=== PATIENT | female | born 1955 | race Caucasian/White ===

== ENCOUNTER 2019-05-05 07:22 | Emergency (ER) | payer OTHER ==
[~2019-05-05] VITALS: Ht 170.2 cm; Wt 80.3 kg
--- OUTSIDE RECORDS SUMMARY | ~2019-05-05 | XMS | Encounter Summary ---
Demographics + + + | Address | [address] | | | [place] [address] | + + + | Home Phone | | + + + | Preferred Language | Unknown | + + + | Marital Status | | + + + | Evangelical Affiliation | [id number] | + + + | Race | Unknown | + + + | Ethnic Group | Unknown | + + + Author + + + | Author | [facility] | | | and [place] | + + + | Organization | [facility] | | | and [place] | + + + | Address | Unknown | + + + | Phone | Unavailable | + + + Support + + +---------+ + | Name | Relationship | Address | Phone | + + +---------+ + | Brandon Silva | ECON | Unknown | | + + +---------+ + Care Team Providers + +------+ + | Care Adobe Cq Developer Name | Role | Phone | + +------+ + | Britton Chi MD | PCP | | + +------+ + Reason for Referral Diagnostic/Screening (Routine) +--------+--------+ + + + + | Status | Reason | Specialty | Diagnoses / | Referred By | Referred To | | | | | Procedures | Contact | Contact | +--------+--------+ + + + + | Closed | | Radiology | Diagnoses | [facility] | [address] | | | | | Malignant | Thanh C, DO | [address] | | | | | neoplasm of | [address] | [place], | | | | | upper-outer | [address] | [place] [address] | | | | | quadrant of | [place], | Phone: | | | | | right breast | [place] [address] | [phone] | | | | | in female, | Phone: | Fax: | | | | | estrogen | [phone] | [phone] | | | | | receptor | Fax: | | | | | | positive | [phone] | | | | | | (HCC) | | | | | | | Procedures | | | | | | | CT Treatment | | | | | | | Plan | | | | | | | Complex | | | +--------+--------+ + + + + Reason for Visit Evaluate & Treat (Routine) +--------+--------+ + + + + | Status | Reason | Specialty | Diagnoses / | Referred By | Referred To | | | | | Procedures | Contact | Contact | +--------+--------+ + + + + | Closed | | Radiation | Diagnoses | [facility] | Thanh Espinoza | | | | Oncology | Malignant | Radiation | C, DO [address] | | | | | neoplasm of | Oncology | [address] | | | | | upper-outer | Clinic [address] | [place], | | | | | quadrant of | [address] | [place] [address] | | | | | female | [place], | Phone: | | | | | breast | [place] | [phone] | | | | | Procedures | [address] | Fax: | | | | | [address] | Phone: | [phone] | | | | | | [phone] | | | | | | | Fax: | | | | | | | [phone] | | +--------+--------+ + + + + Encounter Details +--------+ + + + + | Date | Type | Department | Care Team | Description | +--------+ + + + + | 01/29/ | Hospital | [facility] | Thanh Espinoza DO | Malignant neoplasm | | 2018 | Encounter | [facility] | [address] | of upper-outer | | | | ONCOLOGY CLINIC [address] | [place], [place] | quadrant of right | | | | [address] [place] | [address] | breast in female, | | | | [place] [address] | | estrogen receptor | | | | [phone] | | positive (HCC) | | | | | | (Primary Dx) | +--------+ + + + + Social History + +-------+ +--------+------+ | Tobacco Use | Types | Packs/Day | Years | Date | | | | | Used | | + +-------+ +--------+------+ | Never Smoker | | | | | + +-------+ +--------+------+ + +---+---+---+ | Smokeless Tobacco: | | | | | Never Used | | | | + +---+---+---+ + + +---------+ + | Alcohol Use | Drinks/Week | oz/Week | Comments | + + +---------+ + | Yes | | | 2-3 drinks/day | + + +---------+ + + + + | Sex Assigned at | Date Recorded | | | | + + + | Not on file | | + + + + + + + | Job Start Date | Occupation | Industry | + + + + | Not on file | Not on file | Not on file | + + + + + + + + | Travel History | Travel Start | Travel End | + + + + + + | No recent travel history available. | + + documented as of this encounter Last Filed Vital Signs + + + + + | Vital Sign | Reading | Time Taken | Comments | + + + + + | Blood Pressure | 159/90 | 01/29/2018 10:31 AM | | | | | PDT | | + + + + + | Pulse | 77 | 01/29/2018 10:31 AM | | | | | PDT | | + + + + + | Temperature | 36.6 C (97.9 F) | 01/29/2018 10:31 AM | | | | | PDT | | + + + + + | Respiratory Rate | 16 | 01/29/2018 10:31 AM | | | | | PDT | | + + + + + | Oxygen Saturation | 97% | 01/29/2018 10:31 AM | | | | | PDT | | + + + + + | Inhaled Oxygen | - | - | | | Concentration | | | | + + + + + | Weight | 85.1 kg (187 lb 9.8 | 01/29/2018 10:31 AM | | | | oz) | PDT | | + + + + + | Height | - | - | | + + + + + | Body Mass Index | 30.28 | 01/18/2018 3:12 PM | | | | | PDT | | + + + + + documented in this encounter Medications at Time of Discharge + + + +---------+ + + | Medication | Sig | Dispensed | Refills | Start | End Date | | | | | | Date | | + + + +---------+ + + | atorvaSTATin | Take 40 mg by mouth | | 0 | | | | (LIPITOR) 40 mg | nightly. | | | | | | tablet | | | | | | + + + +---------+ + + | cyclobenzaprine | Take 1 tablet by | | 0 | 10/20/19 | | | (FLEXERIL) 5 MG | mouth every 6 hours | | | 18 | | | tablet | as needed. | | | | | + + + +---------+ + + | ibuprofen | every 8 hours as | | 0 | 01/02/20 | | | (ADVIL,MOTRIN) 600 | needed. | | | 18 | | | MG tablet | | | | | | + + + +---------+ + + | insulin aspart | Inject under the | | 0 | | | | (NOVOLOG FLEXPEN) | skin 3 times daily | | | | | | 100 units/mL | (before meals). Per | | | | | | injection pen | sliding scale | | | | | + + + +---------+ + + | insulin glargine | Inject under the | | 0 | | | | (LANTUS SOLOSTAR) | skin 2 times daily. | | | | | | 100 units/mL | 30 units AM, 10 | | | | | | injection (pen) | units PM | | | | | + + + +---------+ + + | LORazepam (ATIVAN) | Take 1 mg by mouth | | 0 | | | | 1 mg tablet | Daily as needed for | | | | | | | Anxiety. | | | | | + + + +---------+ + + | Multiple | Take 1 tablet by | | 0 | | | | Vitamins-Minerals | mouth Daily. | | | | | | (MULTIVITAMIN ADULT) | | | | | | | TABS | | | | | | + + + +---------+ + + | gabapentin | take 1 capsule by | | 0 | 01/19/20 | | | (NEURONTIN) 300 mg | mouth AT NIGHT for 3 | | | 18 | 9 | | capsule | days then take 2 | | | | | | | capsules ... (REFER | | | | | | | TO PRESCRIPTION | | | | | | | NOTES). | | | | | + + + +---------+ + + | gabapentin | 1 cap at night x3 | | 0 | 01/19/20 | | | (NEURONTIN) 300 mg | days, then 2 caps at | | | 18 | 9 | | capsule | night x4 days, then | | | | | | | continue taking 1 | | | | | | | cap every morning | | | | | | | and 2 caps at night. | | | | | + + + +---------+ + + | GABAPENTIN PO | Take 1 capsule by | | 0 | | | | | mouth 2 times daily. | | | | 8 | | | 1 capsule in the AM | | | | | | | and 2 capsules | | | | | | | before bed. | | | | | + + + +---------+ + + | lisinopril | Take 40 mg by mouth | | 0 | 10/08/19 | | | (PRINIVIL, ZESTRIL) | Daily. | | | 18 | 9 | | 20 mg tablet | | | | | | + + + +---------+ + + | lisinopril | | | 0 | 01/21/20 | | | (PRINIVIL,ZESTRIL) | | | | 18 | 8 | | 40 MG tablet | | | | | | + + + +---------+ + + | venlafaxine | Take 1 capsule by | | 0 | 10/12/19 | | | (EFFEXOR XR) 150 mg | mouth Daily. | | | 18 | 9 | | 24 hr capsule | | | | | | + + + +---------+ + + documented as of this encounter Progress Notes Thanh Espinoza DO - 01/29/2018 10:35 AM PDT Follow-up Clinic Note Chief Complaint/ICD10 ICD-10-CM ICD-9-CM 1. Malignant neoplasm of upper-outer quadrant of right breast in female, estrogen receptor positive (HCC) C50.411 174.4 Z17.0 V86.0 Oncology History: Lobular breast cancer, left (HCC) 09/23/2012 Biopsy Core biopsy demonstrating moderately differentiated infiltrating lobular carcinoma; low-g rade, ER/[place] positive, HER-2/zaid negative 09/23/2012 Initial Diagnosis Lobular breast cancer, right (HCC) 10/15/2012 Surgery Surgeon: Felipe Trevino M.D. Surgery indicated: Lumpectomy with sentinel lymph node biopsy Final pathology details: 8 mm invasive lobular carcinoma, grade 1, negative surgical margin s to 1 mm, negative LVSI, LCIS involving 10% of specimen, ER/[place] positive, HER-2/zaid negative by FISH. 11/25/2012 - 01/09/2013 Radiation Therapy Total dose: 6000 cGy Breast irradiation to 5000 cGy delivered in 25 fractions Lumpectomy cavity boost 1000 cGy delivered in 5 fractions 01/09/2013 - 08/14/2014 Hormone Therapy Anastrozole 1 mg Discontinued due to side effects Malignant neoplasm of upper-outer quadrant of right breast in female, estrogen receptor pos itive (HCC) 10/22/2017 Imaging Bilateral screening mammogram with tomosynthesis demonstrating abnormality in the right u pper-outer quadrant 10/30/2017 Imaging Diagnostic right mammogram with tomosynthesis confirms abnormality in the right breast pr ompting stereotactic biopsy 11/21/2017 Biopsy STEREOTACTIC GUIDED VACUUM ASSISTED RIGHT BREAST CORE BIOPSY Right breast stereo calcs: - Infiltrating ductal carcinoma with the following features: - Predicted [place] histologic score: - Tubule formation score: 3/3. - Nuclear grade score: 2/3. - Mitotic score: 1/3. - Tumor grade: II/III (total score 6/9). - Longest confluent tumor focus: 5.5 mm. - Lymph-Vascular invasion: Absent. - Associated in situ component: Present, low grade DCIS, solid type, without cent ral necrosis. - Microcalcifications present in in situ carcinoma. - Estrogen receptor: Positive. - 99% of tumor cells with strong average intensity. - Progesterone receptor: Positive. - 45% of tumor cells with moderate average intensity. - Ki-67 proliferation index: 12%. - HER2 by FISH: 11/21/2017 Initial Diagnosis Malignant neoplasm of upper-outer quadrant of right breast in female, estrogen receptor p ositive (HCC) 01/01/2018 Surgery Surgeon: Uriel Surgery indicated: Lumpectomy with sentinel lymph node biopsy Final pathology details: Invasive ductal adenocarcinoma measuring 0.6 cm intermediate grade with associated low-grade DCIS measuring 1.9 cm. 0/2 lymph nodes positive for aristeo metast atic disease. 1/1 node positive for isolated tumor cells totaling 25 cells less than 0.1 mm in size on immunostaining pT1b.pN0(i+) History of Present Illness: Melodie Silva was seen today in follow-up to discuss the role of radiotherapeutic management in her newly diagnosed right-sided breast cancer. She is a pleasant 62-year-old woman who was previously diagnosed with moderately differentiated infiltrating lobular carci nomainvolving the left breast with overall stage IA (T1b, N0, M0), ER/[place] positive disease that was treated with adjuvant whole breast radiotherapy. She previously discontinued anas trozole in early 2014 due to secondary side effects. At this time, she continues to have good range of motion of her left arm. She maintains an active lifestyle and exercising regu larly. She underwent routine screening bilateral mammogram performed on October 22, 2017 at which time I performed a breast examination during routine follow-up with negative findings and no tk dence of axillary lymphadenopathy. The final report confirms no new findings within the lef t breast; however, a new cluster of microcalcifications was found in the right breast in the lateral aspect at mid depth prompting a diagnostic mammogram performed October 30, 2017. This study confirmed interval development of a small cluster of round and punctate microcalcifica tions in the upper outer quadrant of the right breast at the 9:30 position. On November 21 8 she underwent a stereotactic guided vacuum-assisted right breast core biopsy confirming an intermediate grade ductal carcinoma that was strongly ER positive moderately [place] positive, H ER-2/zaid negative with negative LVSI and associated low-grade DCIS. Ki-67 was 12%. The res ults were discussed with her by Dr. Dye who initiated genetic testing that was found n egative. on January 01, 2018 she underwent lumpectomy with sentinel lymph node biopsy confirm ing a 6 mm intermediate grade invasive ductal carcinoma with associated low-grade DCIS measu ring 1.9 cm. 3 lymph nodes were sampled with one harboring isolated tumor cells totaling 25 with a measurement of 0.1 mm giving her an overall stage of Ia(pT1b,pN0(i+),cM0) breast can cer. Postoperatively, she has done well and presents today to discuss adjuvant radiation tr eatment options. ROS REVIEW OF SYSTEMS Constitutional: Denies fatigue. Denies high fevers, shaking chills, anorexia, nausea, vomit ing, weight loss, or night sweats. Appetite without changes. Ear, Nose, Mouth, Throat: Denies odynophagia, dysphagia, or tinnitus. Cardiovascular: Denies shortness of breath, dyspnea on exertion, chest pain, palpitations o r orthopnea. Respiratory: Reports mild intermittent cough, contributes this to the poor air quality. Den ies hemoptysis or sputum production. Gastrointestinal: Denies abdominal pain, constipation, diarrhea, melena, or bright red bloo d per rectum. Genitourinary: Denies hematuria or dysuria. Musculoskeletal: Reports back pain continues, unchanged. Neurologic: Reports numbness and tingling in bilateral feet, has worsened since last visit. Denies headache or visual changes. Endocrine: Denies peripheral edema or heat/cold intolerance. Hematologic: Denies spontaneous bruising or bleeding. Integumentary: Denies rash, wounds or other skin concerns. Pain: Denies pain. Note: Here for follow up s/p lumpectomy. Here with Ryder today. Reports "have a weird bone bump on left wrist, onset 6 weeks ago, states that it hurts hand with flexion and extension. My chart: Active Current Outpatient Prescriptions Medication Sig Dispense Refill atorvaSTATin (LIPITOR) 40 mg tablet Take 40 mg by mouth nightly. cyclobenzaprine (FLEXERIL) 5 MG tablet Take 1 tablet by mouth every 6 hours as needed. 0 GABAPENTIN PO Take 1 capsule by mouth 2 times daily. 1 capsule in the AM and 2 capsules before bed. insulin aspart (NOVOLOG FLEXPEN) 100 units/mL injection pen Inject under the skin 3 ti mes daily (before meals). Per sliding scale insulin glargine (LANTUS SOLOSTAR) 100 units/mL injection (pen) Inject under the skin 2 times daily. 28 units AM, 8 units PM lisinopril (PRINIVIL, ZESTRIL) 20 mg tablet Take 40 mg by mouth Daily. 0 LORazepam (ATIVAN) 1 mg tablet Take 1 mg by mouth Daily as needed for Anxiety. Multiple Vitamins-Minerals (MULTIVITAMIN ADULT) TABS Take 1 tablet by mouth Daily. venlafaxine (EFFEXOR XR) 150 mg 24 hr capsule Take 1 capsule by mouth Daily. 0 No current facility-administered medications for this encounter. Allergies Allergen Reactions Sulfa Antibiotics Rash Intolerance No active intolerances/contraindications BP 159/90 | Pulse 77 | Temp 36.6 C (97.9 F) (Temporal) | Resp 16 | Wt 85.1 kg (187 lb 9.8 oz) | SpO2 97% | BMI 29.45 kg/m Physical Exam Constitutional: She is oriented to person, place, and time. Vital signs are normal. She jorge l ears well-developed and well-nourished. HENT: Head: Normocephalic and atraumatic. Mouth/Throat: Mucous membranes are normal. Eyes: Conjunctivae and EOM are normal. No scleral icterus. Neck: Trachea normal. Neck supple. Cardiovascular: Normal rate, regular rhythm and intact distal pulses. Pulmonary/Chest: Effort normal and breath sounds normal. Musculoskeletal: Normal range of motion. Lymphadenopathy: She has no cervical adenopathy. Neurological: She is alert and oriented to person, place, and time. She has normal strength . No cranial nerve deficit. Skin: Skin is warm, dry and intact. Psychiatric: She has a normal mood and affect. Her speech is normal and behavior is normal. Judgment and thought content normal. Cognition and memory are normal. Labs: No results found for: WBC, HGB, HCT, MCV, LABPLAT, PLT No results found for: CREA, BUN, NA, K, CL, CO2 No results found for: ALT, AST, GGT, ALKPHOS, BILITOT Staging (if applicable): Cancer Staging Lobular breast cancer, left (HCC) Staging form: Breast, AJCC V7 - Clinical stage from 10/15/2012: Stage IA (T1b, N0, M0) - Signed by Thanh Espinoza DO on 10/23 Staged by: Managing physician Diagnostic confirmation: Positive histology Specimen type: Excision Histopathologic type: Lobular carcinoma, NOS Laterality: Left Tumor size (mm): 8 Method of lymph node assessment: [place] lymph node biopsy Method of detection of distant metastases: Clinical Tumor grade (Jolfjs-Lkyvt-Qfvcazjugx system): G1 Lymph-vascular invasion (LVI): LVI not present (absent)/not identified Residual tumor (R): R0 - None Paget's disease: Not assessed Estrogen receptor status: Positive Estrogen receptor test method: IHC Percentage of positive estrogen receptors (%): 100 Progesterone receptor test method: IHC Percentage of positive progesterone receptors (%): 10 HER2 status: Negative Method of assessment of HER2 status: FISH Stage used in treatment planning: Yes National guidelines used in treatment planning: Yes Type of national guideline used in treatment planning: NCCN Malignant neoplasm of upper-outer quadrant of right breast in female, estrogen receptor pos itive (HCC) Staging form: Breast, AJCC 8th Edition - Pathologic stage from 01/29/2018: Stage IA (pT1b, pN0(i+), cM0, G2, ER: Positive, [place]: Posi tive, HER2: Negative) - Signed by Thanh Espinoza DO on 01/30/2018 Neoadjuvant therapy: No Laterality: Right Tumor size (mm): 6 Nuclear grade: G2 Multigene prognostic tests performed: Other Mitotic count score: Score 1 Percentage of tumor with tubule formation: 0 Tubule formation score: Score 3 G[place]ge[place]-Hibfw-Aqokyoyvhb score: 6 Histologic grading system: 3 grade system Lymph-vascular invasion (LVI): LVI not present (absent)/not identified Histopathologic type: Ductal adenocarcinoma Diagnostic confirmation: Positive histology Specimen type: Excision Staged by: Managing physician Percentage of positive estrogen receptors (%): 95 Percentage of positive progesterone receptors (%): 3.9 Ki-67 (%): 7.2 Stage used in treatment planning: Yes National guidelines used in treatment planning: Yes Type of national guideline used in treatment planning: NCCN Impression with Recommendation/Plan: 1. Malignant neoplasm of upper-outer quadrant of right breast in female, estrogen receptor positive (HCC) - CT Treatment Plan Complex Melodie Silva was seen today to discuss adjuvant radiotherapy after developing a c ontralateral breast cancer approximately 5 years after a left sided invasive lobular that wa s treated by lumpectomy, adjuvant external beam radiotherapy with conventional fractionation and endocrine therapy that was discontinued due to intolerance. Upon diagnosis, genetic te sting was negative for mutation. Final path was reviewed. Today we discussed the role of a djuvant whole breast irradiation using a hypo-fractionated technique with boost followed by endocrine therapy as directed by her medical oncologist Dr. Velez upon completion of r adiotherapy. A hypo-fractionated course of whole breast radiotherapy delivered in 16 fracti ons following the [place] protocol followed by a lumpectomy boost will be used with a field i n field dosimetry technique. A high tangent approach will be used to include additional axi lla given the isolated tumor cells found upon final pathology. Acute and late side effects were discussed and reviewed from her prior consultation and she verbally agrees to proceed t o simulation followed by treatment. She was encouraged call our clinic with any further que stions or concerns moving forward. Thank you for allowing me to participate in the care of Melodie. If you should have any q uestions regarding this evaluation, please do not hesitate to contact me. Thanh Espinoza D.O., JUSTIN Radiation Oncologist Department of Radiation Oncology [facility] This note was transcribed using [employer] speech recognition software. As a result, there may be unintended for medical and/or spelling errors. Every attempt is made to correct dictati on. If there are any questions or errors please contact our office. documented in this enco unter Plan of Treatment +--------+ + + + + | Date | Type | Specialty | Care Team | Description | +--------+ + + + + | 01/11/ | Hospital | Radiology | Claudia Mccracken | | | 2020 | Encounter | | MD [address] | | | | | | [place], [place] | | | | | | [id number] | | | | | | | | +--------+ + + + + | 01/11/ | Appointment | Radiation Oncology | Thanh Espinoza DO | | | 2019 | | | [address] | | | | | | [place] | | | | | | [address] | | | | | | | | +--------+ + + + + documented as of this encounter Procedures + +--------+ + + + | Procedure Name | Priori | Date/Time | Associated Diagnosis | Comments | | | ty | | | | + +--------+ + + + | CT TREATMENT PLAN | Routin | 01/30/2018 | Malignant neoplasm | Results for this | | COMPLEX | e | 1:57 PM | of upper-outer | procedure are in the | | | | PDT | quadrant of right | results section. | | | | | breast in female, | | | | | | estrogen receptor | | | | | | positive (HCC) | | + +--------+ + + + documented in this encounter Results CT Treatment Plan Complex (01/30/2018 1:57 PM PDT) + + | Specimen | + + | | + + + + + | Narrative | Performed At | + + + | This exam has been auto-finalized and the interpretation may exist | [facility] | | elsewhere in the chart. | | + + + + +---------+ + + | Performing | Address | City/State/Zipcode | Phone Number | | Organization | | | | + +---------+ + + | [facility] | | | | + +---------+ + + documented in this encounter Visit Diagnoses + + | Diagnosis | + + | Malignant neoplasm of upper-outer quadrant of right breast in female, estrogen | | receptor positive (HCC) - Primary | + + documented in this encounter
--- OUTSIDE RECORDS SUMMARY | ~2019-05-05 | XMS | Encounter Summary ---
Demographics + + + | Address | [address] | | | [place] [address] | + + + | Home Phone | | + + + | Preferred Language | Unknown | + + + | Marital Status | | + + + | Yazidism Affiliation | 1076 | + + + | Race | Unknown | + + + | Ethnic Group | Unknown | + + + Author + + + | Author | [facility] | | | and [place] | + + + | Organization | [facility] | | | and [...] Team Providers + +------+ + | Care Sugar Cane Grower Name | Role | Phone | + +------+ + | Britton Chi MD | PCP | | + +------+ + Reason for Visit + + + | Reason | Comments | + + + | Under Treatment | | + + + Encounter Details +--------+ + + + + | Date | Type | Department | Care Team | Description | +--------+ + + + + | 02/07/ | Hospital | [facility] | Thanh Espinoza DO | Malignant neoplasm | | 2018 | Encounter | MED CTR RADIATION | [address] | of upper-outer | | | | ONCOLOGY CLINIC [address] | [place], [place] | quadrant of right | | | | [address] [place] | [address] | breast in female, | | | | [place] [address] | | estrogen receptor | | | | [phone] | | positive (HCC) | | | [...] + + + | Blood Pressure | 184/93 | 02/07/2018 10:50 AM | | | | | PDT | | + + + + + | Pulse | 80 | 02/07/2018 10:50 AM | | | | | PDT | | + + + + + | Temperature | 36.3 C (97.4 F) | 02/07/2018 10:50 AM | | | | | PDT | | + + + + + | Respiratory Rate | 16 | 02/07/2018 10:50 AM | | | | | PDT | | + + + + + | Oxygen Saturation | 99% | 02/07/2018 10:50 AM | | | | | PDT | | + + + + + | Inhaled Oxygen | - | - | | | Concentration | | | | + + + + + | Weight | 85 kg (187 lb 6.3 | 02/07/2018 10:50 AM | | | | oz) | PDT | | + + + + + | Height | - | - | | + + + + + | Body Mass Index | 30.25 | 01/18/2018 3:12 PM | | | [...] encounter Progress Notes Thanh Espinoza DO - 02/07/2018 10:54 AM PDT 02/07/18 1054 General Disorders and Administration Site Conditions Fatigue 0 - Grade 0 Performance Status Karnofsky Performance Score 80% Radiation Oncology Weekly On Treatment Note Diagnosis: ICD-10-CM ICD-9-CM 1. Malignant neoplasm of upper-outer quadrant of right breast in female, estrogen receptor positive (HCC) C50.411 174.4 Z17.0 V86.0 Reason for visit: On treatment evaluation Radiation technical factors: Dose Delivered Dose Planned Fractions Delivered 532 cGy 4256 cGy 07/27 Images were reviewed this week and results of the review have been recorded in ARIA. Corre ctions were applied as necessary. Allergies Allergen Reactions Sulfa Antibiotics Rash Current Outpatient Prescriptions on File Prior to Encounter Medication Sig Dispense Refill atorvaSTATin (LIPITOR) 40 [...] mouth Daily. 0 No current facility-administered medications on file prior to encounter. 02/07/18 1054 General Disorders and Administration Site Conditions Fatigue 0 - Grade 0 Performance Status Karnofsky Performance Score 80% Pain assessment: Location: NA Pain Level: PAIN PROG PAIN LEVEL: 0 Wt Readings from Last 3 Encounters: 02/07/18 85 kg (187 lb 6.3 oz) 01/29/18 85.1 kg (187 lb 9.8 oz) 12/06/17 81.6 kg (179 lb 14.3 oz) Vitals: 02/07/18 1050 BP: (!) 184/93 Pulse: 80 Resp: 16 Temp: 36.3 C (97.4 F) SpO2: 99% Weight: 85 kg (187 lb 6.3 oz) Physical Exam Constitutional: She is oriented to person, place, and time. Vital signs are normal. She jorge l ears well-developed and well-nourished. HENT: Head: Normocephalic and atraumatic. Eyes: Conjunctivae and EOM are normal. No scleral icterus. Neck: Trachea normal. Neck supple. Cardiovascular: Normal rate, regular rhythm and intact distal pulses. Pulmonary/Chest: Effort normal and breath sounds normal. Musculoskeletal: Normal range of motion. Neurological: She is alert and oriented to person, place, and time. She has normal strength . No cranial nerve deficit. Skin: Skin is warm, dry and intact. Psychiatric: She has a normal mood and affect. Her speech is normal and behavior is normal. Physician Assessment: New start this week. Tolerating treatment well. Toxicities reviewed. Pathology reviewed with patient. She will continue treatment as planned. Toxicities reviewed in nursing note. Disposition: Continue radiation treatment as planned. Thanh Espinoza DO Radiation Oncologist documented in this enco unter Plan of Treatment +--------+ + + + + | Date | Type | Specialty | Care Team | Description | +--------+ + + + + | 01/11/ | Hospital | Radiology | Claudia Mccracken | | | 2019 | Encounter | | MD Jaky [address] | | | | | | [address] [place] | | | | | | [address] | | | | | | | | +--------+ + + + + | 01/11/ | Appointment | Radiation Oncology | Thanh Espinoza DO | | | 2019 | | | [address] | | | | | | [place] | | | | | | [address] | | | | | | | | +--------+ + + + + documented as of this encounter Visit Diagnoses + + | Diagnosis | + + | Malignant neoplasm of upper-outer quadrant of right breast in female, estrogen | | receptor positive (HCC) - Primary | + + documented in this encounter"
--- OUTSIDE RECORDS SUMMARY | ~2019-05-05 | XMS | Encounter Summary ---
Demographics + + + | Address | [address] | | | [place] [address] | + + + | Home Phone | | + + + | Preferred Language | Unknown | + + + | Marital Status | | + + + | Evangelical Affiliation | 1076 | + + + | Race | Unknown | + + + | Ethnic Group | Unknown | + + + Author + + + | Author | [facility] | | | and [place] | + + + | Organization | [facility] | | | and [...] Team Providers + +------+ + | Care Motor Equipment Commanding Officer Name | Role | Phone | + +------+ + | Britton Chi MD | PCP | | + +------+ + Encounter Details +--------+ + + + + | Date | Type | Department | Care Team | Description | +--------+ + + + + | 12/20/ | Hospital | C GENERIC IP | Conversion | Pain | | 2018 | Encounter | CONVERSION DEP [address] | Transaction, | | | | | [address] | Provider Unknown | | | | | [place] | [phone] | | | | | [address] | | | | | | [phone] | | | +--------+ + + + + Social [...] + + documented as of this encounter Medications at Time of Discharge [...] + + + +---------+ + + | aspirin 325 mg EC | Take 325 mg by mouth | | 0 | | | | tablet | Daily. | | | | 8 | + + + +---------+ + + [...] + + documented as of this encounter Plan of Treatment +--------+ + + + + | Date | Type | Specialty | Care Team | Description | +--------+ + + + + | 01/11/ | Hospital | Radiology | Claudia Mccracken | | | 2019 | Encounter | | MD [address] | | | | | | [place] | | | | | | [address] | | | | | | | | +--------+ + + + + | 01/11/ | Appointment | Radiation Oncology | Thanh Espionza DO | | | 2019 | | | [address] | | | | | | [place] | | | | | | [address] | | | | | | | | +--------+ + + + + documented as of this encounter Procedures + +--------+ + + + | Procedure Name | Priori | Date/Time | Associated Diagnosis | Comments | | | ty | | | | + +--------+ + + + | XR LUMBAR SPINE 4 + | Routin | 09/07/2017 | | Results for this | | VW | e | 1:35 AM | | procedure are in the | | | | PDT | | results section. | + +--------+ + + + documented in this encounter Results XR Lumbar Spine 4 + Vw (09/07/2017 1:35 AM PDT) + + | Specimen | + + | | + + + + + | Narrative | Performed At | + + + | This is a non-reportable procedure without a radiologist report and | | | is used for image storage only | | + + + + + | Procedure Note | + + | Tom Walker - 01/22/2019 8:23 AM PDT This is a non-reportable procedure | | without a radiologist report and isused for image storage only | + + documented in this encounter Visit Diagnoses + + | Diagnosis | + + | Pain Generalized pain | + + documented in this encounter"
--- OUTSIDE RECORDS SUMMARY | ~2019-05-05 | XMS | Encounter Summary ---
Demographics + + + | Address | [address] | | | [place] [address] | + + + | Home Phone | | + + + | Preferred Language | Unknown | + + + | Marital Status | | + + + | Mormonism Affiliation | 1076 | + + + | Race | Unknown | + + + | Ethnic Group | Unknown | + + + Author + + + | Author | [facility] | | | and [place] | + + + | Organization | [facility] | | | and [...] Team Providers + +------+ + | Care Investor Relations Specialist Name | Role | Phone | + +------+ + | Kiet Dunlap MD | PCP | | + +------+ + Encounter Details +--------+ + + + + | Date | Type | Department | Care Team | Description | +--------+ + + + + | 06/22/ | Nurse Only | [facility] | Thanh Espinoza DO | | | 2014 | | MED CTR RADIATION | [address] | | | | | ONCOLOGY [address] | [place], [place] | | | | | [place], | [address] | | | | | [place] [address] | | | | | | [phone] | | | +--------+ + + + + Social History + +-------+ +--------+------+ | Tobacco Use | Types | Packs/Day | Years | Date | | | | | Used | | + +-------+ +--------+------+ | Never Assessed | | | | | + +-------+ +--------+------+ + + + | Sex Assigned at [...] [place] | | | | | | [address] | | | | | | | | +--------+ + + + + | 01/11/ | Appointment | Radiation Oncology | Thanh Espinoza DO | | 2019 | | | [address] | | | | | | [place] | | | | | | [address] | | | | | | | | +--------+ + + + + documented as of this encounter Visit Diagnoses Not on filedocumented in this encounter"
--- OUTSIDE RECORDS SUMMARY | ~2019-05-05 | XMS | Encounter Summary ---
Demographics + + + | Address | [address] | | | [place] [address] | + + + | Home Phone | | + + + | Preferred Language | Unknown | + + + | Marital Status | | + + + | Latter-Day Affiliation | 1076 | + + + | Race | Unknown | + + + | Ethnic Group | Unknown | + + + Author + + + | Author | [facility] | | | and [place] | + + + | Organization | [facility] | | | [...] Team Providers + +------+ + | Care Magazine Filler Name | Role | Phone | + [...] + + | 02/07/ | Hospital | [facility] | Thanh Espinoza DO | Malignant neoplasm | | 2018 | Encounter | MED CTR RADIATION | [address] | of upper-outer | | | | ONCOLOGY CLINIC [address] | [place], [place] | quadrant of right | | | | [address] [place] | [address] | breast in female, | | | | [place] [address] | | estrogen receptor | | | | [phone] | | positive (HCC) | | | [...] [place] | | | | | | [address] | | | | | | | | +--------+ + + + + | 01/11/ | Appointment | Radiation Oncology | Thanh Espinoza DO | | | 2019 | | | [address] | | | | | | [place] | | | | | | [address] | | | | | | | | +--------+ + + + + documented as of this encounter Visit Diagnoses + + | Diagnosis | + + | Malignant neoplasm of upper-outer quadrant of right breast in female, estrogen | | receptor positive (HCC) - Primary | + + documented in this encounter"
--- OUTSIDE RECORDS SUMMARY | ~2019-05-05 | XMS | Encounter Summary ---
Demographics + + + | Address | [address] | | | [place] [address] | + + + | Home Phone | | + + + | Preferred Language | Unknown | + + + | Marital Status | | + + + | Oriental Orthodox Affiliation | 1076 | + + + [...] Team Providers + +------+ + | Care Die Holder Name | Role | Phone | + +------+ + | Britton Chi MD | PCP | | + +------+ + Reason for Visit Evaluate & Treat (Routine) +--------+ + + + + + | Status | Reason | Specialty | Diagnoses / | Referred By | Referred To | | | | | Procedures | Contact | Contact | +--------+ + + + + + | Closed | Specialty | Oncology | Diagnoses | [facility] | | | | Services | | Malignant | Claudia M, | Agustin, | | | Required | | neoplasm of | [address] | Dimas Mckay MD | | | | | right breast | [address] | [address] | | | | | in female, | [place], | [place] | | | | | estrogen | [place] [address] | [place], [place] | | | | | receptor | Phone: | [phone] Phone: | | | | | negative, | [phone] | [phone] | | | | | unspecified | Fax: | Fax: | | | | | site of | [phone] | [phone] | | | | | breast (HCC) | | | +--------+ + + + + + Encounter Details +--------+ + + + + | Date | Type | Department | Care Team | Description | +--------+ + + + + | 12/06/ | Hospital | [facility] | Agustin, | Lobular breast | | 2018 | Encounter | MED CTR MEDICAL | Dimas Mckay MD [address] | cancer, left (HCC); | | | | ONCOLOGY CLINIC [address] | [address] [place] | Malignant neoplasm | | | | [address] [place] | [place] [address] | of upper-outer | | | | [place] [address] | [phone] | quadrant of right | | | | [phone] | | breast in female, | | | | | | estrogen receptor | | | | | | positive (HCC) | +--------+ + + + + Social [...] + + + | Blood Pressure | 162/87 | 12/06/2017 3:54 PM | | | | | PDT | | + + + + + | Pulse | 89 | 12/06/2017 3:54 PM | | | | | PDT | | + + + + + | Temperature | 35.7 C (96.3 F) | 12/06/2017 3:54 PM | | | | | PDT | | + + + + + | Respiratory Rate | 16 | 12/06/2017 3:54 PM | | | | | PDT | | + + + + + | Oxygen Saturation | 99% | 12/06/2017 3:54 PM | | | | | PDT | | + + + + + | Inhaled Oxygen | - | - | | | Concentration | | | | + + + + + | Weight | 81.6 kg (179 lb 14.3 | 12/06/2017 3:54 PM | | | | oz) | PDT | | + + + + + | Height | 170 cm (5' 6.93") | 12/06/2017 3:54 PM | | | | | PDT | | + + + + + | Body Mass Index | 28.24 | 12/06/2017 3:54 PM | | | | | PDT [...] [address] | | | | | | [facility] | | | | | | [id number] | | | | | | | | +--------+ + + + + | 01/11/ | Appointment | Radiation Oncology | Thanh Espinoza DO | | | 2019 | | | [address] | | | | | | [place] | | | | | | [address] | | | | | | | | +--------+ + + + + documented as of this encounter Procedures + +--------+ + + + | Procedure Name | Priori | Date/Time | Associated Diagnosis | Comments | | | ty | | | | + +--------+ + + + | PATHOLOGY - EXTERNAL | | 01/01/2018 | | Results for this | | SCAN | | 12:00 AM | | procedure are in the | | | | PDT | | results section. | + +--------+ + + + documented in this encounter Results PATHOLOGY - EXTERNAL SCAN (01/01/2018 12:00 AM PDT) + + + | Narrative | Performed At | + + + | Ordered by an | | | unspecified provider. | | + + + documented in this encounter Visit Diagnoses + + | Diagnosis | + + | Lobular breast cancer, left (HCC) | + + | Malignant neoplasm of upper-outer quadrant of right breast in female, estrogen | | receptor positive (HCC) | + + documented in this encounter
--- OUTSIDE RECORDS SUMMARY | ~2019-05-05 | XMS | Encounter Summary ---
Demographics + + + | Address | [address] | | | [place] [address] | + + + | Home Phone | | + + + | Preferred Language | Unknown | + + + | Marital Status | | + + + | Taoism Affiliation | 1076 | + + + | Race | Unknown | + + + | Ethnic Group | Unknown | + + + Author + + + | Author | [facility] | | | and [place] | + + + | Organization | [facility] | | [...] Team Providers + +------+ + | Care Clerical Support Name | Role | Phone | + +------+ + | Kiet Dunlap MD | PCP | | + +------+ + Encounter Details +--------+ + + + + | Date | Type | Department | Care Team | Description | +--------+ + + + + | 12/10/ | Hospital | [facility] | Thanh Espinoza DO | | | 2012 - | Encounter | MED CTR CANCER | [address] | | | | | CENTER [address] | [place], [place] | | | 01/08/ | | [place] | [address] | | | 2012 | | [address] | | | | | | [phone] | | | +--------+ + + + [...] | Radiology | Claudia Mccracken | | 2019 | Encounter | | MD [address] Starkey | | | | | | [place] | | | | | | [address] | | | | | | | [...]
--- OUTSIDE RECORDS SUMMARY | ~2019-05-05 | XMS | Encounter Summary ---
Demographics + + + | Address | [address] | | | [place] [address] | + + + | Home Phone | | + + + | Preferred Language | Unknown | + + + | Marital Status | | + + + | Quaker Affiliation | 1076 | + + + | Race | Unknown | + + + | Ethnic Group | Unknown | + + + Author + + + | Author | [facility] | | | and [place] | + + + | Organization | [facility] | | | [...] Team Providers + +------+ + | Care Index Editor Name | Role | Phone | + +------+ + | Britton Chi MD | PCP | | + +------+ + Encounter Details +--------+ + + + + | Date | Type | Department | Care Team | Description | +--------+ + + + + | 12/04/ | Imaging | [facility] | Provider, | | | 2018 | Exam | MED CTR EXTERNAL | [address] | | | | | IMAGING | [place] | | | | | [phone] | [place] [address] | | +--------+ + + + + [...] | 2020 | Encounter | | MD Jaky [address] | | | | | | [address] [place] | | | | | | [address] | | | | | | | | +--------+ + + + + | 01/11/ | Appointment | Radiation Oncology | Thanh Espinoza DO | | | 2019 | | | [address] | | | | | | [place] | | | | | | [address] | | | | | | | | +--------+ + + + + documented as of this encounter Procedures + +--------+ + + + | Procedure Name | Priori | Date/Time | Associated Diagnosis | Comments | | | ty | | | | + +--------+ + + + | XR LUMBAR SPINE | Routin | 09/13/2017 | | Results for this | | COMPLETE INCLUDING | e | 12:10 PM | | procedure are in the | | BENDING 6 + VW | | PDT | | results section. | + +--------+ + + + documented in this encounter Results XR Lumbar Spine Complete With Bending 6+ (09/13/2017 12:10 PM PDT) + + | Specimen | + + | | + + + + + | Narrative | Performed At | + + + | External films for comparison only | [facility] | | | | | No results will be in the chart. | | + + + + +---------+ + + | Performing | Address | City/State/Zipcode | Phone Number | | Organization | | | | + +---------+ + + | [facility] | | | | + +---------+ + + documented in this encounter Visit Diagnoses Not on filedocumented in this encounter"
--- OUTSIDE RECORDS SUMMARY | ~2019-05-05 | XMS | Encounter Summary ---
Demographics + + + | Address | [address] | | | [place] [address] | + + + | Home Phone | | + + + | Preferred Language | Unknown | + + + | Marital Status | | + + + | Worship Affiliation | 1076 | + + + | Race | Unknown | + + + | Ethnic Group | Unknown | + + + Author + + + | Author | [facility] | | | and [place] | + + + | Organization | [facility] | | [...] Team Providers + +------+ + | Care Neurology Manager Name | Role | Phone | + +------+ + | Kiet Dunlap MD | PCP | | + +------+ + Encounter Details +--------+ + + + + | Date | Type | Department | Care Team | Description | +--------+ + + + + | 10/20/ | Orders Only | [facility] | Thanh Espinoza DO | Breast cancer | | 2016 | | MED CTR RADIATION | [address] | screening, high risk | | | | ONCOLOGY [address] | [place], [place] | patient (Primary | | | | [place], | [address] | Dx) | | | | [place] [address] | | | | | | [phone] | | | +--------+ + + + [...] Encounter | | MD Jaky [address] | | | | | | [address] [place] | | | | | | [address] | | | | | | | | +--------+ + + + + | 01/11/ | Appointment | Radiation Oncology | Thanh Espinoza DO | | | 2019 | | | [address] | | | | | | [place] | | | | | | [address] | | | | | | | | +--------+ + + + + + +---------+--------+ + + | Name | Type | Priori | Associated Diagnoses | Order Schedule | | | | ty | | | + +---------+--------+ + + | [facility] | Imaging | Routin | Breast cancer | Expected: | | Screening Bilateral | | e | screening, high risk | 10/09/2016, Expires: | | | | | patient | 12/20/2016 | + +---------+--------+ + + documented as of this encounter Visit Diagnoses + + | Diagnosis | + + | Breast cancer screening, high risk patient - Primary Screening mammogram for | | high-risk patient | + + documented in this encounter"
--- OUTSIDE RECORDS SUMMARY | ~2019-05-05 | XMS | Encounter Summary ---
Demographics + + + | Address | [address] | | | [place] [address] | + + + | Home Phone | | + + + | Preferred Language | Unknown | + + + | Marital Status | | + + + | Mormon Affiliation | 1076 | + + + [...] Team Providers + +------+ + | Care Paring Machine Operator Name | Role | Phone | + [...] | +--------+ + + + + | 02/14/ | Hospital | [facility] | Thanh Espinoza DO | Malignant neoplasm | | 2018 | Encounter | MED CTR RADIATION | [address] | of upper-outer | | | | ONCOLOGY CLINIC [address] | [place], [place] | quadrant of right | | | | [address] [place] | [id number] | breast in female, | | | | [place] [address] | | estrogen receptor | | | | [phone] | | positive (HCC) | | | [...] + + + | Blood Pressure | 156/93 | 02/14/2018 10:57 AM | | | | | PDT | | + + + + + | Pulse | 84 | 02/14/2018 10:57 AM | | | | | PDT | | + + + + + | Temperature | 36.7 C (98.1 F) | 02/14/2018 10:57 AM | | | | | PDT | | + + + + + | Respiratory Rate | 18 | 02/14/2018 10:57 AM | | | | | PDT | | + + + + + | Oxygen Saturation | 99% | 02/14/2018 10:57 AM | | | | | PDT | | + + + + + | Inhaled Oxygen | - | - | | | Concentration | | | | + + + + + | Weight | 85.3 kg (188 lb 0.8 | 02/14/2018 10:57 AM | | | | oz) | PDT | | + + + + + | Height | - | - | | + + + + + | Body Mass Index | 29.9 | 02/12/2018 9:09 AM | | | | | PDT [...] 8 hours as | | 0 | / | | | (ADVIL,MOTRIN) 600 | needed. [...] documented as of this encounter Progress Notes Lord Thanh Nely, DO - 02/14/2018 11:01 AM PDT Radiation Oncology Weekly On Treatment Note Diagnosis: ICD-10-CM ICD-9-CM 1. Malignant neoplasm of upper-outer quadrant of right breast in female, estrogen receptor positive (HCC) C50.411 174.4 Z17.0 V86.0 Reason for visit: On treatment evaluation Radiation technical factors: Dose Delivered Dose Planned Fractions Delivered 1596 cGy 4256 cGy 11/24 Images were reviewed this week and results [...] facility-administered medications on file prior to encounter. 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 Cognition and memory are normal. Physician Assessment: Overall, she is tolerating treatment well. We discussed rationale for boost treatment to t he lumpectomy cavity and time course therein. Skin care reviewed. Toxicities reviewed. Sh carmen will undergo spinal fusion by Dr. Bonilla 2 weeks after completing her radiotherapeutic cou rse. Toxicities reviewed in nursing note. Disposition: Continue [...] [place] | | | | | | [address] | | | | | | | | +--------+ + + + + | 01/11/ | Appointment | Radiation Oncology | Thanh Espinoza DO | | | 2019 | | | [address] | | | | | | [place] | | | | | | [address] | | | | | | | | +--------+ + + + + documented as of this encounter Visit Diagnoses + + | Diagnosis | + + | Malignant neoplasm of upper-outer quadrant of right breast in female, estrogen | | receptor positive (HCC) - Primary | + + documented in this encounter"
--- OUTSIDE RECORDS SUMMARY | ~2019-05-05 | XMS | Encounter Summary ---
Demographics + + + | Address | [address] | | | [place] [address] | + + + | Home Phone | | + + + | Preferred Language | Unknown | + + + | Marital Status | | + + + | Sikh Affiliation | 1076 | + + + | Race | Unknown | + + + | Ethnic Group | Unknown | + + + Author + + + | Author | [facility] | | | and [place] | + + + | Organization | [facility] | | | [...] Team Providers + +------+ + | Care Endodontics Dentist Name | Role | Phone | + +------+ + | Kiet Dunlap MD | PCP | | + +------+ + Encounter Details +--------+ + + + + | Date | Type | Department | Care Team | Description | +--------+ + + + + | 08/25/ | Hospital | [facility] | Thanh Espinoza DO | | | 2014 | Encounter | MED [facility] CAN[facility] | [address] | | | | | CENTER [address] | [place], [place] | | | | | [place], [place] | [address] | | | | | [address] | | | | | | [phone] | | | +--------+ + + + [...] | +--------+ + + + + | 08/03/ | Hospital | Radiology | Claudia Mccracken | | | 2019 | Encounter | | MD [address] | | | | | | [place] | | | | | | [address] | | | | | | | | +--------+ + + + + | 01/11/ | Appointment | Radiation Oncology | Thanh Espinoza DO | | | 2019 | | | [address] | | | | | | [place] | | | | | | [address] | | | | | | | | +--------+ + + + + documented as of this encounter Visit Diagnoses Not on filedocumented in this encounter"
--- OUTSIDE RECORDS SUMMARY | ~2019-05-05 | XMS | Encounter Summary ---
Demographics + + + | Address | [address] | | | [place] [address] | + + + | Home Phone | | + + + | Preferred Language | Unknown | + + + | Marital Status | | + + + | Gnosticist Affiliation | 1076 | + + + | Race | Unknown | + + + | Ethnic Group | Unknown | + + + Author + + + | Author | [facility] | | | and [place] | + + + | Organization | [facility] | | | and [...] Team Providers + +------+ + | Care Cultural Historian Name | Role | Phone | + +------+ + | Kiet Dunlap MD | PCP | | + +------+ + Encounter Details +--------+ + + + + | Date | Type | Department | Care Team | Description | +--------+ + + + + | 09/10/ | Orders Only | [facility] | Lord, Thanh C, DO | Malignant neoplasm | | 2014 | | MED CTR RADIATION | [address] | of upper-outer | | | | ONCOLOGY [address] | [place], [place] | quadrant of female | | | | [place], | [address] | breast, left (HCC) | | | | [place] [address] | | (Primary Dx) | | | | [phone] | | | +--------+ + + + [...] [place] | | | | | | [address] | | | | | | | | +--------+ + + + + | 01/11/ | Appointment | Radiation Oncology | Thanh Espinoza DO | | | 2019 | | | [address] | | | | | | [place] | | | | | | [address] | | | | | | | | +--------+ + + + + + +---------+--------+ + + | Name | Type | Priori | Associated Diagnoses | Order Schedule | | | | ty | | | + +---------+--------+ + + | LEILA Tomosynthesis | Imaging | Routin | Malignant neoplasm | Expected: | | Screening Bilateral | | e | of upper-outer | 09/10/2013, Expires: | | | | | quadrant of female | 11/10/2014 | | | | | breast, left (HCC) | | + +---------+--------+ + + documented as of this encounter Visit Diagnoses + + | Diagnosis | + + | Malignant neoplasm of upper-outer quadrant of female breast, left - Primary | + + documented in this encounter"
--- OUTSIDE RECORDS SUMMARY | ~2019-05-05 | XMS | Encounter Summary ---
Demographics + + + | Address | [address] | | | [place] [address] | + + + | Home Phone [...] + + | Author | [facility] | | | and [place] | + + + | Organization | [facility] | | [...] Team Providers + +------+ + | Care Technology Assistant Name | Role | Phone | + +------+ + | Britton Chi MD | PCP | | + +------+ + Reason for Visit + + + | Reason | Comments | + + + | Scheduling Issues | | + + + Encounter Details +--------+ + + + + | Date | Type | Department | Care Team | Description | +--------+ + + + + | 01/01/ | Telephone | [facility] | [facility] | Scheduling Issues | | 2018 | | MED CTR MEDICAL | J, RN | | | | | ONCOLOGY CLINIC [address] | | | | | | [address] | | | | | | [place] [address] | | | | | | [phone] | | | +--------+ + + + [...] [place] | | | | | | [address] | | | | | | | | +--------+ + + + + | 01/11/ | Appointment | Radiation Oncology | Thanh Espinoza DO | | | 2019 | | | [address] | | | | | | [place] | | | | | | [address] | | | | | | | | +--------+ + + + + documented as of this encounter Visit Diagnoses Not on filedocumented in this encounter"
--- OUTSIDE RECORDS SUMMARY | ~2019-05-05 | XMS | Encounter Summary ---
Demographics + + + | Address | [address] | | | [place] [address] | + + + | Home Phone | | + + + | Preferred Language | Unknown | + + + | Marital Status | | + + + | Yazidism Affiliation | 1076 | + + + | Race | Unknown | + + + | Ethnic Group | Unknown | + + + Author + + + | Author | [facility] | | | and [place] | + + + | Organization | [facility] | | | and [...] Team Providers + +------+ + | Care Respiratory Therapy Director Name | Role | Phone | + +------+ + | Kiet Dunlap MD | PCP | | + +------+ + Reason for Visit +--------+ + | Reason | Comments | +--------+ + | Other | | +--------+ + Encounter Details +--------+ + + + + | Date | Type | Department | Care Team | Description | +--------+ + + + + | 10/05/ | Telephone | [facility] | Thanh Espinoza DO | Other | | 2014 | | MED CTR RAD[facility]ATION | [address] | | | | | ONCOLOGY [address] | [place], [place] | | | | | [place], | [address] | | | | | [place] [address] | | | | | | [phone] | | | +--------+ + + + [...] [place] | | | | | | [id number] | | | | | | | [...]
--- OUTSIDE RECORDS SUMMARY | ~2019-05-05 | XMS | Encounter Summary ---
Demographics + + + | Address | [address] | | | [place] [address] | + + + | Home Phone | | + + + | Preferred Language | Unknown | + + + | Marital Status | | + + + | Muslim Affiliation | 1076 | + + + | Race | Unknown | + + + | Ethnic Group | Unknown | + + + Author + + + | Author | [facility] | | | and [place] | + + + | Organization | [facility] | | | and [...] Team Providers + +------+ + | Care Chief Administrative Officer Name | Role | Phone | + +------+ + | Britton Chi MD | PCP | | + +------+ + Encounter Details +--------+ + + + + | Date | Type | Department | Care Team | Description | +--------+ + + + + | 03/06/ | Documentati | [facility] | Thanh Espinoza DO | | | 2018 | on | MED CTR RADIATION | [address] | | | | | ONCOLOGY CLINIC [address] | [place] | | | | | [place] | [address] | | | | | [place] [address] | | | | | | [phone] | | | +--------+ + + + [...] encounter Progress Notes Thanh Espinoza DO - 03/06/2018 2:34 PM PDT Radiation Treatment Summary Diagnosis: C50.411 - Malignant neoplasm of upper-outer quadrant of right female breast, Treatment Summary: Melodie Silva recently completed a definitive course of radiation treatment with e xternal beam radiation therapy. Melodie was treated in our clinic between the dates of - 03/06/2018. Course: R_BREAST Plan ID Fractions First Treatment Last Treatment R_BRST 10x 02/06/2018 02/28/2018 R_BRSTBST 10x 03/01/2018 03/06/2018 Intent: Curative Prescription: R_BREAST (Plan ID - R_BRSTBST 10x) - Rx Dose 1,000cGy (Status - Treatment Approved) - R_BREAST (Plan ID - R_BRST 10x) - Rx Dose 4,256cGy (Status - Treatment Approved) - Treatment Technique: 3-D Wnmbj-Bm-Reuwr Treatment Summary: Course: R_BREAST Treatment Site Energy Dose/Fx (cGy) #Fx Total Dose (cGy) Start Date End Date Elapsed Days R_BRSTBST 10x 10X 250 1,000 03/01/2018 03/06/2018 5 merged flds 10X 266 4,256 02/06/2018 02/28/2018 22 Total: 5,256 02/06/2018 03/06/2018 28 Assessment: Melodie Silva completed the planned course of course of external beam radiation th erapy uneventfully and without any unexpected complications. On the last day of treatment, s he was evaluated and discharged in stable condition with skin care instructions. She will follow-up with medical oncology as previously scheduled for initiation of endocrine therapy in the adjuvant setting. Disposition: 1. Follow-up in our clinic: October 2018 after screening bilateral mammogram. 2. Coordination of care will be arranged between providers for future visits. Additional follow-up care will be planned according to applicable NCCN guidelines and [facility] protocol with appropriate labs and imaging as indicated by diagnosis and stage. Melodie Silva was encouraged to call our clinic with any further questions or concerns. Thank you for allowing me to participate in her care. If you should have any questions rega rding this treatment summary, please do not hesitate to contact me. Thanh Espinoza DO Radiation Oncologist Department of Radiation Oncology [facility] This note was transcribed using Qapa speech recognition software. As a result, there may be unintended for medical and/or spelling errors. Every attempt is made to correct dictati on. If there are any questions or errors please contact our office. CC: Patient Care Team: Britton Chi MD as PCP - General (Family Medicine) Thanh Espinoza DO as Physician (Radiation Oncology) Claudia Mccracken MD as Physician (Radiation Oncology) Dimas Velez MD as Consulting Physician (Medical Oncology) documented in this enco unter Plan of Treatment +--------+ + + + + | Date | Type | Specialty | Care Team | Description | +--------+ + + + + | 01/11/ | Hospital | Radiology | Claudia Mccracken | | | 2020 | Encounter | | MD [address] | | | | | | [place] | | | | | | [address] | | | | | | | | +--------+ + + + + | 01/11/ | Appointment | Radiation Oncology | Thanh Espinoza DO | | | 2020 | | | [address] | | | | | | [place] | | | | | | [address] | | | | | | | | +--------+ + + + + documented as of this encounter Visit Diagnoses Not on filedocumented in this encounter"
--- OUTSIDE RECORDS SUMMARY | ~2019-05-05 | XMS | Encounter Summary ---
Demographics + + + | Address | [address] | | | [place] [address] | + + + | Home Phone | | + + + | Preferred Language | Unknown | + + + | Marital Status | | + + + | Scientologist Affiliation | 1076 | + + + | Race | Unknown | + + + | Ethnic Group | Unknown | + + + Author + + + | Author | [facility] | | | and [place] | + + + | Organization | [facility] | | | [...] Team Providers + +------+ + | Care Strategic Planning Analyst Name | Role | Phone | + +------+ + | Britton Chi MD | PCP | | + +------+ + Encounter Details +--------+ + + + + | Date | Type | Department | Care Team | Description | +--------+ + + + + | 01/14/ | Hospital | [facility] | Thanh Espinoza DO | | | 2018 | Encounter | MED CTR RADIATION | [address] | | | | | ONCOLOGY [address] | [place], [place] | | | | | [place], | [address] | | | | | [place] [address] | | | | | | [phone] | | | +--------+ + + + [...] 1 tablet by | | 0 | 05/11/20 | | | (FLEXERIL) 5 MG | mouth every 6 hours | | | 18 | | | tablet | as needed. | | | | | + + + +---------+ + + | ibuprofen | every 8 hours as | | 0 | 07/24/20 | | | (ADVIL,MOTRIN) 600 | needed. [...] | | | | | | [place] | | | | | | [address] | | | | | | | | +--------+ + + + + | 01/11/ | Appointment | Radiation Oncology | Thanh Espinoza DO | | | 2019 | | | [address] | | | | | | [place] | | | | | | [address] | | | | | | | | +--------+ + + + + documented as of this encounter Visit Diagnoses Not on filedocumented in this encounter"
--- OUTSIDE RECORDS SUMMARY | ~2019-05-05 | XMS | Encounter Summary ---
Demographics + + + | Address | [address] | | | [place] [address] | + + + | Home Phone | | + + + | Preferred Language | Unknown | + + + | Marital Status | | + + + | Jew Affiliation | 1076 | + + + | Race | Unknown | + + + | Ethnic Group | Unknown | + + + Author + + + | Author | [facility] | | | and [place] | + + + | Organization | [facility] | | [...] Team Providers + +------+ + | Care Rn Telemetry Name | Role | Phone | + +------+ + | Kiet Dunlap MD | PCP | | + +------+ + Encounter Details +--------+ + + + + | Date | Type | Department | Care Team | Description | +--------+ + + + + | 09/10/ | Orders Only | [facility] | Lord, Thanh C, DO | Malignant neoplasm | | 2014 | | MED CTR RADIATION | [address] | of upper-outer | | | | ONCOLOGY [address] | [place], [place] | quadrant of female | | | | [place], | [address] | breast, left (HCC) | | | | [place] [address] | | (Primary Dx) | | | | [phone] | | | +--------+ + + + [...] [place] | | | | | | [address] | | | | | | | | +--------+ + + + + | 01/11/ | Appointment | Radiation Oncology | Thanh Espinoza DO | | | 2019 | | | [address] | | | | | | [place] | | | | | | [address] | | | | | | | [...]
--- OUTSIDE RECORDS SUMMARY | ~2019-05-05 | XMS | Encounter Summary ---
Demographics + + + | Address | [address] | | | [place] [address] | + + + | Home Phone | | + + + | Preferred Language | Unknown | + + + | Marital Status | | + + + | Jainism Affiliation | 1076 | + + + | Race | Unknown | + + + | Ethnic Group | Unknown | + + + Author + + + | Author | [facility] | | | and [place] | + + + | Organization | [facility] | | | and [place] | + + + | Address | Unknown | + + + | Phone | Unavailable | + + + Support + + +---------+ + | Name | Relationship | Address | Phone | + + +---------+ + | Brandon Cortez | ECON | Unknown | | + + +---------+ + Care Team Providers + +------+ + | Care Lace Sewer Name | Role | Phone | + +------+ + | Radha Carias PA-C | PCP | | + +------+ + Encounter Details +--------+ + + + + | Date | Type | Department | Care Team | Description | +--------+ + + + + | 05/13/ | Hospital | [facility] | Conversion | S/P lumbar fusion | | 2017 | Encounter | [facility] | Transaction, | | | | | [address] | Provider Unknown | | | | | [address] [place], [place] | [phone] | | | | | [address] | | | | | | [phone] | Lokesh Bonilla DO | | | | | | [address] | | | | | | [address] [place], | | | | | | [place] [address] | | | | | | [phone] | | | | | | | [...] + + + +---------+ + + | glucagon 1 MG | Glucagon Emergency | | 0 | | | | injection | Kit (human-recomb) 1 | | | | | | | mg injection | | | | | + + [...] 0 | | | | tablet | as needed. | | | | 9 | + + + +---------+ + + | FLUCELVAX | inject 0.5 | | 0 | 04/26/20 | | | QUADRIVALENT 0.5 ML | milliliter | | | 18 | 9 | | vaccine injection | intramuscularly | | | | | + + [...] + + + +---------+ + + | methocarbamol | TAKE ONE TABLET BY | | 2 | 03/30/20 | | | (ROBAXIN) 750 mg | MOUTH EVERY 8 HOURS | | | 18 | 9 | | tablet | | | | | | + + + +---------+ + + | mupirocin | apply TO BOTH NARES | | 0 | 03/21/20 | | | (BACTROBAN) 2% | every 12 hours for 5 | | | 18 | 9 | | ointment | days PRIOR TO | | | | | | | SURGERY | | | | | + + + +---------+ + + | | TAKE ONE TABLET BY | | 0 | 03/30/20 | | | oxyCODONE-acetaminop | MOUTH EVERY 6 HOURS | | | 18 | 9 | | hen (PERCOCET) | NEEDED FOR PAIN. | | | | | | 10-325 mg per tablet | | | | | | + + + +---------+ + + | | Take 1 tablet by | | 0 | 04/12/20 | | | oxyCODONE-acetaminop | mouth every 8 | | | 18 | 9 | | hen (PERCOCET) 5-325 | (eight) hours as | | | | | | mg per tablet | needed for Pain. | | | | | + + + +---------+ + + | | take 1 tablet by | | 0 | 04/12/20 | | | oxyCODONE-acetaminop | mouth every 8 hours | | | 18 | 9 | | hen (PERCOCET) 5-325 | if needed for pain | | | | | | mg per tablet | | | | | | [...] | | | | | | [place] | | | | | | [id number] | | | | | | | | +--------+ + + + + | 01/11/ | Appointment | Radiation Oncology | Thanh Espinoza DO | | | 2019 | | | [address] | | | | | | [place] | | | | | | [address] | | | | | | | | +--------+ + + + + documented as of this encounter Procedures + +--------+ + + + | Procedure Name | Priori | Date/Time | Associated Diagnosis | Comments | | | ty | | | | + +--------+ + + + | XR LUMBAR SPINE 2 OR | Routin | 05/13/2018 | | Results for this | | 3 VW | e | 10:23 AM | | procedure are in the | | | | PST | | results section. | + +--------+ + + + documented in this encounter Results XR Lumbar Spine 2 or 3 Vw (05/13/2018 10:23 AM PST) + + | Specimen | + + | | + + + + + | Impressions | Performed At | + + + | 1. L4-5 fusion. 2. Multilevel degenerative facet disease with | | | mild anterior spondylolisthesis of L5 on S1 and L4 on L5. 3. Severe | | | degenerative disc and endplate changes at L2-3. Electronically | | | signed by Jamel Nix DO on 05/13/2018 10:30 AM | | + + + + + + | Narrative | Performed At | + + + | [facility] 1955 63 years Female XR LUMBAR SPINE | | | LIMITED 2-3 VIEW 05/13/2018 10:23 AM INDICATION: Spinal fusion. | | | COMPARISON: 03/29/2018 TECHNIQUE: Lumbar spine series, 2 views | | | FINDINGS: Severe disc space narrowing with degenerative endplate | | | change and endplate spurring at L2-3. Bilateral pedicle screws and | | | stabilization rods fixating L4-5. Mild anterior spinal listhesis of | | | L4 on L5 measuring 7.5 mm. Mild anterior spinal listhesis of L5 on S1 | | | measuring 6 mm. Bilateral degenerative facet disease at L5-S1, L2-3, | | | L3-4. | | + + + + + | Procedure Note | + + | Tom Walker - 01/22/2019 8:23 AM [id number] [facility] | | FemaleXR LUMBAR SPINE LIMITED 2-3 VIEW05/13/2018 10:23 AM INDICATION: Spinal fusion. | | COMPARISON: 03/29/2018 TECHNIQUE: Lumbar spine series, 2 views FINDINGS: Severe disc | | space narrowing with degenerative endplate change and endplate spurring at L2-3. | | Bilateral pedicle screws and stabilization rods fixating L4-5. Mild anterior spinal | | listhesis of L4 on L5 measuring 7.5 mm. Mild anterior spinal listhesis of L5 on S1 | | measuring 6 mm. Bilateral degenerative facet disease at L5-S1, L2-3, L3-4. IMPRESSION: | | 1. L4-5 fusion.2. Multilevel degenerative facet disease with mild anterior | | spondylolisthesis of L5 on S1 and L4 on L5.3. Severe degenerative disc and endplate | | changes at L2-3. | |TECHNIQUE: Lumbar spine series, 2 views | | | |FINDINGS: Severe disc space narrowing with degenerative endplate change and endplate spurri ng at L2-3. | | | |Bilateral pedicle screws and stabilization rods fixating L4-5. Mild anterior spinal listhes is of L4 on L5 measuring 7.5 mm. Mild anterior spinal listhesis of L5 on S1 measuring 6 mm. Bilateral degenerative facet disease at L5-S1, L2-3, L3-4. | | | |IMPRESSION: | |1. L4-5 fusion. | |2. Multilevel degenerative facet disease with mild anterior spondylolisthesis of L5 on S1 and L4 on L5. | |3. Severe degenerative disc and endplate changes at L2-3. | | | | | + + documented in this encounter Visit Diagnoses + + | Diagnosis | + + | S/P lumbar fusion Arthrodesis status | + + documented in this encounter Additional Health Concerns + + + + | Infection | Noted Time | Resolved Time | + + + + | Methicillin-resistant Staphylococcus aureus | 03/21/2018 12:00 AM | | | | PDT | | + + + + documented as of this encounter"
--- OUTSIDE RECORDS SUMMARY | ~2019-05-05 | XMS | Encounter Summary ---
Demographics + + + | Address | [address] | | | [place] [address] | + + + | Home Phone | | + + + | Preferred Language | Unknown | + + + | Marital Status | | + + + | Worship Affiliation | 1076 | + + + | Race | Unknown | + + + | Ethnic Group | Unknown | + + + Author + + + | Author | [facility] | | | and [place] | + + + | Organization | [facility] | | | and [...] Team Providers + +------+ + | Care Chro Name | Role | Phone | + [...] [place], [place] | | | | | [place], | [address] | | | | | [place] [address] | | | | | | [phone] | | | +--------+ + + + [...] [place] | | | | | | [address] | | | | | | | [...]
--- OUTSIDE RECORDS SUMMARY | ~2019-05-05 | XMS | Clinical Summary ---
Demographics + + + | Address | [address] | | | [place] [address] | + + + | Home Phone | | + + + | Preferred Language | Unknown | + + + | Marital Status | | + + + | Orthodoxy Affiliation | 1076 | + + + | Race | Unknown | + + + | Ethnic Group | Unknown | + + + Author + + + | Author | [facility] | | | and [place] | + + + | Organization | [facility] | | | and [...] Team Providers + +------+ + | Care Technical System Analyst Name | Role | Phone | + +------+ + | Radha Carias PA-C | PCP | | + +------+ + Allergies + + + + + + | Active Allergy | Reactions | Severity | Noted | Comments | | | | | Date | | + + + + + + | Sulfa Antibiotics | Rash | Medium | 10/15/19 | | | | | | 15 | | + + + + + + Medications + + + +---------+------+------+-------+ | Medication | Sig | Dispensed | Refills | Star | End | Statu | | | | | | t | Date | s | | | | | | Date | | | + + + +---------+------+------+-------+ | LORazepam (ATIVAN) | Take 1 mg by mouth | | 0 | | | Activ | | 1 mg tablet | Daily as needed for | | | | | e | | | Anxiety. | | | | | | + + + +---------+------+------+-------+ | atorvaSTATin | Take 40 mg by mouth | | 0 | | | Activ | | (LIPITOR) 40 mg | nightly. | | | | | e | | tablet | | | | | | | + + + +---------+------+------+-------+ | insulin glargine | Inject under the | | 0 | | | Activ | | (LANTUS SOLOSTAR) | skin 2 times daily. | | | | | e | | 100 units/mL | 30 units AM, 10 | | | | | | | injection (pen) | units PM | | | | | | + + + +---------+------+------+-------+ | Multiple | Take 1 tablet by | | 0 | | | Activ | | Vitamins-Minerals | mouth Daily. | | | | | e | | (MULTIVITAMIN ADULT) | | | | | | | | TABS | | | | | | | + + + +---------+------+------+-------+ | insulin aspart | Inject under the | | 0 | | | Activ | | (NOVOLOG FLEXPEN) | skin 3 times daily | | | | | e | | 100 units/mL | (before meals). Per | | | | | | | injection pen | sliding scale | | | | | | + + + +---------+------+------+-------+ | cyclobenzaprine | Take 1 tablet by | | 0 | 05/1 | | Activ | | (FLEXERIL) 5 MG | mouth every 6 hours | | | 1/20 | | e | | tablet | as needed. | | | 18 | | | + + + +---------+------+------+-------+ | glucagon 1 MG | Glucagon Emergency | | 0 | | | Activ | | injection | Kit (human-recomb) 1 | | | | | e | | | mg injection | | | | | | + + + +---------+------+------+-------+ | ibuprofen | every 8 hours as | | 0 | 07/2 | | Activ | | (ADVIL,MOTRIN) 600 | needed. | | | 4/20 | | e | | MG tablet | | | | 18 | | | + + + +---------+------+------+-------+ | Continuous Blood | use TO TEST BLOOD | | 0 | 01/2 | | Activ | | Gluc Battalion Chief | SUGAR before meals | | | 1/20 | | e | | (FREESTYLE BRAD 14 | and at bedtime or as | | | 19 | | | | DAY READER) JANIA | directed | | | | | | + + + +---------+------+------+-------+ | CONTOUR NEXT TEST | | | 1 | 01/0 | | Activ | | strip | | | | 1/20 | | e | | | | | | 19 | | | + + + +---------+------+------+-------+ | lisinopril | | | 1 | 03/0 | | Activ | | (PRINIVIL,ZESTRIL) | | | | 3/20 | | e | | 40 MG tablet | | | | 19 | | | + + + +---------+------+------+-------+ | metoprolol | Take 1 tablet by | | 0 | 07/2 | | Activ | | succinate | mouth Daily. | | | 3/20 | | e | | (TOPROL-XL) 25 mg 24 | | | | 19 | | | | hr tablet | | | | | | | + + + +---------+------+------+-------+ | buPROPion | Take 1 tablet by | | 0 | 07/2 | | Activ | | (WELLBUTRIN XL) 150 | mouth Daily. | | | 520 | | e | | mg 24 hr tablet | | | | 19 | | | + + + +---------+------+------+-------+ | aspirin 325 mg | Take 1 tablet by | | 0 | | | Activ | | tablet | mouth Daily. | | | | | e | + + + +---------+------+------+-------+ | exemestane | TAKE ONE TABLET BY | 30 | 5 | 04/11 | | Activ | | (AROMASIN) 25 MG | MOUTH EVERY DAY | tablet | | 06/30 | | e | | tabletIndications: | | | | 19 | | | | Primary malignant | | | | | | | | neoplasm of upper | | | | | | | | outer quadrant of | | | | | | | | female breast (HCC) | | | | | | | + + + +---------+------+------+-------+ | exemestane | Take 1 tablet by | | 0 | 07/2 | 04/11 | Disco | | (AROMASIN) 25 MG | mouth Daily. 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 | 03/22/2018 | + + + | DDD (degenerative disc disease), lumbar | 02/12/2018 | + + + | Degenerative spondylolisthesis | 02/12/2018 | + + + | Lumbar radiculopathy | 02/12/2018 | + + + | Lumbar stenosis with neurogenic claudication | 02/12/2018 | + + + | Weakness of foot, left | 02/12/2018 | + + + | Chronic low back pain | 12/13/2017 | + + + | Essential hypertension | 12/13/2017 | + + + | Diabetes mellitus | 12/13/2017 | + + + | Primary malignant neoplasm of upper outer quadrant of female | 12/06/2017 | | breast | | + + + + + | Cancer Staging: Pathologic stage from 01/29/2018: Stage IA | | (pT1b, pN0(i+), cM0, G2, ER: Positive, MS: Positive, HER2: | | Negative) - Signed by Thanh Espinoza DO on 01/30/2018 | + + | Overview: ACTIVE DIAGNOSIS: Stage in process, ER/MS positive, | | Her-2/zaid negative, Ki-67 negative (12%) RIGHT breast cancer.1. | | Screening mammography in the asymptomatic state demonstrated a | | cluster of calcifications in the RIGHT breast.2. Imaged guided | | RIGHT breast biopsy November 21, 2017, Pathological specimen # ; | | Infiltrating ductal carcinoma, grade II, without lymphovascular | | invasion, ER positive 99%, progesterone positive 45%, Ki-67 | | negative (12%), Her-2/zaid negative by FISH.3. BRCA 1/2 negative | | revealed on January 08, 2018. Last Assessment & Plan: I met with | | Melodie Silva and her , Brandon on 12/06/2017 as | | part of a multidisciplinary breast clinic with Dr. Thanh Espinoza. In | | addition, Melodie's case was discussed with the Combined | | Breast Cancer Multidisciplinary Tumor Board with input from | | surgery, medical oncology, imaging, clinical trials, physical | | therapy, clinical pharmacy, and breast cancer survivorship.One | | week ago, Melodie submitted a sample for [employer] [facility] Genetic | | Testing which will have important implications upon her surgical | | options.We reviewed her prior experience with aromatase inhibitor | | therapy for her left breast cancer in 2012, and Melodie is | | willing to attempt another therapeutic trial of endocrine | | therapy, if appropriate, after her definitive surgical | | management.I will meet with Melodie Silva after her | | local therapy for right breast cancer is completed. | + + + + + | History of malignant neoplasm of breast | 11/21/2017 | + + + | Encounter for screening mammogram for high-risk patient | 10/23/2017 | + + + | Lobular breast cancer, left | 10/23/2017 | + + + + + | Cancer Staging: Clinical stage from 10/15/2012: Stage IA (T1b, | | N0, M0) - Signed by Thanh Espinoza DO on 10/23/2017 | + + | Overview: ACTIVE DIAGNOSIS: Stage Ia, ER-Positive LEFT | | BREAST ER/MS positive, Her-2/zaid negative Lobular Carcinoma, | | status post LEFT breast conservation.1. Asymptomatic maria elena-density | | was discovered in the left breast on routine imaging in 2012. | | LEFT breast biopsy on September 22, 2012 was positive for lobular | | carcinoma, positive for estrogen receptor at 100%, negative for | | HER-2/zaid amplification by FISH.2. LEFT breast excisional | | lumpectomy and sentinel lymph node biopsy by Dr. Felipe Trevino, October | | 2012. Pathological specimen #[id number] analyzed by [facility] | | [facility] demonstrated an 8 mm | | invasive lobular carcinoma with two left axillary sentinel lymph | | nodes negative for regionally metastatic disease.3. Status post | | left breast adjuvant radiation therapy by Dr. Thanh Espinoza DO of | | the [facility] in [place], [place] | | completed on January 10, 2013.4. Adjuvant endocrine therapy with | | anastrozole 1 mg orally daily April, through September 2014, | | discontinued prematurely due to increase in body fat, hot flash, | | and thinning hair. | + + Encounters +--------+--------+ + + + | Date | Type | Specialty | Care Team | Description | +--------+--------+ + + + | 04/21/ | Refill | Oncology | Agustin, | Medication Refill | | 2019 | | | Dimas Mckay MD | | +--------+--------+ + + + from Last 3 Months Immunizations + + + + | Name | Administration Dates | Next Due | + + + + | TD PF (5 LF TETANUS) | 01/02/2009 | | | (ADOL/ADULT) | | | + + + + Family History + + +------+ + | Medical History | Relation | Name | Comments | + + +------+ + | Parkinsonism | Father | | | + + +------+ + | Breast cancer | Paternal | | | | | Aunt | | | + + +------+ + | Breast cancer | Paternal | | | | | Grandmoth | | | | | er | | | + + +------+ + + +------+ + + | Relation | Name | Status | Comments | + +------+ + + | Father | | | | + +------+ + + | Mother | | | | + +------+ + + | Paternal Aunt | | | | + +------+ + + | Paternal Grandmother | | | | + +------+ + + Social History + +-------+ +--------+------+ [...] recent travel history available. | + + Last Filed Vital Signs + + + + + | Vital Sign | Reading | Time Taken | Comments | + + + + + | Blood Pressure | 138/75 | 04/12/2018 1:02 PM | | | | | PDT | | + + + + + | Pulse | 80 | 04/12/2018 1:02 PM | | | | | PDT | | + + + + + | Temperature | 37.3 C (99.1 F) | 03/30/2018 11:23 AM | | | | | PDT | | + + + + + | Respiratory Rate | 18 | 03/30/2018 11:23 AM | | | | | PDT | | + + + + + | Oxygen Saturation | 98% | 03/06/2018 10:50 AM | | | | | PDT | | + + + + + | Inhaled Oxygen | - | - | | | Concentration | | | | + + + + + | Weight | 86.2 kg (190 lb) | 06/24/2018 10:47 AM | | | | | PST | | + + + + + | Height | 168.9 cm (5' 6.5") | 06/24/2018 10:47 AM | | | | | PST | | + + + + + | Body Mass Index | 30.21 | 06/24/2018 10:47 AM | | | | | PST | | + + + + + Plan of Treatment +--------+ + + + + | Date | Type | Specialty | Care Team | Description | +--------+ + + + + | 01/11/ | Hospital | Radiology | Claudia Mccracken | | | 2019 | Encounter | | MD Jaky [address] | | | | | | [address] [place] | | | | | | [address] | | | | | | | | +--------+ + + + + | 01/11/ | Appointment | Radiation Oncology | Thanh Espinoza DO | | | 2019 | | | [address] | | | | | | [place] | | | | | | [address] | | | | | | | | +--------+ + + + + + + + + + | Health Maintenance | Due Date | Last Done | Comments | + + + + + | Hepatitis C | | | | | Screening | 7 | | | + + + + + | Vaccine: | | | | | Pneumococcal 19-64 | 3 | | | | (1 of 3 - PCV13) | | | | + + + + + | Diabetic Eye Exam | | | | | | 5 | | | + + + + + | Diabetic Foot Exam | | | | | | 5 | | | + + + + + | Hemoglobin A1c | | | | | Screening | 5 | | | + + + + + | Cervical Cancer | | | | | Screening (Pap) | 7 | | | + + + + + | Colorectal Cancer | | | | | Screening | 7 | | | | (Colonoscopy) | | | | + + + + + | Vaccine: Zoster (1 | | | | | of 2) | 7 | | | + + + + + | Vaccine: | | 01/02/2009 | | | Dtap/Tdap/Td (1 - | 9 | | | | Tdap) | | | | + + + + + | Vaccine: Influenza | | 04/26/2018, 05/15/2017, | | | (#1) | 9 | 06/16/2016, Additional history | | | | | exists | | + + + + + | Breast Cancer | | 01/07/2019, 10/22/2017, | | | Screening | 1 | 10/18/2016, Additional history | | | | | exists | | + + + + + Implants + +------+------+ +--------+--------+--------+ | Implanted | Type | Area | Manufacture | Device | Shelf | Model | | | | | r | | Expira | / | | | | | | Identi | tion | Serial | | | | | | fier | Date | / Lot | + +------+------+ +--------+--------+--------+ | Screw Mod Creo Amp 7.5x40 - | | | GLOBUS | | | 1067.1 | | [id number]: Qty: 2 on | | | MEDICAL - | | | 740 / | | 03/28/2018 by Chad, | | | GLBU | | | / | | DO Lokesh | | | | | | | + +------+------+ +--------+--------+--------+ | Screw Douglas Mod Creo 7.5x45mm | | | GLOBUS | | | 1067.4 | | - [id number]: Qty: 2 | | | MEDICAL - | | | 745 / | | on 03/28/2018 by Chad, | | | GLBU | | | / | | DO Lokesh | | | | | | | + +------+------+ +--------+--------+--------+ | Creo Mis Modular Polyaxial | | | GLOBUS | | | 1134.0 | | [id number]: Qty: 4 on | | | MEDICAL - | | | 100 / | | 03/28/2018 by Lokesh Bnoilla, | | | GLBU | | | / | | DO | | | | | | | + +------+------+ +--------+--------+--------+ | Shaquille Oden Mis Creo - | | | GLOBUS | | | 1134.0 | | [id number]: Qty: 4 on | | | MEDICAL - | | | 010 / | | 03/28/2018 by Chad, | | | GLBU | | | / | | DO Lokesh | | | | | | | + +------+------+ +--------+--------+--------+ | Chips Can 30cc 1.7-10mm | | | MUSCULOSKEL | | 01/26/ | [id number] | | Frzdr - | | | ETAL | | 1 | | | [id number]: | | | TRANSPLA - | | | [id number] | | Qty: 1 on 03/28/2018 by | | | MUSC | | | [id number] | | Lokesh Bonilla DO | | | | | | 044 / | + +------+------+ +--------+--------+--------+ | Graft Infuse Bone Kit Xs - | | | MEDTRONIC - | | 02/08/ | [id number] | | [id number]: Qty: 1 on | | | MEDT | | 2019 | 0 / | | 03/28/2018 by Chad, | | | | | | /[id number] | | DO Lokesh | | | | | | 106AAC | + +------+------+ +--------+--------+--------+ | Spcr Rise [id number] 8-15mm 10d | | | GLOBUS | | | 193.12 | | - [id number]: Qty: 1 | | | MEDICAL - | | | 2 / / | | on 03/28/2018 by Chad, | | | GLBU | | | | | DO Lokesh | | | | | | | + +------+------+ +--------+--------+--------+ | Chuy Cone Tip Crv [place] | | | GLOBUS | | | 132.16 | | 5.5x60mm - | | | MEDICAL - | | | 0 / / | | [id number]: Qty: 2 on | | | GLBU | | | | | 03/28/2018 by Chad, | | | | | | | | DO Lokesh | | | | | | | + +------+------+ +--------+--------+--------+ Results Not on filefrom Last 3 Months Additional Health Concerns + + + + | Infection | Noted Time | Resolved Time | + + + + | Methicillin-resistant Staphylococcus aureus | 03/21/2018 12:00 AM | | | | PDT | | + + + + Insurance +-------+--------+ +--------+ + +------+ | Payer | Benefi | Subscriber | Effect | Phone | Address | Type | | | t Plan | ID | chelsea | | | | | | / | | Dates | | | | | | Group | | | | | | +-------+--------+ +--------+ + +------+ | MODA | MODA | [id number] | | [phone] | [address] | PPO | | | [place] | | [phone] [id number] | | | | [place] | | esent | | [place], | | | | [place] | | | | [place] [address] | | +-------+--------+ +--------+ + +------+ + +--------+ +--------+ + + | Guarantor Name | Accoun | Relation to | Date | Phone | Billing Address | | | t Type | Patient | of | | | | | | | | | | + +--------+ +--------+ + + | Melodie Silva | Person | Self [birth year] | [address] | | [place] | al/Fam | | 7 | [phone] | [place] | | | [place] | | | 1 (Home) | [address] | + +--------+ +--------+ + + Advance Directives + + + + + | Type | Date Recorded | Patient | Explanation | | | | Surgical Product Sales Consultant | | + + + + + | Power of | | | | | Project Management Advisor | | | | + + + + + | Advance | 01/07/2019 12:35 | | | | Directive | PM | | | + + + + +
--- OUTSIDE RECORDS SUMMARY | ~2019-05-05 | XMS | Encounter Summary ---
Demographics + + + | Address | [address] | | | [place] [address] | + + + | Home Phone | | + + + | Preferred Language | Unknown | + + + | Marital Status | | + + + | Jew Affiliation | 1076 | + + + | Race | Unknown | + + + | Ethnic Group | Unknown | + + + Author + + + | Author | [facility] | | | and [place] | + + + | Organization | [facility] | | [...] Team Providers + +------+ + | Care Improvement Nurse Name | Role | Phone | + +------+ + | Britton Chi MD | PCP | | + +------+ + Reason for Visit + + + | Reason | Comments | + + + | Oncology Appointment | | + + + Encounter Details +--------+ + + + + | Date | Type | Department | Care Team | Description | +--------+ + + + + | 11/29/ | Telephone | [facility] | Kalee Chadwick RN | Oncology Appointment | | 2018 | | [facility] | [facility] [address] | | | | | | [address] | | | | | | [place] [address] | | | | | | [phone] | | | +--------+ + + + [...]
--- OUTSIDE RECORDS SUMMARY | ~2019-05-05 | XMS | Encounter Summary ---
Demographics + + + | Address | [address] | | | [place] [address] | + + + | Home Phone | | + + + | Preferred Language | Unknown | + + + | Marital Status | | + + + | Gnosticism Affiliation | 1076 | + + + | Race | Unknown | + + + | Ethnic Group | Unknown | + + + Author + + + | Author | [facility] | | | and [place] | + + + | Organization | [facility] | | | [...] Team Providers + +------+ + | Care Air Compressor Mechanic Name | Role | Phone | + +------+ + | Kiet Dunlap MD | PCP | | + +------+ + Encounter Details +--------+ + + + + | Date | Type | Department | Care Team | Description | +--------+ + + + + | 10/18/ | Hospital | [facility] | Thanh Espinoza DO | | | 2016 | Encounter | MED CTR RADIATION | [address] | | | | | ONCOLOGY [address] | [place], [place] | | | | | [place], | [address] | | | | | [place] [address] | | | | | | [phone] | | | +--------+ + + + [...] as of this encounter Progress Notes Thanh Espinoza, DO - 10/19/2015 5:51 PM PDTPATIENT: Melodie Aguilera RicardoDOS:10/19/2015#: [id number] :1955 Radiation Oncology Follow-up Clinic Note ICD/Diagnosis: C50.412 - Malignant neoplasm of upper-outer quadrant of left female breast, Diagnosed 10/04 (Active) CC: Felipe Trevino M.D. Kiet Dunlap M.D. Dimas Velez M.D. Chief Complaint/History of Present Illness: Left-sided breast cancer I had the pleasure of seeing Melodie Silva today in clinic. 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 She has been seen by Dr. Hugo fregoso regarding endocrine therapy and continues on anastrozole 1 mg daily. At this kim e, she continues to have good range of motion of her left arm but has noticed stable swelli ng in her left breast and no swelling in the left upper extremity. She maintains an active lifestyle and exercising regularly. She recently underwent a bilateral screening mammogr am performed October 11, 2015 that that was negative for new abnormality or recurrent disease-BI -RADS 2 findings. I have personally reviewed her imaging and agree with the stated findings . I reviewed these results with Mrs. Silva today. Review of Systems: ROS ConstitutionalNormal - Denies lack of appetite, fatigue, fever, night sweats, rigors / chills and change in weight.ROS EyesNormal - Denies blurred vision, double vision and visu al difficulties.ROS ENMTNormal - Denies dysphagia, ear pain, esophagitis, sinusitis, sputum production and altered taste.ROS NeckNormal - Denies neck masses, muscle weakness, neck pa in, decreased range of motion and swelling of the neck.ROS IntegumentaryNormal - Denies bl istering, bruising, dry skin, pruritus and rash.ROS BreastsNormal - Denies breast masses an d pain.ROS CardiovascularNormal - Denies arrhythmias, chest pain, dyspnea, edema and palpit ations.ROS RespiratoryNormal - Denies cough, hemoptysis and wheezing.ROS GastrointestinalNo rmal - Denies abdominal pain, constipation, diarrhea, heartburn / dyspepsia, nausea and vom iting.ROS Genitourinary (F)Normal - Denies dysuria, frequency, nocturia, problems with sex ual function, urgency and urine color change.ROS MusculoskeletalAbnormal - Complains of art hritis and joint pain. Denies bone pain, muscle weakness and decreased range of motion.ROS NeurologicNormal - Denies dizziness, headaches, insomnia, motor weakness and seizure.ROS Ps ychiatricNormal - Denies mood swings, depression and euphoria.ROS EndocrineAbnormal - Compl ains of diabetes. Denies hot flashes and thyroid disease.ROS Hematologic/Lymphatic Abnorma l - Complains of easy bruising. Denies tender or enlarged lymph nodes. Medications: Anastrozole 1 mg TABLET Take as Directed aspirin TABLET Take as Directed ativan TABLET ORAL Take as Directed atorvastatin 40 mg calcium -vitamin D TABLET Take as Directed flucanazole TABLET Take as Directed insulin INJECTION SUBCUTANEOUS Take as Directed moexipril TABLET ORAL Take as Directed multivitamin TABLET Take as Directed novolog flexpen INJECTION Take as Directed venaflaxin 10 mg Allergies: Sulfa Physical Exam: Performed on 10/19/2015, 13:36Weight 80.5 kg Temperature 36.5 C (LOW) Pulse 79 / min Respiration 1 6 / min BP162/94 mm(hg) (HIGH) O2 Sat 99 % Pain 2 PE ConstitutionalNormal - No evidence of impaired alertness, inadequate appearance, premat ure or advanced chronologic age, uncooperativeness, altered mood and affect and disorientat ion.PE HeadNormal - No evidence of alopecia, abnormal cephalic and scars.PE EyesNormal - No evidence of conjunctivitis and scleral abnormalities.PE ENMTNormal - No evidence of ear ab normalities, oral abnormalities, oropharynx obstruction, throat abnormalities and tongue a bnormalities.PE NeckNormal - No evidence of tender or enlarged lymph nodes, neck abnormalit ies and restricted range of motion.PE IntegumentaryAbnormal - Presents with dry skin. No ev idence of bruising, erythema, nails changes, altered pigmentation, rash and urticaria.PE Br eastsAbnormal - Presents with asymmetry with the left breast larger than the right. No evid ence of a breast mass(es), nipple discharge, nipple inversion and breast skin changes. Ther e is continued hyperpigmentation in the inframammary region and lateral aspect of the gabbi st consistent with tangent line of the irradiated field. The breast is somewhat edematous w ith a smooth texture and no dominant mass or lesion present. There is a surgical scar prese nt that is appropriate for the previously mentioned surgery.PE ChestNormal - No evidence of chest abnormalities and tender or enlarged lymph nodes.PE CardiovascularNormal - No evide nce of arterial pulse(s) abnormalities, abnormal heart rate, heart arrhythmia and abnormal heart sounds.PE RespiratoryNormal - No evidence of abnormal breath sounds, chest abnormalit ies on palpation and chest abnormalities on percussion.PE ExtremitiesNormal - No evidence o f tender or enlarged lymph nodes and upper extremities abnormalities.PE Musculoskeletal No rmal - No evidence of bone abnormalities, joint abnormalities, compromised muscle tone and restricted range of motion.PE NeurologicNormal - No evidence of impaired cranial nerve(s), uncoordinated gait and motor impairment.PE PsychiatricNormal - No evidence of altered affec t, lack of comprehension and disorientation.PE Hematologic/LymphaticNormal - No evidence of tender or enlarged axillae lymph nodes, tender or enlarged lymph nodes, tender or enlarge d neck lymph nodes and petechiae / purpura / ecchymosis. Questionnaires: Are you having pain?YesWhere does it hurt most?hammer toeRate your pain from 0-10: 0-10 scale with 0 = no pain and 10= worst pain2 Labs: See EMR for complete list Impression/Plan: C50.412 - Malignant neoplasm of upper-outer quadrant of left female breast, Diagnosed 10/04 (Active) Stage IA, T1b, pN0(i-), M0. No clinical or mammographic evidence of new or recurrent disease. Melodie Silva is a 60-year-old woman who completed postlumpectomy radiation therapy [facility] 3 years ago and now continues on adjuvant endocrine therapy for her left-sided, stage 0, low-grade LCIS that is ER/UT positive. We discussed long-term toxicities from radi ation therapy. She did not undergo physical therapy or lymphedema management previously and has been taking care of this through regular physical activity. Following the NCCN guidel yoel annual mammograms are recommended with physician exams every 6 months. She will retur n to clinic in one year with repeat mammogram and continue to follow up with Dr. Sundeep velasquez every 6 months. She was encouraged to call our clinic with any further questions or judy rns. Thank you for allowing me to participate in the care of Melodie Silva. If you ashli uld have any questions regarding this evaluation, please do not hesitate to contact me. Thanh Espinoza D.O., DABR Radiation Oncologist Department of Radiation Oncology [facility] Electronically signed by Thanh Espinoza D.O. This note was transcribed using [employer] speech recognition software. As a result, there ma y be unintended for medical and/or spelling errors. Every attempt is made to correct dicta tion. If there are any questions or errors please contact our office. CSN: [id number] signed by Thanh Espinoza DO at 10/19/2015 5:52 PM Jocelin vale in this encounter Plan of Treatment +--------+ + [...] 01/11/ | Appointment | Radiation Oncology | Thahn Espinoza DO | | | 2019 | | | [address] | | | | | | [place] | | | | | | [phone] | | | | | | | | +--------+ + + + + documented as of this encounter Visit Diagnoses Not on filedocumented in this encounter"
--- OUTSIDE RECORDS SUMMARY | ~2019-05-05 | XMS | Encounter Summary ---
Demographics + + + | Address | [address] | | | [place] [address] | + + + | Home Phone | | + + + | Preferred Language | Unknown | + + + | Marital Status | | + + + | Moravian Affiliation | 1076 | + + + | Race | Unknown | + + + | Ethnic Group | Unknown | + + + Author + + + | Author | [facility] | | | and [place] | + + + | Organization | [facility] | | | [...] Team Providers + +------+ + | Care Target Developer Name | Role | Phone | + +------+ + | Kiet Dunlap MD | PCP | | + +------+ + Encounter Details +--------+ + + + + | Date | Type | Department | Care Team | Description | +--------+ + + + + | 10/18/ | Hospital | [facility] | Thanh Espinoza DO | | | 2016 | Encounter | MED CTR RADIATION | [address] | | | | | ONCOLOGY [address] | [place], [place] | | | | | [place], | [address] | | | | | [place] [address] | | | | | | [phone] | | | +--------+ + + + [...] 10/19/2015 5:51 PM PDTPATIENT: Melodie Aguilera RicardoDOS:10/19/2015#: [id number] :1955 Radiation Oncology Follow-up Clinic Note ICD/Diagnosis: [...] that overall stage IA (T1b, N0, M0), ER/ND positive disease. She has been seen by [...] who completed postlumpectomy radiation therapy [facility] 3 years ago and now continues on adjuvant endocrine therapy for her left-sided, stage 0, low-grade LCIS that is ER/ND positive. We discussed long-term toxicities from radi [...] DABR Radiation Oncologist Department of Radiation Oncology Located [facility] Electronically signed by Thanh Espinoza D.O. This note was transcribed using [employer] speech recognition software. As a result, there ma y be unintended for medical and/or spelling errors. Every attempt is made to correct dicta tion. If there are any questions or errors please contact our office. CSN: [id number] signed by Thanh Espinoza DO at 10/19/2015 [...] CLEANING | | | | | | [phone] | | | | | | | | +--------+ + + + + documented as of this encounter Visit Diagnoses Not on filedocumented in this encounter"
--- OUTSIDE RECORDS SUMMARY | ~2019-05-05 | XMS | Encounter Summary ---
Demographics + + + | Address | [address] | | | [place] [address] | + + + | Home Phone [...] Team Providers + +------+ + | Care Cable Placer Name | Role | Phone | + +------+ + | Kiet Dunlap MD | PCP | | + +------+ + Encounter Details +--------+ + + + + | Date | Type | Department | Care Team | Description | +--------+ + + + + | 01/09/ | Hospital | [facility] | Thanh Espinoza DO | | | 2012 - | Encounter | MED CTR CANCER | [address] | | | | | CENTER [address] | [place], [place] | | | 02/08/ | | [place] | [address] | | | 2012 | | [address] | | | | | | [phone] | | | +--------+ + + + [...] [place] | | | | | | [address] | | | | | | | [...]
--- OUTSIDE RECORDS SUMMARY | ~2019-05-05 | XMS | Encounter Summary ---
Demographics + + + | Address | [address] | | | [place] [address] | + + + | Home Phone | | + + + | Preferred Language | Unknown | + + + | Marital Status | | + + + | Denominational Affiliation | 1076 | + + + | Race | Unknown | + + + | Ethnic Group | Unknown | + + + Author + + + | Author | [facility] | | | and [place] | + + + | Organization | [facility] | | | [...] Providers + +------+ + | Care Strategic Account Executive Name | Role | Phone | + +------+ + | Britton Chi MD | PCP | | + +------+ + Reason for Visit +--------+ + | Reason | Comments | +--------+ + | Other | | +--------+ + Encounter Details +--------+ + + + + | Date | Type | Department | Care Team | Description | +--------+ + + + + | 11/23/ | Telephone | [facility] | Thanh Espinoza DO | Other | | 2018 | | MED CTR MEDICAL | [address] | | | | | ONCOLOGY CLINIC [address] | [place] | | | | | [address] [place] | [address] | | | | | [place] [address] | | | | | | [phone] | | | +--------+ + + + [...] [place] | | | | | | [phone] | | | | | | | [...]
--- OUTSIDE RECORDS SUMMARY | ~2019-05-05 | XMS | Encounter Summary ---
Demographics + + + | Address | [address] | | | [place] [address] | + + + | Home Phone | | + + + | Preferred Language | Unknown | + + + | Marital Status | | + + + | Anabaptism Affiliation | 1076 | + + + | Race | Unknown | + + + | Ethnic Group | Unknown | + + + Author + + + | Author | [facility] | | | and [place] | + + + | Organization | [facility] | | | [...] Team Providers + +------+ + | Care Approver Name | Role | Phone | + +------+ + | Britton Chi MD | PCP | | + +------+ + Reason for Visit +--------+ + | Reason | Comments | +--------+ + | Other | | +--------+ + Encounter Details +--------+ + + + + | Date | Type | Department | Care Team | Description | +--------+ + + + + | 11/26/ | Telephone | [facility] | FouziadarlingClaudia guerrero | Other | | 2018 | | MED CTR RADIATION | MD Jaky [address] | | | | | ONCOLOGY CLINIC [address] | [place], [place] | | | | | [place] | [address] | | | | | [place] [address] | | | | | | [phone] | | | +--------+ + + + [...] DO | | 2019 | | | [address] | | | | | | [place] [facility] | | | | | | [phone] | | | | | | | | +--------+ + + + + documented as of this encounter Visit Diagnoses Not on filedocumented in this encounter"
--- OUTSIDE RECORDS SUMMARY | ~2019-05-05 | XMS | Encounter Summary ---
Demographics + + + | Address | [address] | | | [place] [address] | + + + | Home Phone | | + + + | Preferred Language | Unknown | + + + | Marital Status | | + + + | Mosque Affiliation | 1076 | + + + | Race | Unknown | + + + | Ethnic Group | Unknown | + + + Author + + + | Author | [facility] | | | and [place] | + + + | Organization | [facility] | | | [...] Team Providers + +------+ + | Care Metal Room Dental Technician Name | Role | Phone | + +------+ + | Radha Carias PA-C | PCP | | + +------+ + Encounter Details +--------+ + + + + | Date | Type | Department | Care Team | Description | +--------+ + + + + | 01/02/ | Orders Only | [facility] | Provider, | | | 2019 | | SYSTEM GENERIC OP | [address] | | | | | [address] | [place] | | | | | [address] [place], [place] | [place] [address] | | | | | [address] | | | | | | [phone] | | | +--------+ + + + [...] [place] | | | | | | [phone] | | | | | | | | +--------+ + + + + | 01/11/ | Appointment | Radiation Oncology | Thanh Espinoza DO | | | 2019 | | | [address] | | | | | | [place] | | | | | | [address] | | | | | | | | +--------+ + + + + documented as of this encounter Visit Diagnoses Not on filedocumented in this encounter Additional Health Concerns + + + + | Infection | Noted Time | Resolved Time | + + + + | Methicillin-resistant Staphylococcus aureus | 03/21/2018 12:00 AM | | | | PDT | | + + + + documented as of this encounter"
--- OUTSIDE RECORDS SUMMARY | ~2019-05-05 | XMS | Encounter Summary ---
Demographics + + + | Address | [address] | | | [place] [address] | + + + | Home Phone | | + + + | Preferred Language | Unknown | + + + | Marital Status | | + + + | Rastafari Affiliation | 1076 | + + + | Race | Unknown | + + + | Ethnic Group | Unknown | + + + Author + + + | Author | [facility] | | | and [place] | + + + | Organization | [facility] | | | [...] Team Providers + +------+ + | Care Manager Behavior Name | Role | Phone | + +------+ + | Radha Carias PA-C | PCP | | + +------+ + Reason for Visit + + + | Reason | Comments | + + + | Medication Refill | | + + + Encounter Details +--------+--------+ + + + | Date | Type | Department | Care Team | Description | +--------+--------+ + + + | 04/21/ | Refill | [facility] | Agustin, | Medication Refill | | 2019 | | MED CTR MEDICAL | Dimas Mckay MD [address] | | | | | ONCOLOGY CLINIC [address] | [address] [place] | | | | | [place] | [place] [address] | | | | | [place] [address] | [phone] | | | | | [phone] | | | +--------+--------+ + + + Social History + +-------+ [...] | | | | | | [facility] | | | | | | [address] | | | | | | | | +--------+ + + + + | 01/11/ | Appointment | Radiation Oncology | Thanh Espinoza DO Nely | | | 2019 | | | [address] | | | | | | [place] | | | | | | [address] | | | | | | | | +--------+ + + + + documented as of this encounter Visit Diagnoses + + | Diagnosis | + + | Primary malignant neoplasm of upper outer quadrant of female breast (HCC) - Primary | + + documented in this encounter Additional Health Concerns + + + + | Infection | Noted Time | Resolved Time | + + + + | Methicillin-resistant Staphylococcus aureus | 03/21/2018 12:00 AM | | | | PDT | | + + + + documented as of this encounter"
--- OUTSIDE RECORDS SUMMARY | ~2019-05-05 | XMS | Encounter Summary ---
Demographics + + + | Address | [address] | | | [place] [address] | + + + | Home Phone | | + + + | Preferred Language | Unknown | + + + | Marital Status | | + + + | Spiritism Affiliation | 1076 | + + + | Race | Unknown | + + + | Ethnic Group | Unknown | + + + Author + + + | Author | [facility] | | | and [place] | + + + | Organization | [facility] | | | [...] Team Providers + +------+ + | Care Ecological Technical Officer Name | Role | Phone | + +------+ + | Kiet Dunlap MD | PCP | | + +------+ + Encounter Details +--------+ + + + + | Date | Type | Department | Care Team | Description | +--------+ + + + + | 09/10/ | Hospital | [facility] | Thanh Espinoza DO | | | 2014 | Encounter | [facility] | [address] [email or web address] | | | | | ONCOLOGY [address] | [place], [place] | | | | | [place], | [address] | | | | | [place] [address] | | | | | | [phone] | | | +--------+ + + + [...] encounter Progress Notes Thanh Espinoza, DO - 09/10/2013 12:00 AM PDTPATIENT: Melodie Aguilera RicardoDOS:09/10/2013MR#: [id number] :1955 Follow-up Clinic Note ICD/Diagnosis: 174.4 - Malignant neoplasm of upper-outer quadrant of female breast, Diagnosed 10/04/2012 ( Active) CC: Kiet Dunlap M.D. Felipe Trevino M.D. Dimas Velez M.D. Chief Complaint/History of Present Illness: Left-sided breast cancer I had the pleasure of seeing Melodie Silva today in clinic. 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 She has been seen by Dr. Hugo fregoso regarding endocrine therapy and continues on anastrozole 1 mg daily. At this time , she has good range of motion of her left arm but has noticed mild swelling in her left b reast. She maintains an active lifestyle and does state that she has gained weight while on anastrozole and has been less active physically compared to last summer. She has noticed a different texture of the left breast when compared to the right faisal self breast examinati ons. She currently follows up with Dr. Velez on a six-month basis and recently underw ent a bilateral screening mammogram performed July 14, 2013 that was negative for new or recurrent disease. I have personally reviewed her imaging and agree with the stated findi ngs. Review of Systems: ROS ConstitutionalNormal - Denies lack of appetite, fatigue, fever and rigors / chills.ROS NeckNormal - Denies neck masses, muscle weakness, neck pain, decreased range of motion and swelling of the neck.ROS IntegumentaryAbnormal - Complains of dry skin. Denies alopecia, b listering, bruising, nail changes, photosensitivity, pruritus, rash and urticaria.ROS Breas tsNormal - Denies breast masses, nipple discharge, nipple inversion and pain. left breast i s still "lumpy" Skin feels like "leather"ROS RespiratoryNormal - Denies cough and pleuriti c chest pain.ROS GastrointestinalNormal - Denies change in bowel habits, nausea and vomitin g.ROS MusculoskeletalNormal - Complains of decreased range of motion. Denies arthritis, bon e pain, joint pain and muscle weakness.ROS NeurologicNormal - Denies disorientation, dizzin ess, abnormal gait, headaches, insomnia, memory loss, motor weakness, sensory problems, pa ralysis, seizure and stroke.ROS PsychiatricNormal - Denies delusions, hallucinations, mood swings, depression and euphoria.ROS Hematologic/Lymphatic Normal - Denies easy bruising and tender or enlarged lymph nodes. Medications: Anastrozole 1 mg TABLET Take as Directed aspirin TABLET Take as Directed ativan TABLET ORAL Take as Directed calcium -vitamin D TABLET Take as Directed celebrex flucanazole TABLET Take as Directed insulin INJECTION SUBCUTANEOUS Take as Directed moexipril TABLET ORAL Take as Directed multivitamin TABLET Take as Directed novolog flexpen INJECTION Take as Directed wellbutrin TABLET ORAL Take as Directed Allergies: Sulfa Physical Exam: Performed on 09/10/2013, 09:45Weight 80.0 kg Temperature 36.7 C Pulse 70 / min Respiration 14 / min BP138/92 mm(hg) O2 Sat 99 % Pain 0 PE ConstitutionalNormal - No evidence of impaired alertness, inadequate appearance, premat ure or advanced chronologic age, uncooperativeness, altered mood and affect and disorientat ion.PE HeadNormal - No evidence of alopecia, abnormal cephalic and scars.PE EyesNormal - No evidence of conjunctivitis, nonreactive pupil(s) and scleral abnormalities.PE ENMTNormal - No evidence of ear abnormalities, oral abnormalities, nasal obstruction, oropharynx obstr uction, throat abnormalities and tongue abnormalities.PE NeckNormal - No evidence of tender or enlarged lymph nodes, neck abnormalities and restricted range of motion.PE Integumentar yAbnormal - Presents with dry skin. No evidence of bruising, erythema, nails changes, alter ed pigmentation, rash and urticaria.PE BreastsAbnormal - Presents with asymmetry with the l eft breast larger than the right. No evidence of a breast mass(es), nipple discharge, nipp le inversion and breast skin changes. There is continued hyperpigmentation in the inframamm frederick region and lateral aspect of the breast. The breast is mildly edematous with a granular texture and no dominant mass or lesion present. There is a surgical scar present that is a ppropriate for the previously mentioned surgery.PE ChestNormal - No evidence of chest abno rmalities and tender or enlarged lymph nodes.PE CardiovascularNormal - No evidence of arter ial pulse(s) abnormalities, abnormal heart rate, heart arrhythmia and abnormal heart sounds .PE RespiratoryNormal - No evidence of abnormal breath sounds, chest abnormalities on palpa tion and chest abnormalities on percussion.PE ExtremitiesNormal - No evidence of tender or enlarged lymph nodes and upper extremities abnormalities.PE Musculoskeletal Normal - No ev idence of bone abnormalities, joint abnormalities, compromised muscle tone and restricted r chichi of motion.PE NeurologicNormal - No evidence of impaired cranial nerve(s), uncoordinate d gait and motor impairment.PE PsychiatricNormal - No evidence of altered affect, lack of c omprehension and disorientation.PE Hematologic/LymphaticNormal - No evidence of tender or enlarged axillae lymph nodes, tender or enlarged lymph nodes, tender or enlarged neck lymph nodes and petechiae / purpura / ecchymosis. Questionnaires: Are you having pain?No Labs: See EMR for complete list Impression/Plan: 174.4 - Malignant neoplasm of upper-outer quadrant of female breast, Diagnosed 10/04/2012 ( Active) Stage IA, T1b, pN0(i-), M0. No clinical or mammographic evidence of new or recurrent disease. Melodie Silva is a 58-year-old woman who recently completed postlumpectomy radiation th erapy and now continues on adjuvant endocrine therapy for her left-sided, stage 0, low-grad e LCIS that is ER/VT positive. We discussed long-term toxicities from radiation therapy inc luding fibrosis of the chest wall limiting range of motion and potential lymphedema of the breast. She did not undergo physical therapy or lymphedema management previously and would like to pursue that at this time. She requests referral to [facility] [employer] [facility] in [facility] for physical therapy. I will order this today and make appropriate referral s. Following the NCCN guidelines annual mammograms are recommended with physician exams mayte ry 6 months. She will return to clinic in one year with repeat mammogram and continue to fo llow up with Dr. Velez every 6 months. She was encouraged to call our clinic with any further questions or concerns. Thank you for allowing me to participate in the care of Melodie Silva. If you ashli uld have any questions regarding this evaluation, please do not hesitate to contact me. Thanh Espinoza D.O. Radiation Oncologist Department of Radiation Oncology [facility] This note was transcribed using [employer] speech recognition software. As a result, there ma y be unintended for medical and/or spelling errors. Every attempt is made to correct dicta tion. If there are any questions or errors please contact our office. CSN: [id number] signed by Thanh Espinoza DO at 09/13/2013 12:30 PM PDTdocumen akanksha in this encounter Plan of Treatment +--------+ [...]
--- OUTSIDE RECORDS SUMMARY | ~2019-05-05 | XMS | Clinical Summary ---
Demographics + + + | Address | [address] | | | [place] [address] | + + + | Home Phone | | + + + | Preferred Language | Unknown | + + + | Marital Status | | + + + | Protestant Affiliation | 1076 | + + + | Race | Unknown | + + + | Ethnic Group | Unknown | + + + Author + + + | Author | [facility] (Historical as of | | | 01-25-19) | + + + | Organization | [facility] (Historical as of | | | 01-25-19) | + + + | Address | Unknown | + + + | Phone | Unavailable | + + + Support + + +---------+ + | Name | Relationship | Address | Phone | + + +---------+ + | Brandon Cortez | ECON | Unknown | | + + +---------+ + Care Team Providers + +------+ + | Care Rod Finisher Name | Role | Phone | + +------+ + | Radha Carias PA-C | PP | Unavailable | + +------+ + Allergies + + + + + + | Active Allergy | Reactions | Severity | Noted | Comments | | | | | Date | | + + + + + + | Sulfa Antibiotics | Rash | Medium | 10/15/19 | | | | | | 15 | | + + + + + + Current Medications + + +--------+---------+------+------+-------+ | Prescription | Sig. | Disp. | Refills | Star | End | Statu | | | | | | t | Date | s | | | | | | Date | | | + + +--------+---------+------+------+-------+ | atorvastatin | Take 40 mg by mouth. | | | | | Activ | | (LIPITOR) 40 MG | | | | | | e | | tablet | | | | | | | + + +--------+---------+------+------+-------+ | cyclobenzaprine | Take 1 tablet by | | | 05/1 | | Activ | | (FLEXERIL) 5 MG | mouth. | | | 1/20 | | e | | tablet | | | | 18 | | | + + +--------+---------+------+------+-------+ | insulin aspart | Inject into the | | | | | Activ | | (NOVOLOG) 100 | skin. Sliding scale | | | | | e | | UNIT/ML injection | | | | | | | + + +--------+---------+------+------+-------+ | insulin glargine | Inject 28 Units into | | | | | Activ | | (LANTUS) 100 UNIT/ML | the skin every | | | | | e | | injection | morning. | | | | | | + + +--------+---------+------+------+-------+ | LORazepam (ATIVAN) | Take 1 mg by mouth. | | | | | Activ | | 1 MG tablet | | | | | | e | + + +--------+---------+------+------+-------+ | Multiple | Take 1 tablet by | | | | | Activ | | Vitamins-Minerals | mouth. | | | | | e | | (MULTIVITAMIN ADULT) | | | | | | | | TABS | | | | | | | + + +--------+---------+------+------+-------+ | glucagon (GLUCAGON | Glucagon Emergency | | | | | Activ | | EMERGENCY) 1 MG | Kit (human-recomb) 1 | | | | | e | | injection | mg injection | | | | | | + + +--------+---------+------+------+-------+ | venlafaxine | venlafaxine ER 150 | | | | | Activ | | (EFFEXOR-XR) 150 MG | mg capsule,extended | | | | | e | | 24 hr capsule | release 24 hr | | | | | | + + +--------+---------+------+------+-------+ | gabapentin | Patient reports | | | 08/1 | | Activ | | (NEURONTIN) 300 MG | taking 1 tab in the | | | 0/20 | | e | | capsule | am and 2 tabs at | | | 18 | | | | | bedtime | | | | | | + + +--------+---------+------+------+-------+ | CONTOUR NEXT TEST | | | | 08/1 | | Activ | | test strip | | | | 9/20 | | e | | | | | | 18 | | | + + +--------+---------+------+------+-------+ | lisinopril | | | | 08/1 | | Activ | | (ZESTRIL) 40 MG | | | | 2/20 | | e | | tablet | | | | 18 | | | + + +--------+---------+------+------+-------+ | tamoxifen | Take 10 mg by mouth | | | | | Activ | | (NOLVADEX) 10 MG | daily. | | | | | e | | tablet | | | | | | | + + +--------+---------+------+------+-------+ | | Take 1 tablet by | 60 | 0 | 11/0 | | Activ | | oxyCODONE-acetaminop | mouth every 8 | tablet | | 2/20 | | e | | hen (PERCOCET) 5-325 | (eight) hours as | | | 18 | | | | MG per tablet | needed for Pain. 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 | 03/22/2018 | + + + | Degenerative spondylolisthesis - unstable | 02/12/2018 | + + + | Lumbar stenosis with neurogenic claudication | 02/12/2018 | + + + | Lumbar radiculopathy | 02/12/2018 | + + + | DDD (degenerative disc disease), lumbar | 02/12/2018 | + + + | Weakness of foot, left | 02/12/2018 | + + + Immunizations + + + + | Name | Dates Previously Given | Next Due | + + + + | INFLUENZA PF, | 03/30/2018 (Deferred: - Pt states she will | | | QUADRIVALENT | get it through PCP when she is out of the | | | (PED/ADOL/ADULT) | hospital, doesnt want sore arm with a sore | | | | back) | | + + + + | Td | 01/02/2009 | | + + + + Family History + + +------+ + | Medical History | Relation | Name | Comments | + + +------+ + | Diabetes type II | Mother | | | + + +------+ + + +------+ + + | Relation | Name | Status | Comments | + +------+ + + | Father | | | Parkisons/joint pain | + +------+ + + | Mother [...] + +---------+ + | Alcohol Use | Drinks/We | oz/Week | Comments | | | ek | | | + + +---------+ + | Yes | 2 | 1.2 | 2 per day | | | Glasses | | | | | of wine | | | + + +---------+ + + + + | Sex Assigned at | Date Recorded | | | | + + + | Not on file | | + + + Last Filed Vital Signs + + + + | Vital Sign | Reading | Time Taken | + + + + | Blood Pressure | 138/75 | 04/12/2018 12:58 PM PDT | + + + + | Pulse | 80 | 04/12/2018 12:58 PM PDT | + + + + | Temperature | 37.3 C (99.1 F) | 03/30/2018 11:21 AM PDT | + + + + | Respiratory Rate | 18 | 03/30/2018 11:21 AM PDT | + + + + | Oxygen Saturation | 97% | 03/30/2018 11:21 AM PDT | + + + + | Inhaled Oxygen | - | - | | Concentration | | | + + + + | Weight | 86.2 kg (190 lb) | 06/24/2018 10:44 AM PST | + + + + | Height | 168.9 cm (5' 6.5") | 06/24/2018 10:44 AM PST | + + + + | Body Mass Index | 30.21 | 06/24/2018 10:44 AM PST | + + + + Plan of Treatment + + + + + | Health Maintenance | Due Date | Last Done | Comments | + + + + + | Cervical Cancer | | | | | Screening (Pap) | 7 | | | + + + + + | Breast Cancer | | | | | Screening | 7 | | | | (Mammogram) | | | | + + + + + | Colon Cancer | | | | | Screening [...] + + | Vaccine: Influenza | | | | | (#1) | 9 | | | + + + + + Implants + +------+------+ +--------+--------+--------+ | Implanted | Type | Area | Manufacture | Device | Expira | Model | | | | | r | | tion | / | | | | | | Identi | Date | Serial | | | | | | fier | | / Lot | + +------+------+ +--------+--------+--------+ | Screw Mod Creo Amp 7.5x40 - | | | GLOBUS | | | 1067.1 | | [id number]: Qty: 2 on | | | MEDICAL - | | | 740 / | | 03/28/2018 by Chad, | | | GLBU | | | / | | DO Lokesh | | | | | | | + +------+------+ +--------+--------+--------+ | Screw Douglas Mod Creo 7.5x45mm | | | GLOBUS | | | 1067.4 | | - [id number]: Qty: 2 | | | MEDICAL - | | | 745 / | | on 03/28/2018 by Chad, | | | GLBU | | | / | | DO Lokesh | | | | | | | + +------+------+ +--------+--------+--------+ | Creo Mis Modular Polyaxial | | | GLOBUS | | | 1134.0 | | [id number]: Qty: 4 on | | | MEDICAL | | | 100 / | | 03/28/2018 by Lokesh Bonilla, | | | | | | / | | DO | | | | | | | + +------+------+ +--------+--------+--------+ | Cap Cecille Mis Creo - | | | GLOBUS | | | 1134.0 | | [id number]: Qty: 4 on | | | MEDICAL - | | | 010 / | | 03/28/2018 by Chad, | | | GLBU | | | / | | DO Lokesh | | | | | | | + +------+------+ +--------+--------+--------+ | Chips Can 30cc 1.7-10mm | | | MUSCULOSKEL | | 08/18/ | [id number] | | Frzdr - | | | ETAL | | 2021 | | | [id number]: | | | TRANSPLA - | | | [id number] | | Qty: 1 on 03/28/2018 by | | | MUSC | | | [id number] | | Lokesh Bonilla DO | | | | | | 044 / | + +------+------+ +--------+--------+--------+ | Graft Infuse Bone Kit Xs - | | | MEDTRONIC - | | 02/08/ | [id number] | | [id number]: Qty: 1 on | | | MEDT | | 2018 | 0 / | | 03/28/2018 by Chad, | | | | | | /[id number] | | DO Lokesh | | | | | | 106AAC | + +------+------+ +--------+--------+--------+ | Spcr Rise [id number] 8-15mm 10d | | | GLOBUS | | | 193.12 | | - [id number]: Qty: 1 | | | MEDICAL - | | | 2 / / | | on 03/28/2018 by Chad, | | | GLBU | | | | | DO Lokesh | | | | | | | + +------+------+ +--------+--------+--------+ | Chuy Cone Tip Crv [place] | | | GLOBUS | | | 132.16 | | 5.5x60mm - | | | MEDICAL - | | | 0 / / | | [id number]: Qty: 2 on | | | GLBU | | | | | 03/28/2018 by Chad, | | | | | | | | DO Lokesh | | | | | | | + +------+------+ +--------+--------+--------+ Results Not on filefrom Last 3 Months Insurance + +--------+ +------+-------+---------+ | Payer | Benefi | Subscriber | Type | Phone | Address | | | t Plan | ID | | | | | | / | | | | | | | Group | | | | | + +--------+ +------+-------+---------+ | [employer] | ODS | [id number] | | | | | | HEALTH | | | | | | | PLAN | | | | | + +--------+ +------+-------+---------+ + +--------+ +--------+ + + | Guarantor Name | Accoun | Relation to | Date | Phone | Billing Address | | | t Type | Patient | of | | | | | | | | | | + +--------+ +--------+ + + | HANS CORTEZ | Person | Self [birth year] Home: | [address] | | | al/Fam | | 1955 | [phone] [place] | | | [place] | | [phone] | [address] | + +--------+ +--------+ + +
--- OUTSIDE RECORDS SUMMARY | ~2019-05-05 | XMS | Encounter Summary ---
Demographics + + + | Address | [address] | | | [place] [address] | + + + | Home Phone | | + + + | Preferred Language | Unknown | + + + | Marital Status | | + + + | Restorationist Affiliation | 1076 | + + + | Race | Unknown | + + + | Ethnic Group | Unknown | + + + Author + + + | Author | [facility] | | | and [place] | + + + | Organization | [facility] | | | and [...] Team Providers + +------+ + | Care Data Review Specialist Name | Role | Phone | [...] | +--------+ + + + + | 12/18/ | Telephone | [facility] | Agustin, | Other | | 2018 | | [facility] | Dimas Mckay MD [address] | | | | | [facility] CLIN[facility] [address] [place] | | | | | [address] [place] | [place] [address] | | | | | [place] [address] | [phone] | | | | | [phone] | | | +--------+ + + + [...] | | | | | | [facility] | | | | | | [address] | | | | | | | | +--------+ + + + + | 01/11/ | Appointment | Radiation Oncology | Thanh Espinoza DO | | | 2019 | | | [address] | | | | | | [place] | | | | | | [address] | | | | | | | | +--------+ + + + + documented as of this encounter Visit Diagnoses Not on filedocumented in this encounter"
--- OUTSIDE RECORDS SUMMARY | ~2019-05-05 | XMS | Encounter Summary ---
Demographics + + + | Address | [address] | | | [place] [address] | + + + | Home Phone | | + + + | Preferred Language | Unknown | + + + | Marital Status | | + + + | Buddhism Affiliation | 1076 | + + + | Race | Unknown | + + + | Ethnic Group | Unknown | + + + Author + + + | Author | [facility] | | | and [place] | + + + | Organization | [facility] | | | [...] Team Providers + +------+ + | Care Lead Pressman Roto [employer]ure Printing Name | Role | Phone | + +------+ + | Britton Chi MD | PCP | | + +------+ + Reason for Referral Evaluate & Treat (Routine) +--------+ + + + + + | Status | Reason | Specialty | Diagnoses / | Referred By | Referred To | | | | | Procedures | Contact | Contact | +--------+ + + + + + | Closed | Specialty | Surgery | Diagnoses | Kaykay, | Felipe Trevino | | | Services | | Malignant | Claudia M, | Wagner | | | Required | | neoplasm of | MD [address] | | | | | right breast | [address] | [address] | | | | | in female, | [place], | [place], [place] | | | | | estrogen | [place] [address] | [address] | | | | | receptor | Phone: | Phone: | | | | | positive, | [phone] | [phone] | | | | | unspecified | Fax: | Fax: | | | | | site of | [phone] | [phone] | | | | | breast (HCC) | | | +--------+ + + + + + Reason for Visit + + + | Reason | Comments | + + + | Results, Pathology | | + + + Encounter Details +--------+ + + + + | Date | Type | Department | Care Team | Description | +--------+ + + + + | 11/26/ | Telephone | [facility] | Kaykay Claudia | Results, Pathology | | 2018 | | [facility] RAD[facility] | MD Jaky [address] | | | | [facility] [address] | [place], [place] | | | | | [address] [place] [address] [place] | [address] | | | | | [place] [address] | | | | | | [phone] | | | +--------+ + + + [...] [address] | | | | | | [place] | | | | | | [address] | | | | | | | | +--------+ + + + + | 01/11/ | Appointment | Radiation Oncology | Thanh Espinoza DO | | | 2019 | | | [address] | | | | | | [place] | | | | | | [address] | | | | | | | | +--------+ + + + + + + +--------+ + + | Name | Type | Priori | Associated Diagnoses | Order Schedule | | | | ty | | | + + +--------+ + + | General Surgery, | Outpatient | Routin | Malignant Neoplasm | Ordered: 11/26/2017 | | External - AMB | Referral | e | Of Right Breast In | | | Referral | | | Female, Estrogen | | | | | | Receptor Positive, | | | | | | Unspecified Site Of | | | | | | Breast (Hcc) | | + + +--------+ + + documented as of this encounter Visit Diagnoses + + | Diagnosis | + + | Malignant neoplasm of right breast in female, estrogen receptor positive, unspecified | | site of breast (HCC) - Primary | + + documented in this encounter"
--- OUTSIDE RECORDS SUMMARY | ~2019-05-05 | XMS | Encounter Summary ---
Demographics + + + | Address | [address] | | | [place] [address] | + + + | Home Phone | | + + + | Preferred Language | Unknown | + + + | Marital Status | | + + + | Church Affiliation | 1076 | + + + [...] Team Providers + +------+ + | Care Pinsetter Mechanic Helper Name | Role | Phone | + [...] | 02/14/ | Hospital | [facility] | Thanh Espinoza DO | Malignant neoplasm | | 2018 | Encounter | [facility] | [address] | of upper-outer | | | | ONCOLOGY CLINIC [address] | [place], [place] | quadrant of right | | | | [address] [place] | [phone] | breast in female, | | | | [place] [address] | | estrogen receptor | | | | [phone] | | positive (HCC) | | | [...] [place] | | | | | | [address] | | | | | | | | +--------+ + + + + | 01/11/ | Appointment | Radiation Oncology | Thanh Espinoza DO | | | 2019 | | | [address] | | | | | | [place] | | | | | | [address] | | | | | | | | +--------+ + + + + documented as of this encounter Visit Diagnoses + + | Diagnosis | + + | Malignant neoplasm of upper-outer quadrant of right breast in female, estrogen | | receptor positive (HCC) - Primary | + + documented in this encounter"
--- OUTSIDE RECORDS SUMMARY | ~2019-05-05 | XMS | Encounter Summary ---
Demographics + + + | Address | [address] | | | [place] [address] | + + + | Home Phone | | + + + | Preferred Language | Unknown | + + + | Marital Status | | + + + | Confucianism Affiliation | 1076 | + + + | Race | Unknown | + + + | Ethnic Group | Unknown | + + + Author + + + | Author | [facility] | | | and [place] | + + + | Organization | [facility] | | | [...] Team Providers + +------+ + | Care Cloth Calender Name | Role | Phone | + +------+ + | Britton Chi MD | PCP | | + +------+ + Reason for Visit +--------+ + | Reason | Comments | +--------+ + | Other | | +--------+ + Encounter Details +--------+ + + + + | Date | Type | Department | Care Team | Description | +--------+ + + + + | 12/17/ | Telephone | [facility] | Thanh Espinoza DO | Other | | 2018 | | [facility] | [address] | | | | | ONCOLOGY CLINIC [address] | [place] | | | | | [place] | [address] | | | | | [place] [address] | | | | | | [phone] | | | +--------+ + + + [...] | | | | | | [address] [place] | | | | | | [id number] | | | | | | | | +--------+ + + + + | 01/11/ | Appointment | Radiation Oncology | Thanh Espinoza DO | | | 2019 | | | [address] | | | | | | [place] | | | | | | [address] | | | | | | | | +--------+ + + + + documented as of this encounter Visit Diagnoses Not on filedocumented in this encounter"
--- OUTSIDE RECORDS SUMMARY | ~2019-05-05 | XMS | Encounter Summary ---
Demographics + + + | Address | [address] | | | [place] [address] | + + + | Home Phone [...] Team Providers + +------+ + | Care Development Intern Name | Role | Phone | + +------+ + | Britton Chi MD | PCP | | + +------+ + Encounter Details +--------+ + + + + | Date | Type | Department | Care Team | Description | +--------+ + + + + | 01/30/ | Hospital | C GENERIC IP | Conversion | Pain | | 2018 | Encounter | CONVERSION DEP [address] | Transaction, | | | | | [address] [place] | Provider Unknown | | | | | [place] | [phone] | | | | | [address] | | | | | | [phone] | | | +--------+ + + + [...] | | | | | | [place] | | | | | | [id number] | | | | | | | | +--------+ + + + + | 01/11/ | Appointment | Radiation Oncology | Thanh Espinoza DO | | | 2019 | | | [address] | | | | | | [place] | | | | | | [address] | | | | | | | | +--------+ + + + + documented as of this encounter Procedures + +--------+ + + + | Procedure Name | Priori | Date/Time | Associated Diagnosis | Comments | | | ty | | | | + +--------+ + + + | CT LUMBAR SPINE WO | Routin | 01/28/2018 | | Results for this | | CONTRAST | e | 11:07 PM | | procedure are in the | | | | PDT | | results section. | + +--------+ + + + documented in this encounter Results CT Lumbar Spine wo Contrast (01/28/2018 11:07 PM PDT) + + | Specimen | + + | | + + + + + | Narrative | Performed At | + + + | This is a non-reportable procedure without a radiologist report and | | | is used for image storage only | | + + + + + | Procedure Note | + + | Tom Walker Vickie - 01/22/2019 8:23 AM PDT This is a non-reportable procedure | | without a radiologist report and isused for image storage only | + + documented in this encounter Visit Diagnoses + + | Diagnosis | + + | Pain Generalized pain | + + documented in this encounter"
--- OUTSIDE RECORDS SUMMARY | ~2019-05-05 | XMS | Encounter Summary ---
Demographics + + + | Address | [address] | | | [place] [address] | + + + | Home Phone | | + + + | Preferred Language | Unknown | + + + | Marital Status | | + + + | Adventist Affiliation | 1076 | + + + | Race | Unknown | + + + | Ethnic Group | Unknown | + + + Author + + + | Author | [facility] | | | and [place] | + + + | Organization | [facility] | | [...] Team Providers + +------+ + | Care Egg Smeller Name | Role | Phone | + +------+ + | Radha Carias PA-C | PCP | | + +------+ + Encounter Details +--------+ + + + + | Date | Type | Department | Care Team | Description | +--------+ + + + + | 06/24/ | Hospital | [facility] | Conversion | S/P lumbar fusion; | | 2018 | Encounter | CENTER OP[facility] XRAY | Transaction, | Lumbar | | | | [address] [place] | Provider Unknown | radiculopathy; | | | | [address] [place], [place] | [phone] | Degenerative | | | | [address] | | spondylolisthesis; | | | | [phone] | Jese Iqbal, | Lumbar stenosis with | | | | | EDI PROGRAMMER ANALYST [address] | neurogenic | | | | | [address] | claudication | | | | | [place] [address] | | | | | | [phone] | | | | | | | [...] + + + +---------+ + + | CONTOUR NEXT TEST | | | 1 | 06/11/19 | | | strip | | | | 19 | | + + + +---------+ + [...] + +---------+ + + | atorvaSTATin | | | 0 | 05/27/20 | | | (LIPITOR) 10 mg | | | | 18 | 9 | [...] [place] | | | | | | [address] | | | | | | | | +--------+ + + + + | 01/11/ | Appointment | Radiation Oncology | Thanh Espinoza DO | | | 2019 | | | [address] | | | | | | [place] | | | | | | [address] | | | | | | | | +--------+ + + + + documented as of this encounter Procedures + +--------+ + + + | Procedure Name | Priori | Date/Time | Associated Diagnosis | Comments | | | ty | | | | + +--------+ + + + | XR LUMBAR SPINE 2 OR | Routin | 06/24/2018 | | Results for this | | 3 VW | e | 10:44 AM | | procedure are in the | | | | PST | | results section. | + +--------+ + + + documented in this encounter Results XR Lumbar Spine 2 or 3 Vw (06/24/2018 10:44 AM PST) + + | Specimen | + + | | + + + + + | Impressions | Performed At | + + + | 1. There is grade 1 anterolisthesis of L4 on L5 and L5 on S1. 2. | | | There is a questionable subtle lucency along the right L4 | | | transpedicular fixation screw. Signed by: Ritchie Oh Sign | | | Date/Time: 06/24/2018 5:22 PM | | + + + + + + | Narrative | Performed At | + + + | LUMBAR SPINE X-RAY; TWO OR THREE VIEWS CLINICAL INFORMATION: | | | Status post lumbar fusion, lumbar radiculopathy, degenerative | | | spondylolisthesis. Lumbar stenosis with neurogenic claudication. | | | COMPARISON: XR LUMBAR SPINE LIMITED 2-3 VIEW (05/13/2018); CT LUMBAR | | | SPINE WO CONTRAST (03/29/2018); CT LUMBAR SPINE WO CONTRAST | | | (01/28/2018); FINDINGS: There are 5 kft-fjq-temeurm lumbar vertebral | | | type bodies. Transpedicular fixation hardware is again noted at L4 | | | and L5. There appears to be a subtle lucency around the right L4 | | | transpedicular fixation screw. Moderate osteopenia is present. | | | The sacral arcuate neural foramen are maintained. There is severe | | | disc space narrowing and sclerosis at L2-3 which is unchanged. | | | Vertebral body heights are maintained. There are no aggressive | | | lytic or blastic lesions. There is grade 1 anterolisthesis of L4 on | | | L5 measuring 6 mm. There is 3 mm anterolisthesis of L5 on S1. | | + + + + + | Procedure Note | + + | Tom Walker Conversion - 01/21/2019 7:51 PM PDT LUMBAR SPINE X-RAY; TWO OR THREE VIEWS | | CLINICAL INFORMATION: | | Status post lumbar fusion, lumbar radiculopathy, degenerative | | spondylolisthesis. Lumbar stenosis with neurogenic claudication. | | COMPARISON: | | XR LUMBAR SPINE LIMITED 2-3 VIEW (05/13/2018); CT LUMBAR SPINE WO | | CONTRAST (03/29/2018); CT LUMBAR SPINE WO CONTRAST (01/28/2018); | | FINDINGS: | | There are 5 ewo-ahm-agilizz lumbar vertebral type bodies. | | Transpedicular fixation hardware is again noted at L4 and L5. There | | appears to be a subtle lucency around the right L4 transpedicular | | fixation screw. Moderate osteopenia is present. The sacral arcuate | | neural foramen are maintained. There is severe disc space narrowing | | and sclerosis at L2-3 which is unchanged. Vertebral body heights are | | maintained. There are no aggressive lytic or blastic lesions. There | | is grade 1 anterolisthesis of L4 on L5 measuring 6 mm. There is 3 mm | | anterolisthesis of L5 on S1. | | IMPRESSION: | | 1. There is grade 1 anterolisthesis of L4 on L5 and L5 on S1. | | 2. There is a questionable subtle lucency along the right L4 | | transpedicular fixation screw. | | Signed by: Ritchie Oh | | Sign Date/Time: 06/24/2018 5:22 PM | + + documented in this encounter Visit Diagnoses + + | Diagnosis | + + | S/P lumbar fusion Arthrodesis status | + + | Lumbar radiculopathy Thoracic or lumbosacral neuritis or radiculitis, unspecified | + + | Degenerative spondylolisthesis Acquired spondylolisthesis | + + | Lumbar stenosis with neurogenic claudication Spinal stenosis, lumbar region, with | | neurogenic claudication | + + documented in this encounter Additional Health Concerns + + + + | Infection | Noted Time | Resolved Time | + + + + | Methicillin-resistant Staphylococcus aureus | 03/21/2018 12:00 AM | | | | PDT | | + + + + documented as of this encounter"
--- OUTSIDE RECORDS SUMMARY | ~2019-05-05 | XMS | Encounter Summary ---
Demographics + + + | Address | [address] | | | [place] [address] | + + + | Home Phone | | + + + | Preferred Language | Unknown | + + + | Marital Status | | + + + | Scientology Affiliation | 1076 | + + + | Race | Unknown | + + + | Ethnic Group | Unknown | + + + Author + + + | Author | [facility] | | | and [place] | + + + | Organization | [facility] | | [...] Team Providers + +------+ + | Care Buttonholer Name | Role | Phone | + [...] | MED CTR EXTERNAL | MD [address] | | | | | IMAGING | [place] | | | | | [phone] | [place] [address] | | +--------+ + + + + [...] [place] | | | | | | [address] | | | | | | | | +--------+ + + + + | 01/11/ | Appointment | Radiation Oncology | Thanh Espinoza DO | | | 2019 | | | [address] | | | | | | [place] | | | | | | [address] | | | | | | | [...]
--- OUTSIDE RECORDS SUMMARY | ~2019-05-05 | XMS | Encounter Summary ---
Demographics + + + | Address | [address] | | | [place] [address] | + + + | Home Phone | | + + + | Preferred Language | Unknown | + + + | Marital Status | | + + + | Sabianist Affiliation | 1076 | + + + [...] Team Providers + +------+ + | Care Upholstery Estimator Name | Role | Phone | + [...] | | | | [place] | [phone] | | | | | [address] | | | | | | [phone] | | | +--------+ + + + [...] [place] | | | | | | [address] | | | | | | | | +--------+ + + + + documented as of this encounter Procedures + +--------+ + + + | Procedure Name | Priori | Date/Time | Associated Diagnosis | Comments | | | ty | | | | + +--------+ + + + | XR LUMBAR SPINE 2 OR | Routin | 09/13/2017 | | Results for this | | 3 VW | e | 1:34 AM | | procedure are in the | | | | PDT | | results section. | + +--------+ + + + documented in this encounter Results XR Lumbar Spine 2 or 3 Vw (09/13/2017 1:34 AM PDT) + + | Specimen | [...]
--- OUTSIDE RECORDS SUMMARY | ~2019-05-05 | XMS | Encounter Summary ---
Demographics + + + | Address | [address] | | | [place] [address] | + + + | Home Phone | | + + + | Preferred Language | Unknown | + + + | Marital Status | | + + + | Latter Day Affiliation | 1076 | + + + | Race | Unknown | + + + | Ethnic Group | Unknown | + + + Author + + + | Author | [facility] | | | and [place] | + + + | Organization | [facility] | | | [...] Team Providers + +------+ + | Care Surgical Services Tech Name | Role | Phone | + [...] | Services | | Malignant | Claudia Starkey, | Agustin, | | | Required | | neoplasm of | [address] | Dimas Mckay MD | | | | | right breast | [address] | [address] | | | | | in female, | [place], | [place] | | | | | estrogen | [place] [address] | [facility], [place] | | | | | receptor | Phone: | [address] Phone: | | | | | negative, | [phone] | [phone] | | | | | unspecified | Fax: | Fax: | | | | | site of | [phone] | [phone] | | | | | breast (HCC) | | | +--------+ + + + + + Encounter Details +--------+ + + + + | Date | Type | Department | Care Team | Description | +--------+ + + + + | 11/29/ | Orders Only | [facility] | Claudia Mccracken | Malignant neoplasm | | 2018 | | [facility] | MD Jaky [address] | of right breast in | | | | ONCOLOGY [address] | [place], [place] | female, estrogen | | | | [place], | [address] | receptor negative, | | | | [place] [address] | | unspecified site of | | | | [phone] | | breast (HCC) | | | | | [...] [place] | | | | | | [address] | | | | | | | | +--------+ + + + + | 01/11/ | Appointment | Radiation Oncology | Thanh Espinoza DO | | | 2019 | | | [address] | | | | | | [place] | | | | | | [address] | | | | | | | | +--------+ + + + + + + +--------+ + + | Name | Type | Priori | Associated Diagnoses | Order Schedule | | | | ty | | | + + +--------+ + + | * [facility] | Outpatient | Routin | Malignant Neoplasm | Ordered: 11/29/2017 | | Oncology Clinic - | Referral | e | Of Right Breast In | | | AMB Referral | | | Female, Estrogen | | | | | | Receptor Negative, | | | | | | Unspecified Site Of | | | | | | Breast (Hcc) | | + + +--------+ + + documented as of this encounter Visit Diagnoses + + | Diagnosis | + + | Malignant neoplasm of right breast in female, estrogen receptor negative, unspecified | | site of breast (HCC) [...]
--- OUTSIDE RECORDS SUMMARY | ~2019-05-05 | XMS | Encounter Summary ---
Demographics + + + | Address | [address] | | | [place] [address] | + + + | Home Phone | | + + + | Preferred Language | Unknown | + + + | Marital Status | | + + + | Amish Affiliation | 1076 | + + + [...] Team Providers + +------+ + | Care Prior Authorization Technician Name | Role | Phone | [...] Malignant | Thanh C, DO | [address] | | | | | neoplasm of | [address] | [place], | | | | | upper-outer | [address] | [place] [address] | | | | | quadrant of | [place], | Phone: | | | | | right breast | [place] [address] | [phone] | | | | | in female, | Phone: | Fax: | | | | | estrogen | [phone] | [phone] | | | | | receptor | Fax: | | | | | | positive | [phone] | | | | | | (HCC) [...] | | | quadrant of | [address] | [place] [address] | | | | | female | [place], | Phone: | | | | | breast | [place] | [phone] | | | | | Procedures | [address] | Fax: | | | | | [address] | Phone: | [phone] | | | | | | [phone] | | | | | | | Fax: | | | | | | | [phone] | | +--------+--------+ + + + + Encounter Details +--------+ + + + + | Date | Type | Department | Care Team | Description | +--------+ + + + + | 01/29/ | Hospital | [facility] | Thanh Espinoza DO | Malignant neoplasm | | 2018 | Encounter | MED CTR RADIATION | [address] | of upper-outer | | | | ONCOLOGY CLINIC [address] | [place], [place] | quadrant of right | | | | [place] | [address] | breast in female, | | | | [place] [address] | | estrogen receptor | | | | [phone] | | positive (HCC) | | | [...] moderately differentiated infiltrating lobular carcinoma; low-g rade, ER/CA positive, HER-2/zaid negative 09/23/2012 Initial Diagnosis Lobular breast cancer, right (HCC) 10/15/2012 Surgery Surgeon: Felipe Trevino M.D. Surgery indicated: Lumpectomy with sentinel lymph node biopsy Final pathology details: 8 mm invasive lobular carcinoma, grade 1, negative surgical margin s to 1 mm, negative LVSI, LCIS involving 10% of specimen, ER/CA positive, HER-2/zaid negative by FISH. 11/25/2012 - [...] carcinoma with the following features: - Predicted Beaumont histologic score: - Tubule formation score: 3/3. [...] with overall stage IA (T1b, N0, M0), ER/CA positive disease that was treated with adjuvant [...] carcinoma that was strongly ER positive moderately CA positive, H ER-2/zaid negative with negative LVSI [...] (mm): 8 Method of lymph node assessment: Steens lymph node biopsy Method of detection of distant metastases: Clinical Tumor grade (Snutoe-Gqhlo-Nekxauxtds system): G1 Lymph-vascular invasion (LVI): LVI not [...] IA (pT1b, pN0(i+), cM0, G2, ER: Positive, CA: Posi tive, HER2: Negative) - Signed by Thanh Espinoza DO on 01/30/2018 Neoadjuvant therapy: No Laterality: Right Tumor size (mm): 6 Nuclear grade: G2 Multigene prognostic tests performed: Other Mitotic count score: Score 1 Percentage of tumor with tubule formation: 0 Tubule formation score: Score 3 Lgusdl-Blmov-Hsznwpdycx score: 6 Histologic grading system: 3 grade [...] JUSTIN Radiation Oncologist Department of Radiation Oncology [facility] This note was transcribed using [employer] speech recognition software. As a result, there [...] [address] | | | | | | [place], [place] | | | | | | [id number] | | | | | | | | +--------+ + + + + | 01/11/ | Appointment | Radiation Oncology | Thanh Espinoza DO | | | 2019 | | | [address] | | | | | | [place] | | | | | | [address] | | | | | | | [...]
--- OUTSIDE RECORDS SUMMARY | ~2019-05-05 | XMS | Encounter Summary ---
Demographics + + + | Address | [address] | | | [place] [address] | + + + | Home Phone | | + + + | Preferred Language | Unknown | + + + | Marital Status | | + + + | Adventist Affiliation | 1076 | + + + | Race | Unknown | + + + | Ethnic Group | Unknown | + + + Author + + + | Author | [facility] | | | and [place] | + + + | Organization | [facility] | | | [...] Team Providers + +------+ + | Care Garnett Room Worker Name | Role | Phone | + +------+ + | Britton Chi MD | PCP | | + +------+ + Encounter Details +--------+ + + + + | Date | Type | Department | Care Team | Description | +--------+ + + + + | /15/ | Orders Only | [facility] | Thanh Espinoza DO | Abnormality of right | | 2018 | | MED CTR RAD[facility]ATION | [address] | breast on screening | | | | ONCOLOGY CLINIC [address] | [place] | mammogram (Primary | | | | [address] | [address] | Dx) | | | | [place] [address] | | | | | | [phone] | | | +--------+ + + + [...] | 01/11/ | Hospital | Radiology | Puma Mccrackenen | | | 2019 | Encounter | | MD Jaky [address] | | | | | | [place] | | | | | | [address] | | | | | | | | +--------+ + + + + | 01/11/ | Appointment | Radiation Oncology | Thanh Espinoza DO | | | 2019 | | | [address] | | | | | | [place] | | | | | | [address] | | | | | | | | +--------+ + + + + documented as of this encounter Results [facility] Tomosynthesis Diagnostic Right (10/30/2017 10:40 AM PDT) + + | Specimen | + + | | + + + + + | Narrative | Performed At | + + + | EXAM: [facility] TOMOSYN DIAGNOSTIC RIGHT dated 10/30/2017 10:19 AM | [facility] | | HISTORY: Abnormal finding of right mammogram on screening. H/o lobular | | | CA treated 2013 in the left breast. TECHNIQUE: Unilateral | | | digital magnification CC and MLO views as well as ML view was | | | obtained. Jass synthesis is performed. CAD utilized. | | | COMPARISON: Mammograms dating back to 2015 and 2014. FINDINGS: | | | Scattered areas of fibroglandular density are present. The pattern | | | is stable. There are no areas of developing architectural | | | distortion. There are no distinct masses. Finding 1: Interval | | | development of a small cluster of round and punctate | | | microcalcifications in the upper outer right breast, 7.8 cm and the | | | nipple at approximately 9:30 o'clock. Jass images demonstrate no | | | suspicious mass or architectural distortion. Images were reviewed | | | with CAD. IMPRESSION - BI-RADS CATEGORY 4: SUSPICIOUS | | | ABNORMALITY. BIOPSY SHOULD BE CONSIDERED. RECOMMENDATION: Right | | | breast stereotactic needle core biopsy. Dictated and Signed by: | | | Tay Rose MD Electronically signed: 10/30/2017 3:06 PM | | + + + + + | Procedure Note | + + | Aaron, Rad Results In - 10/30/2017 3:09 PM PDT EXAM: [facility] TOMOSYN DIAGNOSTIC RIGHT | | dated 10/30/2017 10:19 AMHISTORY: Abnormal finding of right mammogram on screening. H/o | | lobular CAtreated 2013 in the left breast. TECHNIQUE: Unilateral digital | | magnification CC and MLO views as well as ML viewwas obtained. Jass synthesis is | | performed. CAD utilized.COMPARISON: Mammograms dating back to 2016 and 2015.FINDINGS: | | Scattered areas of fibroglandular density are present. The patternis stable. There are | | no areas of developing architectural distortion. Thereare no distinct masses.Finding | | 1: Interval development of a small cluster of round and punctatemicrocalcifications in | | the upper outer right breast, 7.8 cm and the nipple atapproximately 9:30 o'clock.Jass | | images demonstrate no suspicious mass or architectural distortion. Imageswere reviewed | | with CAD.IMPRESSION -BI-RADS CATEGORY 4: SUSPICIOUS ABNORMALITY. BIOPSY SHOULD BE | | CONSIDERED.RECOMMENDATION: Right breast stereotactic needle core biopsy.Dictated and | | Signed by: Tay Rose MD Electronically signed: 10/30/2017 3:06 PM | | | |Finding 1: Interval development of a small cluster of round and punctate | |microcalcifications in the upper outer right breast, 7.8 cm and the nipple at | |approximately 9:30 o'clock. | | | |Jass images demonstrate no suspicious mass or architectural distortion. Images | |were reviewed with CAD. | | | |IMPRESSION - | | | |BI-RADS CATEGORY 4: SUSPICIOUS ABNORMALITY. BIOPSY SHOULD BE CONSIDERED. | | | |RECOMMENDATION: Right breast stereotactic needle core biopsy. | | | |Dictated and Signed by: Tay Rose MD | | Electronically signed: 10/30/2017 3:06 PM | + + + +---------+ + + | Performing | Address | City/State/Zipcode | Phone Number | | Organization | | | | + +---------+ + + | [facility] | | | | + +---------+ + + documented in this encounter Visit Diagnoses + + | Diagnosis | + + | Abnormality of right breast on screening mammogram - Primary | + + documented in this encounter"
--- OUTSIDE RECORDS SUMMARY | ~2019-05-05 | XMS | Encounter Summary ---
Demographics + + + | Address | [address] | | | [place] [address] | + + + | Home Phone [...] Team Providers + +------+ + | Care Transverse Abdominal Muscle Surgeon Name | Role | Phone | + +------+ + PCP | Unavailable | + +------+ + Encounter Details +--------+ + + + + | Date | Type | Department | Care Team | Description | +--------+ + + + + | 02/22/ | Hospital | [facility] | | | | 2008 | Encounter | MED CTR GENERIC OP | | | | | | CONV DEPT [address] | | | | | | [place], | | | | | | [place] [address] | | | | | | [phone] | | | +--------+ + + + [...] | | | | | | [facility] | | | | | | [address] | | | | | | | | +--------+ + + + + | 01/11/ | Appointment | Radiation Oncology | Thanh Espinoza DO | | | 2019 | | | [address] | | | | | | [place] | | | | | | [id number] | | | | | | | | +--------+ + + + + documented as of this encounter Visit Diagnoses Not on filedocumented in this encounter"
--- OUTSIDE RECORDS SUMMARY | ~2019-05-05 | XMS | Encounter Summary ---
Demographics + + + | Address | [address] | | | [place] [address] | + + + | Home Phone | | + + + | Preferred Language | Unknown | + + + | Marital Status | | + + + | Voodoo Affiliation | 1076 | + + + | Race | Unknown | + + + | Ethnic Group | Unknown | + + + Author + + + | Author | [facility] | | | and [place] | + + + | Organization | [facility] | | | [...] Team Providers + +------+ + | Care Face Burler Name | Role | Phone | + [...] | +--------+ + + + + | 12/14/ | Telephone | [facility] | [facility] | Scheduling Issues | | 2018 | | MED CTR MEDICAL | J, RN | | | | | ONCOLOGY CLINIC [address] | | | | | | [address] | | | | | | [place] [address] | | | | | | [phone] | | | +--------+ + + + [...] [place] | | | | | | [address] | | | | | | | [...]
--- OUTSIDE RECORDS SUMMARY | ~2019-05-05 | XMS | Encounter Summary ---
Demographics + + + | Address | [address] | | | [place] [address] | + + + | Home Phone | | + + + | Preferred Language | Unknown | + + + | Marital Status | | + + + | Presybeterian Affiliation | 1076 | + + + | Race | Unknown | + + + | Ethnic Group | Unknown | + + + Author + + + | Author | [facility] | | | and [place] | + + + | Organization | [facility] | | | [...] Team Providers + +------+ + | Care E D Tech Name | Role | Phone | [...] | | | | | | [place] [address] | | | | | | [phone] | | | +--------+ + + + [...] [place] | | | | | | [address] | | | | | | | [...]
--- OUTSIDE RECORDS SUMMARY | ~2019-05-05 | XMS | Encounter Summary ---
Demographics + + + | Address | [address] | | | [place] [address] | + + + | Home Phone | | + + + | Preferred Language | Unknown | + + + | Marital Status | | + + + | Mosque Affiliation | 1076 | + + + | Race | Unknown | + + + | Ethnic Group | Unknown | + + + Author + + + | Author | [facility] | | | and [place] | + + + | Organization | [facility] | | [...] Team Providers + +------+ + | Care General Milling Superintendent Name | Role | Phone | + [...] | | ONCOLOGY CLINIC [address] | [place], [place] | | | | | [address] | [address] | | | | | [place] [address] | | | | | | [phone] | | | +--------+ + + + [...] CLEANING | | | | | | [id number] | | | | | | | | +--------+ + + + + documented as of this encounter Visit Diagnoses Not on filedocumented in this encounter"
--- OUTSIDE RECORDS SUMMARY | ~2019-05-05 | XMS | Encounter Summary ---
Demographics + + + | Address | [address] | | | [place] [address] | + + + | Home Phone | | + + + | Preferred Language | Unknown | + + + | Marital Status | | + + + | Holiness Affiliation | 1076 | + + + [...] Team Providers + +------+ + | Care Rural Mail Contractor Name | Role | Phone | + +------+ + | Britton Chi MD | PCP | | + +------+ + Reason for Visit +--------+ + | Reason | Comments | +--------+ + | Other | | +--------+ + Encounter Details +--------+ + + + + | Date | Type | Department | Care Team | Description | +--------+ + + + + | 11/28/ | Telephone | [facility] | Kalee Chadwick RN | Other | | 2017 | | [facility] | | | | | | ONCOLOGY CLINIC [address] | | | | | | [address] | | | | | | [place] [address] | | | | | | [phone] | | | +--------+ + + + [...] CLEANING | | | | | | [address] | | | | | | | | +--------+ + + + + | 01/11/ | Appointment | Radiation Oncology | Thanh Espinoza DO | | | 2019 | | | [address] | | | | | | [place] | | | | | | [address] | | | | | | | | +--------+ + + + + documented as of this encounter Visit Diagnoses Not on filedocumented in this encounter"
--- OUTSIDE RECORDS SUMMARY | ~2019-05-05 | XMS | Encounter Summary ---
Demographics + + + | Address | [address] | | | [place] [address] | + + + | Home Phone [...] Team Providers + +------+ + | Care Utility Sales And Service Manager Name | Role | Phone | [...] | +--------+ + + + + | 12/11/ | Telephone | [facility] | Thanh Espinoza DO | Other | | 2018 | | [facility] | [address] | | | | | ONCOLOGY CLINIC [address] | [place] | | | | | [address] | [address] | | | | | [place] [address] | | | | | | [phone] | | | +--------+ + + + [...] | | | | | | [place] | | | | | | [id number] | | | | | | | | +--------+ + + + + | 01/11/ | Appointment | Radiation Oncology | Thanh Espinoza DO | | | 2019 | | | [address] | | | | | | [place] | | | | | | [address] | | | | | | | | +--------+ + + + + documented as of this encounter Visit Diagnoses Not on filedocumented in this encounter"
--- OUTSIDE RECORDS SUMMARY | ~2019-05-05 | XMS | Encounter Summary ---
Demographics + + + | Address | [address] | | | [place] [address] | + + + | Home Phone | | + + + | Preferred Language | Unknown | + + + | Marital Status | | + + + | Baptist Affiliation | 1076 | + + + | Race | Unknown | + + + | Ethnic Group | Unknown | + + + Author + + + | Author | [facility] | | | and [place] | + + + | Organization | [facility] | | | [...] Team Providers + +------+ + | Care Regulatory Analyst Name | Role | Phone | + +------+ + | Radha Carias PA-C | PCP | | + +------+ + Encounter Details +--------+ + + + + | Date | Type | Department | Care Team | Description | +--------+ + + + + | 06/24/ | Hospital | [facility] | Conversion | S/P lumbar fusion; | | 2018 | Encounter | CENTER OP[facility] XRAY | Transaction, | Lumbar | | | | [address] [place] | Provider Unknown | radiculopathy; | | | | [address] [place], [place] | [phone] | Degenerative | | | | [address] | | spondylolisthesis; | | | | [phone] | Jese Iqbal, | Lumbar stenosis with | | | | | [address] | neurogenic | | | | | [address] | claudication | | | | | [place] [address] | | | | | | [phone] | | | | | | | [...] [place] | | | | | | [address] | | | | | | | | +--------+ + + + + | 01/11/ | Appointment | Radiation Oncology | Thanh Espinoza DO | | | 2019 | | | [address] | | | | | | [place] | | | | | | [address] | | | | | | | [...] | | (01/28/2018); FINDINGS: There are 5 xgi-onc-nebbufb lumbar vertebral | | | type bodies. [...] | FINDINGS: | | There are 5 ffd-gfm-gyzpedd lumbar vertebral type bodies. | | Transpedicular [...]
--- OUTSIDE RECORDS SUMMARY | ~2019-05-05 | XMS | Encounter Summary ---
Demographics + + + | Address | [address] | | | [place] [address] | + + + | Home Phone | | + + + | Preferred Language | Unknown | + + + | Marital Status | | + + + | Religion Affiliation | 1076 | + + + [...] Team Providers + +------+ + | Care Medicine Technologist Name | Role | Phone | + +------+ + | Britton Chi MD | PCP | | + +------+ + Reason for Visit +--------+ + | Reason | Comments | +--------+ + | Other | | +--------+ + Encounter Details +--------+ + + + + | Date | Type | Department | Care Team | Description | +--------+ + + + + | 12/03/ | Telephone | [facility] | [facility] | Other | | 2017 | | [facility] | JADA Acuña | | | | | ONCOLOGY CLINIC [address] | | | | | | [address] | | | | | | [place] [address] | | | | | | [phone] | | | +--------+ + + + [...] [place]AN[place] | | | | | | [address] | | | | | | | | +--------+ + + + + | 01/11/ | Appointment | Radiation Oncology | Thanh Espinoza DO | | | 2019 | | | [address] | | | | | | [place] | | | | | | [address] | | | | | | | | +--------+ + + + + documented as of this encounter Visit Diagnoses Not on filedocumented in this encounter"
--- OUTSIDE RECORDS SUMMARY | ~2019-05-05 | XMS | Encounter Summary ---
Demographics + + + | Address | [address] | | | [place] [address] | + + + | Home Phone [...] Team Providers + +------+ + | Care Splitter Tender Name | Role | Phone | + +------+ + PCP | Unavailable | + +------+ + Encounter Details +--------+ + + + + | Date | Type | Department | Care Team | Description | +--------+ + + + + | 04/19/ | Hospital | [facility] | | | | 2005 | Encounter | MED CTR XRAY [address] | | | | | | [address] | | | | | | [place] [address] | | | | | | [phone] | | | +--------+ + + + [...] [place] | | | | | | [address] | | | | | | | | +--------+ + + + + | 01/11/ | Appointment | Radiation Oncology | Thanh Espinoza DO | | | 2019 | | | [address] | | | | | | [place] | | | | | | [phone] | | | | | | | | +--------+ + + + + documented as of this encounter Visit Diagnoses Not on filedocumented in this encounter"
--- OUTSIDE RECORDS SUMMARY | ~2019-05-05 | XMS | Encounter Summary ---
Demographics + + + | Address | [address] | | | [place] [address] | + + + | Home Phone | | + + + | Preferred Language | Unknown | + + + | Marital Status | | + + + | Evangelical Affiliation | 1076 | + + + | Race | Unknown | + + + | Ethnic Group | Unknown | + + + Author + + + | Author | [facility] | | | and [place] | + + + | Organization | [facility] | | | [...] Team Providers + +------+ + | Care Curriculum And Instruction Director Name | Role | Phone | [...] | | | | | | [place] [address] | | | | | | [phone] | | | +--------+ + + + [...] [place] | | | | | | [address] | | | | | | | [...]
--- OUTSIDE RECORDS SUMMARY | ~2019-05-05 | XMS | Encounter Summary ---
Demographics + + + | Address | [address] | | | [place] [address] | + + + | Home Phone | | + + + | Preferred Language | Unknown | + + + | Marital Status | | + + + | Judaism Affiliation | 1076 | + + + [...] Team Providers + +------+ + | Care Retail Sales Advisor Name | Role | Phone | + +------+ + | Britton Chi MD | PCP | | + +------+ + Encounter Details +--------+ + + + + | Date | Type | Department | Care Team | Description | +--------+ + + + + | 10/18/ | Hospital | [facility] | Lord, Thanh C, DO | Encounter for | | 2017 | Encounter | MED CTR RADIATION | [address] | screening mammogram | | | | ONCOLOGY [address] | [place], [place] | for high-risk | | | | [place], | [address] | patient (Primary Dx) | | | | [place] [address] | | | | | | [phone] | | | +--------+ + + + [...] at Time of Discharge + + + +---------+--------+ + | Medication | Sig | Dispensed | Refills | Start | End Date | | | | | | Date | | + + + +---------+--------+ + | atorvaSTATin | Take 40 mg by mouth | | 0 | | | | (LIPITOR) 40 mg | nightly. | | | | | | tablet | | | | | | + + + +---------+--------+ + | insulin aspart | Inject under the | | 0 | | | | (NOVOLOG FLEXPEN) | skin 3 times daily | | | | | | 100 units/mL | (before meals). Per | | | | | | injection pen | sliding scale | | | | | + + + +---------+--------+ + | insulin glargine | Inject under the | | 0 | | | | (LANTUS SOLOSTAR) | skin 2 times daily. | | | | | | 100 units/mL | 30 units AM, 10 | | | | | | injection (pen) | units PM | | | | | + + + +---------+--------+ + | LORazepam (ATIVAN) | Take 1 mg by mouth | | 0 | | | | 1 mg tablet | Daily as needed for | | | | | | | Anxiety. | | | | | + + + +---------+--------+ + | Multiple | Take 1 tablet by | | 0 | | | | Vitamins-Minerals | mouth Daily. | | | | | | (MULTIVITAMIN ADULT) | | | | | | | TABS | | | | | | + + + +---------+--------+ + | aspirin 325 mg EC | Take 325 mg by mouth | | 0 | | | | tablet | Daily. | | | | 8 | + + + +---------+--------+ + | calcium-vitamin D | Take 1 tablet by | | 0 | | | | (OSCAL) 500 mg-200 | mouth Daily. | | | | 8 | | units per tablet | | | | | | + + + +---------+--------+ + | fluconazole | Take 150 mg by mouth | | 0 | | | | (DIFLUCAN) 150 mg | Daily as needed. | | | | 8 | | tablet | | | | | | + + + +---------+--------+ + | moexipril | Take 15 mg by mouth | | 0 | | | | (UNIVASC) 15 MG | nightly. | | | | 8 | | tablet | | | | | | + + + +---------+--------+ + | venlafaxine | Take 100 mg by mouth | | 0 | | | | (EFFEXOR) 100 MG | Daily. | | | | 8 | | tablet | | | | | | + + + +---------+--------+ + documented as of this encounter Progress Notes Thanh Espinoza DO - 10/18/2016 10:24 AM PDTPATIENT: Melodie Silva : 1955 DOS: 10/18/2016 Radiation Oncology Follow-up Clinic Note ICD-10/Diagnosis: C50.412 - Malignant neoplasm of upper-outer quadrant of left female breast, Diagnosed 10/04 (Active) CC: Felipe Trevino M.D. Kiet Dunlap M.D. Dimas Velez M.D. Chief Complaint/History of Present Illness: Left-sided breast cancer I had the pleasure of seeing Melodie Silva today in clinic. 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 She has been seen by Dr. Hugo fregoso regarding endocrine therapy and plans to continue on anastrozole 1 mg daily. She previously discontinued this medication is due to secondary side effects and wishes to sheron nitiate this therapy planning to see Dr. Velez in the very near future. At this kim e, she continues to have good range of motion of her left arm. She maintains an active life style and exercising regularly through running. She recently underwent a bilateral screen ing mammogram performed earlier this morning with no final report being available. I have p ersonally reviewed her imaging and do not appreciate any architectural distortions, new ar eas of calcifications or other abnormal findings. I reviewed these results with Mrs. Henry stack today. We will await the final report for any variation in follow-up recommendations. S he has no specific concerns or complaints otherwise today. Review of Systems: ROS ConstitutionalNormal - Denies lack of appetite, fever, night sweats, rigors / chills a nd change in weight.ROS EyesNormal - Denies blurred vision, double vision and visual diffic ulties.ROS ENMTNormal - Denies dysphagia, esophagitis and sinusitis.ROS NeckNormal - Denies neck masses, muscle weakness, neck pain, decreased range of motion and swelling of the nec k.ROS Integumentary Normal - Denies blistering, bruising, dry skin, pruritus and rash.ROS B reasts Abnormal - Complains of pain. Denies breast masses.ROS CardiovascularNormal - Denie s arrhythmias, chest pain, dyspnea, edema and palpitations.ROS RespiratoryNormal - Denies c ough, dyspnea, hemoptysis and wheezing.ROS GastrointestinalNormal - Denies abdominal pain, constipation, diarrhea, heartburn / dyspepsia, nausea and vomiting.ROS Genitourinary (F)Nor mal - Denies dysuria, frequency, hematuria, urgency and urine color change.ROS Musculoskel etalAbnormal - Complains of arthritis and joint pain. Denies muscle weakness and decreased range of motion.ROS NeurologicNormal - Denies dizziness, headaches, motor weakness and sens ory problems.ROS Psychiatric Normal - Denies mood swings, depression and euphoria.ROS Endoc rineAbnormal - Complains of diabetes. Denies hot flashes and thyroid disease.ROS Hematolog ic/LymphaticNormal - Denies easy bruising and tender or enlarged lymph nodes. Medications: aspirin TABLET Take as Directed ativan TABLET ORAL Take as Directed atorvastatin 40 mg calcium -vitamin D TABLET Take as Directed flucanazole TABLET Take as Directed insulin INJECTION SUBCUTANEOUS Take as Directed moexipril TABLET ORAL Take as Directed multivitamin TABLET Take as Directed novolog flexpen INJECTION Take as Directed venaflaxin 10 mg Allergies: Sulfa Physical Exam: Performed on 10/18/2016, 09:28Weight 80.5 kg Temperature 36.4 C (LOW) Pulse 75 / min Respiration 1 6 / min BP151/87 mm(hg) (HIGH) O2 Sat 97 % Pain 0 PE ConstitutionalNormal - No [...] pigmentation, rash and urticaria.PE Br eastsAbnormal - No evidence of a breast mass(es), nipple discharge, nipple inversion and br east skin changes. There is continued hyperpigmentation in the inframammary region and late ral aspect of the breast consistent with tangent line of the irradiated field. The breast is mildly edematous with a smooth texture and no dominant mass or lesion present. There is a surgical scar present that is appropriate for the previously mentioned surgery.PE ChestNo rmal - No evidence of chest abnormalities and tender or enlarged lymph nodes.PE Cardiovascu larNormal - No evidence of arterial pulse(s) abnormalities, abnormal heart rate, heart arr hythmia and abnormal heart sounds.PE RespiratoryNormal - No evidence of abnormal breath jacob nds, chest abnormalities on palpation and chest abnormalities on percussion.PE ExtremitiesN ormal - No evidence of tender or enlarged lymph nodes and upper extremities abnormalities.P E Musculoskeletal Normal - No evidence of bone abnormalities, joint abnormalities, compromi sed muscle tone and restricted range of motion.PE NeurologicNormal - No evidence of impair ed cranial nerve(s), uncoordinated gait and motor impairment.PE PsychiatricNormal - No evid ence of altered affect, lack of comprehension and disorientation.PE Hematologic/LymphaticNo rmal - No evidence of tender or enlarged axillae lymph nodes, tender or enlarged lymph node s, tender or enlarged neck lymph nodes and petechiae / purpura / ecchymosis. Questionnaires: Are you having pain?No Labs: See EMR for complete list Impression/Plan: C50.412 - Malignant neoplasm of upper-outer quadrant of left female breast, Diagnosed 10/04 (Active) Stage IA, T1b, pN0(i-), M0. No clinical or mammographic evidence of new or recurrent disease. Melodie Silva has previously completed postlumpectomy radiation therapy approximately 4 years ago and would like to continue adjuvant endocrine therapy for her left-sided, stage 0, low-grade LCIS that is ER/TN positive. We discussed long-term toxicities from radiation therapy. She plans to set up an appointment with Dr. Velez to discuss restarting her anastrozole in [place]. Following the NCCN guidelines annual mammograms are recommended with physician exams every 6 months. She will return to clinic in one year with repeat ma mmogram and continue to follow up with Dr. Velez every 6 months. She was encouraged t o call our clinic with any further questions or concerns. Thank you for allowing me to participate in the care of Melodie Silva. If you ashli huong have any questions regarding this evaluation, please do not hesitate to contact me. Thanh Espinoza D.O., ANTONIOR Radiation Oncologist Department of Radiation Oncology [facility] Electronically signed by Thanh Espinoza D.O. This note was transcribed using [employer] speech recognition software. As a result, there ma y be unintended for medical and/or spelling errors. Every attempt is made to correct dicta tion. If there are any questions or errors please contact our office. CSN: [id number] signed by Thanh Espinoza DO at 10/18/2016 10:24 AM LINDAdoyared vale in this encounter Plan of Treatment +--------+ + + + + | Date | Type | Specialty | Care Team | Description | +--------+ + + + + | 01/11/ | Hospital | Radiology | Claudia Mccracken | | | 2020 | Encounter | | MD [address] | | | | | | [place], [place] | | | | | | [id number] | | | | | | | | +--------+ + + + + | 01/11/ | Appointment | Radiation Oncology | Thanh Espinoza DO | | | 2019 | | | [address] | | | | | | [place], [place] | | | | | | [address] | | | | | | | | +--------+ + + + + documented as of this encounter Results LEILA Tomosynthesis Screening Bilateral (10/22/2017 12:52 PM PDT) + + | Specimen | + + | | + + + + + | Narrative | Performed At | + + + | EXAM: LEILA TOMOSYN SCREENING BILATERAL dated 10/22/2017 12:33 PM | [facility] | | HISTORY: Routine Screening. The patient's paternal grandmother was | | | diagnosed with breast cancer at the age of 78. The patient's | | | paternal aunt was diagnosed with breast cancer at the age of 78. | | | Personal history of left breast cancer diagnosed 2012. | | | TECHNIQUE: Bilateral digital CC and MLO. Jass synthesis is | | | performed. CAD utilized. COMPARISON: Mammograms dating back to | | | 2002 FINDINGS: Scattered breast parenchyma is present bilaterally. | | | The pattern is stable. Postsurgical changes and distortion in | | | the left breast. There are no areas of developing architectural | | | distortion. There are no suspicious masses. There is a new cluster | | | of microcalcifications in the right breast. These are lateral at a | | | mid depth. IMPRESSION - BI-RADS CATEGORY 0: ASSESSMENT | | | IS INCOMPLETE AND ADDITIONAL IMAGING IS REQUIRED. RECOMMENDATION: | | | The patient should return for spot magnified views over the | | | calcifications in the right breast. The patient will be made aware | | | the findings and recommendations. Dictated and Signed by: Floyd Roberts | | | MD Becky Electronically signed: 10/23/2017 11:56 AM | | + + + + + | Procedure Note | + + | Aaron, Rad Results In - 10/23/2017 11:59 AM PDT EXAM: LEILA TOMOSYN SCREENING BILATERAL | | dated 10/22/2017 12:33 PMHISTORY: Routine Screening. The patient's paternal grandmother | | was diagnosedwith breast cancer at the age of 78. The patient's paternal aunt was | | diagnosedwith breast cancer at the age of 78. Personal history of left breast | | cancerdiagnosed 2012.TECHNIQUE: Bilateral digital CC and MLO. Jass synthesis is | | performed. CADutilized.COMPARISON: Mammograms dating back to 2002FINDINGS: Scattered | | breast parenchyma is present bilaterally. The pattern isstable. Postsurgical changes | | and distortion in the left breast. There are noareas of developing architectural | | distortion. There are no suspicious masses. There is a new cluster of | | microcalcifications in the right breast. These arelateral at a mid depth. | | IMPRESSION -BI-RADS CATEGORY 0: ASSESSMENT IS INCOMPLETE AND ADDITIONAL IMAGING IS | | REQUIRED.RECOMMENDATION: The patient should return for spot magnified views over | | thecalcifications in the right breast. The patient will be made aware the findingsand | | recommendations.Dictated and Signed by: Floyd Pena MD Electronically signed: | | 10/23/2017 11:56 AM | |There is a new cluster of microcalcifications in the right breast. These are | |lateral at a mid depth. | | | |IMPRESSION - | | | |BI-RADS CATEGORY 0: ASSESSMENT IS INCOMPLETE AND ADDITIONAL IMAGING IS REQUIRED. | | | |RECOMMENDATION: The patient should return for spot magnified views over the | |calcifications in the right breast. The patient will be made aware the findings | |and recommendations. | | | |Dictated and Signed by: Floyd Pena MD | | Electronically signed: 10/23/2017 11:56 AM | + + + +---------+ + + | Performing | Address | City/State/Zipcode | Phone Number | | Organization | | | | + +---------+ + + | [facility] | | | | + +---------+ + + documented in this encounter Visit Diagnoses + + | Diagnosis | + + | Encounter for screening mammogram for high-risk patient - Primary | + + documented in this encounter"
--- OUTSIDE RECORDS SUMMARY | ~2019-05-05 | XMS | Encounter Summary ---
Demographics + + + | Address | [address] | | | [place] [address] | + + + | Home Phone | | + + + | Preferred Language | Unknown | + + + | Marital Status | | + + + | Cheondoism Affiliation | 1076 | + + + | Race | Unknown | + + + | Ethnic Group | Unknown | + + + Author + + + | Author | [facility] | | | and [place] | + + + | Organization | [facility] | | | [...] Team Providers + +------+ + | Care Automobile Mechanic Name | Role | Phone | + +------+ + PCP | Unavailable | + +------+ + Encounter Details +--------+ + + + + | Date | Type | Department | Care Team | Description | +--------+ + + + + | 02/22/ | Hospital | [facility] | | | | 2008 | Encounter | MED CTR GENERIC OP | | | | | | CONV DEPT [address] | | | | | | [place], | | | | | | [place] [address] | | | | | | [phone] | | | +--------+ + + + [...] | | | | | [facility] [facility] | | | | | | [address] | | | | | | | | +--------+ + + + + | 01/11/ | Appointment | Radiation Oncology | Thanh Espinoza DO | | | 2019 | | | [address] | | | | | | [place] | | | | | | [phone] | | | | | | | | +--------+ + + + + documented as of this encounter Visit Diagnoses Not on filedocumented in this encounter"
--- OUTSIDE RECORDS SUMMARY | ~2019-05-05 | XMS | Encounter Summary ---
Demographics + + + | Address | [address] | | | [place] [address] | + + + | Home Phone [...] Team Providers + +------+ + | Care Athletic Events Scorer Name | Role | Phone | + +------+ + | Kiet Dunlap MD | PCP | | + +------+ + Encounter Details +--------+ + + + + | Date | Type | Department | Care Team | Description | +--------+ + + + + | 10/14/ | [facility] | [facility] | Thanh Espinoza DO | Malignant neoplasm | | 2015 | Encounter | MED CTR RADIATION | [address] | of upper-outer | | | | ONCOLOGY [address] | [place], [place] | quadrant of female | | | | [place], | [address] | breast, left (HCC) | | | | [place] [address] | | (Primary Dx) | | | | [phone] | | | +--------+ + + + [...] encounter Progress Notes Thanh Espinoza DO - 10/14/2014 12:52 PM PDTPATIENT: Melodie Aguilera RicardoDOS:10/14/2014MR#: [id number] :1955 Radiation Oncology Follow-up Clinic Note ICD/Diagnosis: 174.4 - Malignant neoplasm of upper-outer quadrant of female breast, Diagnosed 10/04/2012 ( Active) CC: Yara Wren M.D. Robert C Quackenbush, M.D. Chief Complaint/History of Present Illness: Left-sided breast cancer I had the pleasure of seeing Melodie Silva today in clinic. 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 She has been seen by Dr. Hugo fregoso regarding endocrine therapy and continues on anastrozole 1 mg daily. She recently discontinued it for 2 months until another family member was diagnosed with breast cancer and was recommended anastrozole at which time she restarted her endocrine therapy. At this time, she continues to have good range of motion of her left arm but has noticed continued swelling in her left breast. She maintains an active lifestyle and does state that she has gained weight while on anastrozole and has been somewhat active physically compared to summer. She recently underwent a bilateral screening mammogram performed September 21, 2014 that reported a small cluster of microcalcifications in the upper inner quadrant of the l eft breast that led to a diagnostic unilateral left mammogram performed October 07, 2014 demo nstrating only vascular calcifications. I have personally reviewed her imaging and agree wi th the stated findings. Review of Systems: ROS ConstitutionalNormal - Denies lack of appetite, fatigue, fever, lethargy, malaise, nig ht sweats, rigors / chills and change in weight.ROS Allergic/ImmunologicNormal - Denies all ergies and adverse reactions.ROS Head Abnormal - Complains of slight alopecia.ROS EyesNorma l - Denies blurred vision, double vision, lacrimation, night blindness, visual difficulties and photophobia.ROS ENMTNormal - Denies dysphagia, ear pain, epistaxis, esophagitis, prob lems with hearing, mouth dryness, oral bleeding, otitis, sinusitis, sputum production, alte red taste and tinnitus.ROS NeckNormal - Denies neck masses, muscle weakness, neck pain, dec reased range of motion and swelling of the neck.ROS IntegumentaryAbnormal - Complains of dr lena tamayo. Denies alopecia, blistering, bruising, nail changes, photosensitivity, pruritus, r kathy and urticaria.ROS BreastsAbnormal - Complains of a right breast mass(es). Denies nipple discharge, nipple inversion and pain.ROS CardiovascularNormal - Denies arrhythmias, chest pain, dyspnea, edema, orthopnea and palpitations.ROS RespiratoryNormal - Denies cough, dysp abbey, hemoptysis, hiccoughs, pleuritic chest pain and wheezing.ROS Gastrointestinal Normal - Denies abdominal pain, change in bowel habits, constipation, diarrhea, heartburn / dyspep deysi, hematemesis, hematochezia, hemorrhoids, melena / GI bleeding, nausea, pain / cramping, satiety and vomiting.ROS Genitourinary (F) Normal - Denies dysuria, frequency, genital mas ses, hematuria, incontinence, nocturia, renal stone disease, problems with sexual function, urgency, urine color change, vaginal discharge / bleeding and vaginal spotting.ROS Muscul oskeletalAbnormal - Complains of arthritis and joint pain. Denies bone pain, muscle weaknes s and decreased range of motion.ROS NeurologicAbnormal - Complains of insomnia characterize d by waking frequently during the night. Denies disorientation, dizziness, abnormal gait, h eadaches, memory loss, motor weakness, sensory problems, paralysis, seizure and stroke.ROS Psychiatric Normal - Denies delusions, hallucinations, mood swings, depression and euphori a.ROS EndocrineAbnormal - Complains of diabetes. Complains of occasional hot flashes. Denie s menstrual irregularities and thyroid disease. ROS Hematologic/LymphaticNormal - Denies ea sy bruising and tender or enlarged lymph nodes. [...] Directed Allergies: Sulfa Physical Exam: Performed on 10/14/2014, 09:24Weight 82.4 kg Temperature 37.1 C Pulse 89 / min Respiration 16 / min BP140/80 mm(hg) O2 Sat 98 % Pain 0 PE ConstitutionalNormal - No [...] aspect of the breast. The breast is edematous with a smooth texture and no dominant mass or lesion present. There is a surgical scar present that is appropriat e for the previously mentioned surgery.PE ChestNormal - No evidence of chest abnormalities and tender or enlarged lymph nodes.PE CardiovascularNormal - No evidence of arterial pulse (s) abnormalities, abnormal heart rate, heart arrhythmia and abnormal heart sounds.PE Respi ratoryNormal - No evidence of abnormal breath sounds, chest abnormalities on palpation and chest abnormalities on percussion.PE ExtremitiesNormal - No evidence of tender or enlarged lymph nodes and upper extremities abnormalities.PE MusculoskeletalNormal - No evidence of b one abnormalities, joint abnormalities, compromised muscle tone and restricted range of mo tion.PE NeurologicNormal - No evidence of impaired cranial nerve(s), uncoordinated gait and motor impairment.PE PsychiatricNormal - No evidence of altered affect, lack of comprehensi on and disorientation.PE Hematologic/LymphaticNormal - No evidence of tender or enlarged ax illae lymph nodes, tender or enlarged lymph nodes, [...] or recurrent disease. Melodie Silva is a 59-year-old woman who recently completed postlumpectomy radiation [facility] and now continues on adjuvant endocrine therapy for her left-sided, stage 0, low-grad e LCIS that is ER/CO positive. We discussed long-term toxicities from radiation therapy inc luding fibrosis of the chest wall limiting range of motion and potential lymphedema of the breast. She did not undergo physical therapy or lymphedema management previously and would like to pursue that at this time. I had previously referred her to physical therapy which she did not do. I will again refer her to physical therapy in [place], [place] regarding breast lymphedema in the absence of arm lymphedema. Following the NCCN guidelines annual mammograms are recommended with physician exams every 6 months. She will return to clinic i n one year with repeat mammogram and continue to follow up with Dr. Velez every 6 mon ths. She was encouraged to call our clinic with any further questions or concerns. Thank you for allowing me to participate in the care of Melodie Silva. If you ashli uld have any questions regarding this evaluation, please do not hesitate to contact me. Thanh Espinoza D.O., [facility] Radiation Oncologist Department of Radiation Oncology [facility] This note was transcribed using [employer] speech recognition software. As a result, there ma y be unintended for medical and/or spelling errors. Every attempt is made to correct dicta tion. If there are any questions or errors please contact our office. Page 1 of 3 CSN: [id number] signed by Thanh Espinoza DO at 10/14/2014 12:53 PM Jocelin vale in this encounter Plan [...] [place]AN[place] | | | | | | [address] | | | | | | | | +--------+ + + + + | 01/11/ | Appointment | Radiation Oncology | Thanh Espinoza DO | | | 2019 | | | [address] | | | | | | [place] | | | | | | [address] | | | | | | | | +--------+ + + + + documented as of this encounter Visit Diagnoses + + | Diagnosis | + + | Malignant neoplasm of upper-outer quadrant of female breast, left - Primary | + + documented in this encounter"
--- OUTSIDE RECORDS SUMMARY | ~2019-05-05 | XMS | Encounter Summary ---
Demographics + + + | Address | [address] | | | [place] [address] | + + + | Home Phone | | + + + | Preferred Language | Unknown | + + + | Marital Status | | + + + | Congregation Affiliation | 1076 | + + + | Race | Unknown | + + + | Ethnic Group | Unknown | + + + Author + + + | Author | [facility] | | | and [place] | + + + | Organization | [facility] | | | and [...] Team Providers + +------+ + | Care Home Energy Consultant Supervisor Name | Role | Phone | + +------+ + | iKet Dunlap MD | PCP | | + +------+ + Encounter Details +--------+ + + + + | Date | Type | Department | Care Team | Description | +--------+ + + + + | 12/10/ | Hospital | [facility] | Thanh Espinoza DO | | | 2012 - | Encounter | MED CTR CANCER | [address] | | | | | CENTER [address] | [place], [place] | | | 01/08/ | | [place] | [address] | | | 2012 | | [address] | | | | | | [phone] | | | +--------+ + + + [...] [place] | | | | | | [address] | | | | | | | [...]
--- OUTSIDE RECORDS SUMMARY | ~2019-05-05 | XMS | Encounter Summary ---
Demographics + + + | Address | [address] | | | [place] [address] | + + + | Home Phone | | + + + | Preferred Language | Unknown | + + + | Marital Status | | + + + | Confucianist Affiliation | 1076 | + + + | Race | Unknown | + + + | Ethnic Group | Unknown | + + + Author + + + | Author | [facility] | | | and [place] | + + + | Organization | [facility] | | [...] Team Providers + +------+ + | Care Deli/Bakery Associate Name | Role | Phone | + +------+ + | Britton Chi MD | PCP | | + +------+ + Encounter Details +--------+ + + + + | Date | Type | Department | Care Team | Description | +--------+ + + + + | 10/30/ | Hospital | [facility] | Lord, Thanh C, DO | Abnormality of right | | 2018 | Encounter | MED CTR MAMMOGRAPHY | [address] | breast on screening | | | | [address] | [place] | mammogram | | | | [place], [place] | [address] | | | | | [address] | | | | | | [phone] | Rad, [facility] | | +--------+ + + + + [...] + + + +---------+ + + | fluconazole | Take 150 mg [...] [place] | | | | | | [id number] | | | | | | | | +--------+ + + + + | 01/11/ | Appointment | Radiation Oncology | Thanh Espinoza DO | | | 2019 | | | [address] | | | | | | [place] | | | | | | [address] | | | | | | | | +--------+ + + + + documented as of this encounter Procedures + +--------+ + + + | Procedure Name | Priori | Date/Time | Associated Diagnosis | Comments | | | ty | | | | + +--------+ + + + | LEILA TOMOSYN | Routin | 10/30/2017 | Abnormality of | Results for this | | DIAGNOSTIC RIGHT | e | 10:40 AM | right breast on | procedure are in the | | | | PDT | screening mammogram | results section. | + +--------+ + + + documented in this encounter Results LEILA Tomosynthesis Diagnostic Right (10/30/2017 10:40 AM PDT) + + | Specimen | + + | | + + + + + | Narrative | Performed At | + + + | EXAM: LEILA TOMOSYN DIAGNOSTIC RIGHT dated 10/30/2017 10:19 AM [...] Abnormality of right breast on screening mammogram | + + documented in this encounter"
--- OUTSIDE RECORDS SUMMARY | ~2019-05-05 | XMS | Encounter Summary ---
Demographics + + + | Address | [address] | | | [place] [address] | + + + | Home Phone | | + + + | Preferred Language | Unknown | + + + | Marital Status | | + + + | Jehovah'S Witness Affiliation | 1076 | + + + | Race | Unknown | + + + | Ethnic Group | Unknown | + + + Author + + + | Author | [facility] | | | and [place] | + + + | Organization | [facility] | | | [...] Team Providers + +------+ + | Care Residential Door Installer Name | Role | Phone | + +------+ + | Britton Chi MD | PCP | | + +------+ + Reason for Visit +---------+ + | Reason | Comments | +---------+ + | Consult | | +---------+ + Evaluate & Treat (Routine) +--------+ + + + + + | Status | Reason | Specialty | Diagnoses / | Referred By | Referred To | | | | | Procedures | Contact | Contact | +--------+ + + + + + | Closed | Specialty | Oncology | Diagnoses | [facility], | | | | Services | | Malignant | Claudia M, | Agustin, | | | Required | | neoplasm of | [address] | Dimas Mckay MD | | | | | right breast | [address] | [address] | | | | | in female, | [place], | [place] | | | | | estrogen | [place] [address] | [place] | | | | | receptor | Phone: | [phone] Phone: | | | | | negative, | [phone] | [phone] | | | | | unspecified | Fax: | Fax: | | | | | site of | [phone] | [phone] | | | | | breast (HCC) | | | +--------+ + + + + + Encounter Details +--------+ + + + + | Date | Type | Department | Care Team | Description | +--------+ + + + + | 12/06/ | Hospital | [facility] | Thanh Espinoza DO | Malignant neoplasm | | 2018 | Encounter | MED CTR RADIATION | [address] | of upper-outer | | | | ONCOLOGY CLINIC [address] | [place], [place] | quadrant of right | | | | [address] [place] | [address] | breast in female, | | | | [place] [address] | | estrogen receptor | | | | [phone] | | positive (HCC) | | | [...] | Blood Pressure | 162/87 | 12/06/2017 2:46 PM | | | | | PDT | | + + + + + | Pulse | 89 | 12/06/2017 2:46 PM | | | | | PDT | | + + + + + | Temperature | 35.7 C (96.3 F) | 12/06/2017 2:46 PM | | | | | PDT | | + + + + + | Respiratory Rate | - | - | | + + + + + | Oxygen Saturation | 99% | 12/06/2017 2:46 PM | | | | | PDT | | + + + + + | Inhaled Oxygen | - | - | | | Concentration | | | | + + + + + | Weight | 81.6 kg (179 lb 14.3 | 12/06/2017 2:46 PM | | | | oz) | PDT | | + + + + + | Height | - | - | | + + + + + | Body Mass Index | - | - | | + + + + + documented in this encounter Discharge Instructions Patient Instructions Thanh Espinoza, - 12/06/2017 4:51 PM PDTFormatting of this note fuentes ht be different from the original. Radiation Therapy Team Radiation therapy uses high-energy X-rays or particles to kill cancer cells. This therapy c an help you in your fight against cancer. Your radiation therapy team will work with you dur ing your treatment. The team will help you set goals and make a treatment plan. Then they wi ll carry out the treatment. Ask questions when you don t understand what is happening. And let your team know how you re doing. Treatment goals These can include: Curing cancer Killing cancer cells that remain after surgery, chemotherapy, or both Controlling cancer for a period of time Reducing symptoms of cancer, such as pain Treatment plan Your healthcare provider will evaluate you to make a treatment plan. You will be asked abou t your health history. You will be examined. Tests may be performed. Then your healthcare pr ovider and the radiation therapy team can pick the exact treatment site. The team decides th e amount of radiation to be given and the best way to give it. The team also decides the num daryl of treatments you ll need. Team members Members of your radiation team include the following: Radiation oncologist. This is a healthcare provider who specializes in using radiation t o treat cancer. He or she leads your radiation treatment and follow-up, working closely with your other healthcare providers. Radiation physicist and retail loan officer. These people assist with the technical aspects of y our care. They calculate the exact dose of radiation you ll receive. They also help decide the best shape and angles for the treatment beams. Radiation therapist. This person works closely with the radiation oncologist. He or she puts you into position and aligns the machine to make sure the radiation is aimed correctly. Then he or she operates the machine that sends the radiation to the cancer site. Radiation oncology nurse. This nurse answers your questions and gives you information ab out your treatment. He or she also helps you manage side effects. Other healthcare professionals might be part of your team during your treatment as well, mathews ch as social workers, patient navigators, dietitians/hazardous material specialist, dentists, and physical t herapists. Date Last Reviewed: 10/10/201519999164-1715 [employer]. [address] [place] [address]. All righ ts reserved. This information is not intended as a substitute for professional medical care. Always follow your healthcare professional's instructions. Radiation Therapy Treatment Radiation therapy can help you in your fight against cancer. It begins with a session to di scusstreatmentwith your doctor. If you and your doctor decide on radiation, you willre turn for a simulation. The simulation is a planning session that helps the doctor target you r cancer. He or she willdesign a radiation plan to protect normal tissues. When the simula tion and plan are completed, you willbegin your daily treatments. Treatment is usually onc e daily Sunday to Sunday. It takes less than a half an hour. Sometimes you may need radiatio ntwice a day, withusually6 hours between treatments. After the course of radiation is complete, you will be scheduledfor follow-up appointments. This isto make sure the cance r is under control. The follow-ups will also make sure thatany side effectsfrom thetre atment are taken care of. Radiation therapy uses high-energy X-rays to kill cancer cells. Your treatment planning visit: The simulation Your radiation therapy team uses a special machine called a simulator to map out your treat ment. The simulator isusually an X-ray machine (fluoroscopy), CT scanner, MRI scanner, or PET-CT scannermachine. Laser lights act as guides to help position your body accurately. Alistair martinez this visit: The team figures out the best position for your body. They make notesin your chart so you ll be placed the same way each time. You may use special devicesto keep your body correctly positioned and still during sean atment. These may include molds, masks, rests, and blocks. The team makes ink markson your skin.These will help you get in the same position fo r each treatment. Tiny permanent tattoos may also be used. Markers such as metal balls or wires may be put on or in your body. Sometime these are t aped to the skin to help with the imaging process. These work with the X-rays to position yo ur body. The markers are removed when the visit is over. After the team has the imaging and data, the information is sent into the computer planning system. Your doctor and the team of physicists and dosimetrists design a treatment field. T he field will best target your cancer and how it mightspread.It will alsohelp limit ra diation to nearby normal tissues. Your treatments Each treatment usually takes 10 to 30 minutes. You may need to change into a hospital gown. The radiation therapist puts you in the correct position on the treatment table, then leave s the room. Sometimes you may need more imaging before each treatment. The machine may take digital X-rays or a CT scan to help make sure you are lined up correctly. During treatment, lie as still as you can and breathe normally. You will hear noises coming from the machine. You can talk to the radiation therapist, who watches you from the control room on a TV monit or. After treatment, the therapist will help you off the table. You can then get dressed and go back to your normal activities. Date Last Reviewed: 06/24/201519997737-7972 [employer]. [address] [place] [address], [place] [address]. All righ ts reserved. This information is not intended as a substitute for professional medical care. Always follow your healthcare professional's instructions. Understanding Radiation Therapy Radiation therapy can help you in your fight against cancer. Radiation therapy uses high-en ergy X-rays or particlesto kill cancer cells. What is cancer? Normally, cells in the body grow and divide the way they should. In some cases, cells sharif e in abnormal ways. They then begin to grow and divide out of control. These are cancer cell s. These cells multiply to form a lump called a tumor. Cancer cells can sometimes spread to other parts of the body, a process called metastasis. How radiation therapy works Radiation destroys cancer cells gradually, over time. The goal of therapy is to focus on an d kill as many cancer cells as possible. Radiation can also damage or kill some of the angelique l cells that are closest to the tumor. But damaged normal cells are more likely to be able t o repair themselves than cancer cells. Types of radiation therapy Different types of radiation therapy can be used to treat cancer. External radiation With external radiation, a machine directs beams of high-energy X-rays or radioactive parti cles at the tumor. The goal of treatment is to kill all of the cancer cells, while affecting few normal cells. The machine can change position so the X-ray beams can enter your body fr om any angle. Newer types of external radiation therapy, such as 3-D conformal radiation the rapy (3D-SENIOR AGRICULTURAL ASSISTANT), intensity modulated radiation therapy (IMRT). Stereotactic radiation therapy allows the radiation to be focused more precisely at the tumor. This can help spare nearby n ormal cells. Internal radiation (brachytherapy) With internal radiation, one or more implants are placed in or around the cancer tumor. The implants put the radiation as close to the cancer as possible. This type of radiation trave ls only a short distance. This helps spare nearby normal cells. Implants can be temporary or permanent. Systemic radiation therapy Some types of radiation therapy are given as an injection of tiny particles into a vein (IV ). The particles travel through the blood to reach tumors anywhere in the body. Once they ge t to where they are needed, they give off small amounts of radiation to kill the cancer cell s. Date Last Reviewed: 10/10/201519999333-5225 [employer]. [address] [place] [address], [place] [address]. All righ ts reserved. This information is not intended as a substitute for professional medical care. Always follow your healthcare professional's instructions. documented in this encounter Medications at Time [...] [place] | | | | | | [address] | | | | | | | | +--------+ + + + + | 01/11/ | Appointment | Radiation Oncology | Thanh Espinoza DO | | | 2019 | | | [address] | | | | | | [place] | | | | | | [address] | | | | | | | | +--------+ + + + + documented as of this encounter Visit Diagnoses + + | Diagnosis | + + | Malignant neoplasm of upper-outer quadrant of right breast in female, estrogen | | receptor positive (HCC) - Primary | + + documented in this encounter"
--- OUTSIDE RECORDS SUMMARY | ~2019-05-05 | XMS | Clinical Summary ---
Demographics + + + | Address | [address] | | | [place] [address] | + + + | Home Phone | | + + + | Preferred Language | Unknown | + + + | Marital Status | | + + + | Yarsani Affiliation | 1076 | + + + | Race | Unknown | + + + | Ethnic Group | Unknown | + + + Author + + + | Author | [employer] (Historical as of | | | 01-25-19) | + + + | Organization | [facility] [employer] (Historical as of | | | 01-25-19) [...] Team Providers + +------+ + | Care Fast Food Team Member Name | Role | Phone | + [...] GLOBUS | | | 1067.1 | | [id number]: Qty: 2 on | | | MEDICAL - | | | 740 / | | 03/28/2018 by Chad, | | | GLBU | | | / | | DO Lokesh | | | | | | | + +------+------+ +--------+--------+--------+ | Screw Douglas Mod Creo 7.5x45mm | | | GLOBUS | | | 1067.4 | | - [id number]: Qty: 2 | | | MEDICAL - [...] GLOBUS | | | 1134.0 | | [id number]: Qty: 4 on | | | MEDICAL - | | | 010 / | | 03/28/2018 by Chad, | | | GLBU | | | / | | DO Lokesh | | | | | | | + +------+------+ +--------+--------+--------+ | Chips Can 30cc 1.7-10mm | | | MUSCULOSKEL | | 08/18/ | [id number] | | Frzdr - | | | ETAL | | 2021 | | | [id number]: | | | TRANSPLA - | | | /[id number] | | Qty: 1 on 03/28/2018 by | | | MUSC | | | [id number] | | Lokesh Bonilla DO | | | | | | 044 / | + +------+------+ +--------+--------+--------+ | Graft Infuse Bone Kit Xs - | | | [employer] - | | 02/08/ | [id number] | | [id number]: Qty: 1 on | | | MEDT | | 2018 | 0 / | | 03/28/2018 by Chad, | | | | | | /[id number] | | DO Lokesh | | | | | | 106AAC | + +------+------+ +--------+--------+--------+ | Spcr Rise [id number] 8-15mm 10d | | | GLOBUS | | | 193.12 | | - [id number]: Qty: 1 | | | MEDICAL - | | | 2 / / | | on 03/28/2018 by Chad, | | | GLBU | | | | | DO Lokesh | | | | | | | + +------+------+ +--------+--------+--------+ | Chuy Cone Tip Crv [place] | | | GLOBUS | | | 132.16 | | 5.5x60mm - | | | MEDICAL - | | | 0 / / | | [id number]: Qty: 2 on | | | GLBU [...] | [employer] | ODS | [id number] | | | | | | HEALTH [...] Self | [birth year] | Home: | [address] | | | al/Fam | | 1955 | [phone] [place] | | | [place] | | | [phone] | [address] | + +--------+ +--------+ + +
--- OUTSIDE RECORDS SUMMARY | ~2019-05-05 | XMS | Encounter Summary ---
Demographics + + + | Address | [address] | | | [place] [address] | + + + | Home Phone | | + + + | Preferred Language | Unknown | + + + | Marital Status | | + + + | Baptist Affiliation | 1076 | + + + | Race | Unknown | + + + | Ethnic Group | Unknown | + + + Author + + + | Author | [facility] | | | and [place] | + + + | Organization | [facility] | | [...] Team Providers + +------+ + | Care Community Planner Name | Role | Phone | + +------+ + | Britton Chi MD | PCP | | + +------+ + Encounter Details +--------+ + + + + | Date | Type | Department | Care Team | Description | +--------+ + + + + | 10/18/ | Hospital | [facility] | Lord, Thanh C, DO | Encounter for | | 2017 | Encounter | MED CTR MAMMOGRAPHY | [address] | screening mammogram | | | | [address] | [place] | for high-risk | | | | [place] | [address] | patient | | | | [address] | | | | | | [phone] | | | +--------+ + + + [...] [place]AN[place] | | | | | | [address] | | | | | | | | +--------+ + + + + | 01/11/ | Appointment | Radiation Oncology | Thanh Espinoza DO | | | 2019 | | | [address] | | | | | | [place] | | | | | | [address] | | | | | | | | +--------+ + + + + documented as of this encounter Procedures + +--------+ + + + | Procedure Name | Priori | Date/Time | Associated Diagnosis | Comments | | | ty | | | | + +--------+ + + + | LEILA TOMOSYN | Routin | 10/18/2016 | Encounter for | Results for this | | SCREENING BILATERAL | e | 8:06 AM | screening mammogram | procedure are in the | | | | PDT | for high-risk | results section. | | | | | patient | | + +--------+ + + + documented in this encounter Results LEILA Tomosynthesis Screening Bilateral (10/18/2016 8:06 AM PDT) + + | Specimen | + + | | + + + + + | Narrative | Performed At | + + + | BILATERAL DIGITAL SCREENING MAMMOGRAM WITH COMPUTER-AIDED DETECTION | [facility] | | AND TOMOSYNTHESIS 10/18/2016 8:06 AM CLINICAL HISTORY: Bilateral | | | screening exam. Conservatively treated left breast invasive lobular | | | carcinoma in 2013. Asymptomatic, postmenopausal. COMPARISON: | | | 2016 and more remote exams dating back to 2002 FINDINGS: Breast | | | composition is comprised of scattered fibroglandular densities. | | | Asymmetric smaller size of the left breast, left breast skin | | | thickening and stable central architectural distortion persist and are | | | consistent with post therapeutic changes. A scar marker projects | | | over the upper outer breast and surgical clips are again visible | | | within the axillary tail. No mass, distortion or suspicious | | | calcification is visible elsewhere in either breast on the 2-D or | | | pepe images. Few round and punctate calcifications persist | | | unchanged in the left breast, and early vascular calcification is | | | visible bilaterally. Images were reviewed with CAD. IMPRESSION | | | - 1. BIRADS 2, BENIGN. RECOMMENDATION: ANNUAL SCREENING | | | MAMMOGRAPHY. Dictated and Signed by: Teofilo Bacon MD | | | Electronically signed: 10/19/2016 7:28 AM | | + + + + + | Procedure Note | + + | Aaron, Rad Results In - 10/19/2016 7:31 AM PDT BILATERAL DIGITAL SCREENING MAMMOGRAM | | WITH COMPUTER-AIDED DETECTION ANDTOMOSYNTHESIS 10/18/2016 8:06 AMCLINICAL HISTORY: | | Bilateral screening exam. Conservatively treated left breastinvasive lobular carcinoma | | in 2013. Asymptomatic, postmenopausal.COMPARISON: 2016 and more remote exams dating | | back to 2002FINDINGS: Breast composition is comprised of scattered | | fibroglandulardensities. Asymmetric smaller size of the left breast, left breast | | skinthickening and stable central architectural distortion persist and areconsistent | | with post therapeutic changes. A scar marker projects over the upperouter breast and | | surgical clips are again visible within the axillary tail. Nomass, distortion or | | suspicious calcification is visible elsewhere in eitherbreast on the 2-D or pepe images. | | Few round and punctate calcifications persistunchanged in the left breast, and early | | vascular calcification is visiblebilaterally. Images were reviewed with CAD.IMPRESSION | | -1. BIRADS 2, BENIGN.RECOMMENDATION: ANNUAL SCREENING MAMMOGRAPHY.Dictated and Signed | | by: Teofilo Bacon MD Electronically signed: 10/19/2016 7:28 AM | |breast on the 2-D or pepe images. Few round and punctate calcifications persist | |unchanged in the left breast, and early vascular calcification is visible | |bilaterally. Images were reviewed with CAD. | | | |IMPRESSION - | |1. BIRADS 2, BENIGN. | | | |RECOMMENDATION: ANNUAL SCREENING MAMMOGRAPHY. | | | |Dictated and Signed by: Teofilo Bacon MD | | Electronically signed: 10/19/2016 7:28 AM | + + + +---------+ + + | Performing | Address | City/State/Zipcode | Phone Number | | Organization | | | | + +---------+ + + | [facility] | | | | + +---------+ + + documented in this encounter Visit Diagnoses + + | Diagnosis | + + | Encounter for screening mammogram for high-risk patient | + + documented in this encounter"
--- OUTSIDE RECORDS SUMMARY | ~2019-05-05 | XMS | Encounter Summary ---
Demographics + + + | Address | [address] | | | [place] [address] | + + + | Home Phone | | + + + | Preferred Language | Unknown | + + + | Marital Status | | + + + | Mu-Ism Affiliation | 1076 | + + + | Race | Unknown | + + + | Ethnic Group | Unknown | + + + Author + + + | Author | [facility] | | | and [place] | + + + | Organization | [facility] | | [...] Team Providers + +------+ + | Care Test Worker Name | Role | Phone | + +------+ + | Britton Chi MD | PCP | | + +------+ + Reason for Visit + + + | Reason | Comments | + + + | IDT Note | | + + + Encounter Details +--------+ + + + + | Date | Type | Department | Care Team | Description | +--------+ + + + + | 01/31/ | Telephone | [facility] | Beka, | IDT Note | | 2018 | | MED CTR RADIATION | Alicia RN | | | | | ONCOLOGY CLINIC [address] | | | | | | [address] | | | | | | [place] [address] | | | | | | [phone] | | | +--------+ + + + [...] Encounter | | MD Tava[address] | | | | | | [place] | | | | | | [id number] | | | | | | | | +--------+ + + + + | 01/11/ | Appointment | Radiation Oncology | Thanh Espinoza DO | | | 2020 | | | [address] | | | | | | [place] | | | | | | [address] | | | | | | | | +--------+ + + + + documented as of this encounter Visit Diagnoses Not on filedocumented in this encounter"
--- OUTSIDE RECORDS SUMMARY | ~2019-05-05 | XMS | Encounter Summary ---
Demographics + + + | Address | [address] | | | [place] [address] | + + + | Home Phone | | + + + | Preferred Language | Unknown | + + + | Marital Status | | + + + | Christianity Affiliation | 1076 | + + + | Race | Unknown | + + + | Ethnic Group | Unknown | + + + Author + + + | Author | [facility] | | | and [place] | + + + | Organization | [facility] | | | [...] Team Providers + +------+ + | Care Brokerage Office Manager Name | Role | Phone | + +------+ + | Britton Chi MD | PCP | | + +------+ + Encounter Details +--------+ + + + + | Date | Type | Department | Care Team | Description | +--------+ + + + + | 10/30/ | Hospital | [facility] | Lord, Thanh C, DO | Abnormality of right | | 2018 | Encounter | MED CTR MAMMOGRAPHY | [address] | breast on screening | | | | [address] | [place] | mammogram | | | | [place], [place] | [address] | | | | | [address] | | | | | | [phone] | Rad, [facility] | | +--------+ [...] [place] | | | | | | [id number] | | | | | | | | +--------+ + + + + | 01/11/ | Appointment | Radiation Oncology | Thanh Espinoza DO | | | 2019 | | | [address] | | | | | | [place] | | | | | | [address] | | | | | | | [...]
--- OUTSIDE RECORDS SUMMARY | ~2019-05-05 | XMS | Encounter Summary ---
Demographics + + + | Address | [address] | | | [place] [address] | + + + | Home Phone [...] Team Providers + +------+ + | Care It Analyst Name | Role | Phone | [...] [place] | | | | | [address] [place] | [place] [address] | | | | | [place] [address] | [phone] | | | | | [phone] | | | +--------+--------+ + + + [...] | | | | | | [facility] [place] | | | | | | [address] | | | | | | | | +--------+ + + + + | 01/11/ | Appointment | Radiation Oncology | Thanh Espinoza DO Nely | | | 2019 | | | [address] | | | | | | [place] | | | | | | [address] | | | | | | | [...]
--- OUTSIDE RECORDS SUMMARY | ~2019-05-05 | XMS | Encounter Summary ---
Demographics + + + | Address | [address] | | | [place] [address] | + + + | Home Phone | | + + + | Preferred Language | Unknown | + + + | Marital Status | | + + + | Buddhism Affiliation | 1076 | + + + | Race | Unknown | + + + | Ethnic Group | Unknown | + + + Author + + + | Author | [facility] | | | and [place] | + + + | Organization | [facility] [...] Providers + +------+ + | Care Residential Carpenter Name | Role | Phone | + [...] | | | | estrogen | [place] [address] | [place] | | | | | receptor | Phone: | [address] Phone: | | | | | negative, | [phone] | [phone] | | | | | unspecified | Fax: | Fax: | | | | | site of | [phone] | [phone] | | | | | breast (HCC) | | | +--------+ + + + + + Encounter Details +--------+ + + + + | Date | Type | Department | Care Team | Description | +--------+ + + + + | 12/06/ | Hospital | [facility] | Thanh Espinoza DO | Malignant neoplasm | | 2018 | Encounter | MED CTR RADIATION | [address] | of upper-outer | | | | ONCOLOGY CLINIC [address] | [place], [place] | quadrant of right | | | | [address] [place] | [address] | breast in female, | | | | [place] [address] | | estrogen receptor | | | | [phone] | | positive (HCC) | | | [...] 12/06/2017 4:51 PM PDTFormatting of this note funetes ht be different from the original. Radiation [...] your other healthcare providers. Radiation physicist and associate faculty. These people assist with the technical aspects [...] mathews ch as social workers, patient navigators, dietitians/certified maintenance welder, dentists, and physical t herapists. Date Last Reviewed: 10/10/201519991699-8328 [employer]. [address] [place] [address]. All righ ts reserved. This information is [...] to your normal activities. Date Last Reviewed: 06/24/201519991588-5105 [employer]. [address] [place] [address], [place] [address]. All righ ts reserved. This information is [...] such as 3-D conformal radiation the rapy (3D-HIGH SCHOOL BAND DIRECTOR), intensity modulated radiation therapy (IMRT). Stereotactic radiation [...] the cancer cell s. Date Last Reviewed: 10/10/201519995871-4551 [employer]. [address] [place] [address], [place] [address]. All righ ts reserved. 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
--- OUTSIDE RECORDS SUMMARY | ~2019-05-05 | XMS | Encounter Summary ---
Demographics + + + | Address | [address] | | | [place] [address] | + + + | Home Phone [...] Team Providers + +------+ + | Care Senior Bi Architect Name | Role | Phone | + [...] | | | | [place] | [phone] | | | | | [address] | | | | | | [phone] | | | +--------+ + + + [...] [place] | | | | | | [address] | | | | | | | | +--------+ + + + + documented as of this encounter Procedures + +--------+ + + + | Procedure Name | Priori | Date/Time | Associated Diagnosis | Comments | | | ty | | | | + +--------+ + + + | MRI LUMBAR SPINE WO | Routin | 11/29/2017 | | Results for this | | CONTRAST | e | 1:34 AM | | procedure are in the | | | | PDT | | results section. | + +--------+ + + + documented in this encounter Results MRI Lumbar Spine wo Contrast (11/29/2017 1:34 AM PDT) + + | Specimen [...]
--- OUTSIDE RECORDS SUMMARY | ~2019-05-05 | XMS | Encounter Summary ---
Demographics + + + | Address | [address] | | | [place] [address] | + + + | Home Phone | | + + + | Preferred Language | Unknown | + + + | Marital Status | | + + + | Restorationism Affiliation | 1076 | + + + | Race | Unknown | + + + | Ethnic Group | Unknown | + + + Author + + + | Author | [facility] | | | and [place] | + + + | Organization | [facility] | | [...] Team Providers + +------+ + | Care Mortising Machine Operator Name | Role | Phone | + +------+ + | Britton Chi MD | PCP | | + +------+ + Encounter Details +--------+ + + + + | Date | Type | Department | Care Team | Description | +--------+ + + + + | 11/29/ | Hospital | [facility] | Lord, Thanh C, DO | Malignant neoplasm | | 2018 | Encounter | MED CTR MEDICAL | [address] | of left female | | | | ONCOLOGY CLINIC [address] | [place] | breast, unspecified | | | | [address] [place] | [address] | estrogen receptor | | | | [place] [address] | | status, unspecified | | | | [phone] | | site of breast (HCC) | | | | | [...] [place] | | | | | | [id number] | | | | | | | | +--------+ + + + + | 01/11/ | Appointment | Radiation Oncology | Thanh Espinoza DO | | | 2019 | | | [address] | | | | | | [place] | | | | | | [address] | | | | | | | | +--------+ + + + + documented as of this encounter Visit Diagnoses + + | Diagnosis | + + | Malignant neoplasm of left female breast, unspecified estrogen receptor status, | | unspecified site of breast (HCC) - Primary | + + documented in this encounter"
--- OUTSIDE RECORDS SUMMARY | ~2019-05-05 | XMS | Encounter Summary ---
Demographics + + + | Address | [address] | | | [place] [address] | + + + | Home Phone | | + + + | Preferred Language | Unknown | + + + | Marital Status | | + + + | Episcopalian Affiliation | 1076 | + + + [...] Team Providers + +------+ + | Care Ornamental Bronze Worker Name | Role | Phone | [...] | | | | | | [place] [address] | | | | | | [phone] | | | +--------+ + + + [...] [place] | | | | | | [address] | | | | | | | | +--------+ + + + + | 01/11/ | Appointment | Radiation Oncology | Thanh Espinoza DO | | | 2019 | | | [address] | | | | | | [place] | | | | | | [address] | | | | | | | | +--------+ + + + + documented as of this encounter Visit Diagnoses Not on filedocumented in this encounter"
--- OUTSIDE RECORDS SUMMARY | ~2019-05-05 | XMS | Encounter Summary ---
Demographics + + + | Address | [address] | | | [place] [address] | + + + | Home Phone [...] Providers + +------+ + | Care Manager Of Engineering Name | Role | Phone | + +------+ + | Britton Chi MD | PCP | | + +------+ + Encounter Details +--------+ + + + + | Date | Type | Department | Care Team | Description | +--------+ + + + + | 10/24/ | Orders Only | [facility] | Thanh Espinoza DO | Abnormal mammogram | | 2018 | | MED CTR RADIATION | [address] | (Primary Dx) | | | | ONCOLOGY CLINIC [address] | [place] | | | | | [address] | [address] | | | | | [place] [address] | | | | | | [phone] | | | +--------+ + + + [...] [place] | | | | | | [address] | | | | | | | | +--------+ + + + + | 01/11/ | Appointment | Radiation Oncology | Thanh Espinoza DO | | | 2019 | | | [address] | | | | | | [place] | | | | | | [address] | | | | | | | | +--------+ + + + + documented as of this encounter Visit Diagnoses + + | Diagnosis | + + | Abnormal mammogram - Primary Abnormal mammogram, unspecified | + + documented in this encounter"
--- OUTSIDE RECORDS SUMMARY | ~2019-05-05 | XMS | Encounter Summary ---
Demographics + + + | Address | [address] | | | [place] [address] | + + + | Home Phone | | + + + | Preferred Language | Unknown | + + + | Marital Status | | + + + | Jain Affiliation | 1076 | + + + | Race | Unknown | + + + | Ethnic Group | Unknown | + + + Author + + + | Author | [facility] | | | and [place] | + + + | Organization | [facility] | | | [...] Team Providers + +------+ + | Care Ship Erector Name | Role | Phone | + [...] | | | [address] | [address] | | | | | [place] [address] | | | | | | [phone] | | | +--------+ + + + [...] [place] | | | | | | [id number] | | | | | | | [...]
--- OUTSIDE RECORDS SUMMARY | ~2019-05-05 | XMS | Encounter Summary ---
Demographics + + + | Address | [address] | | | [place] [address] | + + + | Home Phone | | + + + | Preferred Language | Unknown | + + + | Marital Status | | + + + | Orthodox Affiliation | 1076 | + + [...] Team Providers + +------+ + | Care Washing Machine Operator Name | Role | Phone | + +------+ + | Britton Chi MD | PCP | | + +------+ + Encounter Details +--------+ + + + + | Date | Type | Department | Care Team | Description | +--------+ + + + + | 10/30/ | [facility] | [facility] | Thanh Espinoza DO | Abnormal mammogram | | 2018 | Encounter | MED CTR ULTRASOUND | [address] | | | | | [address] [place] | [place] | | | | | [place] | [address] | | | | | [address] | | | | | | [phone] | Erika Roa, | | | | | | Technologist | | +--------+ + + + + [...] | 2019 | | | [address] | | | | | | [place] | | | | | | [address] | | | | | | | | +--------+ + + + + documented as of this encounter Visit Diagnoses + + | Diagnosis | + + | Abnormal mammogram Abnormal mammogram, unspecified | + + documented in this encounter"
--- OUTSIDE RECORDS SUMMARY | ~2019-05-05 | XMS | Encounter Summary ---
Demographics + + + | Address | [address] | | | [place] [address] | + + + | Home Phone | | + + + | Preferred Language | Unknown | + + + | Marital Status | | + + + | Anabaptist Affiliation | 1076 | + + + [...] Team Providers + +------+ + | Care Geography Department Chair Name | Role | Phone | + [...] | ONCOLOGY CLINIC [address] | [place] | | | | | [address] | [address] | | | | | [place] [address] | | | | | | [phone] | | | +--------+ + + + [...] [place] | | | | | | [address] | | | | | | | | +--------+ + + + + | 01/11/ | Appointment | Radiation Oncology | Thanh Espinoza DO | | | 2019 | | | [address] | | | | | | [place] | | | | | | [address] | | | | | | | | +--------+ + + + + documented as of this encounter Visit Diagnoses + + | Diagnosis | + + | Abnormal mammogram - Primary Abnormal mammogram, unspecified | + + documented in this encounter"
--- OUTSIDE RECORDS SUMMARY | ~2019-05-05 | XMS | Encounter Summary ---
Demographics + + + | Address | [address] | | | [place] [address] | + + + | Home Phone [...] Team Providers + +------+ + | Care Contracting Manager Name | Role | Phone | [...] | MED CTR EXTERNAL | [address] | | | | | IMAGING | [place] | | | | | [phone] | [place] [address] | | +--------+ + + + + [...] [place] | | | | | | [address] | | | | | | | | +--------+ + + + + | 01/11/ | Appointment | Radiation Oncology | Thanh Espinoza DO | | | 2019 | | | [address] | | | | | | [place] | | | | | | [address] | | | | | | | [...] this | | CONTRAST | e | 10:15 AM | | procedure are in the | | | | PDT | | results section. | + +--------+ + + + documented in this encounter Results MRI Lumbar Spine wo Contrast (11/29/2017 10:15 AM PDT) + + | Specimen | [...]
--- OUTSIDE RECORDS SUMMARY | ~2019-05-05 | XMS | Encounter Summary ---
Demographics + + + | Address | [address] | | | [place] [address] | + + + | Home Phone | | + + + | Preferred Language | Unknown | + + + | Marital Status | | + + + | Hinduism Affiliation | 1076 | + + + | Race | Unknown | + + + | Ethnic Group | Unknown | + + + Author + + + | Author | [facility] | | | and [place] | + + + | Organization | [facility] | | | [...] Team Providers + +------+ + | Care Production Line Manager Name | Role | Phone | [...] | +--------+ + + + + | 02/27/ | Hospital | [facility] | Thanh Espinoza DO | Malignant neoplasm | | 2018 | Encounter | MED CTR RADIATION | [address] | of upper-outer | | | | ONCOLOGY CLINIC [address] | [place], [place] | quadrant of right | | | | [address] [place] | [phone] | breast in female, | | | | [place] [address] | | estrogen receptor | | | | [phone] | | positive (HCC) | | | [...] + + + | Blood Pressure | 180/88 | 02/27/2018 11:45 AM | | | | | PDT | | + + + + + | Pulse | 71 | 02/27/2018 11:45 AM | | | | | PDT | | + + + + + | Temperature | 36.4 C (97.5 F) | 02/27/2018 11:45 AM | | | | | PDT | | + + + + + | Respiratory Rate | 16 | 02/27/2018 11:45 AM | | | | | PDT | | + + + + + | Oxygen Saturation | 99% | 02/27/2018 11:45 AM | | | | | PDT | | + + + + + | Inhaled Oxygen | - | - | | | Concentration | | | | + + + + + | Weight | 86.8 kg (191 lb 5.8 | 02/27/2018 11:45 AM | | | | oz) | PDT | | + + + + + | Height | - | - | | + + + + + | Body Mass Index | 30.42 | 02/12/2018 9:09 AM | | | [...] encounter Progress Notes Thanh Espinoza DO - 02/27/2018 11:43 AM PDT Radiation Oncology Weekly On Treatment Note Diagnosis: ICD-10-CM ICD-9-CM 1. Malignant neoplasm of upper-outer quadrant of right breast in female, estrogen receptor positive (HCC) C50.411 174.4 Z17.0 V86.0 Reason for visit: On treatment evaluation Radiation technical factors: Dose Delivered Dose Planned Fractions Delivered 3990 cGy 4256 cGy Images were reviewed this week and results of the review have been recorded in [facility]. Corre ctions were applied as necessary. Allergies Allergen Reactions Sulfa Antibiotics Rash Current Outpatient Prescriptions on File Prior to Encounter Medication Sig Dispense Refill aspirin 325 mg EC tablet Take 325 mg by mouth as needed. atorvaSTATin (LIPITOR) 40 mg tablet Take 40 mg by mouth nightly. cyclobenzaprine (FLEXERIL) 5 MG tablet Take 1 tablet by mouth every 6 hours as needed. 0 gabapentin (NEURONTIN) 300 mg capsule 1 cap at night x3 days, then 2 caps at night x4 d ays, then continue taking 1 cap every morning and 2 caps at night. glucagon 1 MG injection Glucagon Emergency Kit (human-recomb) 1 mg injection ibuprofen (ADVIL,MOTRIN) 600 MG tablet insulin aspart (NOVOLOG FLEXPEN) 100 units/mL injection [...] facility-administered medications on file prior to encounter. 02/27/18 1142 General Disorders and Administration Site Conditions Fatigue 1 - Grade 1 Performance Status Karnofsky Performance Score 80% Pain assessment: Location:Right breast Pain Level: PAIN PROG PAIN LEVEL: 2 Pain Quality: Intermittent Current pain regimen: ibuprofen Wt Readings from Last 3 Encounters: 02/27/18 86.8 kg (191 lb 5.8 oz) 02/21/18 86.8 kg (191 lb 5.8 oz) 02/14/18 85.3 kg (188 lb 0.8 oz) Vitals: 02/27/18 1145 BP: 180/88 Pulse: 71 Resp: 16 Temp: 36.4 C (97.5 F) TempSrc: Temporal SpO2: 99% Weight: 86.8 kg (191 lb 5.8 oz) Physical Exam Constitutional: She is oriented [...] normal and behavior is normal. Physician Assessment: Overall, she is tolerating treatment well. She will be entering her boost phase later this week. She has mild skin sensitivity with no evidence of breakdown. Most sensitive region is upper axilla. EMLA cream recommended versus OTC aloe vera/lidocaine mix. She'll continu e treatment as planned. Toxicities reviewed in nursing [...] CLEANING | | | | | | [address] | | | | | | | | +--------+ + + + + | 01/11/ | Appointment | Radiation Oncology | Thanh Espinoza DO | | | 2019 | | | [address] | | | | | | [place] | | | | | | [address] | | | | | | | | +--------+ + + + + documented as of this encounter Visit Diagnoses + + | Diagnosis | + + | Malignant neoplasm of upper-outer quadrant of right breast in female, estrogen | | receptor positive (HCC) - Primary | + + documented in this encounter"
--- OUTSIDE RECORDS SUMMARY | ~2019-05-05 | XMS | Encounter Summary ---
Demographics + + + | Address | [address] | | | [place] [address] | + + + | Home Phone | | + + + | Preferred Language | Unknown | + + + | Marital Status | | + + + | Pentecostal Affiliation | 1076 | + + + [...] Team Providers + +------+ + | Care Starch And Prosize Mixer Name | Role | Phone | + [...] | | | | [place] | [phone] | | | | | [address] | | | | | | [phone] | | | +--------+ + + + [...] CLEANING | | | | | | [address] | | | | | | | [...] | Procedure Note | + + | oTm Walker - 01/22/2019 8:23 AM PDT This is a non-reportable procedure | | without a radiologist report and isused for image storage only | + + documented in this encounter Visit Diagnoses + + | Diagnosis | + + | Pain Generalized pain | + + documented in this encounter"
--- OUTSIDE RECORDS SUMMARY | ~2019-05-05 | XMS | Encounter Summary ---
Demographics + + + | Address | [address] | | | [place] [address] | + + + | Home Phone [...] Team Providers + +------+ + | Care Bore Mill Operator Name | Role | Phone | + +------+ + | Britton Chi MD | PCP | | + +------+ + Encounter Details +--------+ + + + + | Date | Type | Department | Care Team | Description | +--------+ + + + + | 10/30/ | Orders Only | [facility] | Thanh Espinoza DO | Abnormality of right | | 2018 | | [facility] RAD[facility] | [address] | breast on screening | | | | ONCOLOGY CLINIC [address] | [place] | mammogram (Primary | | | | [address] [place] | [address] | Dx) | | | | [place] [address] | | | | | | [phone] | | | +--------+ + + + [...] CLEANING | | | | | | [address] | | | | | | | | +--------+ + + + + | 01/11/ | Appointment | Radiation Oncology | Thanh Espinoza DO | | | 2019 | | | [address] | | | | | | [place] | | | | | | [address] | | | | | | | | +--------+ + + + + documented as of this encounter Results [facility] Breast Biopsy Right (11/21/2017 9:45 AM PDT) + + | Specimen | + + | | + + + + | Addenda | + + | Addendum by Teofilo Bacon MD on 11/26/2017 7:28 AM Addendum: 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 This is felt to be | | concordant with the appearance on imaging. Recommend surgical consultation for | | coordination of definitive therapy. Dictated and Signed by: Teofilo Bacon MD | | Electronically signed: 11/26/2017 7:25 AM | + + + + + | Narrative | Performed At | + + + | STEREOTACTIC GUIDED VACUUM ASSISTED RIGHT BREAST CORE BIOPSY | [facility] | | 11/21/2017 8:20 AM CLINICAL HISTORY: Suspicious right breast | | | microcalcifications seen on right screening and subsequent diagnostic | | | mammogram COMPARISON: Diagnostic mammogram October 30 and more | | | remote imaging PROCEDURE: Verbal and written consent were | | | obtained from the patient following discussion of the risks and | | | benefits of the procedure. The patient was placed prone on the | | | stereotactic biopsy table, and the right breast compressed. Cinder Crusher Operator | | | digital mammographic images were obtained to localize the previously | | | described grouped calcifications in the lateral mid to posterior | | | breast, and digital stereo images obtained to calculate biopsy | | | coordinates. The overlying skin was prepped in sterile fashion, and | | | 5 mL buffered 1% Lidocaine utilized for local anesthesia. A | | | 9-gauge vacuum assisted core biopsy needle was subsequently advanced | | | to the targeted lesion utilizing stereotactic imaging guidance via a | | | lateral to medial approach, and multiple core biopsies of the region | | | performed. An additional 10 mL 1% Lidocaine with epinephrine were | | | utilized for local anesthesia during tissue sampling. A specimen | | | radiograph was obtained, and demonstrated calcifications within the | | | specimen. A titanium biopsy marker clip was deployed at the biopsy | | | site, and this was confirmed with follow-up imaging. The needle and | | | guide were withdrawn, and hemostasis achieved with manual | | | compression. The patient tolerated the procedure well and there were | | | no immediate complications aside from a vasovagal episode | | | characterized by lightheadedness and diaphoresis. Post-procedure | | | digital mammographic images of the biopsied breast were obtained and | | | demonstrate successful sampling of calcifications in the lateral | | | middle third of the breast and appropriate positioning of the marker | | | clip. Few residual punctate calcifications persist along the | | | posterior, inferior, medial margin of the clip. IMPRESSION - 1. | | | SUCCESSFUL STEREOTACTIC BIOPSY OF CALCIFICATIONS IN THE LATERAL RIGHT | | | BREAST. 2. TISSUE SAMPLE WAS SENT TO PATHOLOGY; PATHOLOGY | | | RESULTS PENDING. NO IMMEDIATE POST PROCEDURAL COMPLICATIONS. | | | RECOMMENDATIONS: Will be dictated as an addendum when pathology | | | results are available. Dictated and Signed by: Teofilo Bacon MD | | | Electronically signed: 11/21/2017 9:56 AM | | + + + + + | Procedure Note | + + | Aaron, Rad Results In - 11/21/2017 10:00 AM PDT STEREOTACTIC GUIDED VACUUM ASSISTED | | RIGHT BREAST CORE BIOPSY 11/21/2017 8:20 AMCLINICAL HISTORY: Suspicious right breast | | microcalcifications seen on rightscreening and subsequent diagnostic mammogram | | COMPARISON: Diagnostic mammogram October 30 and more remote imagingPROCEDURE: Verbal and | | written consent were obtained from the patient followingdiscussion of the risks and | | benefits of the procedure. The patient was placedprone on the stereotactic biopsy | | table, and the right breast compressed. Scoutdigital mammographic images were obtained | | to localize the previously describedgrouped calcifications in the lateral mid to | | posterior breast, and digitalstereo images obtained to calculate biopsy coordinates. | | The overlying skin wasprepped in sterile fashion, and 5 mL buffered 1% Lidocaine | | utilized for localanesthesia. A 9-gauge vacuum assisted core biopsy needle was | | subsequentlyadvanced to the targeted lesion utilizing stereotactic imaging guidance via | | alateral to medial approach, and multiple core biopsies of the region performed. An | | additional 10 mL 1% Lidocaine with epinephrine were utilized for localanesthesia during | | tissue sampling. A specimen radiograph was obtained, anddemonstrated calcifications | | within the specimen. A titanium biopsy marker clipwas deployed at the biopsy site, and | | this was confirmed with follow-up imaging. The needle and guide were withdrawn, and | | hemostasis achieved with manualcompression. The patient tolerated the procedure well | | and there were noimmediate complications aside from a vasovagal episode characterized | | bylightheadedness and diaphoresis.Post-procedure digital mammographic images of the | | biopsied breast were obtainedand demonstrate successful sampling of calcifications in | | the lateral middlethird of the breast and appropriate positioning of the marker clip. | | Fewresidual punctate calcifications persist along the posterior, inferior, medialmargin | | of the clip.IMPRESSION - 1. SUCCESSFUL STEREOTACTIC BIOPSY OF CALCIFICATIONS IN THE | | LATERAL RIGHT BREAST.2. TISSUE SAMPLE WAS SENT TO PATHOLOGY; PATHOLOGY RESULTS PENDING. | | NO IMMEDIATEPOST PROCEDURAL COMPLICATIONS. RECOMMENDATIONS: Will be dictated as an | | addendum when pathology results areavailable. Dictated and Signed by: Teofilo Bacon MD | | Electronically signed: 11/21/2017 9:56 AM | |third of the breast and appropriate positioning of the marker clip. Few | |residual punctate calcifications persist along the posterior, inferior, medial | |margin of the clip. | | | |IMPRESSION - | |1. SUCCESSFUL STEREOTACTIC BIOPSY OF CALCIFICATIONS IN THE LATERAL RIGHT BREAST. | | | | | |2. TISSUE SAMPLE WAS SENT TO PATHOLOGY; PATHOLOGY RESULTS PENDING. NO IMMEDIATE | |POST PROCEDURAL COMPLICATIONS. | | | |RECOMMENDATIONS: Will be dictated as an addendum when pathology results are | |available. | | | |Dictated and Signed by: Teofilo Bacon MD | | Electronically signed: 11/21/2017 9:56 AM | + + + +---------+ + [...]
--- OUTSIDE RECORDS SUMMARY | ~2019-05-05 | XMS | Encounter Summary ---
Demographics + + + | Address | [address] | | | [place] [address] | + + + | Home Phone | | + + + | Preferred Language | Unknown | + + + | Marital Status | | + + + | Shinto Affiliation | 1076 | + + + | Race | Unknown | + + + | Ethnic Group | Unknown | + + + Author + + + | Author | [facility] | | | and [place] | + + + | Organization | [facility] | | | and [...] Team Providers + +------+ + | Care Core Paster Name | Role | Phone | + +------+ + | Britton Chi MD | PCP | | + +------+ + Encounter Details +--------+ + + + + | Date | Type | Department | Care Team | Description | +--------+ + + + + | 10/30/ | [facility] | [facility] | Thanh Espinoza DO | Abnormal mammogram | | 2018 | Encounter | MED CTR ULTRASOUND | [address] | | | | | [address] [place] | [place] | | | | | [place] | [address] | | | | | [address] | | | | | | [phone] | Erika Roa, | | | | [...]
--- OUTSIDE RECORDS SUMMARY | ~2019-05-05 | XMS | Encounter Summary ---
Demographics + + + | Address | [address] | | | [place] [address] | + + + | Home Phone | | + + + | Preferred Language | Unknown | + + + | Marital Status | | + + + | Adventism Affiliation | 1076 | + + + | Race | Unknown | + + + | Ethnic Group | Unknown | + + + Author + + + | Author | [facility] | | | and [place] | + + + | Organization | [facility] | | | and [...] Team Providers + +------+ + | Care Career Specialist Name | Role | Phone | [...] | +--------+ + + + + | 11/30/ | Telephone | [facility] | Agustin, | Other | | 2018 | | MED CTR MEDICAL | Dimas Mckay MD [address] | | | | | [facility]OGY CLIN[facility] [address] | [address] | | | | | [address] [place] | [place] [address] | | | | | [place] [address] | [phone] | | | | | [phone] | | | +--------+ + + + [...] 2019 | Encounter | | MD [address] | | | | | | [place] | | | | | | [address] | | | | | | | | +--------+ + + + + | 01/11/ | Appointment | Radiation Oncology | Thanh Espinoza DO | | | 2019 | | | [address] | | | | | | [place] | | | | | | [address] | | | | | | | [...]
--- OUTSIDE RECORDS SUMMARY | ~2019-05-05 | XMS | Encounter Summary ---
Demographics + + + | Address | [address] | | | [place] [address] | + + + | Home Phone | | + + + | Preferred Language | Unknown | + + + | Marital Status | | + + + | Christian Affiliation | 1076 | + + + | Race | Unknown | + + + | Ethnic Group | Unknown | + + + Author + + + | Author | [facility] | | | and [place] | + + + | Organization | [facility] | | [...] Providers + +------+ + | Care Community Organization Director Name | Role | Phone | + +------+ + | Britton Chi MD | PCP | | + +------+ + Reason for Visit Diagnostic/Screening (Routine) +--------+--------+ + + + + | Status | Reason | Specialty | Diagnoses / | Referred By | Referred To | | | | | Procedures | Contact | Contact | +--------+--------+ + + + + | Closed | | Radiology | Diagnoses | Lord | [address] | | | | | Malignant | Thanh C, DO | [address] [place] | | | | | neoplasm of | [address] | [place], | | | | | upper-outer | [address] | [place] [address] | | | | | quadrant of | [place], | Phone: | | | | | right breast | [place] [address] | [phone] | | | | | in female, | Phone: | Fax: | | | | | estrogen | [phone] | [phone] | | | | | receptor | Fax: | | | | | | positive | [phone] | | | | | | (HCC) [...] + + | 01/30/ | Hospital | [facility] | Thanh Espinoza DO | | | 2018 | Encounter | MED CTR [address] | [address] | | | | | [place], | [place], [place] | | | | | [place] [address] | [address] | | | | | [phone] | | | +--------+ + + + [...] | | | | | | [place] | | | | | | [address] | | | | | | | | +--------+ + + + + | 01/11/ | Appointment | Radiation Oncology | Thanh Espinoza DO | | | 2019 | | | [address] | | | | | | [place] | | | | | | [address] | | | | | | | [...]
--- OUTSIDE RECORDS SUMMARY | ~2019-05-05 | XMS | Encounter Summary ---
Demographics + + + | Address | [address] | | | [place] [address] | + + + | Home Phone | | + + + | Preferred Language | Unknown | + + + | Marital Status | | + + + | Mandaen Affiliation | 1076 | + + + | Race | Unknown | + + + | Ethnic Group | Unknown | + + + Author + + + | Author | [facility] | | | and [place] | + + + | Organization | [facility] | | | and [...] Team Providers + +------+ + | Care Naturopathic Physician Name | Role | Phone | + [...] | | | | | | [address] | | | | | | [place] [address] | | | | | | [phone] | | | +--------+ + + + [...]
--- OUTSIDE RECORDS SUMMARY | ~2019-05-05 | XMS | Encounter Summary ---
Demographics + + + | Address | [address] | | | [place] [address] | + + + | Home Phone [...] Team Providers + +------+ + | Care Shrink Pit Operator Name | Role | Phone | + +------+ + PCP | Unavailable | + +------+ + Encounter Details +--------+ + + + + | Date | Type | Department | Care Team | Description | +--------+ + + + + | 01/22/ | Hospital | [facility] | | | | 2005 | Encounter | MED CTR GENERIC IP | | | | | | CONV DEPT [address] | | | | | | [place], | | | | | | [place] [address] | | | | | | [phone] | | | +--------+ + + + [...] | | | | | [facility] [place] [facility] | | | | | | [address] | | | | | | | | +--------+ + + + + | 01/11/ | Appointment | Radiation Oncology | Thanh Espinoza DO | | | 2019 | | | [address] | | | | | | [place] | | | | | | [phone] | | | | | | | | +--------+ + + + + documented as of this encounter Visit Diagnoses Not on filedocumented in this encounter"
--- OUTSIDE RECORDS SUMMARY | ~2019-05-05 | XMS | Encounter Summary ---
Demographics + + + | Address | [address] | | | [place] [address] | + + + | Home Phone | | + + + | Preferred Language | Unknown | + + + | Marital Status | | + + + | Scientologist Affiliation | 1076 | + + + | Race | Unknown | + + + | Ethnic Group | Unknown | + + + Author + + + | Author | [facility] | | | and [place] | + + + | Organization | [facility] | | | and [...] Team Providers + +------+ + | Care Airborne Operations Superintendent Name | Role | Phone | + +------+ + | Britton Chi MD | PCP | | + +------+ + Encounter Details +--------+ + + + + | Date | Type | Department | Care Team | Description | +--------+ + + + + | 03/21/ | Hospital | [facility] | Conversion | | | 2018 | Encounter | [facility] | Transaction, | | | | | [facility] [address] | Provider Unknown | | | | | [place], [place] | [phone] | | | | | [address] | (Fax) | | | | | [phone] | | | +--------+ + + + [...] + + + | Blood Pressure | 169/84 | 03/21/2018 11:18 AM | | | | | PDT | | + + + + + | Pulse | 82 | 03/21/2018 11:18 AM | | | | | PDT | | + + + + + | Temperature | - | - | | + + + + + | Respiratory Rate | - | - | | + + + + + | Oxygen Saturation | - | - | | + + + + + | Inhaled Oxygen | - | - | | | Concentration | | | | + + + + + | Weight | 85.6 kg (188 lb 11.4 | 03/21/2018 11:18 AM | | | | oz) | PDT | | + + + + + | Height | 168.9 cm (5' 6.5") | 03/21/2018 11:18 AM | | | | | PDT | | + + + + + | Body Mass Index | 30 | 03/21/2018 11:18 AM | | | | | PDT [...] 8 hours as | | 0 | // | | | (ADVIL,MOTRIN) 600 | needed. [...] [place] | | | | | | [address] | | | | | | | | +--------+ + + + + | 01/11/ | Appointment | Radiation Oncology | Thanh Espinoza DO | | | 2019 | | | [address] | | | | | | [place] | | | | | | [address] | | | | | | | | +--------+ + + + + documented as of this encounter Procedures + +--------+ + + + | Procedure Name | Priori | Date/Time | Associated Diagnosis | Comments | | | ty | | | | + +--------+ + + + | EXTERNAL LAB: CBC | Routin | 03/21/2018 | | Results for this | | | e | 11:28 AM | | procedure are in the | | | | PDT | | results section. | + +--------+ + + + | PTT | Routin | 03/21/2018 | | Results for this | | | e | 11:28 AM | | procedure are in the | | | | PDT | | results section. | + +--------+ + + + | PROTIME INR | Routin | 03/21/2018 | | Results for this | | | e | 11:28 AM | | procedure are in the | | | | PDT | | results section. | + +--------+ + + + | BASIC METABOLIC | Routin | 03/21/2018 | | Results for this | | PANEL | e | 11:28 AM | | procedure are in the | | | | PDT | | results section. | + +--------+ + + + | MRSA NAAT | Timed | 03/21/2018 | | Results for this | | | | 11:15 AM | | procedure are in the | | | | PDT | | results section. | + +--------+ + + + documented in this encounter Results PTT (03/21/2018 11:28 AM PDT) + + + + + + | Component | Value | Ref Range | Performed | Pathologist | | | | | At | Signature | + + + + + + | aPTT, | 25Comment: Testing | 23 - 32 seconds | EXTERNAL | | | Patient | performed at [facility];[address] | | LAB | | | | [address];[place], [place] | | | | | | [address] | | | | + + + + + + + + | Specimen | + + | Blood specimen | | (specimen) | + + + +---------+ + + | Performing | Address | City/State/Zipcode | Phone Number | | Organization | | | | + +---------+ + + | EXTERNAL LAB | | | | + +---------+ + + Protime INR (03/21/2018 11:28 AM PDT) + + + + + + | Component | Value | Ref Range | Performed | Pathologist | | | | | At | Signature | + + + + + + | INR | 0.9Comment: REFERENCE | | EXTERNAL | | | | RANGE:0.9 - 1.2 | | LAB | | | | NON-ANTICOAGULATED2.0 | | | | | | - 3.0 ALL OTHER | | | | | | THERAPEUTIC | | | | | | INDICATIONS2.5 - 3.5 | | | | | | MECHANICAL HEART VALVES, | | | | | | RECURRENT OR SYSTEMIC | | | | | | EMBOLISMTesting | | | | | | performed at [facility] | | | | | | [address];[place], [place] | | | | | | [address] | | | | + + + + + + + + | Specimen | + + | Blood specimen | | (specimen) | + + + +---------+ + + | Performing | Address | City/State/Zipcode | Phone Number | | Organization | | | | + +---------+ + + | EXTERNAL LAB | | | | + +---------+ + + External Lab: CBC (03/21/2018 11:28 AM PDT) + + + + + + | Component | Value | Ref Range | Performed | Pathologist | | | | | At | Signature | + + + + + + | WBC | 3.12 (L) | 3.80 - 11.00 | EXTERNAL | | | | | K/uL | LAB | | + + + + + + | RED CELL | 4.36 | 3.70 - 5.10 | EXTERNAL | | | COUNT | | M/uL | LAB | | + + + + + + | Hgb | 14.1 | 11.3 - 15.5 | EXTERNAL | | | | | g/dL | LAB | | + + + + + + | Hematocrit, | 41.7 | 34.0 - 46.0 % | EXTERNAL | | | POC | | | LAB | | + + + + + + | MCV | 95.6 | 80.0 - 100.0 fl | EXTERNAL | | | | | | LAB | | + + + + + + | MCH | 32.3 | 27.0 - 34.0 pg | EXTERNAL | | | | | | LAB | | + + + + + + | MCHC | 33.8 | 32.0 - 35.5 | EXTERNAL | | | | | g/dL | LAB | | + + + + + + | RDW-CV | 43.3 | 37 - 53 fl | EXTERNAL | | | | | | LAB | | + + + + + + | Platelet | 203 | 150 - 400 K/uL | EXTERNAL | | | Count | | | LAB | | | Plasma | | | | | + + + + + + | MPV | 9.3 | fl | EXTERNAL | | | | | | LAB | | + + + + + + | Differentia | AUTOMATED | | EXTERNAL | | | l Type | | | LAB | | + + + + + + | % Segmented | 55.71 | % | EXTERNAL | | | | | | LAB | | | Neutrophils | | | | | + + + + + + | % | 29.67 | % | EXTERNAL | | | Lymphocytes | | | LAB | | + + + + + + | % Monocytes | 11.73 | % | EXTERNAL | | | | | | LAB | | + + + + + + | % | 1.45 | % | EXTERNAL | | | Eosinophils | | | LAB | | + + + + + + | % Basophils | 1.44 | % | EXTERNAL | | | | | | LAB | | + + + + + + | Absolute | 1.74 (L) | 1.90 - 7.40 | EXTERNAL | | | Segmented | | K/uL | LAB | | | Neutrophils | | | | | + + + + + + | Absolute | 0.93 (L) | 1.00 - 3.90 | EXTERNAL | | | Lymphocytes | | K/uL | LAB | | + + + + + + | Absolute | 0.37 | 0.00 - 0.80 | EXTERNAL | | | Monocytes | | K/uL | LAB | | + + + + + + | Absolute | 0.05 | 0.00 - 0.50 | EXTERNAL | | | Eosinophils | | K/uL | LAB | | + + + + + + | Absolute | 0.05Comment: Testing | 0.00 - 0.10 | EXTERNAL | | | Basophils | performed at [facility], [address] | K/uL | LAB | | | | [address], | | | | | | [place] [address] | | | | + + + + + + + + | Specimen | + + | Blood specimen | | (specimen) | + + + +---------+ + + | Performing | Address | City/State/Zipcode | Phone Number | | Organization | | | | + +---------+ + + | EXTERNAL LAB | | | | + +---------+ + + Basic Metabolic Panel (03/21/2018 11:28 AM PDT) + + + + + + | Component | Value | Ref Range | Performed | Pathologist | | | | | At | Signature | + + + + + + | Na | 137 | 135 - 145 | EXTERNAL | | | | | mmol/L | LAB | | + + + + + + | K | 4.4 | 3.5 - 4.9 | EXTERNAL | | | | | mmol/L | LAB | | + + + + + + | Cl | 101 | 99 - 109 mmol/L | EXTERNAL | | | | | | LAB | | + + + + + + | CO2 | 29 | 23 - 32 mmol/L | EXTERNAL | | | | | | LAB | | + + + + + + | Anion Gap | 11 | 5 - 20 mmol/L | EXTERNAL | | | | | | LAB | | + + + + + + | Glucose, | 86 | 65 - 99 mg/dL | EXTERNAL | | | Fasting | | | LAB | | + + + + + + | BUN | 10 | 8 - 25 mg/dL | EXTERNAL | | | | | | LAB | | + + + + + + | Creatinine | 0.7 | 0.50 - 1.00 | EXTERNAL | | | | | mg/dL | LAB | | + + + + + + | BUN/Creatin | 14 | | EXTERNAL | | | ine Ratio | | | LAB | | + + + + + + | Calcium | 9.6 | 8.5 - 10.5 | EXTERNAL | | | | | mg/dL | LAB | | + + + + + + | Estimated | >60Comment: GFR <60: | mL/min/1.73m2 | EXTERNAL | | | GFR | CHRONIC KIDNEY DISEASE, | | LAB | | | | IF FOUND OVER A 3 MONTH | | | | | | PERIOD.GFR <15: KIDNEY | | | | | | FAILURE.FOR | | | | | | AMERICANS, MULTIPLY THE | | | | | | CALCULATED GFR BY | | | | | | 1.210.This eGFR is | | | | | | calculated using the | | | | | | MDRD IDMS traceable | | | | | | equation.Testing | | | | | | performed at [facility], [address] | | | | | | [facility], | | | | | | [place] [address] | | | | + + + + + + + + | Specimen | + + | Blood specimen | | (specimen) | + + + +---------+ + + | Performing | Address | City/State/Zipcode | Phone Number | | Organization | | | | + +---------+ + + | EXTERNAL LAB | | | | + +---------+ + + MRSA NAAT (03/21/2018 11:15 AM PDT) + + | Specimen | + + | | + + + + + | Narrative | Performed At | + + + | SOURCE NARES(NOSE) MRSA | EXTERNAL LAB | | PCR POSITIVE for MRSA by | | | PCRAbnormal Testing performed at [facility];[address] [place] [address];[place] [address] | | + + + + +---------+ + + | Performing | Address | City/State/Zipcode | Phone Number | | Organization | | | | + +---------+ + + | EXTERNAL LAB | | | | + +---------+ + [...]
--- OUTSIDE RECORDS SUMMARY | ~2019-05-05 | XMS | Encounter Summary ---
Demographics + + + | Address | [address] | | | [place] [address] | + + + | Home Phone | | + + + | Preferred Language | Unknown | + + + | Marital Status | | + + + | Caodaism Affiliation | 1076 | + + + [...] Team Providers + +------+ + | Care Ophthalmic Medical Assistant Name | Role | Phone | + +------+ + | Kiet Dunlap MD | PCP | | + +------+ + Encounter Details +--------+ + + + + | Date | Type | Department | Care Team | Description | +--------+ + + + + | 11/19/ | Hospital | [facility] | Thanh Espinoza DO | | | 2012 - | Encounter | MED CTR CANCER | [address] | | | | | CENTER [address] | [place], [place] | | | 12/08/ | | [place] | [address] | | | 2012 | | [address] | | | | | | [phone] | | | +--------+ + + + [...] [place] | | | | | | [address] | | | | | | | [...]
--- OUTSIDE RECORDS SUMMARY | ~2019-05-05 | XMS | Encounter Summary ---
Demographics + + + | Address | [address] | | | [place] [address] | + + + | Home Phone | | + + + | Preferred Language | Unknown | + + + | Marital Status | | + + + | Evangelical Affiliation | 1076 | + + + | Race | Unknown | + + + | Ethnic Group | Unknown | + + + Author + + + | Author | [facility] | | | and [place] | + + + | Organization | [facility] | | [...] Team Providers + +------+ + | Care Coin Wrapping Machine Operator Name | Role | Phone | + +------+ + | Radha Carias PA-C | PCP | | + +------+ + Encounter Details +--------+ + + + + | Date | Type | Department | Care Team | Description | +--------+ + + + + | 01/07/ | Hospital | [facility] | Radha Carias, | Encounter for | | 2019 | Encounter | MED CTR MAMMOGRAPHY | [address] | screening mammogram | | | | [address] | [address], | for breast cancer | | | | [place] | [place] [address] | | | | | [address] | [phone] | | | | | [phone] | | | +--------+ + + + [...] +---------+ + + | aspirin 325 mg | Take 1 tablet by | | 0 | | | | tablet | mouth Daily. | | | | | + + + +---------+ + + | atorvaSTATin | Take 40 mg by mouth | | 0 | | | | (LIPITOR) 40 mg | nightly. | | | | | | tablet | | | | | | + + + +---------+ + + | buPROPion | Take 1 tablet by | | 0 | 01/03/20 | | | (WELLBUTRIN XL) 150 | mouth Daily. | | | 19 | | | mg 24 hr tablet | | | | | | + + + +---------+ + + | Continuous Blood | use TO TEST BLOOD | | 0 | 07/01/19 | | | Gluc Anchor Operator | SUGAR before meals | | | 19 | | | (FREESTYLE BRAD 14 | and at bedtime or as | | | | | | DAY READER) JANIA | directed | | | | | + + [...] + + | lisinopril | | | 1 | 08/12/19 | | | (PRINIVIL,ZESTRIL) | | | | 19 | | | 40 MG tablet | | | | | | + + + +---------+ + + | LORazepam (ATIVAN) | Take 1 mg by mouth | | 0 | | | | 1 mg tablet | Daily as needed for | | | | | | | Anxiety. | | | | | + + + +---------+ + + | metoprolol | Take 1 tablet by | | 0 | 01/01/20 | | | succinate | mouth Daily. | | | 19 | | | (TOPROL-XL) 25 mg 24 | | | | | | | hr tablet | [...] + + + +---------+ + + | exemestane | Take 1 tablet by | | 0 | 01/03/20 | | | (AROMASIN) 25 MG | mouth Daily. | | | 19 | 9 | | tablet | | [...] [place] | | | | | | [id number] | | | | | | | | +--------+ + + + + | 01/11/ | Appointment | Radiation Oncology | Thanh Espinoza DO | | | 2019 | | | [address] | | | | | | [place] | | | | | | [address] | | | | | | | | +--------+ + + + + documented as of this encounter Procedures + +--------+ + + + | Procedure Name | Priori | Date/Time | Associated Diagnosis | Comments | | | ty | | | | + +--------+ + + + | LEILA TOMOSYN | Routin | 01/07/2019 | Encounter for | Results for this | | SCREENING BILATERAL | e | 12:53 PM | screening mammogram | procedure are in the | | | | PDT | for breast cancer | results section. | + +--------+ + + + documented in this encounter Results LEILA Tomosynthesis Screening Bilateral (01/07/2019 12:53 PM PDT) + + | Specimen | + + | | + + + + + | Narrative | Performed At | + + + | EXAM: LEILA TOMOSYN SCREENING BILATERAL dated 01/07/2019 12:35 PM | [facility] | | HISTORY: Routine Screening. History of bilateral breast cancer, left | | | in 2013 and right in 2018. Status post bilateral lumpectomy and | | | radiation therapy. TECHNIQUE: Bilateral digital CC and MLO. Jass | | | synthesis was performed. CAD utilized. COMPARISON: Back to | | | 09/06/2012. FINDINGS: Heterogeneously dense breast parenchyma is | | | present bilaterally, which may obscure masses. Jass synthesis | | | and standard mammographic images demonstrate bilateral upper outer | | | breast posterior depth lumpectomy changes with architectural | | | distortion. No suspicious mass or group of microcalcifications. | | | Benign bilateral breast calcifications. Bilateral breast skin | | | thickening, right greater than left. Images were reviewed with | | | CAD. IMPRESSION - No mammographic evidence of malignancy. | | | BI-RADS CATEGORY 2: BENIGN FINDINGS RECOMMENDATION: Annual | | | screening. Dictated and Signed by: Antolin Bills MD | | | Electronically signed: 01/08/2019 2:20 PM | | + + + + + | Procedure Note | + + | Aaron, Rad Results In - 01/08/2019 2:23 PM PDT EXAM: LEILA TOMOSYN SCREENING BILATERAL | | dated 01/07/2019 12:35 PMHISTORY: Routine Screening. History of bilateral breast cancer, | | left in 2013and right in 2018. Status post bilateral lumpectomy and radiation | | therapy.TECHNIQUE: Bilateral digital CC and MLO. Jass synthesis was performed. | | CADutilized.COMPARISON: Back to 09/06/2012.FINDINGS: Heterogeneously dense breast | | parenchyma is present bilaterally, which mayobscure masses. Jass synthesis and standard | | mammographic images demonstrate bilateral upperouter breast posterior depth lumpectomy | | changes with architectural distortion. No suspicious mass or group of | | microcalcifications. Benign bilateral breastcalcifications. Bilateral breast skin | | thickening, right greater than left.Images were reviewed with CAD.IMPRESSION - No | | mammographic evidence of malignancy.BI-RADS CATEGORY 2: BENIGN FINDINGSRECOMMENDATION: | | Annual screening.Dictated and Signed by: Antolin Bills MD Electronically signed: | | 01/08/2019 2:20 PM | | | |Jass synthesis and standard mammographic images demonstrate bilateral upper | |outer breast posterior depth lumpectomy changes with architectural distortion. | |No suspicious mass or group of microcalcifications. Benign bilateral breast | |calcifications. Bilateral breast skin thickening, right greater than left. | | | |Images were reviewed with CAD. | | | |IMPRESSION - No mammographic evidence of malignancy. | | | |BI-RADS CATEGORY 2: BENIGN FINDINGS | | | |RECOMMENDATION: Annual screening. | | | |Dictated and Signed by: Antolin Bills MD | | Electronically signed: 01/08/2019 2:20 PM | + + + +---------+ + + | Performing | Address | City/State/Zipcode | Phone Number | | Organization | | | | + +---------+ + + | [facility] | | | | + +---------+ + + documented in this encounter Visit Diagnoses + + | Diagnosis | + + | Encounter for screening mammogram for breast cancer | + + documented in this encounter Additional Health Concerns + + + + | Infection | Noted Time | Resolved Time | + + + + | Methicillin-resistant Staphylococcus aureus | 03/21/2018 12:00 AM | | | | PDT | | + + + + documented as of this encounter"
--- OUTSIDE RECORDS SUMMARY | ~2019-05-05 | XMS | Encounter Summary ---
Demographics + + + | Address | [address] | | | [place] [address] | + + + | Home Phone [...] Providers + +------+ + | Care Technical Operations Vice President Name | Role | Phone | + +------+ + | Britton Chi MD | PCP | | + +------+ + Reason for Visit +--------+ + | Reason | Comments | +--------+ + | Other | | +--------+ + Encounter Details +--------+ + + + + | Date | Type | Department | Care Team | Description | +--------+ + + + + | 10/31/ | Telephone | [facility] | Thanh Espinoza DO | Other | | 2017 | | MED CTR MEDICAL | [address] | | | | | ONCOLOGY CLINIC [address] | [place] | | | | | [address] | [address] | | | | | [place] [address] | | | | | | [phone] | | | +--------+ + + + [...] [place] | | | | | | [id number] | | | | | | | [...]
--- OUTSIDE RECORDS SUMMARY | ~2019-05-05 | XMS | Encounter Summary ---
Demographics + + + | Address | [address] | | | [place] [address] | + + + | Home Phone | | + + + | Preferred Language | Unknown | + + + | Marital Status | | + + + | Catholic Affiliation | 1076 | + + + [...] Team Providers + +------+ + | Care Wind Energy Systems Installer Name | Role | Phone | [...] GAN | | | | | [address] [place] | [place] [address] | | | | | [place] [address] | [phone] | | | | | [phone] | | | +--------+ + + + [...] [place] | | | | | | [address] | | | | | | | | +--------+ + + + + | 01/11/ | Appointment | Radiation Oncology | Thanh Espinoza DO | | | 2019 | | | [address] | | | | | | [place] | | | | | | [address] | | | | | | | [...]
--- OUTSIDE RECORDS SUMMARY | ~2019-05-05 | XMS | Encounter Summary ---
Demographics + + + | Address | [address] | | | [place] [address] | + + + | Home Phone | | + + + | Preferred Language | Unknown | + + + | Marital Status | | + + + | Hindu Affiliation | 1076 | + + + [...] Team Providers + +------+ + | Care Pilot Name | Role | Phone | + [...] + + + + | 03/06/ | Hospital | [facility] | Thanh Espinoza DO | Malignant neoplasm | | 2018 | Encounter | MED CTR RADIATION | [address] | of upper-outer | | | | ONCOLOGY CLINIC [address] | [place], [place] | quadrant of right | | | | [address] [place] | [phone] | breast in female, | | | | [place] [address] | | estrogen receptor | | | | [phone] | | positive (HCC) | | | [...] + + + | Blood Pressure | 152/92 | 03/06/2018 10:54 AM | | | | | PDT | | + + + + + | Pulse | 89 | 03/06/2018 10:50 AM | | | | | PDT | | + + + + + | Temperature | 36.3 C (97.4 F) | 03/06/2018 10:50 AM | | | | | PDT | | + + + + + | Respiratory Rate | 16 | 03/06/2018 10:50 AM | | | | | PDT | | + + + + + | Oxygen Saturation | 98% | 03/06/2018 10:50 AM | | | | | PDT | | + + + + + | Inhaled Oxygen | - | - | | | Concentration | | | | + + + + + | Weight | 86.1 kg (189 lb 13.1 | 03/06/2018 10:50 AM | | | | oz) | PDT | | + + + + + | Height | - | - | | + + + + + | Body Mass Index | 30.18 | 02/12/2018 9:09 AM | | | [...] Progress Notes Thanh Espinoza DO - 03/06/2018 10:51 AM PDT Radiation Oncology Weekly On Treatment Note Diagnosis: ICD-10-CM ICD-9-CM 1. Malignant neoplasm of upper-outer quadrant of right breast in female, estrogen receptor positive (HCC) C50.411 174.4 Z17.0 V86.0 Reason for visit: On treatment evaluation Radiation technical factors: Dose Delivered Dose Planned Fractions Delivered 4256 cGy Boost 1000 cGy 4256 cGy 1000 cGy 09/12 Images were reviewed this week and results [...] facility-administered medications on file prior to encounter. Pain assessment: Location: breast Pain Level: PAIN PROG PAIN LEVEL: 5 Pain Quality: Constant Current pain regimen: ibuprofen as needed Wt Readings from Last 3 Encounters: 03/06/18 86.1 kg (189 lb 13.1 oz) 02/27/18 86.8 kg (191 lb 5.8 oz) 02/21/18 86.8 kg (191 lb 5.8 oz) Vitals: 03/06/18 1050 03/06/18 1054 BP: (!) 197/95 (!) 152/92 Pulse: 89 Resp: 16 Temp: 36.3 C (97.4 F) TempSrc: Temporal SpO2: 98% Weight: 86.1 kg (189 lb 13.1 oz) Physical Exam Constitutional: She is oriented [...] behavior is normal. Physician Assessment: Overall, she has tolerated her treatment well and completes treatment today. At the conclu valentine of her short course whole breast irradiation and she did develop inframammary desquamat ion secondary to moisture trapping leading to maceration and clinical grade 3 dermatitis gra de she has otherwise grade 2 dermatitis elsewhere on her breast with frictional irritation o f her axilla. Domoboro soaks recommended including 2-3 times per day drying out the inframa mmary fold using a fan or repairer hairspring with a cold air function. Screening mammogram and foll ow-up will be made at their usual times. A separate treatment summary will follow. Toxicities reviewed in nursing note. Disposition: completed treatment as planned. Thahn Espinoza DO Radiation Oncologist documented in this [...] CLEAN[place] | | | | | | [address] | | | | | | | | +--------+ + + + + documented as of this encounter Visit Diagnoses + + | Diagnosis | + + | Malignant neoplasm of upper-outer quadrant of right breast in female, estrogen | | receptor positive (HCC) - Primary | + + documented in this encounter"
--- OUTSIDE RECORDS SUMMARY | ~2019-05-05 | XMS | Encounter Summary ---
Demographics + + + | Address | [address] | | | [place] [address] | + + + | Home Phone [...] Team Providers + +------+ + | Care Gis Engineer Name | Role | Phone | + +------+ + | Britton Chi MD | PCP | | + +------+ + Encounter Details +--------+ + + + + | Date | Type | Department | Care Team | Description | +--------+ + + + + | 02/14/ | Hospital | [facility] | Thanh Espinoza DO | | | 2018 | Encounter | MED CTR RADIATION | [address] | | | | | ONCOLOGY [address] | [place], [place] | | | | | [place], | [address] | | | | | [place] [address] | | | | | | [phone] | | | +--------+ + + + [...] [place]AN[place] | | | | | | [address] | | | | | | | [...]
--- OUTSIDE RECORDS SUMMARY | ~2019-05-05 | XMS | Encounter Summary ---
Demographics + + + | Address | [address] | | | [place] [address] | + + + | Home Phone | | + + + | Preferred Language | Unknown | + + + | Marital Status | | + + + | Pentecostalism Affiliation | 1076 | + + + | Race | Unknown | + + + | Ethnic Group | Unknown | + + + Author + + + | Author | [facility] | | | and [place] | + + + | Organization | [facility] | | | [...] Providers + +------+ + | Care Rod Mill Tender Name | Role | Phone | + +------+ + | Britton Chi MD | PCP | | + +------+ + Encounter Details +--------+ + + + + | Date | Type | Department | Care Team | Description | +--------+ + + + + | 01/14/ | Hospital | [facility] | Thanh Espinoza DO | | | 2018 | Encounter | MED CTR RADIATION | [address] | | | | | ONCOLOGY [address] | [place], [place] | | | | | [place], | [address] | | | | | [place] [address] | | | | | | [phone] | | | +--------+ + + + [...] | | | | | | [address] [place] | | | | | | [address] | | | | | | | | +--------+ + + + + | 01/11/ | Appointment | Radiation Oncology | Thanh Espinoza DO | | | 2019 | | | [address] | | | | | | [place] | | | | | | [address] | | | | | | | | +--------+ + + + + documented as of this encounter Visit Diagnoses Not on filedocumented in this encounter"
--- OUTSIDE RECORDS SUMMARY | ~2019-05-05 | XMS | Encounter Summary ---
Demographics + + + | Address | [address] | | | [place] [address] | + + + | Home Phone | | + + + | Preferred Language | Unknown | + + + | Marital Status | | + + + | Zoroastrian Affiliation | 1076 | + + + [...] Team Providers + +------+ + | Care Typewriter Assembler Name | Role | Phone | + +------+ + | Britton Chi MD | PCP | | + +------+ + Encounter Details +--------+ + + + + | Date | Type | Department | Care Team | Description | +--------+ + + + + | 01/16/ | Imaging | [facility] | Provider, | | | 2018 | Exam | MED CTR EXTERNAL | MD [address] | | | | | IMAGING | [place] | | | | | [phone] | [place] [address] | | +--------+ + + + + [...] [place]AN[place] | | | | | | [address] | | | | | | | | +--------+ + + + + documented as of this encounter Procedures + +--------+ + + + | Procedure Name | Priori | Date/Time | Associated Diagnosis | Comments | | | ty | | | | + +--------+ + + + | LEILA GUIDED NEEDLE | Routin | 01/01/2018 | | Results for this | | LOC RIGHT | e | 11:45 AM | | procedure are in the | | | | PDT | | results section. | + +--------+ + + + documented in this encounter Results LEILA Guided Needle Loc Right (01/01/2018 11:45 AM PDT) + + | Specimen | [...]
--- OUTSIDE RECORDS SUMMARY | ~2019-05-05 | XMS | Encounter Summary ---
Demographics + + + | Address | [address] | | | [place] [address] | + + + | Home Phone | | + + + | Preferred Language | Unknown | + + + | Marital Status | | + + + | Yazidi Affiliation | 1076 | + + + | Race | Unknown | + + + | Ethnic Group | Unknown | + + + Author + + + | Author | [facility] | | | and [place] | + + + | Organization | [facility] | | [...] Team Providers + +------+ + | Care Paper Inspector Name | Role | Phone | + [...] Malignant | Thanh C, DO | [address] [place] | | | | | neoplasm of | [address] | [place], | | | | | upper-outer | [address] | [place] [address] | | | | | quadrant of | [place], | Phone: | | | | | right breast | [place] [address] | [phone] | | | | | in female, | Phone: | Fax: | | | | | estrogen | [phone] | [phone] | | | | | receptor | Fax: | | | | | | positive | [phone] | | | | | | (HCC) [...] + + | 01/30/ | Hospital | [facility] | Thanh Espinoza DO | | | 2018 | Encounter | MED CTR [address] | [address] | | | | | [place], | [place], [place] | | | | | [place] [address] | [address] | | | | | [phone] | | | +--------+ + + + [...] | | | | | | [place] | | | | | | [address] | | | | | | | | +--------+ + + + + | 01/11/ | Appointment | Radiation Oncology | Thanh Espinoza DO | | | 2019 | | | [address] | | | | | | [place] | | | | | | [address] | | | | | | | [...]
--- OUTSIDE RECORDS SUMMARY | ~2019-05-05 | XMS | Encounter Summary ---
Demographics + + + | Address | [address] | | | [place] [address] | + + + | Home Phone | | + + + | Preferred Language | Unknown | + + + | Marital Status | | + + + | Anglican Affiliation | 1076 | + + + | Race | Unknown | + + + | Ethnic Group | Unknown | + + + Author + + + | Author | [facility] | | | and [place] | + + + | Organization | [facility] | | | and [...] Team Providers + +------+ + | Care Fur Coat Sewer Name | Role | Phone | + +------+ + | Britton Chi MD | PCP | | + +------+ + Encounter Details +--------+ + + + + | Date | Type | Department | Care Team | Description | +--------+ + + + + | 12/06/ | Hospital | [facility] | Thanh Espinoza DO | | | 2018 | Encounter | MED CTR RADIATION | [address] | | | | | ONCOLOGY [address] | [place], [place] | | | | | [place], | [address] | | | | | [place] [address] | | | | | | [phone] | | | +--------+ + + + [...] [place] | | | | | | [id number] | | | | | | | | +--------+ + + + + | 01/11/ | Appointment | Radiation Oncology | Thanh Espinoza DO | | | 2019 | | | [address] | | | | | | [place] | | | | | | [address] | | | | | | | | +--------+ + + + + documented as of this encounter Procedures + +--------+ + + + | Procedure Name | Priori | Date/Time | Associated Diagnosis | Comments | | | ty | | | | + +--------+ + + + | LABS - EXTERNAL SCAN | | 11/29/2017 | | Results for this | | | | 12:00 AM | | procedure are in the | | | | PDT | | results section. | + +--------+ + + + documented in this encounter Results LABS - EXTERNAL SCAN (11/29/2017 12:00 AM PDT) + + + | Narrative | Performed At | + + + | Ordered by an | | | unspecified provider. | | + + + documented in this encounter Visit Diagnoses Not on filedocumented in this encounter"
--- OUTSIDE RECORDS SUMMARY | ~2019-05-05 | XMS | Encounter Summary ---
Demographics + + + | Address | [address] | | | [place] [address] | + + + | Home Phone | | + + + | Preferred Language | Unknown | + + + | Marital Status | | + + + | Baptism Affiliation | 1076 | + + + | Race | Unknown | + + + | Ethnic Group | Unknown | + + + Author + + + | Author | [facility] | | | and [place] | + + + | Organization | [facility] | | | and [...] Team Providers + +------+ + | Care Mgmt Analyst Name | Role | Phone | [...] | | | | | [place] [address] | | | | | | [phone] | | | +--------+ + + + [...] | | | | | | [place] | | | | | | [address] | | | | | | | | +--------+ + + + + | 01/11/ | Appointment | Radiation Oncology | Thanh Espinoza DO | | | 2019 | | | [address] | | | | | | [place] | | | | | | [address] | | | | | | | | +--------+ + + + + documented as of this encounter Visit Diagnoses Not on filedocumented in this encounter"
--- OUTSIDE RECORDS SUMMARY | ~2019-05-05 | XMS | Encounter Summary ---
Demographics + + + | Address | [address] | | | [place] [address] | + + + | Home Phone | | + + + | Preferred Language | Unknown | + + + | Marital Status | | + + + | Uatsdin Affiliation | 1076 | + + + | Race | Unknown | + + + | Ethnic Group | Unknown | + + + Author + + + | Author | [facility] | | | and [place] | + + + | Organization | [facility] | [...] Team Providers + +------+ + | Care Temporary Help Agency Referral Clerk Name | Role | Phone | + +------+ + PCP | Unavailable | + +------+ + Encounter Details +--------+ + + + + | Date | Type | Department | Care Team | Description | +--------+ + + + + | 02/20/ | Hospital | [facility] | | | | 2005 | Encounter | MED CTR XRAY [address] | | | | | | [place] | | | | | | [place] [address] | | | | | | [phone] | | | +--------+ + + + [...] [place] | | | | | | [address] | | | | | | | | +--------+ + + + + | 01/11/ | Appointment | Radiation Oncology | Thanh Espinoza DO | | | 2019 | | | [address] | | | | | | [place] | | | | | | [phone] | | | | | | | | +--------+ + + + + documented as of this encounter Visit Diagnoses Not on filedocumented in this encounter"
--- OUTSIDE RECORDS SUMMARY | ~2019-05-05 | XMS | Encounter Summary ---
Demographics + + + | Address | [address] | | | [place] [address] | + + + | Home Phone [...] Team Providers + +------+ + | Care Body Shop Supervisor Name | Role | Phone | [...] + + + + | 12/04/ | Telephone | [facility] | Agustin, | Other | | 2018 | | MED CTR MEDICAL | Dimas Mckay MD [address] | | | | | ONCOLOGY CLINIC [address] | [place] | | | | | [address] [place] | [place] [address] | | | | | [place] [address] | [phone] | | | | | [phone] | | | +--------+ + + + [...] [place] | | | | | | [address] | | | | | | | | +--------+ + + + + | 01/11/ | Appointment | Radiation Oncology | Thanh Espinoza DO | | | 2019 | | | [address] | | | | | | [place] | | | | | | [address] | | | | | | | [...]
--- OUTSIDE RECORDS SUMMARY | ~2019-05-05 | XMS | Encounter Summary ---
Demographics + + + | Address | [address] | | | [place] [address] | + + + | Home Phone [...] Team Providers + +------+ + | Care Tool Design Drafter Name | Role | Phone | + [...] | MED CTR EXTERNAL | MD [address] | | | | | IMAGING | [place] | | | | | [phone] | [place] [address] | | +--------+ + + + + [...] [place]AN[place] | | | | | | [address] | | | | | | | [...]
--- OUTSIDE RECORDS SUMMARY | ~2019-05-05 | XMS | Encounter Summary ---
Demographics + + + | Address | [address] | | | [place] [address] | + + + | Home Phone | | + + + | Preferred Language | Unknown | + + + | Marital Status | | + + + | Jewish Affiliation | 1076 | + + + | Race | Unknown | + + + | Ethnic Group | Unknown | + + + Author + + + | Author | [facility] | | | and [place] | + + + | Organization | [facility] | | | [...] Team Providers + +------+ + | Care Patient Care Manager Name | Role | Phone | + +------+ + | Radha Carias PA-C | PCP | | + +------+ + Encounter Details +--------+ + + + + | Date | Type | Department | Care Team | Description | +--------+ + + + + | 10/06/ | Orders Only | [facility] | Thanh Espinoza DO | Malignant neoplasm | | 2015 | | MED CTR RADIATION | [address] | of upper-outer | | | | ONCOLOGY [address] | [place], [place] | quadrant of female | | | | [place], | [address] | breast, unspecified | | | | [place] [address] | | laterality (HCC) | | | | [phone] | | (Primary Dx) | +--------+ + [...] [place]AN[place] | | | | | | [address] | | | | | | | | +--------+ + + + + | 01/11/ | Appointment | Radiation Oncology | Thanh Espinoza DO | | | 2019 | | | [address] | | | | | | [place] | | | | | | [address] | | | | | | | | +--------+ + + + + + +---------+--------+ + + | Name | Type | Priori | Associated Diagnoses | Order Schedule | | | | ty | | | + +---------+--------+ + + | LEILA Digital | Imaging | Routin | Malignant neoplasm | Expected: 10/06/2014 | | Diagnostic Left | | e | of upper-outer | (Approximate), | | | | | quadrant of female | Expires: 12/07/2015 | | | | | breast, unspecified | | | | | | laterality (HCC) | | + +---------+--------+ + + documented as of this encounter Visit Diagnoses + + | Diagnosis | + + | Malignant neoplasm of upper-outer quadrant of female breast, unspecified laterality - | | Primary | + + documented in this encounter Additional Health Concerns + + + + | Infection | Noted Time | Resolved Time | + + + + | Methicillin-resistant Staphylococcus aureus | 03/21/2018 12:00 AM | | | | PDT | | + + + + documented as of this encounter"
--- OUTSIDE RECORDS SUMMARY | ~2019-05-05 | XMS | Encounter Summary ---
Demographics + + + | Address | [address] | | | [place] [address] | + + + | Home Phone | | + + + | Preferred Language | Unknown | + + + | Marital Status | | + + + | Adventist Affiliation | 1076 | + + + | Race | Unknown | + + + | Ethnic Group | Unknown | + + + Author + + + | Author | [facility] | | | and [place] | + + + | Organization | [facility] | | | [...] Team Providers + +------+ + | Care Funeral Director/Embalmer/Owner Name | Role | Phone | + +------+ + | Britton Chi MD | PCP | | + +------+ + Encounter Details +--------+ + + + + | Date | Type | Department | Care Team | Description | +--------+ + + + + | 11/21/ | Hospital | [facility] | Lord, Thanh C, DO | Abnormality of right | | 2018 | Encounter | MED CTR MAMMOGRAPHY | [address] | breast on screening | | | | [address] | [place] | mammogram | | | | [place], [place] | [address] | | | | | [address] | | | | | | [phone] | Rad, [facility] | | +--------+ [...] [place] | | | | | | [id number] | | | | | | | | +--------+ + + + + | 01/11/ | Appointment | Radiation Oncology | Thanh Espinoza DO | | | 2019 | | | [address] | | | | | | [place] | | | | | | [address] | | | | | | | | +--------+ + + + + documented as of this encounter Procedures + +--------+ + + + | Procedure Name | Priori | Date/Time | Associated Diagnosis | Comments | | | ty | | | | + +--------+ + + + | LEILA BREAST BIOPSY | Routin | 11/21/2017 | Abnormality of | Results for this | | RIGHT | e | 9:45 AM | right breast on | procedure are in the | | | | PDT | screening mammogram | results section. | + +--------+ + + + | SURGICAL PATHOLOGY | Routin | 11/21/2017 | | Results for this | | EXAM | e | 12:00 AM | | procedure are in the | | | | PDT | | results section. | + +--------+ + + + documented in this encounter Results LEILA Breast Biopsy Right [...] biopsy table, and the right breast compressed. Armhole Feller Handstitching Machine | | | digital mammographic images were [...] | | | + +---------+ + + Surgical Pathology Exam (11/21/2017 12:00 AM PDT) + + | Specimen | + + | Tissue | + + + + + | Narrative | Performed At | + + + | THIS IS AN ADDENDUM REPORT SPECIMEN(S): A RIGHT BREAST | [facility] | | STEREO CALCS SPECIMEN SOURCE: A. RIGHT BREAST STEREO CALCS | [facility] | | CLINICAL HISTORY: Abnormality on right screening and subsequent | | | diagnostic mammogram. 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 - Nuclear | | | grade score: 2/3. - Mitotic score: 1/3. | | | - Tumor grade: II/III (total score 6/9). - Longest | | | confluent tumor focus: 5.5 mm. - Lymph-Vascular invasion: | | | Absent. 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 - | | | Microcalcifications present in in situ carcinoma. - | | | Estrogen receptor: Positive. - 99% of tumor | | | cells with strong average intensity. - Progesterone | | | receptor: Positive. - 45% of tumor cells with | | | moderate average intensity. - Ki-67 proliferation index: | | | 12%. - HER2 by FISH: Pending to be reported by addendum. | | | COMMENT: The results are called to Rajan in the office of | | | Thanh Espinoza on 11/23/17 at 15:20. As part of [facility]' | | | Quality Improvement Program, this case was reviewed by another member | | | of our pathology staff. JVR:CLR:[facility]:C1NR GROSS DESCRIPTION: | | | The specimen is labeled "Melodie Silva, right breast stereo calcs". | | | Submitted in formalin is a 3 x 3 x 1.2 cm aggregate of yellow to | | | pink-benitez core needle biopsies of soft tissue. They are wrapped, | | | totally embedded in two cassettes. JVR:[facility] MICROSCOPIC | | | EXAMINATION: Histologic sections of all submitted blocks are examined | | | by light microscopy. These findings, together with the gross | | | examination, support the pathologic diagnosis. Immunostains are | | | performed on block (A2) with appropriate controls and show the | | | following: - P63: Positive around in situ carcinoma and negative | | | in the invasive component. - Smooth Muscle Myosin: Positive around | | | the in situ carcinoma and negative in the invasive component. - E- | | | Cadherin: Positive in the in situ and invasive component. - P120: | | | Cytoplasmic and membrane staining within the tumor cells. JVR:[facility] | | | Block: A2 The cold ischemia time is unknown. The fixative is | | | 10% NBF. The length of fixation is 10 hours, meeting ASCP/CAP | | | guidelines. Estrogen receptor clone SP1 and progesterone receptor | | | clone [id number] by [employer] [place], [place]. Detection: | | | HRP Polymer Detection on the [employer] with appropriate | | | controls. Nuclear immunoreactivity of 1% or greater is | | | considered positive by ASCO/CAP guidelines. Internal | | | control cells for ER are positive. Internal control cells for | | | [place] are positive. A Ki-67 proliferation index is performed, and | | | 500 cells are counted. Technical testing is performed at [facility] | | | [employer], [place], [place]. Professional interpretation was | | | performed at [facility] | | | [place], [place], [place].. ADDITIONAL NOTES: Immunohistochemical | | | and/or in situ hybridization studies were performed on this case with | | | the appropriate positive controls that react as expected. This test | | | was developed and its performance characteristics determined by | | | [facility] ( [facility] It has not been cleared or approved by the U.S. | | | Food and Drug Administration. The FDA has determined that such | | | clearance or approval is not necessary. This test is used for | | | clinical purposes. It should not be regarded as investigational or | | | for research. [facility] is certified under the Clinical | | | Laboratory Improvement Amendments of 1988 (CLIA) as qualified to | | | perform high complexity clinical laboratory testing. This assay has | | | not been validated for specimens that have been decalcified. | | | PERFORMING LABORATORY: Tissue processing and slide preparation were | | | performed by [facility] ( [facility] [address], [facility] | | | [place] [address] (Cuff Slitter: Geronimo Padgett M.D.; CLIA#: | | | [id number]). Professional interpretation was performed by [facility] | | | Diagnostics, [facility], [address] [place] [address] (Cuff Slitter: Geronimo Padgett M.D.; | | | CLIA#: [id number]). REASON FOR ADDENDUM: To add results of | | | additional testing. ADDENDUM PATHOLOGIC DIAGNOSIS: HER-2 gene by | | | FISH: - Negative for amplification. TTP:glc ADDENDUM | | | MICROSCOPIC EXAMINATION: Specimen type: Core biopsy. Block: A2. | | | Cold ischemia time: Unknown. The fixation is 10% buffered | | | formalin. The length of fixation is 10 hours, meeting ASCO/CAP | | | guidelines. Scoring method: Manual. Fluorescence in situ | | | hybridization (FISH) study (multiplex probe) for HER-2 gene | | | amplification using the [employer] kit was performed at [facility] | | | [place]. The assay has not been validated for | | | decalcified specimens. Controls were processed in the same batch as | | | the patient and reacted appropriately. The patient's sample was | | | considered adequate for interpretation. - Number of | | | nuclei counted: 40. - Number of HER-2 signals counted: | | | 73. - Number of CEP 17 signals counted: 58. - | | | Average number of HER-2 signals per cell: 1.83. - | | | Average number of CEP 17 signals per cell: 1.45. - | | | HER-2:CEP 17 ratio: 1.26. Negative for HER-2 amplification | | | (ratio less than 2.0 or average HER-2 signals per cell less than 4.0 | | | regardless of ratio). TTP:glc Professional interpretation was | | | performed by [facility] [address] [facility] | | | [place] [address] (Cuff Slitter: Alverto Muñiz D.O.; CLIA#: | | | [id number]). Diagnostician: Geronimo Padgett MD Pathologist | | | Diagnostician: Mera Azevedo MD Pathologist Electronically Signed | | | 11/27/2017 | | + + + + +---------+ + + | Performing | Address | City/State/Zipcode | Phone Number | | Organization | | | | + +---------+ + + | [facility] | | | | | [employer] | | | | + +---------+ + + documented in this encounter Visit Diagnoses + + | Diagnosis | + + | Abnormality of right breast on screening mammogram | + + documented in this encounter
--- OUTSIDE RECORDS SUMMARY | ~2019-05-05 | XMS | Encounter Summary ---
Demographics + + + | Address | [address] | | | [place] [address] | + + + | Home Phone | | + + + | Preferred Language | Unknown | + + + | Marital Status | | + + + | Cheondoism Affiliation | 1076 | + + + | Race | Unknown | + + + | Ethnic Group | Unknown | + + + Author + + + | Author | [facility] | | | and [place] | + + + | Organization | [facility] | | [...] Providers + +------+ + | Care Manager In Training Name | Role | Phone | + +------+ + | Kiet Dunlap MD | PCP | | + +------+ + Encounter Details +--------+ + + + + | Date | Type | Department | Care Team | Description | +--------+ + + + + | 08/25/ | Hospital | [facility] | Thanh Espinoza DO | | | 2014 | Encounter | MED CTR CANCER | [address] | | | | | CENTER [address] | [place], [place] | | | | | [place], [place] | [address] | | | | | [address] | | | | | | [phone] | | | +--------+ + + + [...] [place] | | | | | | [address] | | | | | | | | +--------+ + + + + | 01/11/ | Appointment | Radiation Oncology | Thanh Espinoza DO | | | 2019 | | | [address] | | | | | | [place] | | | | | | [address] | | | | | | | | +--------+ + + + + documented as of this encounter Visit Diagnoses Not on filedocumented in this encounter"
--- OUTSIDE RECORDS SUMMARY | ~2019-05-05 | XMS | Encounter Summary ---
Demographics + + + | Address | [address] | | | [place] [address] | + + + | Home Phone [...] Team Providers + +------+ + | Care Document Design Specialist Name | Role | Phone | + +------+ + | Britton Chi MD | PCP | | + +------+ + Reason for Visit + + + | Reason | Comments | + + + | Follow-up | | + + + | Breast Cancer | | + + + Evaluate & Treat (Routine) +--------+--------+ + + [...] | | | quadrant of | [address] | [place] [address] | | | | | female | [place], | Phone: | | | | | breast | [place] | [phone] | | | | | Procedures | [address] | Fax: | | | | | [address] | Phone: | [phone] | | | | | | [phone] | | | | | | | Fax: | | | | | | | [phone] | | +--------+--------+ + + + + Encounter Details +--------+ + + + + | Date | Type | Department | Care Team | Description | +--------+ + + + + | 10/22/ | Hospital | [facility] | Thanh Espinoza DO | Lobular breast | | 2018 | Encounter | MED CTR RADIATION | [address] [facility] | cancer, left (HCC) | | | | ONCOLOGY CLINIC [address] | [place], [place] | (Primary Dx); | | | | [address] | [address] | Encounter for | | | | [place] [address] | | screening mammogram | | | | [phone] | | for high-risk | | | | | | patient; Breast | | | | | | cancer screening, | | | | | | high risk patient | +--------+ + + + + Social [...] + + + | Blood Pressure | 160/91 | 10/22/2017 2:03 PM | | | | | PDT | | + + + + + | Pulse | 83 | 10/22/2017 2:03 PM | | | | | PDT | | + + + + + | Temperature | 35.9 C (96.7 F) | 10/22/2017 2:03 PM | | | | | PDT | | + + + + + | Respiratory Rate | 16 | 10/22/2017 2:03 PM | | | | | PDT | | + + + + + | Oxygen Saturation | 99% | 10/22/2017 2:03 PM | | | | | PDT | | + + + + + | Inhaled Oxygen | - | - | | | Concentration | | | | + + + + + | Weight | 79.7 kg (175 lb 11.3 | 10/22/2017 2:03 PM | | | | oz) | [...] encounter Progress Notes Thanh Espinoza DO - 10/22/2017 2:09 PM PDT Follow-up Clinic Note Chief Complaint/ICD10 ICD-10-CM ICD-9-CM 1. Lobular breast cancer, left (HCC) C50.912 174.9 2. Encounter for screening mammogram for high-risk patient Z12.31 V76.11 3. Breast cancer screening, high risk patient Z12.31 V76.11 Oncology History: Lobular breast cancer, left (HCC) 09/23/2012 Biopsy Core biopsy demonstrating moderately differentiated infiltrating lobular carcinoma; low-g rade, ER/SD positive, HER-2/zaid negative 09/23/2012 Initial Diagnosis Lobular breast cancer, right (HCC) 10/15/2012 Surgery Surgeon: Felipe Trevino M.D. Surgery indicated: Lumpectomy with sentinel lymph node biopsy Final pathology details: 8 mm invasive lobular carcinoma, grade 1, negative surgical margin s to 1 mm, negative LVSI, LCIS involving 10% of specimen, ER/SD positive, HER-2/zaid negative by FISH. 11/25/2012 - 01/09/2013 Radiation Therapy Total dose: 6000 cGy Breast irradiation to 5000 cGy delivered in 25 fractions Lumpectomy cavity boost 1000 cGy delivered in 5 fractions 01/09/2013 - 08/14/2014 Hormone Therapy Anastrozole 1 mg Discontinued due to side effects History of Present Illness: I had the pleasure of seeing Melodie Silva today in clinic. She is a 62-year-old woman who was previously diagnosed with moderately differentiated infiltrating lobular carcinoma i nvolving the left breast with overall stage IA (T1b, N0, M0), ER/SD positive disease. She p reviously discontinued anastrozole in early 2014 due to secondary side effects. At this ti me, she continues to have good range of motion of her left arm. She maintains an active life style and exercising regularly through running. She recently underwent a bilateral screeni ng mammogram performed earlier this morning with no final report being available. I have per sonally reviewed her imaging and do not appreciate any architectural distortions, new areas of calcifications or other abnormal findings. I reviewed these results with Mrs. Silva alon vega. We will await the final report for any variation in follow-up recommendations. She adm its to sciatic pain as well as chronic low back pain which she has been evaluated by physica l therapy and plans to be seen 2 to consider surgical options in the future. She has no spe cific concerns or complaints otherwise today. ROS Constitutional: Denies fatigue. Denies high fevers, shaking chills, anorexia, nausea, vomit ing, weight loss, or night sweats. Appetite without changes. Ear, Nose, Mouth, Throat: Denies odynophagia, dysphagia, or tinnitus. Cardiovascular: Denies shortness of breath, dyspnea on exertion, chest pain, palpitations o r orthopnea. Respiratory: Denies cough, hemoptysis, or sputum production. Gastrointestinal: Denies abdominal pain, constipation, diarrhea, melena, or bright red bloo d per rectum. Genitourinary: Denies hematuria or dysuria. Musculoskeletal: Reports chronic low back pain. Neurologic: Reports right big toe tingling. Denies headache, visual changes. Endocrine: Denies peripheral edema or heat/cold intolerance. Hematologic: Denies spontaneous bruising or bleeding. Integumentary: Denies rash, wounds or other skin concerns. Pain: Reports back pain at a level 5. Note: My chart: Current Outpatient Prescriptions Medication Sig Dispense Refill aspirin 81 mg EC tablet Take 81 mg by mouth Daily. atorvaSTATin (LIPITOR) 40 mg tablet Take 40 mg by mouth nightly. cyclobenzaprine (FLEXERIL) 5 MG tablet Take 1 tablet by mouth every 6 hours as needed. 0 fluconazole (DIFLUCAN) 150 mg tablet Take 150 mg by mouth Daily as needed. insulin aspart (NOVOLOG FLEXPEN) 100 units/mL injection pen Inject under the skin 3 ti mes daily (before meals). Per sliding scale insulin glargine (LANTUS SOLOSTAR) 100 units/mL injection (pen) Inject under the skin 2 times daily. 16 units twice daily lisinopril (PRINIVIL, ZESTRIL) 20 mg tablet Take 1 tablet by mouth Daily. 0 LORazepam (ATIVAN) 1 mg tablet Take 1 mg by mouth Daily as needed for Anxiety. Multiple Vitamins-Minerals (MULTIVITAMIN ADULT) TABS Take 1 tablet by mouth Daily. venlafaxine (EFFEXOR XR) 150 mg 24 hr capsule Take 1 capsule by mouth Daily. 0 No current facility-administered medications for this encounter. Allergies Allergen Reactions Sulfa Antibiotics Rash Intolerance No active intolerances/contraindications BP (!) 160/91 | Pulse 83 | Temp 35.9 C (96.7 F) (Temporal) | Resp 16 | Wt 79.7 kg ( 175 lb 11.3 oz) | SpO2 99% Physical Exam Constitutional: She is oriented to person, place, and time. Vital signs are normal. She jorge l ears well-developed and well-nourished. HENT: Head: Normocephalic and atraumatic. Mouth/Throat: Mucous membranes are normal. Eyes: Conjunctivae and EOM are normal. No scleral icterus. Neck: Trachea normal. Neck supple. Cardiovascular: Normal rate, regular rhythm and intact distal pulses. Pulmonary/Chest: Effort normal and breath sounds normal. Right breast exhibits no inverted nipple, no mass, no nipple discharge, no skin change and no tenderness. Left breast exhibits no inverted nipple, no mass, no nipple discharge, no skin change and no tenderness. Musculoskeletal: Normal range of motion. Lymphadenopathy: She [...] (mm): 8 Method of lymph node assessment: Bimble lymph node biopsy Method of detection of distant metastases: Clinical Tumor grade (Animbi-Tagas-Mjvbqscbfm system): G1 Lymph-vascular invasion (LVI): LVI not [...] treatment planning: NCCN Impression with Recommendation/Plan: 1. Encounter for screening mammogram for high-risk patient - LEILA Tomosynthesis Screening Bilateral; Future 2. Breast cancer screening, high risk patient 3. Lobular breast cancer, left (HCC) Melodie Silva is a 62-year-old woman who previously completed postlumpectomy radiation t herapy and previously underwent a shortened course of adjuvant endocrine therapy for her lef t-sided, stage 0, low-grade LCIS that is ER/SD positive. We discussed long-term toxicities f rom radiation therapy including fibrosis of the chest wall limiting range of motion and pote ntial lymphedema of the breast. As she is now approximately 5 years from her initial diagno sis and surgery, she will return to clinic in one year with a repeat bilateral screening leila mogram. If at any time she would like to simplify her care, screening surveillance can be t urned over to her primary care provider. She was encouraged to call our clinic with any fur ther questions or concerns. Thank you for allowing me to participate in the care of Melodie. If you should have any q uestions regarding this evaluation, please do not hesitate to contact me. Thanh Espinoza D.O., ANTONIOR Radiation Oncologist Department of Radiation Oncology [facility] This note was transcribed using [employer] speech recognition software. As a result, there may be unintended for medical and/or spelling errors. Every attempt is made to correct dictati on. If there are any questions or errors please contact our office. documented in this encounter Plan of Treatment +--------+ [...] LEILA Tomosynthesis | Imaging | Routin | Encounter for | Expected: | | Screening Bilateral | | e | screening mammogram | 11/21/2018, Expires: | | | | | for high-risk | 01/09/2019 | | | | | patient | | + +---------+--------+ + + documented as of this encounter Visit Diagnoses + + | Diagnosis | + + | Lobular breast cancer, left (HCC) - Primary | + + | Encounter for screening mammogram for high-risk patient | + + | Breast cancer screening, high risk patient Screening mammogram for high-risk patient | + + documented in this encounter"
--- OUTSIDE RECORDS SUMMARY | ~2019-05-05 | XMS | Encounter Summary ---
Demographics + + + | Address | [address] | | | [place] [address] | + + + | Home Phone | | + + + | Preferred Language | Unknown | + + + | Marital Status | | + + + | Islam Affiliation | 1076 | + + + | Race | Unknown | + + + | Ethnic Group | Unknown | + + + Author + + + | Author | [facility] | | | and [place] | + + + | Organization | [facility] | | | [...] Providers + +------+ + | Care Data Miner Name | Role | Phone | + +------+ + | Britton Chi MD | PCP | | + +------+ + Encounter Details +--------+ + + + + | Date | Type | Department | Care Team | Description | +--------+ + + + + | 10/22/ | Hospital | [facility] | Lord, Thanh C, DO | Encounter for | | 2018 | Encounter | MED CTR MAMMOGRAPHY | [address] | screening mammogram | | | | [address] | [place] | for high-risk | | | | [place] | [address] | patient | | | | [address] | | | | | | [phone] | | | +--------+ + + + [...] + | LEILA TOMOSYN | Routin | 10/22/2017 | Encounter for | Results for this | | SCREENING BILATERAL | e | 12:52 PM | screening mammogram | procedure are [...]
--- OUTSIDE RECORDS SUMMARY | ~2019-05-05 | XMS | Encounter Summary ---
Demographics + + + | Address | [address] | | | [place] [address] | + + + | Home Phone [...] Team Providers + +------+ + | Care Plow Mechanic Name | Role | Phone | + +------+ + | Britton Chi MD | PCP | | + +------+ + Encounter Details +--------+ + + + + | Date | Type | Department | Care Team | Description | +--------+ + + + + | 11/21/ | Hospital | [facility] | Lord, Thanh C, DO | Abnormality of right | | 2018 | Encounter | MED CTR MAMMOGRAPHY | [address] | breast on screening | | | | [address] | [place] | mammogram | | | | [place], [place] | [address] | | | | | [address] | | | | | | [phone] | Rad, [facility] | | +--------+ [...] [place] | | | | | | [id number] | | | | | | | | +--------+ + + + + | 01/11/ | Appointment | Radiation Oncology | Thanh Espinoza DO | | | 2019 | | | [address] | | | | | | [place] | | | | | | [address] | | | | | | | [...] biopsy table, and the right breast compressed. Denture Processor | | | digital mammographic images were [...] ADDENDUM REPORT SPECIMEN(S): A RIGHT BREAST | [facility] | | STEREO CALCS SPECIMEN SOURCE: [...] following | | | features: - Predicted [place] histologic score: | | | - Tubule [...] on 11/23/17 at 15:20. As part of [facility] [employer]' | | | Quality Improvement Program, this case was reviewed by another member | | | of our pathology staff. JVR:CLR:[facility]:C1NR GROSS DESCRIPTION: | | | The specimen is labeled "Melodie Silva, right breast stereo calcs". | | | Submitted in formalin is a 3 x 3 x 1.2 cm aggregate of yellow to | | | pink-benitez core needle biopsies of soft tissue. They are wrapped, | | | totally embedded in two cassettes. JVR:[facility] MICROSCOPIC | | | EXAMINATION: Histologic sections [...] and membrane staining within the tumor cells. JVR:[facility] | | | Block: A2 The cold ischemia time is unknown. The fixative is | | | 10% NBF. The length of fixation is 10 hours, meeting ASCP/CAP | | | guidelines. Estrogen receptor clone SP1 and progesterone receptor | | | clone [id number] by [employer] [place], [place]. Detection: | | | HRP Polymer Detection on the [employer] with appropriate | | | controls. Nuclear immunoreactivity of 1% or greater is | | | considered positive by ASCO/CAP guidelines. Internal | | | control cells for ER are positive. Internal control cells for | | | TX are positive. A Ki-67 proliferation index is performed, and | | | 500 cells are counted. Technical testing is performed at [facility] | | | [employer], [place], [place]. Professional interpretation was | | | performed at [facility], [facility] | | | [place], [place], [place].. ADDITIONAL NOTES: Immunohistochemical | | | and/or in situ hybridization studies were performed on this case with | | | the appropriate positive controls that react as expected. This test | | | was developed and its performance characteristics determined by | | | [facility]. It has not been cleared or approved by the U.S. | | | Food and Drug Administration. The FDA has determined that such | | | clearance or approval is not necessary. This test is used for | | | clinical purposes. It should not be regarded as investigational or | | | for research. [facility] is certified under the Clinical | | | Laboratory Improvement Amendments of 1988 (CLIA) as qualified to | | | perform high complexity clinical laboratory testing. This assay has | | | not been validated for specimens that have been decalcified. | | | PERFORMING LABORATORY: Tissue processing and slide preparation were | | | performed by [facility], [address], [facility] | | | [place] [address] (Diagnostic Technologist: Geronimo Padgett M.D.; CLIA#: | | | [id number]). Professional interpretation was performed by [facility] | | | [facility], [facility], [address] [place] [address] (Diagnostic Technologist: Geronimo Padgett M.D.; | | | CLIA#: [id number]). REASON FOR ADDENDUM: To add results of [...] the [employer] PathVysion kit was performed at [facility] | | | [place], [place]. The assay has not been validated [...] interpretation was | | | performed by [facility], [address] [facility] | | | [place] [address] (Diagnostic Technologist: Alverto Muñiz D.O.; CLIA#: | | | [id number]). Diagnostician: Geronimo Padgett MD Pathologist | | | Diagnostician: Mera Azevedo MD Pathologist Electronically Signed | | | 11/27/2017 | | + + + + +---------+ + + | Performing | Address | City/State/Zipcode | Phone Number | | Organization | | | | + +---------+ + + | [facility] | | | | | [employer] | | | | + +---------+ + + documented in this encounter Visit Diagnoses + + | Diagnosis | + + | Abnormality of right breast on screening mammogram | + + documented in this encounter
--- OUTSIDE RECORDS SUMMARY | ~2019-05-05 | XMS | Encounter Summary ---
Demographics + + + | Address | [address] | | | [place] [address] | + + + | Home Phone | | + + + | Preferred Language | Unknown | + + + | Marital Status | | + + + | Presybeterian Affiliation | 1076 | + + + | Race | Unknown | + + + | Ethnic Group | Unknown | + + + Author + + + | Author | [facility] | | | and [place] | + + + | Organization | [facility] | | [...] Team Providers + +------+ + | Care Finisher Special Stocks Name | Role | Phone | + [...] | | | | | | [place] [address] | | | | | | [phone] | | | +--------+ + + + [...] [place] | | | | | | [address] | | | | | | | | +--------+ + + + + | 01/11/ | Appointment | Radiation Oncology | Thanh Espinoza DO | | | 2019 | | | [address] | | | | | | [place] | | | | | | [address] | | | | | | | | +--------+ + + + + documented as of this encounter Visit Diagnoses Not on filedocumented in this encounter"
--- OUTSIDE RECORDS SUMMARY | ~2019-05-05 | XMS | Encounter Summary ---
Demographics + + + | Address | [address] | | | [place] [address] | + + + | Home Phone [...] Team Providers + +------+ + | Care Carbonizer Tester Name | Role | Phone | + [...] | +--------+ + + + + | 01/23/ | Telephone | [facility] | [facility] | Scheduling Issues | | 2018 | | MED CTR MEDICAL | J, RN | | | | | ONCOLOGY CLINIC [address] | | | | | | [address] | | | | | | [place] [address] | | | | | | [phone] | | | +--------+ + + + [...] [place] | | | | | | [address] | | | | | | | [...]
--- OUTSIDE RECORDS SUMMARY | ~2019-05-05 | XMS | Encounter Summary ---
Demographics + + + | Address | [address] | | | [place] [address] | + + + | Home Phone [...] Team Providers + +------+ + | Care Interior Design Principal Name | Role | Phone | + +------+ + | Radha Carias PA-C | PCP | | + +------+ + Encounter Details +--------+ + + + + | Date | Type | Department | Care Team | Description | +--------+ + + + + | 01/02/ | Orders Only | [facility] | Provider, | | | 2019 | | SYSTEM GENERIC OP | MD [address] | | | | | [address] | [place] | | | | | [address] [place], [place] | [place] [address] | | | | | [address] | | | | | | [phone] | | | +--------+ + + + [...] [place] | | | | | | [id number] | | | | | | | | +--------+ + + + + | 01/11/ | Appointment | Radiation Oncology | Thanh Espinoza DO | | | 2019 | | | [address] | | | | | | [place] | | | | | | [address] | | | | | | | [...]
--- OUTSIDE RECORDS SUMMARY | ~2019-05-05 | XMS | Encounter Summary ---
Demographics + + + | Address | [address] | | | [place] [address] | + + + | Home Phone | | + + + | Preferred Language | Unknown | + + + | Marital Status | | + + + | Nondenominational Affiliation | 1076 | + + + [...] Team Providers + +------+ + | Care Roofer Assistant Name | Role | Phone | + +------+ + | Britton Chi MD | PCP | | + +------+ + Encounter Details +--------+ + + + + | Date | Type | Department | Care Team | Description | +--------+ + + + + | 11/29/ | Hospital | [facility] | Lord, Thanh C, DO | Malignant neoplasm | | 2018 | Encounter | MED CTR MEDICAL | [address] | of left female | | | | ONCOLOGY CLINIC [address] | [place], [place] | breast, unspecified | | | | [address] [place] | [address] | estrogen receptor | | | | [place] [address] | | status, unspecified | | | | [phone] | | site of breast (HCC) | [...] [place] | | | | | | [id number] | | | | | | | | +--------+ + + + + | 01/11/ | Appointment | Radiation Oncology | Thanh Espinoza DO | | | 2019 | | | [address] | | | | | | [place] | | | | | | [address] | | | | | | | | +--------+ + + + + documented as of this encounter Visit Diagnoses + + | Diagnosis | + + | Malignant neoplasm of left female breast, unspecified estrogen receptor status, | | unspecified site of breast (HCC) - Primary | + + documented in this encounter"
--- OUTSIDE RECORDS SUMMARY | ~2019-05-05 | XMS | Encounter Summary ---
Demographics + + + | Address | [address] | | | [place] [address] | + + + | Home Phone | | + + + | Preferred Language | Unknown | + + + | Marital Status | | + + + | Mormon Affiliation | 1076 | + + + | Race | Unknown | + + + | Ethnic Group | Unknown | + + + Author + + + | Author | [facility] | | | and [place] | + + + | Organization | [facility] | | | and [...] Team Providers + +------+ + | Care Grove Worker Name | Role | Phone | + +------+ + PCP | Unavailable | + +------+ + Encounter Details +--------+ + + + + | Date | Type | Department | Care Team | Description | +--------+ + + + + | 01/22/ | Hospital | [facility] | | | | 2005 | Encounter | MED CTR GENERIC IP | | | | | | CONV DEPT [address] | | | | | | [address] [place], | | | | | | [place] [address] | | | | | | [phone] | | | +--------+ + + + [...] | | | | | [facility] | | | | | | [address] | | | | | | | | +--------+ + + + + | 01/11/ | Appointment | Radiation Oncology | Thanh Espinoza DO | | | 2019 | | | [address] | | | | | | [place] | | | | | | [phone] | | | | | | | | +--------+ + + + + documented as of this encounter Visit Diagnoses Not on filedocumented in this encounter"
--- OUTSIDE RECORDS SUMMARY | ~2019-05-05 | XMS | Encounter Summary ---
Demographics + + + | Address | [address] | | | [place] [address] | + + + | Home Phone [...] Team Providers + +------+ + | Care Airfield Engineer Officer Name | Role | Phone | + +------+ + | Britton Chi MD | PCP | | + +------+ + Encounter Details +--------+ + + + + | Date | Type | Department | Care Team | Description | +--------+ + + + + | 01/08/ | Documentati | [facility] | Agustin, | | | 2017 | on | MED CTR MEDICAL | Dimas Mckay MD [address] | | | | | ONCOLOGY CLINIC [address] | [address] | | | | | [address] [place] | [place] [address] | | | | | [place] [address] | [phone] | | | | | [phone] | | | +--------+ + + + [...] [place] | | | | | | [address] | | | | | | | | +--------+ + + + + | 01/11/ | Appointment | Radiation Oncology | Thanh Espinoza DO | | | 2019 | | | [address] | | | | | | [place] | | | | | | [address] | | | | | | | | +--------+ + + + + documented as of this encounter Visit Diagnoses + + | Diagnosis | + + | Malignant neoplasm of upper-outer quadrant of right breast in female, 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
--- OUTSIDE RECORDS SUMMARY | ~2019-05-05 | XMS | Encounter Summary ---
Demographics + + + | Address | [address] | | | [place] [address] | + + + | Home Phone | | + + + | Preferred Language | Unknown | + + + | Marital Status | | + + + | Nondenominational Affiliation | 1076 | + + + | Race | Unknown | + + + | Ethnic Group | Unknown | + + + Author + + + | Author | [facility] | | | and [place] | + + + | Organization | [facility] | | | [...] Team Providers + +------+ + | Care Orthodontist Assistant Name | Role | Phone | [...] [place], [place] | | | | | [place], | [address] | | | | | [place] [address] | | | | | | [phone] | | | +--------+ + + + [...] [place] | | | | | | [phone] | | | | | | | [...]
--- OUTSIDE RECORDS SUMMARY | ~2019-05-05 | XMS | Encounter Summary ---
Demographics + + + | Address | [address] | | | [place] [address] | + + + | Home Phone | | + + + | Preferred Language | Unknown | + + + | Marital Status | | + + + | Mandaeism Affiliation | 1076 | + + + [...] Team Providers + +------+ + | Care Automobiles Salesperson Name | Role | Phone | + +------+ + | Kiet Dunlap MD | PCP | | + +------+ + Encounter Details +--------+ + + + + | Date | Type | Department | Care Team | Description | +--------+ + + + + | 01/09/ | Hospital | [facility] | hTanh Espinoza DO | | | 2012 - | Encounter | MED CTR CANCER | [address] | | | | | CENTER [address] | [place], [place] | | | 02/08/ | | [place] | [address] | | | 2012 | | [address] | | | | | | [phone] | | | +--------+ + + + [...] [place] | | | | | | [address] | | | | | | | [...]
--- OUTSIDE RECORDS SUMMARY | ~2019-05-05 | XMS | Encounter Summary ---
Demographics + + + | Address | [address] | | | [place] [address] | + + + | Home Phone | | + + + | Preferred Language | Unknown | + + + | Marital Status | | + + + | Hoahaoism Affiliation | 1076 | + + + [...] Team Providers + +------+ + | Care Business Intelligence Director Name | Role | Phone | [...] quadrant of female | | | | [place], | [address] | breast, unspecified | | | | [place] [address] | | laterality (HCC) | | | | [phone] | | (Primary Dx) | +--------+ + [...] [place]AN[place] | | | | | | [address] | | | | | | | | +--------+ + + + + | 01/11/ | Appointment | Radiation Oncology | Thanh Espinoza DO | | | 2019 | | | [address] | | | | | | [place] | | | | | | [address] | | | | | | | [...]
--- OUTSIDE RECORDS SUMMARY | ~2019-05-05 | XMS | Encounter Summary ---
Demographics + + + | Address | [address] | | | [place] [address] | + + + | Home Phone [...] Team Providers + +------+ + | Care Photo Tube Assembler Name | Role | Phone | + +------+ + | Britton Chi MD | PCP | | + +------+ + Encounter Details +--------+ + + + + | Date | Type | Department | Care Team | Description | +--------+ + + + + | 10/18/ | Hospital | [facility] | Lord, Thanh C, DO | Encounter for | | 2017 | Encounter | MED CTR RADIATION | [address] | screening mammogram | | | | ONCOLOGY [address] | [place], [place] | for high-risk | | | | [place], | [address] | patient (Primary Dx) | | | | [place] [address] | | | | | | [phone] | | | +--------+ + + + [...] that overall stage IA (T1b, N0, M0), ER/CT positive disease. 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 We discussed long-term toxicities from radiation therapy. She plans to set up an appointment with Dr. Velez to discuss restarting her anastrozole in [place]. Following the NCCN guidelines annual mammograms are [...] ANTONIOR Radiation Oncologist Department of Radiation Oncology [facility] Electronically signed by Thanh Espinoza D.O. This note was transcribed using [employer] speech recognition software. As a result, there ma y be unintended for medical and/or spelling errors. Every attempt is made to correct dicta tion. If there are any questions or errors please contact our office. CSN: [id number] signed by Thanh Espinoza DO at 10/18/2016 [...] TRACY | | | | | | [place], [place] | | | | | | [address] | | | | | | | | +--------+ + + + + | 01/11/ | Appointment | Radiation Oncology | Thanh Espinoza DO | | | 2019 | | | [address] | | | | | | [place], [place] | | | | | | [address] | | | | | | | [...]
--- OUTSIDE RECORDS SUMMARY | ~2019-05-05 | XMS | Encounter Summary ---
Demographics + + + | Address | [address] | | | [place] [address] | + + + | Home Phone | | + + + | Preferred Language | Unknown | + + + | Marital Status | | + + + | Yazdanism Affiliation | 1076 | + + + [...] Team Providers + +------+ + | Care Colleter Name | Role | Phone | + [...] | | | | | | [place] [address] | | | | | | [phone] | | | +--------+ + + + [...] 01/11/ | Hospital | Radiology | Claudia Mccrakcen | | | 2019 | Encounter | | MD [address] | | | | | | [place] | | | | | | [address] | | | | | | | | +--------+ + + + + | 01/11/ | Appointment | Radiation Oncology | Thanh Espinoza DO | | | 2020 | | | [address] | | | | | | [place] | | | | | | [address] | | | | | | | | +--------+ + + + + documented as of this encounter Visit Diagnoses Not on filedocumented in this encounter"
--- OUTSIDE RECORDS SUMMARY | ~2019-05-05 | XMS | Encounter Summary ---
Demographics + + + | Address | [address] | | | [place] [address] | + + + | Home Phone [...] Team Providers + +------+ + | Care Rescue Instructor Name | Role | Phone | + [...] GAN | | | | | [address] [place] | [place] [address] | | | | | [place] [address] | [phone] | | | | | [phone] | | | +--------+ + + + [...] CLEANING | | | | | | [address] | | | | | | | | +--------+ + + + + | 01/11/ | Appointment | Radiation Oncology | Thanh Espinoza DO | | | 2019 | | | [address] | | | | | | [place] | | | | | | [address] | | | | | | | [...]
--- OUTSIDE RECORDS SUMMARY | ~2019-05-05 | XMS | Encounter Summary ---
Demographics + + + | Address | [address] | | | [place] [address] | + + + | Home Phone [...] Team Providers + +------+ + | Care Supervisor Polishing Name | Role | Phone | + +------+ + | Kiet Dunlap MD | PCP | | + +------+ + Encounter Details +--------+ + + + + | Date | Type | Department | Care Team | Description | +--------+ + + + + | 10/14/ | [facility] | [facility] | Thanh Espinoza DO | Malignant neoplasm | | 2015 | Encounter | MED CTR RADIATION | [address] | of upper-outer | | | | ONCOLOGY [address] | [place], [place] | quadrant of female | | | | [place], | [address] | breast, left (HCC) | | | | [place] [address] | | (Primary Dx) | | | | [phone] | | | +--------+ + + + [...] 10/14/2014 12:52 PM PDTPATIENT: Melodie Aguilera RicardoDOS:10/14/2014MR#: [id number] :1955 Radiation Oncology Follow-up Clinic Note ICD/Diagnosis: [...] that overall stage IA (T1b, N0, M0), ER/NV positive disease. She has been seen by [...] There is continued hyperpigmentation in the inframamm fredreick region and lateral aspect of the breast. [...] 59-year-old woman who recently completed postlumpectomy radiation [facility] and now continues on adjuvant endocrine therapy for her left-sided, stage 0, low-grad e LCIS that is ER/NV positive. We discussed long-term toxicities from radiation [...] again refer her to physical therapy in [place], [place] regarding breast lymphedema in the absence [...] hesitate to contact me. Thanh Espinoza D.O., [facility] Radiation Oncologist Department of Radiation Oncology [facility] This note was transcribed using [employer] speech recognition software. As a result, there ma y be unintended for medical and/or spelling errors. Every attempt is made to correct dicta tion. If there are any questions or errors please contact our office. Page 1 of 3 CSN: [id number] signed by Thanh Espinoza DO at 10/14/2014 [...] CLEAN[place] | | | | | | [address] | | | | | | | | +--------+ + + + + | 01/11/ | Appointment | Radiation Oncology | Thanh Espinoza DO | | | 2019 | | | [address] | | | | | | [place] | | | | | | [address] | | | | | | | | +--------+ + + + + documented as of this encounter Visit Diagnoses + + | Diagnosis | + + | Malignant neoplasm of upper-outer quadrant of female breast, left - Primary | + + documented in this encounter"
--- OUTSIDE RECORDS SUMMARY | ~2019-05-05 | XMS | Encounter Summary ---
Demographics + + + | Address | [address] | | | [place] [address] | + + + | Home Phone | | + + + | Preferred Language | Unknown | + + + | Marital Status | | + + + | Rastafari Affiliation | 1076 | + + + | Race | Unknown | + + + | Ethnic Group | Unknown | + + + Author + + + | Author | [facility] | | | and [place] | + + + | Organization | [facility] | | | [...] Team Providers + +------+ + | Care In Store Marketing Representative Name | Role | Phone | + +------+ + | Britton Chi MD | PCP | | + +------+ + Encounter Details +--------+ + + + + | Date | Type | Department | Care Team | Description | +--------+ + + + + | 02/14/ | Hospital | [facility] | Thanh Espinoza DO | | | 2018 | Encounter | MED CTR RADIATION | [address] | | | | | ONCOLOGY [address] | [place], [place] | | | | | [place], | [address] | | | | | [place] [address] | | | | | | [phone] | | | +--------+ + + + [...] [place]AN[place] | | | | | | [address] | | | | | | | [...]
--- OUTSIDE RECORDS SUMMARY | ~2019-05-05 | XMS | Encounter Summary ---
Demographics + + + | Address | [address] | | | [place] [address] | + + + | Home Phone [...] Team Providers + +------+ + | Care Dermatology Sales Representative Name | Role | Phone | [...] | MED CTR EXTERNAL | [address] | | | | | IMAGING | [place] | | | | | [phone] | [place] [address] | | +--------+ + + + + [...] CLEAN[place] | | | | | | [address] | | | | | | | | +--------+ + + + + | 01/11/ | Appointment | Radiation Oncology | Thanh Espinoza DO | | | 2019 | | | [address] | | | | | | [place] | | | | | | [address] | | | | | | | [...]
--- OUTSIDE RECORDS SUMMARY | ~2019-05-05 | XMS | Encounter Summary ---
Demographics + + + | Address | [address] | | | [place] [address] | + + + | Home Phone | | + + + | Preferred Language | Unknown | + + + | Marital Status | | + + + | Pentecostalism Affiliation | 1076 | + + + | Race | Unknown | + + + | Ethnic Group | Unknown | + + + Author + + + | Author | [facility] | | | and [place] | + + + | Organization | [facility] | | | [...] Team Providers + +------+ + | Care Gasoline Engine Assembler Name | Role | Phone | [...] | | | quadrant of | [place] | [place] [address] | | | | | female | [place], | Phone: | | | | | breast | [place] | [phone] | | | | | Procedures | [address] | Fax: | | | | | [address] | Phone: | [phone] | | | | | | [phone] | | | | | | | Fax: | | | | | | | [phone] | | +--------+--------+ + + + + Encounter Details +--------+ + + + + | Date | Type | Department | Care Team | Description | +--------+ + + + + | 10/22/ | Hospital | [facility] | Thahn Espinoza DO | Lobular breast | | 2018 | Encounter | MED CTR RADIATION | [address] [facility] | cancer, left (HCC) | | | | ONCOLOGY CLINIC [address] | [place], [place] | (Primary Dx); | | | | [place] | [address] | Encounter for | | | | [place] [address] | | screening mammogram | | | | [phone] | | for high-risk | | | [...] moderately differentiated infiltrating lobular carcinoma; low-g rade, ER/RI positive, HER-2/zaid negative 09/23/2012 Initial Diagnosis Lobular breast cancer, right (HCC) 10/15/2012 Surgery Surgeon: Felipe Trevino M.D. Surgery indicated: Lumpectomy with sentinel lymph node biopsy Final pathology details: 8 mm invasive lobular carcinoma, grade 1, negative surgical margin s to 1 mm, negative LVSI, LCIS involving 10% of specimen, ER/RI positive, HER-2/zaid negative by FISH. 11/25/2012 - [...] with overall stage IA (T1b, N0, M0), ER/RI positive disease. She p reviously discontinued anastrozole [...] (mm): 8 Method of lymph node assessment: [place] lymph node biopsy Method of detection of distant metastases: Clinical Tumor grade (Rdgurk-Wckgh-Rcmkkacuzj system): G1 Lymph-vascular invasion (LVI): LVI not [...] t-sided, stage 0, low-grade LCIS that is ER/RI positive. We discussed long-term toxicities f rom [...] ANTONIOR Radiation Oncologist Department of Radiation Oncology [facility] This note was transcribed using [employer] speech recognition software. As a result, there [...]
--- OUTSIDE RECORDS SUMMARY | ~2019-05-05 | XMS | Encounter Summary ---
Demographics + + + | Address | [address] | | | [place] [address] | + + + | Home Phone | | + + + | Preferred Language | Unknown | + + + | Marital Status | | + + + | Latter Day Affiliation | 1076 | + + + | Race | Unknown | + + + | Ethnic Group | Unknown | + + + Author + + + | Author | [facility] | | | and [place] | + + + | Organization | [facility] | | [...] Team Providers + +------+ + | Care Thermal Molder Name | Role | Phone | + +------+ + | Britton Chi MD | PCP | | + +------+ + Reason for Visit + + + | Reason | Comments | + + + | Breast Cancer | | + + + | Under Treatment | | + + + Encounter Details +--------+ + + + + | Date | Type | Department | Care Team | Description | +--------+ + + + + | 02/21/ | Hospital | [facility] | Thanh Espinoza DO | Malignant neoplasm | | 2018 | Encounter | MED CTR RADIATION | [address] | of upper-outer | | | | ONCOLOGY CLINIC [address] | [place], [place] | quadrant of right | | | | [place] | [phone] | breast in female, | | | | [place] [address] | | estrogen receptor | | | | [phone] | | positive (HCC) | | | [...] + + + | Blood Pressure | 140/86 | 02/21/2018 10:50 AM | | | | | PDT | | + + + + + | Pulse | 76 | 02/21/2018 10:50 AM | | | | | PDT | | + + + + + | Temperature | 36.8 C (98.3 F) | 02/21/2018 10:50 AM | | | | | PDT | | + + + + + | Respiratory Rate | 16 | 02/21/2018 10:50 AM | | | | | PDT | | + + + + + | Oxygen Saturation | 99% | 02/21/2018 10:50 AM | | | | | PDT | | + + + + + | Inhaled Oxygen | - | - | | | Concentration | | | | + + + + + | Weight | 86.8 kg (191 lb 5.8 | 02/21/2018 10:50 AM | | | | oz) [...] 1 tablet by | | 0 | /04/30 | | | (FLEXERIL) 5 MG | [...] encounter Progress Notes Thanh Espinoza DO - 02/21/2018 11:03 AM PDT Radiation Oncology Weekly On Treatment Note Diagnosis: ICD-10-CM ICD-9-CM 1. Malignant neoplasm of upper-outer quadrant of right breast in female, estrogen receptor positive (HCC) C50.411 174.4 Z17.0 V86.0 Reason for visit: On treatment evaluation Radiation technical factors: Dose Delivered Dose Planned Fractions Delivered 2926 cGy 0 cGy 4256 cGy 1000 cGy 04/26 0 Images were reviewed this week and results [...] mouth every 6 hours as needed. 0 insulin aspart (NOVOLOG FLEXPEN) 100 units/mL injection [...] file prior to encounter. Pain assessment: Location: Right axilla Pain Level: PAIN PROG PAIN LEVEL: 2 Pain Quality: "sting irritation" Current pain regimen: aspirin prn and cream topical Wt Readings from Last 3 Encounters: 02/21/18 86.8 kg (191 lb 5.8 oz) 02/14/18 85.3 kg (188 lb 0.8 oz) 02/07/18 85 kg (187 lb 6.3 oz) Vitals: 02/21/18 1050 BP: 140/86 Pulse: 76 Resp: 16 Temp: 36.8 C (98.3 F) TempSrc: Temporal SpO2: 99% Weight: 86.8 [...] Physician Assessment: Overall, she is tolerating treatment well with no specific concerns or complaints this week . Skin care reviewed. Toxicities reviewed. She'll continue treatment as planned. Toxicities reviewed in [...] [place] | | | | | | [address] | | | | | | | | +--------+ + + + + | 01/11/ | Appointment | Radiation Oncology | Thanh Espinoza DO | | | 2019 | | | [address] | | | | | | [place] | | | | | | [address] | | | | | | | | +--------+ + + + + documented as of this encounter Visit Diagnoses + + | Diagnosis | + + | Malignant neoplasm of upper-outer quadrant of right breast in female, estrogen | | receptor positive (HCC) - Primary | + + documented in this encounter
--- OUTSIDE RECORDS SUMMARY | ~2019-05-05 | XMS | Encounter Summary ---
Demographics + + + | Address | [address] | | | [place] [address] | + + + | Home Phone [...] Providers + +------+ + | Care Geography Faculty Member Name | Role | Phone | + +------+ + | Britton Chi MD | PCP | | + +------+ + Reason for Visit +---------+ + | Reason | Comments | +---------+ + | Testing | | +---------+ + Encounter Details +--------+ + + + + | Date | Type | Department | Care Team | Description | +--------+ + + + + | 11/29/ | Telephone | [facility] | Kalee Chadwick RN | Testing | | 2018 | | MED CTR MEDICAL | | | | | | ONCOLOGY CLINIC [address] | | | | | | [address] | | | | | | [place] [address] | | | | | | [phone] | | | +--------+ + + + [...] [place] | | | | | | [address] | | | | | | | | +--------+ + + + + | 01/11/ | Appointment | Radiation Oncology | Thanh Espinoza DO | | | 2019 | | | [address] | | | | | | [place] | | | | | | [address] | | | | | | | | +--------+ + + + + documented as of this encounter Visit Diagnoses Not on filedocumented in this encounter"
--- OUTSIDE RECORDS SUMMARY | ~2019-05-05 | XMS | Encounter Summary ---
Demographics + + + | Address | [address] | | | [place] [address] | + + + | Home Phone [...] Team Providers + +------+ + | Care Freight Agent Name | Role | Phone | + [...] | | | | estrogen | [place] [address] | [facility], [place] | | | | | receptor | Phone: | [address] Phone: | | | | | negative, | [phone] | [phone] | | | | | unspecified | Fax: | Fax: | | | | | site of | [phone] | [phone] | | | | | breast (HCC) [...] | female, estrogen | | | | [place], | [address] | receptor negative, | | | | [place] [address] | | unspecified site of | | | | [phone] | | breast (HCC) | | | [...] [place] | | | | | | [address] | | | | | | | | +--------+ + + + + | 01/11/ | Appointment | Radiation Oncology | Thanh Espinoza DO | | | 2019 | | | [address] | | | | | | [place] | | | | | | [address] | | | | | | | | +--------+ + + + + + + +--------+ + + | Name | Type | Priori | Associated Diagnoses | Order Schedule | | | | ty | | | + + +--------+ + + | * [facility] Medical | Outpatient | Routin | Malignant [...]
--- OUTSIDE RECORDS SUMMARY | ~2019-05-05 | XMS | Encounter Summary ---
Demographics + + + | Address | [address] | | | [place] [address] | + + + | Home Phone | | + + + | Preferred Language | Unknown | + + + | Marital Status | | + + + | Pentecostal Affiliation | 1076 | + + + | Race | Unknown | + + + | Ethnic Group | Unknown | + + + Author + + + | Author | [facility] | | | and [place] | + + + | Organization | [facility] | | | [...] Team Providers + +------+ + | Care Welcome Hostess Name | Role | Phone | + +------+ + | Britton Chi MD | PCP | | + +------+ + Encounter Details +--------+ + + + + | Date | Type | Department | Care Team | Description | +--------+ + + + + | 03/21/ | Hospital | [facility] MEDICAL | Conversion | | | 2018 | Encounter | [facility] | Transaction, | | | | | CLIN[address] | Provider Unknown | | | | | [place], [place] | [phone] | | | | | [address] | (Fax) | | | | | [phone] | | | +--------+ + + + [...] [place] | | | | | | [address] | | | | | | | | +--------+ + + + + | 01/11/ | Appointment | Radiation Oncology | Thanh Espinoza DO | | | 2019 | | | [address] | | | | | | [place] | | | | | | [address] | | | | | | | [...] | | | Patient | performed at [facility];[address] | | LAB | | | | [address];[place], [place] | | | | | | [address] | | | | + + + [...] | | | | | performed at [facility] | | | | | | [facility];[place], [place] | | | | | | [address] | | | | + + + [...] | | | Basophils | performed at [facility], [address] | K/uL | LAB | | | | [address], | | | | | | [place] [address] | | | | + + + [...] | | | | | performed at [facility], [address] | | | | | | [facility], | | | | | | [place] [address] | | | | + + + [...] | | | PCRAbnormal Testing performed at [facility];[address] [place] [address];[place] [address] | | + + + + +---------+ [...]
--- OUTSIDE RECORDS SUMMARY | ~2019-05-05 | XMS | Encounter Summary ---
Demographics + + + | Address | [address] | | | [place] [address] | + + + | Home Phone [...] Team Providers + +------+ + | Care Nursery Laborer Name | Role | Phone | + [...] | | | | | | [place] [address] | | | | | | [phone] | | | +--------+ + + + [...] [place] | | | | | | [address] | | | | | | | [...]
--- OUTSIDE RECORDS SUMMARY | ~2019-05-05 | XMS | Encounter Summary ---
Demographics + + + | Address | [address] | | | [place] [address] | + + + | Home Phone [...] Team Providers + +------+ + | Care Electroneurodiagnostic Technician Name | Role | Phone | [...] | | | [address] | [address] | | | | | [place] [address] | | | | | | [phone] | | | +--------+ + + + [...] [place] | | | | | | [id number] | | | | | | | [...]
--- OUTSIDE RECORDS SUMMARY | ~2019-05-05 | XMS | Encounter Summary ---
Demographics + + + | Address | [address] | | | [place] [address] | + + + | Home Phone [...] Team Providers + +------+ + | Care Medical Genetics Director Name | Role | Phone | [...] | | | | estrogen | [place] [address] | [place], [place] | | | | | receptor | Phone: | [address] Phone: | | | | | negative, | [phone] | [phone] | | | | | unspecified | Fax: | Fax: | | | | | site of | [phone] | [phone] | | | | | breast (HCC) | | | +--------+ + + + + + Encounter Details +--------+ + + + + | Date | Type | Department | Care Team | Description | +--------+ + + + + | 12/06/ | Hospital | [facility] | Agustin, | Lobular breast | | 2018 | Encounter | MED CTR MEDICAL | Dimas Mckay MD [address] | cancer, left (HCC); | | | | ONCOLOGY CLINIC [address] | [address] [place] | Malignant neoplasm | | | | [address] [place] | [place] [address] | of upper-outer | | | | [place] [address] | [phone] | quadrant of right | | | | [phone] | | breast in female, | | [...] | | | | | [facility] | | | | | | [address] | | | | | | | | +--------+ + + + + | 01/11/ | Appointment | Radiation Oncology | Thanh Espinoza DO | | | 2019 | | | [address] | | | | | | [place] | | | | | | [address] | | | | | | | [...]
--- OUTSIDE RECORDS SUMMARY | ~2019-05-05 | XMS | Encounter Summary ---
Demographics + + + | Address | [address] | | | [place] [address] | + + + | Home Phone [...] Team Providers + +------+ + | Care Pretzel Twister Name | Role | Phone | + +------+ + | Britton Chi MD | PCP | | + +------+ + Encounter Details +--------+ + + + + | Date | Type | Department | Care Team | Description | +--------+ + + + + | 12/07/ | Orders Only | [facility] | Reagan Wiley, | Back pain, | | 2018 | | NEUROSURGERY [address] | DO [address] | unspecified back | | | | [address] | [address] [place], [place] | location, | | | | [place], [place] | [address] | unspecified back | | | | [address] | | pain laterality, | | | | [phone] | | unspecified | | | | | | chronicity (Primary | | | | | | Dx) | +--------+ + + + + [...] | 2020 | Encounter | | MD Jayk [address] | | | | | | [place] | | | | | | [address] | | | | | | | | +--------+ + + + + | 01/11/ | Appointment | Radiation Oncology | Thanh Espinoza DO Nely | | | 2019 | | | [address] | | | | | | [place] | | | | | | [address] | | | | | | | | +--------+ + + + + documented as of this encounter Visit Diagnoses + + | Diagnosis | + + | Back pain, unspecified back location, unspecified back pain laterality, unspecified | | chronicity - Primary | + + documented in this encounter"
--- OUTSIDE RECORDS SUMMARY | ~2019-05-05 | XMS | Encounter Summary ---
Demographics + + + | Address | [address] | | | [place] [address] | + + + | Home Phone | | + + + | Preferred Language | Unknown | + + + | Marital Status | | + + + | Anabaptism Affiliation | 1076 | + + + | Race | Unknown | + + + | Ethnic Group | Unknown | + + + Author + + + | Author | [facility] | | | and [place] | + + + | Organization | [facility] | | [...] Team Providers + +------+ + | Care Legal Office Administrator Name | Role | Phone | + +------+ + PCP | Unavailable | + +------+ + Encounter Details +--------+ + + + + | Date | Type | Department | Care Team | Description | +--------+ + + + + | 02/20/ | Hospital | [facility] | | | | 2005 | Encounter | MED CTR XRAY [address] | | | | | | [address] | | | | | | [place] [address] | | | | | | [phone] | | | +--------+ + + + [...] [place] | | | | | | [address] | | | | | | | | +--------+ + + + + | 01/11/ | Appointment | Radiation Oncology | Thanh Espinoza DO | | | 2019 | | | [address] | | | | | | [place] | | | | | | [id number] | | | | | | | | +--------+ + + + + documented as of this encounter Visit Diagnoses Not on filedocumented in this encounter"
--- OUTSIDE RECORDS SUMMARY | ~2019-05-05 | XMS | Encounter Summary ---
Demographics + + + | Address | [address] | | | [place] [address] | + + + | Home Phone | | + + + | Preferred Language | Unknown | + + + | Marital Status | | + + + | Advent Affiliation | [id number] | + + + | Race | Unknown | + + + | Ethnic Group | Unknown | + + + Author + + + | Author | [facility] | | | and [place] | + + + | Organization | [facility] | | | [...] Team Providers + +------+ + | Care Special Agent Group Insurance Name | Role | Phone | + +------+ + | Kiet Dunlap MD | PCP | | + +------+ + Encounter Details +--------+ + + + + | Date | Type | Department | Care Team | Description | +--------+ + + + + | 11/19/ | Hospital | [facility] | Thanh Espinoza DO | | | 2012 - | Encounter | [facility] | [address] | | | | | CENTER [address] | [place], [place] | | | 12/08/ | | [place] | [id number] | | | 2012 | | [address] | | | | | | [phone] | | | +--------+ + + + [...] [place] | | | | | | [id number] | | | | | | | [...]
--- OUTSIDE RECORDS SUMMARY | ~2019-05-05 | XMS | Encounter Summary ---
Demographics + + + | Address | [address] | | | [place] [address] | + + + | Home Phone [...] Team Providers + +------+ + | Care Real Estate Intern Name | Role | Phone | + +------+ + | Kiet Dunlap MD | PCP | | + +------+ + Encounter Details +--------+ + + + + | Date | Type | Department | Care Team | Description | +--------+ + + + + | 10/20/ | Orders Only | [facility] | Thanh Espinoza DO | Breast cancer | | 2016 | | MED CTR RADIATION | [address] | screening, high risk | | | | ONCOLOGY [address] | [place], [place] | patient (Primary | | | | [place], | [address] | Dx) | | | | [place] [address] | | | | | | [phone] | | | +--------+ + + + [...] [place] | | | | | | [address] | | | | | | | | +--------+ + + + + | 01/11/ | Appointment | Radiation Oncology | Thanh Espinoza DO | | | 2019 | | | [address] | | | | | | [place] | | | | | | [address] | | | | | | | [...]
--- OUTSIDE RECORDS SUMMARY | ~2019-05-05 | XMS | Encounter Summary ---
Demographics + + + | Address | [address] | | | [place] [id number] | + + + | Home Phone [...] Team Providers + +------+ + | [employer] Dem[employer] Name | Role | Phone | + +------+ + | Radha Carias PA-C | PCP | | + +------+ + Encounter Details +--------+ + + + + | Date | Type | Department | Care Team | Description | +--------+ + + + + | 03/28/ | Hospital | [facility] | Lokesh Bonilla DO | Degenerative | | 2018 - | Encounter | [facility] [address] | spondylolisthesis; | | | | [address] | [address] | Lumbar stenosis with | | 03/30/ | | [place], [place] | [place] [address] | neurogenic | | 2018 | | [id number] | [phone] | claudication; Lumbar | | | | [phone] | | radiculopathy; DDD | | | | | | (degenerative disc | | | | | | disease), lumbar; | | | | | | Weakness of foot, | | | | | | left | +--------+ + + + + Social [...] + + + | Blood Pressure | 128/65 | 03/30/2018 11:23 AM | | | | | PDT | | + + + + + | Pulse | 87 | 03/30/2018 11:23 AM | | | [...] + + + + | Weight | 85.8 kg (189 lb 2.4 | 03/30/2018 11:23 AM | | | | oz) | PDT | | + + + + + | Height | 168.9 cm (5' 6.5") | 03/30/2018 11:23 AM | | | | | PDT | | + + + + + | Body Mass Index | 30.07 | 03/30/2018 11:23 AM | | | | | PDT | | + + + + + documented in this encounter Discharge Summaries Lokesh Bonilla DO - 03/30/2018 8:21 AM PDTFormatting of this note might be different fr om the original. Discharge Summaries by Lokesh Bonilla DO at 03/30/18820 Author: Lokesh Bonilla DO Service: Neurosurgery Author Type: Physician Filed: 03/30/18820 Date of Service: 03/30/18820 Status: Signed Steam Box Hand: Lokesh Bonilla DO (Physician) Neurosurgery Discharge Summary [facility] Neurosurgery Provider: Lokesh Bonilla DO Date : 03/30/2018 8:21 AM Referring Provider: Hospital Day: LOS: 2 days Date of Admission: 03/28/2018 Date of Discharge: 03/30/2018 Discharge Physician: Lokesh Bonilla Treatment Team: Treatment Team: Admitting Provider: Lokesh Bonilla DO Final / Discharge Diagnoses: Patient Active Problem List Diagnosis Degenerative spondylolisthesis - unstable Lumbar stenosis with neurogenic claudication Lumbar radiculopathy DDD (degenerative disc disease), lumbar Weakness of foot, left 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 Procedures: Procedure(s): LUMBAR - TLIF FUSION Past Medical History Diagnosis Date Hyperlipidemia Hypertension Malignant neoplasm (HCC) December 2017 R breast Lumpectomy/2012 L breast lumpectomy Type 1 diabetes mellitus (HCC) Past Surgical History Procedure Laterality Date ANTERIOR CRUCIATE LIGAMENT REPAIR 1998 BREAST LUMPECTOMY Bilateral 2013, 2017 BUNIONECTOMY 1998 CERVICAL FUSION 2011 SECTION 1984 CORRECTION HAMMERTOE Left 2015 LUMBAR FUSION N/A 03/28/2018 Procedure: LUMBAR - TLIF FUSION; Surgeon: Lokesh Bonilla DO; Location: [facility] MAIN OR; Se rvice: Neurosurgery; Laterality: N/A; L4-5 MIS TONSILLECTOMY 1960 Prescriptions Prior to Admission Medication Sig Dispense Refill Last Dose atorvastatin (LIPITOR) 40 MG tablet Take 40 mg by mouth. 03/27/2018 at Unknown time gabapentin (NEURONTIN) 300 MG capsule Patient reports taking 1 tab in the am and 2 tabs at bedtime 03/28/2018 at 0700 insulin aspart (NOVOLOG) 100 UNIT/ML injection Inject into the skin. Sliding scale 1 at Unknown time insulin glargine (LANTUS) 100 UNIT/ML injection Inject 28 Units into the skin every mor lgoria. Taking at 0700 lisinopril (ZESTRIL) 40 MG tablet 03/27/2018 at Unknown time LORazepam (ATIVAN) 1 MG tablet Take 1 mg by mouth. 03/27/2018 at Unknown time tamoxifen (NOLVADEX) 10 MG tablet Take 10 mg by mouth daily. Taking at Unknown time venlafaxine (EFFEXOR-XR) 150 MG 24 hr capsule venlafaxine ER 150 mg capsule,extended re lease 24 hr 03/27/2018 at Unknown time CONTOUR NEXT TEST test strip Taking cyclobenzaprine (FLEXERIL) 5 MG tablet Take 1 tablet by mouth. 03/21/2018 glucagon (GLUCAGON EMERGENCY) 1 MG injection Glucagon Emergency Kit (human-recomb) 1 mg injection Taking Multiple Vitamins-Minerals (MULTIVITAMIN ADULT) TABS Take 1 tablet by mouth. 03/21/20 18 Allergies Allergen Reactions Sulfa Antibiotics Rash Brief History of Presentation: Hans Ferrer a 62 y.o.femaleseen in consultation at the request of Ekaterina Carias PA-Cfroscoe complaints of pain that is located in the bilateral lower back pain.The pa conner reports that the pain radiates down left greater than right posterior thighs and calve s. She does report some numbness over the right 1st digit of the right foot. She is havi ng difficulty walking, especially with longer strides. She is experiencing mainly leg pain , denies any weakness of the lower extremities with walking. Onset of pain was fall of 201 7. She was unloading heavy items out of truck when she had increased pain. Pain is const ant. Pain has increased. Sherates herpain at its worst a 6/10, at its least a 3/10, on average a 4/10and is currently a 4/10. Pain feels like aching, shooting, electrical, sharp and pulling. coughing, sneezing, walking, physical activity and standingmakes the pain worse. relaxing, lying down, alcoholic drinks, heat and medicinesmakes the pain bet ter. Associated symptoms are numbness, weakness and muscle spasms, tightness. She does have history of C4-6 ACDF done in 2003? By Dr Henson in [place]. Shecan sit, 31-45 mintues, stand, less than 15 minutes, and walk, less than 15 minutes. Sleep is interrupted by the pain once per night. Leaning forward the pain is worse. Leaning backward the pain is worse. Conservative treatments tried: Conservative measures tried and worked well are T.E.N.S , heat/cold therapy, acupuncture an d NSAIDs. Conservative measures tried and did not work are chiropractic treatment and mass age. She has tried physicla therapy in the past with only temporary symptom relief. Medi cations tried are Asprin, cyclobenzaprine, NSAIDS. She has nothad nerve blocks or inject ions for pain relief. There is yeshistory of cancer, fever, or infection. Breast cancer 2018, will be startin g radiation in January. Bowel and Bladder Changes/Incontinence: no Time lost at work due to pain: no, retired Litigation/Workman's Compensation: no Current smoker? No Patient ID: Hans payton 63 y.o.femalepresents to neurosurgery clinic with Reported continued severe low back pain radiating down to the buttocks region in the L5 derm atomal region. The patient has noticed significant severe pain. She used to be very acti ve and even run even at the age of [age] years old for many miles up to 10 miles. She states she stopped running in August after she had done some landscaping and felt a popping in her b ack and severe pain radiating down the legs. The patient has tried physical therapy, pain injections and was evaluated by an outside neurosurgeon, Dr. Wiley regarding possible surgi kayode intervention, but unfortunately that process was canceled with him leaving his practice. The patient describes approximately 10 percent in the central back, approximately 70 perc ent in the paraspinal region into the buttocks area and tracing along the proximal L5 radicu lar region, approximately 15 percent radiating down the legs with 70 percent going down the left leg and 30 percent going down the right leg described at the L5 dermatoma region. Neto n is worse with standing straight up and she had noticed she often forward bent and flexed f orward leaning over a shopping care pushing down on items. The patient has had a decrease in her overall abilities in terms of her routine activities of daily living and has severe a nd marked pain which is unremitting. The patient has tried all conservative measures witho ut improvement and symptoms are interfering with all aspects of daily living. The patient describes worsening pain which is progressive over time and state that she has considered mathews rgical intervention due to this and as stated was apparently evaluated and was pending surge ry. The patient is undergoing therapy. She had a lumpectomy of her breast with negative lymph nodes per the patient. The patient is currently undergoing local radiation with Dr. Espinoza which states that her radiation therapy should be completed on March 08. The pa conner also has had MRI, CT imaging and x-ray imaging which shows mobility at the L4-5 space and degenerative spondylolisthesis. Admission Date - >03/28/2018 < - OR Date - Procedure(s) with comments: LUMBAR - TLIF FUSION (N/A) - L4-5 MIS Hospital Course: 03/29/2018 8:19 AM - doing well with resolution of radiculopathy improving strength and sensation ambulating better 03/30/2018 8:21 AM - Patient agreeable to discharge today. Doing well ambulating with PT pa in controlled DISCHARGE EXAM Vital Signs: Last: Last 24hrs Vitals: 03/30/18 0357 BP: 108/63 Pulse: 91 Resp: 16 Temp: 98.8 F (37.1 C) SpO2: 100% Temp: [98.4 F (36.9 C)-99.2 F (37.3 C)] 98.8 F (37.1 C) Heart Rate: [78-91] 91 Resp: [16-19] 16 BP: (101-118)/(60-63) 108/63 Intake/Output Summary (Last 24 hours) at 03/30/18 0821 Last data filed at 03/30/18 0357 Gross per 24 hour Intake 2650 ml Output 2025 ml Net 625 ml No intake/output data recorded. 03/280 - 03/30 0659 In: 4750 [P.O.:4250; I.V.:500] Out: 2625 [Urine:2625] PHYSICAL EXAM: General: Pleasant, awake, alert, and oriented. In no acute distress, well developed, well n ourished. Speech fluent and approriate Skin:Skin color, texture, turgor normal. No rashes or lesions. HEENT: Normocephalic atraumatic Muscle Strength: Right Left Upper Extremity: 5/5 5/5 Lower Extremity: 5/5 5/5 Wound:Clean, dry, and intact. No evidence of wound breakdown or infection Sensation:Normal reported sensation to light touch Significant Diagnostic Studies: Lumbar Spine X-ray Frontal And Lateral Result Date: 03/29/2018 HANS SILVA 1955 63 years Female XR LUMBAR SPINE LIMITED 2-3 VIEW 03/29/2018 9: 16 AM INDICATION: Back pain COMPARISON: CT, 01/28/2018 TECHNIQUE: Lumbar spine series, 2 view s FINDINGS: There are 5 nonrib-bearing lumbar vertebral type bodies. Post surgical changes a re noted with anterior and posterior fusion hardware at L4-L5. There is 4.6 mm anterior list hesis of L4 on L5. There is severe disc space narrowing at L2-L3, unchanged. The left-sided transpedicular fixation screws questionably may be displaced when compared to the intraopera tive view. This is noted on the frontal projection and could be related to rotation. 1. Questionable displacement of the left-sided transpedicular fixation screws which may be secondary to projection. If indicated, further assessment could be performed with CT. Elect ronically signed by Ritchie Oh MD on 03/29/2018 9:[address] Lumbar Spine Without Contrast Result Date: 03/29/2018 HANS SILVA 1955 63 years Female 03/29/2018 3:[address] LUMBAR SPINE WO CONTRAST INDICATION: Back pain status post fusion COMPARISON: Plain films, 03/29/2018 TECHNIQUE: CT scan of the lumbar spine without contrast.1.5-mm thick helically acquired axial images were performed of the lumbar spine in soft tissue and bone algorithm. Coronal and sagittal recon structions were performed at 2 mm thick slices. Dose reduction techniques were used includi ng automated exposure control, iterative reconstruction technique, and/or automated adjustab le mAs based on patient size. FINDINGS: There are 5 nonrib-bearing lumbar vertebral type bod ies for the purposes of this dictation. A metallic disc spacer is noted at the level of L4-L 5. The vertical struts are intact. The left L4 fixation screw is noted traversing through th e left transverse process and lateral aspect of the pedicle. Centrally within the left pedic le, there appears to be a ill-defined lucency which may be secondary to a intraosseous heman gioma. There is some sclerosis posteriorly along the superior facet. The bilateral fixation screws at L5 are along the most lateral aspect of the pedicle. There is some gas along the e pidural space which is felt to be related to recent surgery. The visualized adrenals are nor mal. There is no hydronephrosis. Mild calcification of the abdominal aorta is noted. Finding s by level: T12-L1: Normal L1-L2: Normal L2-L3: There is a moderate circumferential disc con tributing to mild spinal canal and bilateral subarticular recess stenosis. There is moderate right and mild left facet hypertrophy. There is mild narrowing of the right neural foramen. L3-L4: A mild circumferential disc is present with mild bilateral facet hypertrophy. No zaid ral foraminal stenosis is present. L4-L5: A left hemilaminotomy defect is noted with demonst ration of a inferior facetectomy. There is moderate left and mild right neural foraminal clive nosis. There appears to be mild spinal canal narrowing from a circumferential disc. L5-S1: A small right laminotomy window is noted. There is minimal spinal canal and bilateral subarti cular recess stenosis from a broad-based disc protrusion. There is moderate left and mild ri ght facet hypertrophy. The neural foramen are widely patent. 1. Postsurgical changes are noted with posterior and anterior fusion hardware placement at L4-L5. No loosening of the fixation hardware is present. 2. No high-grade spinal canal or neural foraminal stenosis. X-ray C-arm Fluoro Over 1 Hour Result Date: 03/29/2018 HANS Webster DIEGO XR C-ARM FLUORO OVER 1 HOUR HISTORY: 63 years. Female. Spinal stenosis. TECHNIQUE: 2 spot fluoroscopic images of the lumbar spine. 90.5 seconds of fluoroscopy time was utilized. FINDINGS AND IMPRESSION: Pedicle screws and stabilization rods fixating L4-L5. Intervertebr al spacer devices in appropriate position. Mild anterior spondylolisthesis of L4 on L5. Elec tronically signed by Jamel Nix DO on 03/29/2018 7:35 AM Recent Labs Lab 03/29/18 06 WBC 3.97 RBC 3.34* HGB 11.0* HCT 32.1* PLT 161 No results for input(s): APTT, PROTIME, INR in the last 168 hours. Invalid input(s): FIBRINOGEN No results found for: TROPONINI Recent Labs Lab 03/29/18612 NA 132* K 4.0 CL 97* CO2 29 ANIONGAP 10 GLUF 192* BUN 14 CREATININE 0.7 BCR 20 CA 7.6* Lab Results Component Value Date CLARITYU CLEAR 01/21/2013 MEROPENEM 1.017 04/08/2012 LEUKOCYTESUR NEGATIVE 01/21/2013 NITRITE NEGATIVE 01/21/2013 UROBILINOGEN 0.2 01/21/2013 UPRO NEGATIVE 01/21/2013 PHUR 7.5 01/21/2013 BLOODU NEGATIVE 01/21/2013 KETONES NEGATIVE 01/21/2013 BILIRUBINUR NEGATIVE 01/21/2013 GLUCOSEU NEGATIVE 01/21/2013 PLAN Post op education: Extensive education and discussion regarding discharge undertaken with ritu العراقي. Reviewed all home medications and risks of medications with the patient. Explained w ith patient the hospital and if applicable the operative course. All questions were answered . Instructions were given to the patient on signs and symptoms for which to return to the [facility]. Patient educated on warning signs of infection and instructions to return if those si gns occur. Patient voiced understanding of education and agrees with Disposition: Home Condition: Stable Code Status: Full Code No discharge procedures on file. Possible Follow Up Numbers: Radha Carias PA-C [address] [place] [id number] Medication List START taking these medications methocarbamol 750 MG tablet QTY: 90 tablet Refills: 2 Commonly known as: ROBAXIN Take 1 tablet by mouth every 8 (eight) hours for 90 days. oxyCODONE-acetaminophen 10-325 MG per tablet QTY: 60 tablet Refills: 0 Commonly known as: PERCOCET Take 1 tablet by mouth every 6 (six) hours as needed for Pain for up to 30 days. Replaces: oxyCODONE-acetaminophen 7.5-325 MG per tablet CHANGE how you take these medications gabapentin 300 MG capsule Refills: 0 Commonly known as: NEURONTIN What changed: Another medication with the same name was removed. Continue taking this medi cation, and follow the directions you see here. CONTINUE taking these medications atorvastatin 40 MG tablet Refills: 0 Commonly known as: LIPITOR CONTOUR NEXT TEST test strip Refills: 0 Generic drug: glucose blood cyclobenzaprine 5 MG tablet Refills: 0 Commonly known as: FLEXERIL GLUCAGON EMERGENCY 1 MG injection Refills: 0 Generic drug: glucagon insulin aspart 100 UNIT/ML injection Refills: 0 Commonly known as: NOVOLOG insulin glargine 100 UNIT/ML injection Refills: 0 Commonly known as: LANTUS lisinopril 40 MG tablet Refills: 0 Commonly known as: ZESTRIL LORazepam 1 MG tablet Refills: 0 Commonly known as: ATIVAN MULTIVITAMIN ADULT Tabs Refills: 0 tamoxifen 10 MG tablet Refills: 0 Commonly known as: NOLVADEX venlafaxine 150 MG 24 hr capsule Refills: 0 Commonly known as: EFFEXOR-XR You might also be taking other medications not listed above. If you have questions about an y of your other medications, talk to the person who prescribed them or your Primary Care Pro vider. STOP taking these medications aspirin 325 MG EC tablet dexamethasone 4 MG tablet Commonly known as: DECADRON ibuprofen 600 MG tablet Commonly known as: MOTRIN MAPAP 325 MG tablet Generic drug: acetaminophen oxyCODONE-acetaminophen 7.5-325 MG per tablet Commonly known as: PERCOCET Replaced by: oxyCODONE-acetaminophen 10-325 MG per tablet Where to Get Your Medications You can get these medications from any pharmacy Bring a paper prescription for each of these medications methocarbamol 750 MG tablet oxyCODONE-acetaminophen 10-325 MG per tablet Extensive discussion regarding general risks of opiates which can be minor (constipation) a nd severe with opiate dependence, respiratory depression and . Patient was advised to h ave caution with any opiate medication and to not mix medications with alcohol or anti-anxie ty medications like bezodiazapine with the result being the possibility of disability or josé luis th. Possibility of impairment and the inability to drive or operate heavy machinery also dis cussed as patient is aware of the risk to themselves and others. Patient was advised not to drive while under the influence of any narcotic or sedating medication. Discharge took 15 minutes, to include final examination, discussion of admission, and prepa ration of prescriptions, instructions for on-going care, follow-up and documentation of disc harge summary. Lokesh Bonilla D.O Board Certified Neurosurgeon [facility] Office documented in this encounter Medications at Time [...] documented as of this encounter Progress Notes Conversion Transaction, Provider Unknown - 03/30/2018 12:40 PM PDTFormatting of this note m ight be different from the original. Nurse Progress Note by Alejandrina Trent RN at 03/30/181239 Author: Alejandrina Trent RN Service: (none) Author Type: Registered Nurse Filed: 03/30/181239 Date of Service: 03/30/181239 Status: Signed Steam Box Hand: Alejandrina Trent RN (Registered Nurse) Discharge instructions and prescription given to patient and patient states understanding a nd has no further questions at this time. Patient states understanding regarding importance of follow up with surgeon and possible side effects associated with medications prescribed. Patient will discharge to home via private vehicle accompanied by spouse. Alejandrina Trent RN onver valentine Ramosaction, Provider Unknown - 03/30/2018 12:10 PM PDT Therapy Progress Note by Keiry Kaplan PT at 03/30/18 1210 Author: Keiry Kaplan PT Service: (none) Author Type: Physical Therapist Filed: 03/30/18 6097 Date of Service: 03/30/18 1210 Status: Signed Steam Box Hand: Keiry Kaplan PT (Physical Therapist) PHYSICAL THERAPY TREATMENT NOTE PT Received On: 03/30/18 Reason for Treatment: Spinal surgery (L4-5 fusion) Requires PT Follow Up: Yes Follow up PT Only?: No Assistance Required: 1 person Patient Transport Orderly Needed: No Recommendations: Home Assist Equipment Recommended: None PT Ready for Discharge: Yes Plan Treatment/Interventions: Continue per Primary PT POC Progress: Progressing toward goals Summary Comments: Pt seated at EOB and eager to participate in therapy this PM. She reports pain at 6/10 in low back region - RN aware. Pt able to state all spinal precautions without assist. Pt declined option to practice bed mobility at start of session, though pt reports that she has had no issues with getting into/OOB via log roll. Functionally, she demonstrates great independence for transfers and ambulation; pt able to advance to ambulation around unit with out need for AD - no LOB, unsteadiness or path deviation noted. Pt adheres to precautions th roughout all mobility and appears to be mobilizing safely to allow for d/c home with assist from spouse. PT discussed briefly principles of activity pacing/mobility progression and whe n to use AD at home (such as with increased pain/fatigue)- pt verbalized good understanding. Pt back in room at end of session - seated EOB per her request. Pt with call light and need s met/within reach. Precautions Spinal Precautions: Lumbar, TLSO on when upright Cognition Overall Cognitive Status: Within Functional Limits Orientation Level: Oriented FUNCTIONAL MOBILITY Bed Mobility -N/A Transfers Sit to/from Stand: Independent Ambulation Maximal Ambulation Distance (feet): 250 Total Ambulation Distance (feet): 250 Ambulation Assistance: Supervision Distance limited by?: Patient's ability Pattern: Alternating, Decreased hailey Assistive Device: None BALANCE Balance: (steady throughout, attains/maintains midline) Activity Tolerance: Patient tolerated treatment without report of fatigue Nurse Made Aware: Yes Safety Devices in Place: (Call light in reach, spouse present) Restraints Initially in Place: No The patient reported pain rated at a 6/10. RN was notified. Education Completed: Education Topics: [x] Rationale for PT [x] PT POC [x] DC planning [x] Precautions [] Exercises [] Bed mobility [] Transfer training with hand placement [x] Gait training [] Stair training [] Use of gait belt [x] Other- activity pacing/mobil ity progression Completed with: [x] Patient [] Spouse [] Significant other [] Family [] C aregiver [] Other Completed by: [x] Verbal education [] Demonstration [] Handout [] Other: Response to Education: [x] Stated Understanding [] Reinforcement necessary [] Returned demonstration [x] Demonstrated understanding [] No evidence of learning [] Refused onver valentine Transaction, Provider Unknown - 03/30/2018 4:41 AM PDT Nurse Progress Note by Nanette Velasco RN at 03/30/18440 Author: Nanette Velasco RN Service: (none) Author Type: Registered Nurse Filed: 03/30/18441 Date of Service: 03/30/18440 Status: Signed Steam Box Hand: Nanette Velasco RN (Registered Nurse) Chart audit complete. onver valentine Transaction, Provider Unknown - 03/29/2018 6:27 PM PDT Nurse Progress Note by Alejandrina Trent RN at 03/29/181826 Author: Alejandrina Trent RN Service: (none) Author Type: Registered Nurse Filed: 03/29/181826 Date of Service: 03/29/181826 Status: Signed Steam Box Hand: Alejandrina Trent RN (Registered Nurse) Chart check complete onver valentine Richardaction, Provider Unknown - 03/29/2018 3:35 PM PDT Case Management by Calista Hemphill RN at 03/29/18 1530 Author: Calista Hemphill RN Service: (none) Author Type: Registered Nurse Filed: 03/29/18 3440 Date of Service: 03/29/18 1535 Status: Signed Steam Box Hand: Calista Hemphill RN (Registered Nurse) 03/29/18 1537 Discharge Planning Evaluation Admitting Diagnosis TLIF fusion L4-5 Readmission No Living Arrangements Spouse/significant other Support Systems Spouse/significant other Type of Residence Private residence House type House-1 story Steps to enter (0) Bathrooms on 1st Floor 1-Full Independent with ADL's Yes Independent with Mobility Yes Home Care Services No Caregiver after Discharge No Mental Status Oriented Prior functional status Independent at baseline Resources Financial concerns No Transportation issues No Patient/Family concerns No Prescription Plan Yes Name of Pharmacy [facility] in [place] Anticipated Disposition Facility Type Home Met with pt and discussed discharge planning, Pt is a 63 y.o., female who lives at home wit h her in [place], [place]. Pt is independent with ADLs and mobility. Does not have a walker. Denies use of home health services, blood thinners, home O2, and dialysis. Pt driv es and will transport her home on day of d/c. Patient's PCP is: Radha Carias PA-C Patient's insurance: [employer] ([employer]) Coverage concerns: no concerns Medication coverage/concerns: no concerns Rx Bedside Delivery: no Community resources utilized / needed: none at this time Assistance in transportation: drives, . Identification of any specific education / training: none at this time Barriers to Discharge / Alternative housing needed: none at this time Anticipated DCP: Home Calista Hemphill RN CM Lokesh Nevarez DO - 03/29/2018 8:19 AM PDT Progress Notes by Lokesh Bonilla DO at 03/29/18818 Author: Lokesh Bonilla DO Service: Neurosurgery Author Type: Physician Filed: 03/30/18820 Date of Service: 03/29/18818 Status: Signed Steam Box Hand: Lokesh Bonilla DO (Physician) Neurosurgery Progress Note - Post Operative Provider: Lokesh Bonilla DO Date : 03/30/2018 8:19 AM Referring Provider: Code Status: Full Code Hospital Day: LOS: 2 days Patient ID: Hans Ferrer a 62 y.o.femaleseen in consultation at the request of Radha Carias PA-Cfor complaints of pain that is located in the bilateral lower back neto n.The patient reports that the pain radiates down left greater than right posterior thig hs and calves. She does report some numbness over the right 1st digit of the right foot. She is having difficulty walking, especially with longer strides. She is experiencing ha nly leg pain, denies any weakness of the lower extremities with walking. Onset of pain was fall of 2016. She was unloading heavy items out of truck when she had increased pain. P ain is constant. Pain has increased. Sherates herpain at its worst a 6/10, at its le ast a 3/10, on average a 4/10and is currently a 4/10. Pain feels like aching, shooting, electrical, sharp and pulling. coughing, sneezing, walking, physical activity and standing makes the pain worse. relaxing, lying down, alcoholic drinks, heat and medicinesmakes the pain better. Associated symptoms are numbness, weakness and muscle spasms, tightness . She does have history of C4-6 ACDF done in 2003? By Dr Henson in [place]. Shecan sit, 31-45 mintues, stand, less than 15 minutes, and walk, less than 15 minutes. Sleep is interrupted by the pain once per night. Leaning forward the pain is worse. Leaning backward the pain is worse. Conservative treatments tried: Conservative measures tried and worked well are T.E.N.S , heat/cold therapy, acupuncture an d NSAIDs. Conservative measures tried and did not work are chiropractic treatment and mass age. She has tried physicla therapy in the past with only temporary symptom relief. Medi cations tried are Asprin, cyclobenzaprine, NSAIDS. She has nothad nerve blocks or inject ions for pain relief. There is yeshistory of cancer, fever, or infection. Breast cancer 2018, will be startin g radiation in January. Bowel and Bladder Changes/Incontinence: no Time lost at work due to pain: no, retired Litigation/Workman's Compensation: no Current smoker? No Patient ID: Hans Silva is a 63 y.o. female presents to neurosurgery clinic with Rep orted continued severe low back pain radiating down to the buttocks region in the L5 dermato mal region. The patient has noticed significant severe pain. She used to be very active an d even run even at the age of [age] years old for many miles up to 10 miles. She states she st opped running in August after she had done some landscaping and felt a popping in her back an d severe pain radiating down the legs. The patient has tried physical therapy, pain injecti ons and was evaluated by an outside neurosurgeon, Dr. Wiley regarding possible surgical int ervention, but unfortunately that process was canceled with him leaving his practice. The p atient describes approximately 10 percent in the central back, approximately 70 percent in t he paraspinal region into the buttocks area and tracing along the proximal L5 radicular bella on, approximately 15 percent radiating down the legs with 70 percent going down the left leg and 30 percent going down the right leg described at the L5 dermatoma region. Pain is wors e with standing straight up and she had noticed she often forward bent and flexed forward le aning over a shopping care pushing down on items. The patient has had a decrease in her ove rall abilities in terms of her routine activities of daily living and has severe and marked pain which is unremitting. The patient has tried all conservative measures without improvem ent and symptoms are interfering with all aspects of daily living. The patient describes wo rsening pain which is progressive over time and state that she has considered surgical inter vention due to this and as stated was apparently evaluated and was pending surgery. The pat ient is undergoing therapy. She had a lumpectomy of her breast with negative lymph nodes pe r the patient. The patient is currently undergoing local radiation with Dr. Espinoza which stat es that her radiation therapy should be completed on March 08. The patient also has h ad MRI, CT imaging and x-ray imaging which shows mobility at the L4-5 space and degenerative spondylolisthesis. Admission Date - >03/28/2018 < - OR Date - Procedure(s) with comments: LUMBAR - TLIF FUSION (N/A) - L4-5 MIS Hospital Course: 03/29/2018 8:19 AM - doing well with resolution of radiculopathy improving strength and sensation ambulating better Subjective Past Medical History Diagnosis Date Hyperlipidemia Hypertension Malignant neoplasm (HCC) December 2017 R breast Lumpectomy/2012 L breast lumpectomy Type 1 diabetes mellitus (HCC) Social History Social History Marital status: Spouse name: N/A Number of children: N/A Years of education: N/A Occupational History Not on file. Social History Main Topics Smoking status: Never Smoker Smokeless tobacco: Never Used Alcohol use 1.2 oz/week 2 Glasses of wine per week Comment: 2 per day Drug use: No Sexual activity: Not Currently Other Topics Concern Not on file Social History Narrative No narrative on file Family History Problem Relation Age of Onset Diabetes type II Mother Allergies Allergen Reactions Sulfa Antibiotics Rash Objective Vital Signs: Last: Last 24hrs Vitals: 03/30/18 0357 BP: 108/63 Pulse: 91 Resp: 16 Temp: 98.8 F (37.1 C) SpO2: 100% Temp: [98.4 F (36.9 C)-99.2 F (37.3 C)] 98.8 F (37.1 C) Heart Rate: [78-91] 91 Resp: [16-19] 16 BP: (101-118)/(60-63) 108/63 Intake/Output Summary (Last 24 hours) at 03/30/18 0819 Last data filed at 03/30/18 0357 Gross per 24 hour Intake 2650 ml Output 2025 ml Net 625 ml No intake/output data recorded. 03/28 1900 - 03/30 0659 In: 4750 [P.O.:4250; I.V.:500] Out: 2625 [Urine:2625] Vent Settings Last 24hrs: PHYSICAL EXAM: General: Pleasant, awake, alert, and oriented. In no acute distress, well developed, well n ourished. Speech fluent and approriate Skin:Skin color, texture, turgor normal. No rashes or lesions. HEENT: Normocephalic atraumatic Muscle Strength: Right Left Upper Extremity: 5 5/5 Lower Extremity: 5 5/ Wound:Clean, dry, and intact. No evidence of wound breakdown or infection Sensation:Normal reported sensation to light touch Recent Labs Lab 03/29/18 0613 WBC 3.97 RBC 3.34* HGB 11.0* HCT 32.1* PLT 161 No results for input(s): APTT, PROTIME, INR in the last 168 hours. Invalid input(s): FIBRINOGEN Recent Labs Lab 03/29/18 0613 NA 132* K 4.0 CL 97* CO2 29 ANIONGAP 10 GLUF 192* BUN 14 CREATININE 0.7 BCR 20 CA 7.6* Lab Results Component Value Date CLARITYU CLEAR 01/21/2013 MEROPENEM 1.017 04/08/2012 LEUKOCYTESUR NEGATIVE 01/21/2013 NITRITE NEGATIVE 01/21/2013 UROBILINOGEN 0.2 01/21/2013 UPRO NEGATIVE 01/21/2013 PHUR 7.5 01/21/2013 BLOODU NEGATIVE 01/21/2013 KETONES NEGATIVE 01/21/2013 BILIRUBINUR NEGATIVE 01/21/2013 GLUCOSEU NEGATIVE 01/21/2013 No results found for: TROPONINI Scheduled Medications: atorvastatin 40 mg Oral Nightly cyclobenzaprine 5 mg Oral Nightly docusate sodium 200 mg Oral BID enoxaparin 40 mg Subcutaneous Q24H gabapentin 300 mg Oral TID influenza vaccine quadrivalent 0.5 mL Intramuscular Once Immunization insulin glargine 28 Units Subcutaneous QAM insulin lispro (human) 0-10 Units Subcutaneous TID AC insulin lispro (human) 0-5 Units Subcutaneous Nightly lisinopril 40 mg Oral Daily magnesium hydroxide 30 mL Oral BID methocarbamol 500 mg Intravenous Q8H Or methocarbamol 750 mg Oral Q8H tamoxifen 10 mg Oral Daily venlafaxine 150 mg Oral Daily with breakfast PRN Medications: acetaminophen OR acetaminophen, bisacodyl, calcium carbonate, dextrose, dextrose, diaze LISBET, glucagon, glucagon, ketorolac, LORazepam, melatonin, morphine OR morphine OR mo rphine, ondansetron OR ondansetron, oxyCODONE-acetaminophen OR oxyCODONE-acetaminoph en, saline lock IV - when tolerating PO fluids AND sodium chloride (PF) Continuous Infusions Patient Active Problem List Diagnosis Date Noted 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 female with status post Procedure(s) with comments: LUMBAR - TLIF FUSION (N/A) - L4-5 MIS - Admit Date - 03/28/2018 - Operative date - doing w ell with routine post op course Plan : 1. Post op xrays with screw at L5 marginally lateral CT lumbar spine shows adequate placeme nt without signs of complication 2. PT/OT 3. Pain controlled 4. Disposition home on 03/30 It is a pleasure being involved in this patients care should any questions or concerns teri e feel free to contact me at any time. Lokesh Bonilla D.O Board Certified Neurosurgeon [facility] Office onversion Transact ion, Provider Unknown - 03/29/2018 8:15 AM PDTFormatting of this note might be different fr om the original. Therapy Progress Note by Shannan Prasad PT at 03/29/18814 Author: Shannan Prasad PT Service: (none) Author Type: Physical Therapist Filed: 03/29/18824 Date of Service: 03/29/18814 Status: Signed Steam Box Hand: Shannan Prasad PT (Physical Therapist) 03/29/18814 PT Last Visit PT Received On 03/29/18 Requires PT Follow Up On hold;Unavailable Other Comments Comments Pt has orders for lumbar brace when OOB. Spoke with JADA Steiner and brace has not yet arrived. Plan to follow up for P.T. eval later today once brace has arrived. onver valentine Transaction, Provider Unknown - 03/29/2018 6:35 AM PDT Nurse Progress Note by Cecily Garay RN at 03/29/18634 Author: Cecily Garay RN Service: (none) Author Type: Registered Nurse Filed: 03/29/18634 Date of Service: 03/29/18634 Status: Signed Steam Box Hand: Cecily Garay RN (Registered Nurse) End of shift chart check complete. Cecily Garay RN docume nted in this encounter Plan of Treatment +--------+ + + + + | Date | Type | Specialty | Care Team | Description | +--------+ + + + + | 01/11/ | Hospital | Radiology | Claudia Mccracken | | | 2020 | Encounter | | MD [address] | | | | | | [place], [place] | | | | | | [id number] | | | | | | | | +--------+ + + + + | 01/11/ | Appointment | Radiation Oncology | Thanh Espinoza, | | | 2019 | | | [address] | | | | | | [place] | | | | | | [address] | | | | | | | | +--------+ + + + + documented as of this encounter Procedures + +--------+ + + + | Procedure Name | Priori | Date/Time | Associated Diagnosis | Comments | | | ty | | | | + +--------+ + + + | POC GLUCOSE | Routin | 03/30/2018 | | Results for this | | | e | 11:20 AM | | procedure are in the | | | | PDT | | results section. | + +--------+ + + + | POC GLUCOSE | Routin | 03/30/2018 | | Results for this | | | e | 5:39 AM | | procedure are in the | | | | PDT | | results section. | + +--------+ + + + | POC GLUCOSE | Routin | 03/29/2018 | | Results for this | | | e | 9:22 PM | | procedure are in the | | | | PDT | | results section. | + +--------+ + + + | POC GLUCOSE | Routin | 03/29/2018 | | Results for this | | | e | 4:38 PM | | procedure are in the | | | | PDT | | results section. | + +--------+ + + + | CT LUMBAR SPINE WO | Routin | 03/29/2018 | | Results for this | | CONTRAST | e | 3:46 PM | | procedure are in the | | | | PDT | | results section. | + +--------+ + + + | POC GLUCOSE | Routin | 03/29/2018 | | Results for this | | | e | 1:55 PM | | procedure are in the | | | | PDT | | results section. | + +--------+ + + + | POC GLUCOSE | Routin | 03/29/2018 | | Results for this | | | e | 11:55 AM | | procedure are in the | | | | PDT | | results section. | + +--------+ + + + | XR LUMBAR SPINE 2 OR | Routin | 03/29/2018 | | Results for this | | 3 VW | e | 9:16 AM | | procedure are in the | | | | PDT | | results section. | + +--------+ + + + | EXTERNAL LAB: CBC | Routin | 03/29/2018 | | Results for this | | | e | 6:13 AM | | procedure are in the | | | | PDT | | results section. | + +--------+ + + + | BASIC METABOLIC | Routin | 03/29/2018 | | Results for this | | PANEL | e | 6:13 AM | | procedure are in the | | | | PDT | | results section. | + +--------+ + + + | POC GLUCOSE | Routin | 03/29/2018 | | Results for this | | | e | 5:49 AM | | procedure are in the | | | | PDT | | results section. | + +--------+ + + + | POC GLUCOSE | Routin | 03/28/2018 | | Results for this | | | e | 9:20 PM | | procedure are in the | | | | PDT | | results section. | + +--------+ + + + | POC GLUCOSE | Routin | 03/28/2018 | | Results for this | | | e | 5:54 PM | | procedure are in the | | | | PDT | | results section. | + +--------+ + + + | FL C ARM > 1 HOUR | Routin | 03/28/2018 | | Results for this | | | e | 5:46 PM | | procedure are in the | | | | PDT | | results section. | + +--------+ + + + | POC GLUCOSE | Routin | 03/28/2018 | | Results for this | | | e | 11:20 AM | | procedure are in the | | | | PDT | | results section. | + +--------+ + + + documented in this encounter Results POC Glucose (03/30/2018 11:20 AM PDT) + + + + + + | Component | Value | Ref Range | Performed | Pathologist | | | | | At | Signature | + + + + + + | Glucose, | 313 (H)Comment: Testing | 65 - 99 mg/dL | EXTERNAL | | | Fingerstick | performed at [facility];[address] | | LAB | | | | [address];[place] | | | | | | [address] | | | | + + + + + + + + | Specimen | + + | | + + + +---------+ + + | Performing | Address | City/State/Zipcode | Phone Number | | Organization | | | | + +---------+ + + | EXTERNAL LAB | | | | + +---------+ + + POC Glucose (03/30/2018 5:39 AM PDT) + + + + + + | Component | Value | Ref Range | Performed | Pathologist | | | | | At | Signature | + + + + + + | Glucose, | 227 (H)Comment: Testing | 65 - 99 mg/dL | EXTERNAL | | | Fingerstick | performed at [facility];[address] | | LAB | | | | [address];[place] | | | | | | [address] | | | | + + + + + + + + | Specimen | + + | | + + + +---------+ + + | Performing | Address | City/State/Zipcode | Phone Number | | Organization | | | | + +---------+ + + | EXTERNAL LAB | | | | + +---------+ + + POC Glucose (03/29/2018 9:22 PM PDT) + + + + + + | Component | Value | Ref Range | Performed | Pathologist | | | | | At | Signature | + + + + + + | Glucose, | 241 (H)Comment: Testing | 65 - 99 mg/dL | EXTERNAL | | | Fingerstick | performed at [facility] [place];[address] | | LAB | | | | [address];[place] | | | | | | [address] | | | | + + + + + + + + | Specimen | + + | | + + + +---------+ + + | Performing | Address | City/State/Zipcode | Phone Number | | Organization | | | | + +---------+ + + | EXTERNAL LAB | | | | + +---------+ + + POC Glucose (03/29/2018 4:38 PM PDT) + + + + + + | Component | Value | Ref Range | Performed | Pathologist | | | | | At | Signature | + + + + + + | Glucose, | 208 (H)Comment: Testing | 65 - 99 mg/dL | EXTERNAL | | | Fingerstick | performed at [facility];[address] | | LAB | | | | [address];[place], [place] | | | | | | [address] | | | | + + + + + + + + | Specimen | + + | | + + + +---------+ + + | Performing | Address | City/State/Zipcode | Phone Number | | Organization | | | | + +---------+ + + | EXTERNAL LAB | | | | + +---------+ + + CT Lumbar Spine wo Contrast (03/29/2018 3:46 PM PDT) + + | Specimen | + + | | + + + + + | Impressions | Performed At | + + + | 1. Postsurgical changes are noted with posterior and anterior | | | fusion hardware placement at L4-L5. No loosening of the fixation | | | hardware is present. 2. No high-grade spinal canal or neural | | | foraminal stenosis. | | + + + + + + | Narrative | Performed At | + + + | [facility] 1955 63 years Female 03/29/2018 3:46 PM | | | CT LUMBAR SPINE WO CONTRAST INDICATION: Back pain status post | | | fusion COMPARISON: Plain films, 03/29/2018 TECHNIQUE: CT scan | | | of the lumbar spine without contrast.1.5-mm thick helically acquired | | | axial images were performed of the lumbar spine in soft tissue and | | | bone algorithm. Coronal and sagittal reconstructions were performed | | | at 2 mm thick slices. Dose reduction techniques were used | | | including automated exposure control, iterative reconstruction | | | technique, and/or automated adjustable mAs based on patient size. | | | FINDINGS: There are 5 nonrib-bearing lumbar vertebral type bodies for | | | the purposes of this dictation. A metallic disc spacer is noted at the | | | level of L4-L5. The vertical struts are intact. The left L4 fixation | | | screw is noted traversing through the left transverse process and | | | lateral aspect of the pedicle. Centrally within the left pedicle, | | | there appears to be a ill-defined lucency which may be secondary to a | | | intraosseous hemangioma. There is some sclerosis posteriorly along the | | | superior facet. The bilateral fixation screws at L5 are along the | | | most lateral aspect of the pedicle. There is some gas along the | | | epidural space which is felt to be related to recent surgery. The | | | visualized adrenals are normal. There is no hydronephrosis. Mild | | | calcification of the abdominal aorta is noted. Findings by level: | | | T12-L1: Normal L1-L2: Normal L2-L3: There is a moderate | | | circumferential disc contributing to mild spinal canal and bilateral | | | subarticular recess stenosis. There is moderate right and mild left | | | facet hypertrophy. There is mild narrowing of the right neural | | | foramen. L3-L4: A mild circumferential disc is present with mild | | | bilateral facet hypertrophy. No neural foraminal stenosis is present. | | | L4-L5: A left hemilaminotomy defect is noted with demonstration of | | | a inferior facetectomy. There is moderate left and mild right neural | | | foraminal stenosis. There appears to be mild spinal canal narrowing | | | from a circumferential disc. L5-S1: A small right laminotomy | | | window is noted. There is minimal spinal canal and bilateral | | | subarticular recess stenosis from a broad-based disc protrusion. There | | | is moderate left and mild right facet hypertrophy. The neural foramen | | | are widely patent. | | + + + + + | Procedure Note | + + | Aaron, Rad Conversion - 01/22/2019 8:23 AM PDT HANS [id number] years | | [place]1103/29/2018 3:46 PMCT LUMBAR SPINE WO CONTRAST INDICATION: Back pain status post | | fusion COMPARISON: Plain films, 03/29/2018 TECHNIQUE: CT scan of the lumbar spine | | without contrast.1.5-mm thick helically acquired axial images were performed of the | | lumbar spine in soft tissue and bone algorithm. Coronal and sagittal reconstructions | | were performed at 2 mm thick slices. Dose reduction techniques were used including | | automated exposure control, iterative reconstruction technique, and/or automated | | adjustable mAs based on patient size. FINDINGS: There are 5 nonrib-bearing lumbar | | vertebral type bodies for the purposes of this dictation. A metallic disc spacer is | | noted at the level of L4-L5. The vertical struts are intact. The left L4 fixation screw | | is noted traversing through the left transverse process and lateral aspect of the | | pedicle. Centrally within the left pedicle, there appears to be a ill-defined lucency | | which may be secondary to a intraosseous hemangioma. There is some sclerosis posteriorly | | along the superior facet. The bilateral fixation screws at L5 are along the most | | lateral aspect of the pedicle. There is some gas along the epidural space which is felt | | to be related to recent surgery. The visualized adrenals are normal. There is no | | hydronephrosis. Mild calcification of the abdominal aorta is noted. Findings by level: | | T12-L1: Normal L1-L2: Normal L2-L3: There is a moderate circumferential disc | | contributing to mild spinal canal and bilateral subarticular recess stenosis. There is | | moderate right and mild left facet hypertrophy. There is mild narrowing of the right | | neural foramen. L3-L4: A mild circumferential disc is present with mild bilateral facet | | hypertrophy. No neural foraminal stenosis is present. L4-L5: A left hemilaminotomy | | defect is noted with demonstration of a inferior facetectomy. There is moderate left and | | mild right neural foraminal stenosis. There appears to be mild spinal canal narrowing | | from a circumferential disc. L5-S1: A small right laminotomy window is noted. There is | | minimal spinal canal and bilateral subarticular recess stenosis from a broad-based disc | | protrusion. There is moderate left and mild right facet hypertrophy. The neural foramen | | are widely patent. IMPRESSION: 1. Postsurgical changes are noted with posterior and | | anterior fusion hardware placement at L4-L5. No loosening of the fixation hardware is | | present.2. No high-grade spinal canal or neural foraminal stenosis. Electronically | | signed by Ritchie Oh MD on 03/29/2018 4:30 PM | | | |L5-S1: A small right laminotomy window is noted. There is minimal spinal canal and bilatera l subarticular recess stenosis from a broad-based disc protrusion. There is moderate left an d mild right facet hypertrophy. The neural foramen are widely patent. | | | |IMPRESSION: | |1. Postsurgical changes are noted with posterior and anterior fusion hardware placement at L4-L5. No loosening of the fixation hardware is present. | |2. No high-grade spinal canal or neural foraminal stenosis. | | | | | + + POC Glucose (03/29/2018 1:55 PM PDT) + + + + + + | Component | Value | Ref Range | Performed | Pathologist | | | | | At | Signature | + + + + + + | Glucose, | 224 (H)Comment: Testing | 65 - 99 mg/dL | EXTERNAL | | | Fingerstick | performed at [facility];[address] | | LAB | | | | [address];[place] | | | | | | [address] | | | | + + + + + + + + | Specimen | + + | | + + + +---------+ + + | Performing | Address | City/State/Zipcode | Phone Number | | Organization | | | | + +---------+ + + | EXTERNAL LAB | | | | + +---------+ + + POC Glucose (03/29/2018 11:55 AM PDT) + + + + + + | Component | Value | Ref Range | Performed | Pathologist | | | | | At | Signature | + + + + + + | Glucose, | 381 (H)Comment: Testing | 65 - 99 mg/dL | EXTERNAL | | | Fingerstick | performed at [facility] [place];[address] | | LAB | | | | [address];[place], [place] | | | | | | [address] | | | | + + + + + + + + | Specimen | + + | | + + + +---------+ + + | Performing | Address | City/State/Zipcode | Phone Number | | Organization | | | | + +---------+ + + | EXTERNAL LAB | | | | + +---------+ + + XR Lumbar Spine 2 or 3 Vw (03/29/2018 9:16 AM PDT) + + | Specimen | + + | | + + + + + | Impressions | Performed At | + + + | 1. Questionable displacement of the left-sided transpedicular | | | fixation screws which may be secondary to projection. If indicated, | | | further assessment could be performed with CT. Electronically | | | signed by Ritchie Oh MD on 03/29/2018 9:34 AM | | + + + + + + | Narrative | Performed At | + + + | [facility] 1955 63 years Female XR LUMBAR SPINE | | | LIMITED 2-3 VIEW 03/29/2018 9:16 AM INDICATION: Back pain | | | COMPARISON: CT, 01/28/2018 TECHNIQUE: Lumbar spine series, 2 views | | | FINDINGS: There are 5 nonrib-bearing lumbar vertebral type bodies. | | | Post surgical changes are noted with anterior and posterior fusion | | | hardware at L4-L5. There is 4.6 mm anterior listhesis of L4 on L5. | | | There is severe disc space narrowing at L2-L3, unchanged. The | | | left-sided transpedicular fixation screws questionably may be | | | displaced when compared to the intraoperative view. This is noted on | | | the frontal projection and could be related to rotation. | | + + + + + | Procedure Note | + + | Aaron, Rad Conversion - 01/22/2019 8:23 AM PDT HANS [id number] years | | FemaleXR LUMBAR SPINE LIMITED 2-3 VIEW03/29/2018 9:16 AM INDICATION: Back pain | | COMPARISON: CT, 01/28/2018 TECHNIQUE: Lumbar spine series, 2 views FINDINGS: There are 5 | | nonrib-bearing lumbar vertebral type bodies. Post surgical changes are noted with | | anterior and posterior fusion hardware at L4-L5. There is 4.6 mm anterior listhesis of | | L4 on L5. There is severe disc space narrowing at L2-L3, unchanged. The left-sided | | transpedicular fixation screws questionably may be displaced when compared to the | | intraoperative view. This is noted on the frontal projection and could be related to | | rotation. IMPRESSION: 1. Questionable displacement of the left-sided transpedicular | | fixation screws which may be secondary to projection. If indicated, further assessment | | could be performed with CT. | | 9:34 AM | |FINDINGS: There are 5 nonrib-bearing lumbar vertebral type bodies. Post surgical changes ar e noted with anterior and posterior fusion hardware at L4-L5. There is 4.6 mm anterior listh esis of L4 on L5. There is severe disc space narrowing at L2-L3, | |unchanged. The left-sided transpedicular fixation screws questionably may be displaced when compared to the intraoperative view. This is noted on the frontal projection and could be r elated to rotation. | | | |IMPRESSION: | |1. Questionable displacement of the left-sided transpedicular fixation screws which may be secondary to projection. If indicated, further assessment could be performed with CT. | | | | | + + External Lab: CBC (03/29/2018 6:13 AM PDT) + + + + + + | Component | Value | Ref Range | Performed | Pathologist | | | | | At | Signature | + + + + + + | WBC | 3.97 | 3.80 - 11.00 | EXTERNAL | | | | | K/uL | LAB | | + + + + + + | RED CELL | 3.34 (L) | 3.70 - 5.10 | EXTERNAL | | | COUNT | | M/uL | LAB | | + + + + + + | Hgb | 11.0 (L) | 11.3 - 15.5 | EXTERNAL | | | | | g/dL | LAB | | + + + + + + | Hematocrit, | 32.1 (L) | 34.0 - 46.0 % | EXTERNAL | | | POC | | | LAB | | + + + + + + | MCV | 96.1 | 80.0 - 100.0 fl | EXTERNAL | | | | | | LAB | | + + + + + + | MCH | 32.9 | 27.0 - 34.0 pg | EXTERNAL | | | | | | LAB | | + + + + + + | MCHC | 34.3 | 32.0 - 35.5 | EXTERNAL | | | | | g/dL | LAB | | + + + + + + | RDW-CV | 44.6 | 37 - 53 fl | EXTERNAL | | | | | | LAB | | + + + + + + | Platelet | 161 | 150 - 400 K/uL | EXTERNAL | | | Count | | | LAB | | | Plasma | | | | | + + + + + + | MPV | 9.2 | fl | EXTERNAL | | | | | | LAB | | + + + + + + | Differentia | AUTOMATED | | EXTERNAL | | | l Type | | | LAB | | + + + + + + | % Segmented | 76.43 | % | EXTERNAL | | | | | | LAB | | | Neutrophils | | | | | + + + + + + | % | 12.21 | % | EXTERNAL | | | Lymphocytes | | | LAB | | + + + + + + | % Monocytes | 9.77 | % | EXTERNAL | | | | | | LAB | | + + + + + + | % | 0.93 | % | EXTERNAL | | | Eosinophils | | | LAB | | + + + + + + | % Basophils | 0.66 | % | EXTERNAL | | | | | | LAB | | + + + + + + | Absolute | 3.03 | 1.90 - 7.40 | EXTERNAL | | | Segmented | | K/uL | LAB | | | Neutrophils | | | | | + + + + + + | Absolute | 0.48 (L) | 1.00 - 3.90 | EXTERNAL | | | Lymphocytes | | K/uL | LAB | | + + + + + + | Absolute | 0.39 | 0.00 - 0.80 | EXTERNAL | | | Monocytes | | K/uL | LAB | | + + + + + + | Absolute | 0.04 | 0.00 - 0.50 | EXTERNAL | | | Eosinophils | | K/uL | LAB | | + + + + + + | Absolute | 0.03Comment: Testing | 0.00 - 0.10 | EXTERNAL | | | Basophils | performed at [facility], [address] | K/uL | LAB | | | | [address], | | | | | | [place] [address] | | | | + + + [...] + +---------+ + + Basic Metabolic Panel (03/29/2018 6:13 AM PDT) + + + + + + | Component | Value | Ref Range | Performed | Pathologist | | | | | At | Signature | + + + + + + | Na | 132 (L) | 135 - 145 | EXTERNAL | | | | | mmol/L | LAB | | + + + + + + | K | 4.0 | 3.5 - 4.9 | EXTERNAL | | | | | mmol/L | LAB | | + + + + + + | Cl | 97 (L) | 99 - 109 mmol/L | EXTERNAL | | | | | | LAB | | + + + + + + | CO2 | 29 | 23 - 32 mmol/L | EXTERNAL | | | | | | LAB | | + + + + + + | Anion Gap | 10 | 5 - 20 mmol/L | EXTERNAL | | | | | | LAB | | + + + + + + | Glucose, | 192 (H) | 65 - 99 mg/dL | EXTERNAL | | | Fasting | | | LAB | | + + + + + + | BUN | 14 | 8 - 25 mg/dL | EXTERNAL | | | | | | LAB | | + + + + + + | Creatinine | 0.7 | 0.50 - 1.00 | EXTERNAL | | | | | mg/dL | LAB | | + + + + + + | BUN/Creatin | 20 | | EXTERNAL | | | ine Ratio | | | LAB | | + + + + + + | Calcium | 7.6 (L) | 8.5 - 10.5 | EXTERNAL | [...] | | | | | performed at [facility], [address] | | | | | | [facility], | | | | | | [place] [address] | | | | + + + + + + + + | Specimen | + + | Blood specimen | | (specimen) | + + + +---------+ + + | Performing | Address | City/State/Zipcode | Phone Number | | Organization | | | | + +---------+ + + | EXTERNAL LAB | | | | + +---------+ + + POC Glucose (03/29/2018 5:49 AM PDT) + + + + + + | Component | Value | Ref Range | Performed | Pathologist | | | | | At | Signature | + + + + + + | Glucose, | 187 (H)Comment: Testing | 65 - 99 mg/dL | EXTERNAL | | | Fingerstick | performed at [facility];[address] | | LAB | | | | [address];[place], [place] | | | | | | [address] | | | | + + + + + + + + | Specimen | + + | | + + + +---------+ + + | Performing | Address | City/State/Zipcode | Phone Number | | Organization | | | | + +---------+ + + | EXTERNAL LAB | | | | + +---------+ + + POC Glucose (03/28/2018 9:20 PM PDT) + + + + + + | Component | Value | Ref Range | Performed | Pathologist | | | | | At | Signature | + + + + + + | Glucose, | 167 (H)Comment: Testing | 65 - 99 mg/dL | EXTERNAL | | | Fingerstick | performed at [facility];[address] | | LAB | | | | [address];[place], [place] | | | | | | [address] | | | | + + + + + + + + | Specimen | + + | | + + + +---------+ + + | Performing | Address | City/State/Zipcode | Phone Number | | Organization | | | | + +---------+ + + | EXTERNAL LAB | | | | + +---------+ + + POC Glucose (03/28/2018 5:54 PM PDT) + + + + + + | Component | Value | Ref Range | Performed | Pathologist | | | | | At | Signature | + + + + + + | Glucose, | 91Comment: Testing | 65 - 99 mg/dL | EXTERNAL | | | Fingerstick | performed at [facility];[address] | | LAB | | | | [address];[place] | | | | | | [address] | | | | + + + + + + + + | Specimen | + + | | + + + +---------+ + + | Performing | Address | City/State/Zipcode | Phone Number | | Organization | | | | + +---------+ + + | EXTERNAL LAB | | | | + +---------+ + + FL C-Arm > 1 Hour (03/28/2018 5:46 PM PDT) + + | Specimen | + + | | + + + + + | Impressions | Performed At | + + + | FINDINGS AND IMPRESSION: Pedicle screws and stabilization rods | | | fixating L4-L5. Intervertebral spacer devices in appropriate position. | | | Mild anterior spondylolisthesis of L4 on L5. Electronically | | | signed by Jamel Nix DO on 03/29/2018 7:35 AM | | + + + + + + | Narrative | Performed At | + + + | HANS SILVA XR C-ARM FLUORO OVER 1 HOUR HISTORY: 63 | | | years. Female. Spinal stenosis. TECHNIQUE: 2 spot fluoroscopic | | | images of the lumbar spine. 90.5 seconds of fluoroscopy time was | | | utilized. | | + + + + + | Procedure Note | + + | Aaron, Rad Conversion - 01/22/2019 8:24 AM PDT HANS AVITIA C-ARM FLUORO OVER | | 1 HOUR HISTORY:63 years. Female. Spinal stenosis. TECHNIQUE:2 spot fluoroscopic images | | of the lumbar spine. 90.5 seconds of fluoroscopy time was utilized. IMPRESSION: FINDINGS | | AND IMPRESSION:Pedicle screws and stabilization rods fixating L4-L5. Intervertebral | | spacer devices in appropriate position. Mild anterior spondylolisthesis of L4 on L5. | | | |TECHNIQUE: | |2 spot fluoroscopic images of the lumbar spine. 90.5 seconds of fluoroscopy time was utiliz ed. | | | |IMPRESSION: | |FINDINGS AND IMPRESSION: | |Pedicle screws and stabilization rods fixating L4-L5. Intervertebral spacer devices in appr opriate position. Mild anterior spondylolisthesis of L4 on L5. | | | | | + + POC Glucose (03/28/2018 11:20 AM PDT) + + + + + + | Component | Value | Ref Range | Performed | Pathologist | | | | | At | Signature | + + + + + + | Glucose, | 127 (H)Comment: Testing | 65 - 99 mg/dL | EXTERNAL | | | Fingerstick | performed at [facility];[address] | | LAB | | | | [address];[place], [place] | | | | | | [address] | | | | + + + + + + + + | Specimen | + + | | + + + +---------+ + + | Performing | Address | City/State/Zipcode | Phone Number | | Organization | | | | + +---------+ + + | EXTERNAL LAB | | | | + +---------+ + + documented in this encounter Visit Diagnoses + + | Diagnosis | + + | Degenerative spondylolisthesis Acquired spondylolisthesis | + + | Lumbar stenosis with neurogenic claudication Spinal stenosis, lumbar region, with | | neurogenic claudication | + + | Lumbar radiculopathy Thoracic or lumbosacral neuritis or radiculitis, unspecified | + + | DDD (degenerative disc disease), lumbar Degeneration of lumbar or lumbosacral | | intervertebral disc | + + | Weakness of foot, left | + + documented in this encounter Additional Health Concerns + + + + | Infection | Noted Time | Resolved Time | + + + + | Methicillin-resistant Staphylococcus aureus | 03/21/2018 12:00 AM | | | | PDT | | + + + + documented as of this encounter
--- OUTSIDE RECORDS SUMMARY | ~2019-05-05 | XMS | Encounter Summary ---
Demographics + + + | Address | [address] | | | [place] [address] | + + + | Home Phone | | + + + | Preferred Language | Unknown | + + + | Marital Status | | + + + | Jainism Affiliation | 1076 | + + + | Race | Unknown | + + + | Ethnic Group | Unknown | + + + Author + + + | Author | [facility] | | | and [place] | + + + | Organization | [facility] | | | [...] Team Providers + +------+ + | Care Clinic Office Manager Name | Role | Phone [...] | | | | | [place] [address] | | | | | | [phone] | | | +--------+ + + + [...] | | | | | | [place] | | | | | | [address] | | | | | | | | +--------+ + + + + | 01/11/ | Appointment | Radiation Oncology | Thanh Espinoza DO | | | 2019 | | | [address] | | | | | | [place] | | | | | | [address] | | | | | | | | +--------+ + + + + documented as of this encounter Visit Diagnoses Not on filedocumented in this encounter"
--- OUTSIDE RECORDS SUMMARY | ~2019-05-05 | XMS | Encounter Summary ---
Demographics + + + | Address | [address] | | | [place] [address] | + + + | Home Phone [...] Team Providers + +------+ + | Care Unclaimed Property Officer Name | Role | Phone | [...] | MED CTR EXTERNAL | [address] | | | | | IMAGING | [place] | | | | | [phone] | [place] [address] | | +--------+ + + + + [...] [place] | | | | | | [address] | | | | | | | | +--------+ + + + + | 01/11/ | Appointment | Radiation Oncology | Thanh Espinoza DO | | | 2019 | | | [address] | | | | | | [place] | | | | | | [address] | | | | | | | [...] this | | VW | e | 10:40 AM | | procedure are in the | | | | PDT | | results section. | + +--------+ + + + documented in this encounter Results XR Lumbar Spine 4 + Vw (09/07/2017 10:40 AM PDT) + + | Specimen [...]
--- OUTSIDE RECORDS SUMMARY | ~2019-05-05 | XMS | Encounter Summary ---
Demographics + + + | Address | [address] | | | [place] [address] | + + + | Home Phone [...] Team Providers + +------+ + | Care Dive Master Name | Role | Phone | + [...] [place] | | | | | [address] [place] | [place] [address] | | | | | [place] [address] | [phone] | | | | | [phone] | | | +--------+ + + + [...] | | | | | | [facility] | | | | | | [address] | | | | | | | | +--------+ + + + + | 01/11/ | Appointment | Radiation Oncology | Thanh Espinoza DO | | | 2019 | | | [address] | | | | | | [place] | | | | | | [address] | | | | | | | | +--------+ + + + + documented as of this encounter Visit Diagnoses Not on filedocumented in this encounter"
--- OUTSIDE RECORDS SUMMARY | ~2019-05-05 | XMS | Encounter Summary ---
Demographics + + + | Address | [address] | | | [place] [address] | + + + | Home Phone [...] Team Providers + +------+ + | Care Nutrition Educator Name | Role | Phone | + +------+ + | Britton Chi MD | PCP | | + +------+ + Encounter Details +--------+ + + + + | Date | Type | Department | Care Team | Description | +--------+ + + + + | 01/08/ | Documentati | [facility] | Agustin, | | | 2017 | on | MED CTR MEDICAL | Dimas Mckay MD [address] | | | | | [facility] CL[facility] [address] | [address] | | | | | [address] [place] | [place] [address] | | | | | [place] [address] | [phone] | | | | | [phone] | | | +--------+ + + + [...] [place] | | | | | | [id number] | | | | | | | | +--------+ + + + + | 01/11/ | Appointment | Radiation Oncology | Thanh Espinoza DO | | | 2019 | | | [address] | | | | | | [place] | | | | | | [address] | | | | | | | | +--------+ + + + + documented as of this encounter Visit Diagnoses + + | Diagnosis | + + | Malignant neoplasm of upper-outer quadrant of right breast in female, 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
--- OUTSIDE RECORDS SUMMARY | ~2019-05-05 | XMS | Encounter Summary ---
Demographics + + + | Address | [address] | | | [place] [address] | + + + | Home Phone | | + + + | Preferred Language | Unknown | + + + | Marital Status | | + + + | Alevism Affiliation | 1076 | + + + | Race | Unknown | + + + | Ethnic Group | Unknown | + + + Author + + + | Author | [facility] | | | and [place] | + + + | Organization | [facility] | | | and [...] Team Providers + +------+ + | Care Programmer Or Analyst Name | Role | Phone | [...] | | | | [place] | [phone] | | | | | [address] | | | | | | [phone] | | | +--------+ + + + [...] [place] | | | | | | [address] | | | | | | | [...]
--- OUTSIDE RECORDS SUMMARY | ~2019-05-05 | XMS | Encounter Summary ---
Demographics + + + | Address | [address] | | | [place] [address] | + + + | Home Phone | | + + + | Preferred Language | Unknown | + + + | Marital Status | | + + + | Faith Affiliation | 1076 | + + + | Race | Unknown | + + + | Ethnic Group | Unknown | + + + Author + + + | Author | [facility] | | | and [place] | + + + | Organization | [facility] | | [...] Team Providers + +------+ + | Care Environmental Adviser Name | Role | Phone | + +------+ + PCP | Unavailable | + +------+ + Encounter Details +--------+ + + + + | Date | Type | Department | Care Team | Description | +--------+ + + + + | 04/19/ | Hospital | [facility] | | | | 2005 | Encounter | MED CTR XRAY [address] | | | | | | [place] | | | | | | [place] [address] | | | | | | [phone] | | | +--------+ + + + [...] [place] | | | | | | [address] | | | | | | | | +--------+ + + + + | 01/11/ | Appointment | Radiation Oncology | Thanh Espinoza DO | | | 2019 | | | [address] | | | | | | [place] | | | | | | [phone] | | | | | | | | +--------+ + + + + documented as of this encounter Visit Diagnoses Not on filedocumented in this encounter"
--- OUTSIDE RECORDS SUMMARY | ~2019-05-05 | XMS | Encounter Summary ---
Demographics + + + | Address | [address] | | | [place] [address] | + + + | Home Phone | | + + + | Preferred Language | Unknown | + + + | Marital Status | | + + + | Presybeterian Affiliation | 1076 | + + + | Race | Unknown | + + + | Ethnic Group | Unknown | + + + Author + + + | Author | [facility] | | | and [place] | + + + | Organization | [facility] | | [...] Team Providers + +------+ + | Care Casino Cage Cashier Name | Role | Phone | + [...] | | | | | | [place] [address] | | | | | | [phone] | | | +--------+ + + + [...] [place] | | | | | | [address] | | | | | | | | +--------+ + + + + | 01/11/ | Appointment | Radiation Oncology | Thanh Espinoza DO | | | 2019 | | | [address] | | | | | | [place] | | | | | | [address] | | | | | | | | +--------+ + + + + documented as of this encounter Visit Diagnoses Not on filedocumented in this encounter"
--- OUTSIDE RECORDS SUMMARY | ~2019-05-05 | XMS | Encounter Summary ---
Demographics + + + | Address | [address] | | | [place] [address] | + + + | Home Phone [...] Team Providers + +------+ + | Care Applications Programmer Name | Role | Phone | + +------+ + | Britton Chi MD | PCP | | + +------+ + Encounter Details +--------+ + + + + | Date | Type | Department | Care Team | Description | +--------+ + + + + | 12/06/ | Hospital | [facility] | Thanh Espinoza DO | | | 2018 | Encounter | MED CTR RADIATION | [address] | | | | | ONCOLOGY [address] | [place], [place] | | | | | [place], | [address] | | | | | [place] [address] | | | | | | [phone] | | | +--------+ + + + [...] [place] | | | | | | [address] | | | | | | | | +--------+ + + + + | 01/11/ | Appointment | Radiation Oncology | Thanh Espinoza DO | | | 2019 | | | [address] | | | | | | [place] | | | | | | [address] | | | | | | | [...]
--- OUTSIDE RECORDS SUMMARY | ~2019-05-05 | XMS | Encounter Summary ---
Demographics + + + | Address | [address] | | | [place] [address] | + + + | Home Phone | | + + + | Preferred Language | Unknown | + + + | Marital Status | | + + + | Islam Affiliation | 1076 | + + + | Race | Unknown | + + + | Ethnic Group | Unknown | + + + Author + + + | Author | [facility] | | | and [place] | + + + | Organization | [facility] | | [...] Team Providers + +------+ + | Care Plate Straightener Name | Role | Phone | + [...] | | | | [place] | [phone] | | | | | [address] | | | | | | [phone] | | | +--------+ + + + [...] [place] | | | | | | [address] | | | | | | | [...]
--- OUTSIDE RECORDS SUMMARY | ~2019-05-05 | XMS | Encounter Summary ---
Demographics + + + | Address | [address] | | | [place] [address] | + + + | Home Phone [...] + + | Author | [facility] | | | and [place] | + + + | Organization | [facility] | | | [...] Team Providers + +------+ + | Care Fisheries Technical Officer Name | Role | Phone [...] | MED CTR EXTERNAL | [address] | | | | | IMAGING | [place] | | | | | [phone] | [place] [address] | | +--------+ + + + + [...] [place] | | | | | | [address] | | | | | | | | +--------+ + + + + | 01/11/ | Appointment | Radiation Oncology | Thanh Espinoza DO | | | 2019 | | | [address] | | | | | | [place] | | | | | | [address] | | | | | | | [...]
--- OUTSIDE RECORDS SUMMARY | ~2019-05-05 | XMS | Encounter Summary ---
Demographics + + + | Address | [address] | | | [place] [address] | + + + | Home Phone | | + + + | Preferred Language | Unknown | + + + | Marital Status | | + + + | Mandaen Affiliation | 1076 | + + + | Race | Unknown | + + + | Ethnic Group | Unknown | + + + Author + + + | Author | [facility] | | | and [place] | + + + | Organization | [facility] | | [...] Team Providers + +------+ + | Care Inside Sales Director Name | Role | Phone | [...] | ONCOLOGY CLINIC [address] | [place] | mammogram (Primary | | | | [address] | [address] | Dx) | | | | [place] [address] | | | | | | [phone] | | | +--------+ + + + [...] [place] | | | | | | [address] | | | | | | | | +--------+ + + + + | 01/11/ | Appointment | Radiation Oncology | Thanh Espinoza DO | | | 2019 | | | [address] | | | | | | [place] | | | | | | [address] | | | | | | | | +--------+ + + + + documented as of this encounter Results LEILA Tomosynthesis Diagnostic Right (10/30/2017 10:40 AM PDT) + + | Specimen | + + | | + + + + + | Narrative | Performed At | + + + | EXAM: [facility] TOMOSYN DIAGNOSTIC RIGHT dated 10/30/2017 10:19 AM [...]
--- OUTSIDE RECORDS SUMMARY | ~2019-05-05 | XMS | Encounter Summary ---
Demographics + + + | Address | [address] | | | [place] [address] | + + + | Home Phone [...] Team Providers + +------+ + | Care Aoc Director Intelligence Officer Name | Role | Phone | + +------+ + | Radha Carias PA-C | PCP | | + +------+ + Reason for Visit Evaluate & Treat (Routine) + +--------+ + + + + | Status | Reason | Specialty | Diagnoses / | Referred By | Referred To | | | | | Procedures | Contact | Contact | + +--------+ + + + + | Authorized | | Radiation | Diagnoses | Tiffaniem | Thanh Espinoza | | | | Oncology | Malignant | Radiation | C, DO [address] | | | | | neoplasm of | Oncology | [address] | | | | | upper-outer | Clinic [address] | [place], | | | | | quadrant of | [address] | [place] [address] | | | | | female | [place], | Phone: | | | | | breast | [place] | [phone] | | | | | Procedures | [address] | Fax: | | | | | OFFICE VISIT | Phone: | [phone] | | | | | EXTENDED | [phone] | | | | | | | Fax: | | | | | | | [phone] | | + +--------+ + + + + Encounter Details +--------+ + + + + | Date | Type | Department | Care Team | Description | +--------+ + + + + | 01/07/ | Hospital | [facility] | Thanh Espinoza DO | Encounter for | | 2019 | Encounter | MED CTR RADIATION | [address] | screening mammogram | | | | ONCOLOGY CLINIC [address] | [place] | for high-risk | | | | [address] [place] | [address] | patient (Primary | | | | [place] [address] | | Dx); Malignant | | | | [phone] | | neoplasm of | | | | | | upper-outer quadrant | | | | | | of right breast in | | | | | | female, estrogen | | | | | | receptor positive | | | | | | (HCC); Lobular | | | | | | breast cancer, left | | | | | | (HCC) | +--------+ + + + + [...] 0 | 07/01/19 | | | Gluc Group Work Program Aide | SUGAR before meals | | | [...] encounter Progress Notes Thanh Espinoza DO - 01/07/2019 2:28 PM PDT Follow-up Clinic Note Chief Complaint/ICD10 ICD-10-CM ICD-9-CM 1. Encounter for screening mammogram for high-risk patient Z12.31 V76.11 2. Malignant neoplasm of upper-outer quadrant of right breast in female, estrogen receptor positive (HCC) C50.411 174.4 Z17.0 V86.0 3. Lobular breast cancer, left (HCC) C50.912 174.9 Oncology History: Lobular breast cancer, left (HCC) 09/23/2012 Biopsy Core biopsy demonstrating moderately differentiated infiltrating lobular carcinoma; low-g rade, ER/AR positive, HER-2/zaid negative 09/23/2012 Initial Diagnosis Lobular breast cancer, right (HCC) 10/15/2012 Surgery Surgeon: Felipe Trevino M.D. Surgery indicated: Lumpectomy with sentinel lymph node biopsy Final pathology details: 8 mm invasive lobular carcinoma, grade 1, negative surgical margin s to 1 mm, negative LVSI, LCIS involving 10% of specimen, ER/AR positive, HER-2/zaid negative by FISH. 11/25/2012 - 01/09/2013 Radiation Therapy Total dose: 6000 cGy Breast irradiation to 5000 cGy delivered in 25 fractions Lumpectomy cavity boost 1000 cGy delivered in 5 fractions 01/09/2013 - 08/14/2014 Hormone Therapy Anastrozole 1 mg Discontinued due to side effects Primary malignant neoplasm of upper outer quadrant of female breast (HCC) 10/22/2017 Imaging Bilateral screening mammogram with tomosynthesis demonstrating abnormality in the right u pper-outer quadrant 10/30/2017 Imaging Diagnostic right mammogram with tomosynthesis confirms abnormality in the right breast pr ompting stereotactic biopsy 11/21/2017 Biopsy STEREOTACTIC GUIDED VACUUM ASSISTED RIGHT BREAST CORE BIOPSY Right breast stereo calcs: - Infiltrating ductal carcinoma with the following features: - Predicted [place] histologic score: - Tubule formation score: 3/3. [...] immunostaining pT1b.pN0(i+) History of Present Illness: Melodie Castaneda seen todayin follow-up to discuss the role of radiotherapeuti c management in her newly diagnosed right-sided breast cancer. She is [id number]- old woman who was previously diagnosed with moderately differentiated infiltrating lobular c arcinomainvolving the left breast with overall stage IA (T1b, N0, M0), ER/AR positive dise ase that was treated with adjuvant whole breast radiotherapy. She previously discontinued anastrozole in early 2014 due to secondary side effects. She continues to have good range of motion of her left arm. She maintains an active lifestyle and exercising regularly with the use of a strainer cleaner at the [employer]. She underwent routine screening bilateral mammogram performedon October 22, 2017 at which kim morales I performed a breast examination during routine follow-up with negative findings and no ev idence of axillary lymphadenopathy.The final report confirms no new findings within the left breast; however, a new cluster of microcalcifications was found in the right breast in the lateral aspect at mid depth prompting a diagnostic mammogram performed October 30, 2017. T his study confirmed interval development of a small cluster of round and punctate microcalci fications in the upper outer quadrant of the right breast at the 9:30 position. On November she underwent a stereotactic guided vacuum-assisted right breast core biopsy confirmi ng an intermediate grade ductal carcinoma that was strongly ER positive moderately AR positi ve, HER-2/zaid negative with negative LVSI and associated low-grade DCIS. Ki-67 was 12%. On January 01, 2018 she underwent lumpectomy with sentinel lymph node biopsy confirming a 6 mm intermediate grade invasive ductal carcinoma with associated low-grade DCIS measuring 1.9 cm . 3 lymph nodes were sampled with one harboring isolated tumor cells totaling 25 with a norma surement of 0.1 mm giving her an overall stage of Ia(pT1b,pN0(i+),cM0) breast cancer. Posto peratively, she received adjuvant radiotherapy using a hypo-fractionated technique receiving 42.56 Gy delivered in 16 fractions using a 10 MV photon beam. A lumpectomy cavity boost of 4 fractions of 2.5 Gy each for an additional 10 Gy was delivered completing on February. She is physically active and denies any limitations in her range of motion. She is undergoing endocrine therapy with exemestane 25 mg daily and has noted mild joint pain as a result. She underwent bilateral breast tomosynthesis screening exam today with a formal re port pending. After personal review there do not see evidence of progressive calcifications , architectural distortions or other concerning findings at this time and will notify Chary salas of the final results when available. She presents today for physical examination follow ing her mammogram for her diagnosis of breast cancer. ROS Constitutional: Denies fatigue. Denies high fevers, [...] Denies hematuria or dysuria. Musculoskeletal: Reports chronic joint pain. Neurologic: Denies headache, visual changes, or numbness/tingling of the extremities. Endocrine: Denies peripheral edema or heat/cold intolerance. Hematologic: Denies spontaneous bruising or bleeding. Integumentary: Denies rash, wounds or other skin concerns. Pain: Denies pain. Note: Patient here for follow up for breast cancer. My chart:Active Current Outpatient Medications Medication Sig Dispense Refill aspirin 325 mg tablet Take 1 tablet by mouth Daily. atorvaSTATin (LIPITOR) 40 mg tablet Take 40 mg by mouth nightly. buPROPion (WELLBUTRIN XL) 150 mg 24 hr tablet Take 1 tablet by mouth Daily. 0 Continuous Blood Gluc Group Work Program Aide (RenthackrSTSOLARBRUSH BRAD 14 DAY READER) JANIA use TO TEST BLOOD S UGAR before meals and at bedtime or as directed 0 CONTOUR NEXT TEST strip 1 cyclobenzaprine (FLEXERIL) 5 MG tablet Take 1 tablet by mouth every 6 hours as needed. 0 exemestane (AROMASIN) 25 MG tablet Take 1 tablet by mouth Daily. 0 glucagon 1 MG injection Glucagon Emergency Kit (human-recomb) 1 mg injection ibuprofen (ADVIL,MOTRIN) 600 MG tablet every 8 hours as needed. insulin aspart (NOVOLOG FLEXPEN) 100 units/mL injection pen Inject under the skin 3 ti mes daily (before meals). Per sliding scale insulin glargine (LANTUS SOLOSTAR) 100 units/mL injection (pen) Inject under the skin 2 times daily. 30 units AM, 10 units PM lisinopril (PRINIVIL,ZESTRIL) 40 MG tablet 1 LORazepam (ATIVAN) 1 mg tablet Take 1 mg by mouth Daily as needed for Anxiety. metoprolol succinate (TOPROL-XL) 25 mg 24 hr tablet Take 1 tablet by mouth Daily. 0 Multiple Vitamins-Minerals (MULTIVITAMIN ADULT) TABS Take 1 tablet by mouth Daily. No current facility-administered medications for this encounter. Allergies Allergen Reactions Sulfa Antibiotics Rash Intolerance No active intolerances/contraindications There were no vitals taken for this visit. Physical Exam Constitutional: She is oriented to [...] breath sounds normal. Right breast exhibits no tendernes s. Left breast exhibits no tenderness. Musculoskeletal: Normal range of motion. Lymphadenopathy: Head (right side): No preauricular and no posterior auricular adenopathy present. Head (left side): No preauricular and no posterior auricular adenopathy present. She has no cervical adenopathy. Right cervical: No superficial cervical, no deep cervical and no posterior cervical ad enopathy present. Left cervical: No superficial cervical, no deep cervical and no posterior cervical sandra nopathy present. Right axillary: No pectoral and no lateral adenopathy present. Left axillary: No pectoral and no lateral adenopathy present. Right: No supraclavicular adenopathy present. Left: No supraclavicular adenopathy present. Neurological: She is alert and oriented to [...] (mm): 8 Method of lymph node assessment: Hooper lymph node biopsy Method of detection of distant metastases: Clinical Tumor grade (Jkylqf-Acmot-Niclqukmqu system): G1 Lymph-vascular invasion (LVI): LVI not [...] national guideline used in treatment planning: NCCN Primary malignant neoplasm of upper outer quadrant of female breast (HCC) Staging form: Breast, AJCC 8th Edition - Pathologic stage from 01/29/2018: Stage IA (pT1b, pN0(i+), cM0, G2, ER: Positive, AR: Posi tive, HER2: Negative) - Signed by Thanh Espinoza DO on 01/30/2018 Neoadjuvant therapy: No Laterality: Right Tumor size (mm): 6 Nuclear grade: G2 Multigene prognostic tests performed: Other Mitotic count score: Score 1 Percentage of tumor with tubule formation: 0 Tubule formation score: Score 3 Osfpvk-Mfpdr-Udhlnuyvug score: 6 Histologic grading system: 3 grade [...] - LEILA Tomosynthesis Screening Bilateral; Future 2. Malignant neoplasm of upper-outer quadrant of right breast in female, estrogen receptor positive (HCC) 3. Lobular breast cancer, left (HCC) Melodie Silva was seen today in routine follow-up after completing a hypo-fraction ated treatment of a metachronous right sided breast cancer. Clinical examination demonstrat es no evidence of disease and upon personal review of her mammogram performed earlier today there is no obvious area of concern. I will notify her upon completion by radiology of her formal report. Late toxicities of external beam radiotherapy were discussed including the n eed for range of motion exercises and lymphedema management as clinically indicated or 4 sym ptomatic control should it develop. I recommend monthly self breast examinations followed b y a physician based examination every 6 months for the next 5 years with annual screening ma mmograms. She was encouraged to call our clinic with any further questions or concerns rega rding her treatment or if she should develop any new symptoms requiring further evaluation. Thank you for allowing me to participate in the care of Melodie. If you should have any q uestions regarding this evaluation, please do not hesitate to contact me. Thanh Espinoza D.O., JUSTIN Radiation Oncologist Department of Radiation Oncology [facility] This note was transcribed using [employer] speech recognition software. As a result, there [...] high-risk patient - Primary | + + | Malignant neoplasm of upper-outer quadrant of right breast in female, estrogen | | receptor positive (HCC) | + + | Lobular breast cancer, left (HCC) | + + documented in this encounter Additional Health Concerns + + + + | Infection | Noted Time | Resolved Time | + + + + | Methicillin-resistant Staphylococcus aureus | 03/21/2018 12:00 AM | | | | PDT | | + + + + documented as of this encounter"
--- OUTSIDE RECORDS SUMMARY | ~2019-05-05 | XMS | Encounter Summary ---
Demographics + + + | Address | [address] | | | [place] [address] | + + + | Home Phone | | + + + | Preferred Language | Unknown | + + + | Marital Status | | + + + | Latter-Day Affiliation | 1076 | + + + | Race | Unknown | + + + | Ethnic Group | Unknown | + + + Author + + + | Author | [facility] | | | and [place] | + + + | Organization | [facility] | | | [...] Team Providers + +------+ + | Care Bonsai Culturist Name | Role | Phone | + [...] | ONCOLOGY CLINIC [address] | [place] | mammogram (Primary | | | | [address] | [address] | Dx) | | | | [place] [address] | | | | | | [phone] | | | +--------+ + + + [...] [place]AN[place] | | | | | | [address] | | | | | | | | +--------+ + + + + | 01/11/ | Appointment | Radiation Oncology | Thanh Espinoza DO | | | 2019 | | | [address] | | | | | | [place] | | | | | | [address] | | | | | | | [...] biopsy table, and the right breast compressed. Business Continuity Specialist | | | digital mammographic images were [...]
--- OUTSIDE RECORDS SUMMARY | ~2019-05-05 | XMS | Encounter Summary ---
Demographics + + + | Address | [address] | | | [place] [address] | + + + | Home Phone | | + + + | Preferred Language | Unknown | + + + | Marital Status | | + + + | Bahai Affiliation | 1076 | + + + | Race | Unknown | + + + | Ethnic Group | Unknown | + + + Author + + + | Author | [facility] | | | and [place] | + + + | Organization | [facility] | | [...] Team Providers + +------+ + | Care Sponsorship Manager Name | Role | Phone | + +------+ + | Kiet Dunlap MD | PCP | | + +------+ + Encounter Details +--------+ + + + + | Date | Type | Department | Care Team | Description | +--------+ + + + + | 09/10/ | Hospital | [facility] | Thanh Espinoza DO | | | 2014 | Encounter | [facility] RADIATION | [address] [facility] | | | | ONCOLOGY [address] | [place], [place] | | | | | [place], | [address] | | | | | [place] [address] | | | | | | [phone] | | | +--------+ + + + [...] 09/10/2013 12:00 AM PDTPATIENT: Melodie Aguilera RicardoDOS:09/10/2013MR#: [id number] :1955 Follow-up Clinic Note ICD/Diagnosis: 174.4 - [...] that overall stage IA (T1b, N0, M0), ER/NJ positive disease. She has been seen by [...] stage 0, low-grad e LCIS that is ER/NJ positive. We discussed long-term toxicities from radiation therapy inc luding fibrosis of the chest wall limiting range of motion and potential lymphedema of the breast. She did not undergo physical therapy or lymphedema management previously and would like to pursue that at this time. She requests referral to the [employer] [facility] in [facility] for physical therapy. I will order [...] D.O. Radiation Oncologist Department of Radiation Oncology [facility] This note was transcribed using [employer] speech recognition software. As a result, there ma y be unintended for medical and/or spelling errors. Every attempt is made to correct dicta tion. If there are any questions or errors please contact our office. CSN: [id number] signed by Thanh Espinoza DO at 09/13/2013 [...]
--- OUTSIDE RECORDS SUMMARY | ~2019-05-05 | XMS | Encounter Summary ---
Demographics + + + | Address | [address] | | | [place] [address] | + + + | Home Phone [...] Team Providers + +------+ + | Care Validation Intern Name | Role | Phone | [...] | | | | [place] | [phone] | | | | | [address] | | | | | | [phone] | | | +--------+ + + + [...] | | | | | | [place] | | | | | | [address] | | | | | | | | +--------+ + + + + | 01/11/ | Appointment | Radiation Oncology | Thanh Espinoza DO | | | 2019 | | | [address] | | | | | | [place] | | | | | | [address] | | | | | | | [...]
--- OUTSIDE RECORDS SUMMARY | ~2019-05-05 | XMS | Encounter Summary ---
Demographics + + + | Address | [address] | | | [place] [address] | + + + | Home Phone | | + + + | Preferred Language | Unknown | + + + | Marital Status | | + + + | Mormon Affiliation | 1076 | + + + | Race | Unknown | + + + | Ethnic Group | Unknown | + + + Author + + + | Author | [facility] | | | and [place] | + + + | Organization | [facility] | | | [...] Team Providers + +------+ + | Care Hop Strainer Name | Role | Phone | + +------+ + | Britton Chi MD | PCP | | + +------+ + Encounter Details +--------+ + + + + | Date | Type | Department | Care Team | Description | +--------+ + + + + | 10/18/ | Hospital | [facility] | Lord, Thanh C, DO | Encounter for | | 2017 | Encounter | MED CTR MAMMOGRAPHY | [address] | screening mammogram | | | | [address] | [place] | for high-risk | | | | [place] | [address] | patient | | | | [address] | | | | | | [phone] | | | +--------+ + + + [...] [place]AN[place] | | | | | | [address] | | | | | | | | +--------+ + + + + | 01/11/ | Appointment | Radiation Oncology | Thanh Espinoza DO | | | 2019 | | | [address] | | | | | | [place] | | | | | | [address] | | | | | | | [...] on the 2-D or | | | peep images. Few round and punctate calcifications persist [...]
--- OUTSIDE RECORDS SUMMARY | ~2019-05-05 | XMS | Encounter Summary ---
Demographics + + + | Address | [address] | | | [place] [address] | + + + | Home Phone [...] Team Providers + +------+ + | Care Media Analyst Name | Role | Phone | [...] | | | | estrogen | [place] [address] | [address] | | | | | receptor | Phone: | Phone: | | | | | positive, | [phone] | [phone] | | | | | unspecified | Fax: | Fax: | | | | | site of | [phone] | [phone] | | | | | breast (HCC) [...] | ONCOLOGY CLINIC [address] | [place], [place] | | | | | [address] [place] | [address] | | | | | [place] [address] | | | | | | [phone] | | | +--------+ + + + [...] [place] | | | | | | [address] | | | | | | | | +--------+ + + + + | 01/11/ | Appointment | Radiation Oncology | Thanh Espinoza DO | | | 2019 | | | [address] | | | | | | [place] | | | | | | [address] | | | | | | | [...]
--- OUTSIDE RECORDS SUMMARY | ~2019-05-05 | XMS | Encounter Summary ---
Demographics + + + | Address | [address] | | | [place] [address] | + + + | Home Phone | | + + + | Preferred Language | Unknown | + + + | Marital Status | | + + + | Synagogue Affiliation | 1076 | + + + | Race | Unknown | + + + | Ethnic Group | Unknown | + + + Author + + + | Author | [facility] | | | and [place] | + + + | Organization | [facility] | | | [...] Team Providers + +------+ + | Care Commercial Loan Collection Officer Name | Role | Phone | + +------+ + | Britton Chi MD | PCP | | + +------+ + Encounter Details +--------+ + + + + | Date | Type | Department | Care Team | Description | +--------+ + + + + | 10/22/ | Hospital | [facility] | Lord, Thanh C, DO | Encounter for | | 2018 | Encounter | MED CTR MAMMOGRAPHY | [address] | screening mammogram | | | | [address] | [place] | for high-risk | | | | [place] | [address] | patient | | | | [address] | | | | | | [phone] | | | +--------+ + + + [...]
--- OUTSIDE RECORDS SUMMARY | ~2019-05-05 | XMS | Encounter Summary ---
Demographics + + + | Address | [address] | | | [place] [address] | + + + | Home Phone [...] Team Providers + +------+ + | Care Towboat Pilot Name | Role | Phone | [...] [address] | [address] [place], [place] | location, | | | | [place], [place] | [address] | unspecified back | | | | [address] | | pain laterality, | | | | [phone] | | unspecified | | | | [...] | | | | | | [place] | | | | | | [address] | | | | | | | | +--------+ + + + + | 01/11/ | Appointment | Radiation Oncology | Thanh Espinoza DO Nely | | | 2019 | | | [address] | | | | | | [place] | | | | | | [address] | | | | | | | | +--------+ + + + + documented as of this encounter Visit Diagnoses + + | Diagnosis | + + | Back pain, unspecified back location, unspecified back pain laterality, unspecified | | chronicity - Primary | + + documented in this encounter"
[~2019-05-05 07:22] MED LIST: ANASTROZOLE1 MG PO; ATIVAN1 MG PO; ATORVASTATIN CA10 MG PO; CYCLOBENZAPRINE10 MG PO; GABAPENTIN300 MG PO; IBUPROFEN600 MG PO; LANTUS100 UNITS/ SUB-Q; LISINOPRIL40 MG PO; MAPAP325 MG PO; MULTIVITAMINS1 EAC8; NORCO 5-325 TA1 EACH PO; NOVOLOG FL100 UNIT/1 SQ; OXYCODON-ACETA1 EAC2 PO; TAMOXIFEN CITRA20 MG PO; UNIVASC15 MG PO; VENLAFAXINE HC150 MG PO; WELLBUTRIN SR200 MG PO; ZOFRAN ODT8 MG PO
--- OUTSIDE RECORDS SUMMARY | 2019-05-05 07:24 | XMS ---
PreManage Notification: HANS CORTEZ Security Gallery Intern Events No recent Security Events currently on file CRITERIA MET - [facility] CARE PROVIDERS There are no care providers on record at this time. Jonny has no Care Guidelines for this patient. Caprice VISIT COUNT (12 MO.) 1 RACHEL Nobles TOTAL 1 NOTE: Visits indicate total known visits. ED/UCC VISIT TRACKING (12 MO.) 05/05/2019 07:22 RACHEL Serrato OR TYPE: Emergency COMPLAINT: - VOMITING, NAUSEA INPATIENT VISIT TRACKING (12 MO.) No inpatient visits to display in this time frame [id number]
[2019-05-05] MEDS ORDERED: BUPROPION XL150 MG PO (07:35)
[2019-05-05] MEDS ORDERED: EXEMESTANE25 MG PO (07:35)
[2019-05-05] MEDS ORDERED: PROMETHAZINE HC25 MG PR (09:54)
[2019-05-05] MEDS ORDERED: PROMETHAZINE HC25 M1 PO (09:54)
[2019-05-07] MEDS ORDERED: TOPROL XL25 MG PO (09:26)
== END 2019-05-05 10:10 | disposition home or self-care (01) ==
LOC: ED 07:22
DX: R11.2 Nausea with vomiting, unspecified (principal); R10.11 Right upper quadrant pain; E11.9 Type 2 diabetes mellitus without complications; I10 Essential (primary) hypertension; E78.00 Pure hypercholesterolemia, unspecified; Z85.3 Personal history of malignant neoplasm of breast; Z88.2 Allergy status to sulfonamides; Z79.899 Other long term (current) drug therapy; Z79.4 Long term (current) use of insulin
CPT/HCPCS: 80053; 83690; 85025; 96361; 96374; 96375; 99284-25; J1170; J2765; J7030

== ENCOUNTER 2020-03-22 05:45 | Day surgery (SDC) | payer OTHER ==
--- NOTE | 2020-03-10 09:32 | NUR ---
HANS WAS HERE TODAY FOR A PRE ADMIT APPOINTMENT FOR HER UPCOMING TOTAL LEFT KNEE SURGERY ON 03/22/20. SHE HAS A FOUR WHEELED WALKER, SHE WAS ADVISED TO BRING IT ON THE DAY OF SURGERY. SHE HAS ONE SHORT STEP TO GET INTO HER HOUSE BUT HAS NO STAIRS OR STEPS IN HER HOUSE. SHE HAS A WALKIN SHOWER WITH A HANDHELD SHOWE HEAD. SHE HAS A TOILET SEAT RISER AND RAILING THAT SHE USED WHEN SHE HAD HER BACK SURGERY. SHE LIVES WITH HER ,THEODORE, HE WILL BE TAKING HER HOME AFTER SURGERY AND WILL BE WITH HER DURING RECOVERY, HE WILL BE AVAILABLE TO TAKE HER TO POST OP APPOINTMENTS. SHE HAS ALREADY SPOKEN WITH PHYSICAL THERAPIST AND HAS HER POST OP THERAPY LINED UP.
[~2020-03-22] VITALS: Ht 167.6 cm; Wt 80.7 kg
[~2020-03-22 05:45] MED LIST changes: +BUPROPION XL150 MG PO; +EXEMESTANE25 MG PO; +PROMETHAZINE HC25 M1 PO; +PROMETHAZINE HC25 MG PR; +TOPROL XL25 MG PO
[2020-03-22] MEDS ORDERED: MULTI VITAMIN1 EACH PO (06:43)
--- NOTE | 2020-03-22 08:15 | NUR ---
EDUCATIONAL/DEVELOPMENT ASSISTANT IN TO SEE PT. BLOOD GLUCOSE CHECKED, 100.
--- NOTE | 2020-03-22 08:57 | NUR ---
PT RESTING COMFORTABLY IN BED. AT THE BEDSIDE. CALL LIGHT WITHIN REACH. NO FURTHER REQUESTS AT THIS TIME.
--- NOTE | 2020-03-22 12:24 | NUR ---
03/22/20 1224 Jocelyn Byrd 1201- PT ARRIVES TO PACU NONAROUSABLE TO NOXIOUS STIMULI WITH AN OPA IN PLACE. RESP EVEN AND UNLABORED. PT NEEDING A JAW THRUST WELL TO MAINTAIN PATENT AIRWAY. PILLOW WAS ABLE TO BE REMOVED AND PT IS ABLE TO MAINTAIN PATENT AIRWAY ON HER OWN WITH THIS POSITION CHANGE. ON Q- PUMP INFUSING AT 6ML/HR. JOSE L DRESSING FLASHING GREEN. 1205- BLOOD SUGAR TAKEN AND IS 149. MARISSA CHAPMAN CRNA AWARE. 1211- RIZWANA HOSE AND FOOT PUMP APPLIED TO PT'S LEFT LEG AND FOOT. CMS INTACT. CRYOCUFF PLACED TO PT'S LEFT KNEE WITH PILLOW CASE IN BETWEEN CRYOCUFF AND DRESSING. 1217- PT AROUSING AND TRYING TO REMOVE OPA. OPA REMOVED PT IS ABLE TO FOLLOW INSTRUCTIONS AND OPEN HER MOUTH. 1222- PT REPORTS SHE IS NOT HAVING ANY PAIN OR NAUSEA. PT IS SNORING WHEN ASLEEP. PT AWOKEN AND ASKED TO TAKE DEEP BREATHS. PT IS ABLE TO DO THIS. OXYGEN SAT DROPPED TO MID 80'S ON RA. PT PLACED ON 2L VIA NC AND OXYGEN SAT INCREASED TO HIGH 90'S.
--- NOTE | 2020-03-22 13:10 | NUR ---
PT ARRIVED FROM PACU. REPORT RECIEVED FROM LEE Castillo RN. PT IS RESTING IN LOCKED AND LOWERED BED. SIDE RAILS UP. ICE WATER AND WARM BLANKET PROVIDED. CALL LIGHT WITHIN REACH. AT THE BEDSIDE.
--- NOTE | 2020-03-22 13:58 | NUR ---
IN FOR PT USE OF CALL LIGHT. ICE WATER PROVIDED. NASAL CANNULA TURNED OFF. WILL CONTINUE TO MONITOR. PT RESTING IN LOCKED AND LOWERED BED, CALL LIGHT WITHIN REACH. NO FURTHER REQUESTS AT THIS TIME.
--- NOTE | 2020-03-22 14:21 | NUR ---
PHYSICAL THERAPY PLANS TO MEET WITH PT. PT GIVEN PRE PAIN MEDICATION. PT RESTING IN LOWERED AND LOCKED BED. SIDE RAILS UP, AT THE BEDSIDE, CALL LIGHT WITHIN REACH.
--- NOTE | 2020-03-22 15:08 | NUR ---
SMALL AMOUNT OF BLOOD NOTED ON THE SHEET WHEN PT WAS UP TO THE RESTROOM BUT NO BLEEDING SEEN ON PTS BACK. PT VOIDED WITH NO COMPLICATIONS AND IS UP WITH PHYSICAL THERAPY AT THIS TIME.
[2020-03-22] MEDS ORDERED: OXYCODONE HCL5 MG PO (15:22)
[2020-03-22] MEDS ORDERED: XARELTO10 MG PO (15:22)
[2020-03-22] MEDS ORDERED: STOOL SOFTENER1 EAC4 PO (15:22)
[2020-03-22] MEDS ORDERED: GABAPENTIN600 MG PO (15:23)
--- NOTE | 2020-03-22 16:16 | NUR ---
PT LEFT THE UNIT VIA WHEELCHAIR. PT TRANSFERRED FROM WHEELCHAIR TO VEHICLE WITH 1 PERSON ASSIST. TRANSPORTATION PROVIDED BY .
--- NOTE | 2020-03-22 16:43 | OR ---
[facility] [address] [place], [place] [address] Signed DATE OF OPERATION: 03/22/2020 SURGEON: Jose Conner MD PREOPERATIVE DIAGNOSIS: Severe degenerative joint disease, left knee. POSTOPERATIVE DIAGNOSIS: Severe degenerative joint disease, left knee. PROCEDURE PERFORMED: Left total knee arthroplasty with Bill. ASSISTANTS: 1. Shanna Lucas PA-C. Shanna was present and critical for all portions of procedure. 2. MARCO Irene. ANESTHESIA: General. BLOOD LOSS: 200 mL. IMPLANTS: Adriana Triathlon size #4, 9 mm polyethylene and a 35 mm patella. BRIEF HISTORY: Alicia is a 65-year-old female with progressive worsening of osteoarthritis in both knees. She has undergone nonoperative treatment without substantial relief, wished to proceed with operation DESCRIPTION OF PROCEDURE: Once consent was obtained, she was taken to the operating room. After adequate anesthesia, she was placed on the operating table. All downside pressure points well padded. Hip bump was placed. The spinal was attempted, however, due to her prior back surgery, there was some difficulty. She did begin fairly hypotensive with a blood pressure dropping into the 50s. The spinal was then aborted. She was laid down, given ephedrine, which brought her blood pressure back up. She does have a history of fainting with any kind of medical procedures. She was then placed under general with no Electronically Signed By: JOSE CONNER MD 03/22/20 1643 PATIENT NAME: HANS CORTEZ OPERATIVE REPORT DATE OF : 59 REPORT #: [id number] PHYSICIAN: JOSE CONNER MD PCP: FANNY REID REPORT IS CONFIDENTIAL AND NOT TO BE RELEASED WITHOUT AUTHORIZATION [facility] [address] [place], [place] [address] Signed significant problems. Her blood pressure remained stable throughout. Once she was positioned, the leg was prepped and draped in a standard sterile fashion. The knee was approached through standard anterior approach, taken through skin and subcutaneous tissue. A sub-vastus arthrotomy was performed and the infrapatellar fat pad was excised. The MCL was elevated with a sleeve around the posteromedial corner. The anterior horns of the menisci were both transected as was the ACL. The checkpoints for the [employer] robot were then placed, one in the medial femoral condyle, one in the proximal tibia. The computer array was then placed in the anterior medial tibia, one handsbreadth above the tibial tubercle. The other ray was placed in the medial femoral condyle, and the leg was registered with the computer. The fine anatomic points were then registered and the plan was checked with ligamentous tension. We did make some minor adjustments of a degree or two here and there. The robot was then brought in, the straight cuts were made starting with the proximal tibia and moving to the femur. The saw was then switched to the angle saw and the distal and posterior, chamfer cuts were made . All bone cut pieces were removed and any remaining osteophytes removed. Posterior osteophytes removed off the femur, they were quite sizable. The trials were then positioned. Knee was taken full extension to 100 degrees of flexion with excellent stability. There was good ligamentous tension. The patella was cut sized and drilled for a 35 patella. The distal femoral drill holes were drilled and the proximal tibia was finished using the keel punch and drills. We did elect to proceed with a noncemented prosthesis. The implants were obtained and the tibia was impacted in position first followed by the polyethylene. The femur was then impacted until it was well-seated. The knee was extended and nicely loaded. The patella was clamped into position. The knee was taken through range of motion with the robot still intact. The range of motion was found to be good. Ligamentous stability was excellent. The computer rays were then removed. The knee was then pulse lavaged at intervals throughout the procedure using a total of 3 L antibiotic irrigation. The On-Q pain pump was placed in the adductor canal from the suprapatellar pouch in a percutaneous manner. The periarticular soft tissues were injected with 100 mL of ropivacaine and Toradol mixture. The arthrotomy was then closed using #2 StrataFix and 0-StrataFix for subcutaneous tissue and ZipLine for the skin. The wound was dressed with a JOSE L wound VAC dressing and Indra wrap. She tolerated the procedure well. All sponge, needle, and instrument counts were correct. Jose Conner MD BA/MODL /[id number] Electronically Signed By: JOSE CONNER MD 03/22/20 1643 PATIENT NAME: HANS CORTEZ OPERATIVE REPORT DATE OF : 59 REPORT #: [id number] PHYSICIAN: JOSE CONNER MD PCP: FANNY REID REPORT IS CONFIDENTIAL AND NOT TO BE RELEASED WITHOUT AUTHORIZATION [address] [address] Signed Copies: ~ Electronically Signed By: JOSE CONNER MD 03/22/20 1643 PATIENT NAME: HANS CORTEZ OPERATIVE REPORT DATE OF : 59 REPORT #: [id number] PHYSICIAN: JOSE CONNER MD PCP: FANNY REID REPORT IS CONFIDENTIAL AND NOT TO BE RELEASED WITHOUT AUTHORIZATION
== END 2020-03-22 16:10 | disposition home or self-care (01) ==
LOC: DS 05:45
PROVIDERS: ATTEND Specialist
PROC: 8E0YXBZ Computer Assisted Procedure of Lower Extremity (ICD-10-PCS; 2020-03-22)
PROC: 0SRD0JA Replacement of Left Knee Joint with Synthetic Substitute, Uncemented, Open Approach (ICD-10-PCS; principal; 2020-03-22 09:15)
DX: M17.12 Unilateral primary osteoarthritis, left knee (principal); M25.762 Osteophyte, left knee; I10 Essential (primary) hypertension; E10.9 Type 1 diabetes mellitus without complications; Z79.899 Other long term (current) drug therapy; Z88.2 Allergy status to sulfonamides
CPT/HCPCS: 01402; 64447; 64450; 76942; 97110; 97161; C1776; J0690; J1100; J1885; J2001; J2250; J2405; J2704; J2795; J3010; J7121

== ENCOUNTER 2020-12-01 08:00 | Day surgery (SDC) | payer OTHER ==
[~2020-12-01] VITALS: Ht 167.6 cm; Wt 79.5 kg
[~2020-12-01 08:00] MED LIST changes: +GABAPENTIN600 MG PO; +MULTI VITAMIN1 EACH PO; +OXYCODONE HCL5 MG PO; +STOOL SOFTENER1 EAC4 PO; +XARELTO10 MG PO
--- NOTE | 2020-12-01 09:08 | NUR ---
ON ADMISSION REPORTS BLOOD GLUCOSE READING 28 AND TOOK 2 GLUCOSE TABLETS. SHE RECHECKED GLUCOSE AT HOME WAS 200. THIS WAS REPORTED TO ALINE YOUSSEF.
--- NOTE | 2020-12-01 11:06 | NUR ---
12/01/20 1106 Sindi Abrams 1012 PT ARRIVED IN PACU AWAKE WITH NO C/O'S. ABD SOFT AND PASSING FLATUS. 1020 SITTING UP IN BED SIPPING ON WATER. 1025 DR AT BEDSIDE TALKING TO PT. 1035 DC INSTRUCTIONS GIVEN. ALL QUESTIONS ANSWERED. 1045 GETTING DRESSED WITH STAND BY ASSIST. 1050 LEFT VIA W/C.
--- NOTE | 2020-12-01 13:20 | OR ---
[facility] [address] [place], [place] [address] Signed DATE OF OPERATION: 12/01/2020 SURGEON: Elvi Rodrigues MD PREOPERATIVE DIAGNOSES: 1. Chronic epigastric abdominal pain and nausea. 2. Daily alcohol use. 3. Unremarkable colonoscopy in 2011 at age 55. 4. Screening. POSTOPERATIVE DIAGNOSES: 1. Moderate to severe gastroduodenitis. 2. Average-sized duodenal bulb ulcers x2. 3. Large gastric antral ulcer. 4. Minimal diffuse diverticulosis. 5. 3 mm rectal polyps x3. 6. Long redundant colon. PROCEDURES: 1. EGD with CLOtest and biopsies of the pyloric bulb and antrum. 2. Colonoscopy with hot biopsy. ESTIMATED BLOOD LOSS: None. INDICATIONS: Hans is a 65-year-old female who is a type 1 diabetic and a retired chemistry teacher. She has chronic epigastric abdominal pain and chronic nausea. She thinks it has been worse the last few months. She cut down her daily alcohol intake and she said the pain is still bothering her. She has never had upper endoscopy. She did mention a negative colonoscopy back in 2010 at the age of 55. She has no lower GI complaints. There is no family history of colon cancer or polyps. She does use lorazepam and alcohol on a daily basis. She also takes naltrexone. Given that we did ask an anesthesia provider to help us with monitored anesthesia care and infusion of propofol. That proved to be a woodard decision as she took a significant amount of propofol. In the office, I gave her pamphlets on both upper and lower endoscopy. She understands the nature of the two tests along with the risks including, but not limited to gas bloating, crampy abdominal pain, bleeding, perforation requiring surgery, and missed diagnosis. She had expressed understanding and wished to proceed. Electronically Signed By: ELVI RODRIGUES MD 12/01/20 1320 PATIENT NAME: HANS CORTEZ OPERATIVE REPORT DATE OF : 59 REPORT #: [id number] PHYSICIAN: ELVI RODRIGUES MD PCP: RADHA REID REPORT IS CONFIDENTIAL AND NOT TO BE RELEASED WITHOUT AUTHORIZATION [facility] [address] [place], [place] [address] Signed PROCEDURE NOTE: Hans was taken into our endoscopy suite and placed in the supine semi-recumbent position. She was given IV sedation with propofol per our nurse electron tube assembler. A bite block was utilized for the case. The posterior oropharynx was anesthetized with lidocaine spray. The adult gastroscope was introduced and advanced out into the third portion of the duodenum without difficulty. The duodenum was unremarkable. The pyloric channel showed two standard-sized ulcers opposite to one another. These were nonbleeding. She had a much larger ulcer in the gastric antrum. We biopsied both areas for pathologic review. We took an additional biopsy out of the antrum for her CLOtest. She has diffuse inflammatory changes in the pyloric bulb and the stomach consistent with her gastroduodenitis. Upon retroflexion of scope, I really could not appreciate an obvious hiatal hernia. The scope was withdrawn up to the area of the GE junction, which was compliant without stricture. We did not see any gastric or esophageal varices. She has very minimal disruption to the Z-line. There was no Olivares's mucosa and no distal esophagitis. The middle and upper esophagus were unremarkable. After this, the gas was suctioned out and the gastroscope removed. Hans tolerated the upper endoscopy quite well. Hans was then rotated into the left lateral decubitus position. A digital rectal exam was performed and this was unremarkable. The adult colonoscope was introduced and advanced under direct visualization of camera. She has a long redundant colon. She took a significant amount of propofol and abdominal compression in order to advance the scope finally into the cecum itself. We had to rotate her into the supine position and back in the left lateral decubitus position as well. Her prep was quite good. We could easily see the appendiceal orifice and ileocecal valve. The scope was then slowly withdrawn. We took pictures throughout for photodocumentation. She did have diverticula throughout the colon. They were minimal to moderate in size, few in number and scattered about. We found three tiny polyps in her rectum around 8 cm. They were all removed with hot biopsy forceps. Upon retroflexion of scope, there was no additional pathology noted above the anal canal. After this, the gas was suctioned out and the colonoscope removed. Overall, Hans tolerated the lower endoscopy well. RECOMMENDATIONS: I will see Hans back in my office in 7 to 14 days to review her results. She will start Prilosec 20 mg one tablet p.o. b.i.d. for two months to let the three ulcers heal. She will then go to Prilosec 20 mg one tablet p.o. daily. She needs to fully abstain from alcohol and let her stomach heal. She needs to abstain from aspirin and NSAIDs for two months until the ulcers heal. In addition, she needs to follow up with her primary care provider in the next few weeks. Electronically Signed By: ELVI RODRIGUES MD 12/01/20 6431 PATIENT NAME: HANS CORTEZ OPERATIVE REPORT DATE OF : 59 REPORT #: [id number] PHYSICIAN: ELVI RODRIGUES MD PCP: RADHA REID REPORT IS CONFIDENTIAL AND NOT TO BE RELEASED WITHOUT AUTHORIZATION [address] [place] [address] Signed Elvi Rodrigues MD [facility]/MODL /[id number] cc: MD Radha Sandoval PA Copies: ELVI RODRIGUES MD, LINDA PA ~ Electronically Signed By: ELVI RODRIGUES MD 12/01/20 1320 PATIENT NAME: HANS CORTEZ OPERATIVE REPORT DATE OF : 59 REPORT #: [id number] PHYSICIAN: ELVI RODRIGUES MD PCP: RADHA REID REPORT IS CONFIDENTIAL AND NOT TO BE RELEASED WITHOUT AUTHORIZATION
--- NOTE | 2020-12-02 15:25 | PATH ---
[facility] [address] [place], [place] [address] Signed SPECIMEN(S): A DUODENUM BULB SPECIMEN(S): B ANTRUM/PYLORUS SPECIMEN(S): C RECTAL POLYP SPECIMEN SOURCE: A. DUODENUM BULB B. ANTRUM/PYLORUS C. RECTAL POLYP CLINICAL HISTORY: EGD and colonoscopy. Type 1 diabetes. C/o epigastric pain and nausea; ETOH qd. Postop: Gastric and duodenal ulcers, gastritis, rectal polyp. MICROSCOPIC DESCRIPTION: Histologic sections of all submitted blocks are examined by light microscopy. These findings, together with the gross examination, support the pathologic diagnosis. FINAL PATHOLOGIC DIAGNOSIS: A. Duodenal bulb, biopsy: - Peptic duodenitis. - Negative for Helicobacter organisms on HE stain. - Negative for dysplasia or malignancy. B. Stomach, antrum/pylorus, biopsy: - Edematous antral mucosa with mild chronic, inactive gastritis and mucosal capillary congestion. - Negative for fibrin thrombi. - Negative for Helicobacter organisms on HE stain. - Negative for dysplasia or malignancy. - See comment. C. Rectum, polyp, polypectomy: - Hyperplastic polyp. - Negative for dysplasia or malignancy. COMMENT: Regarding specimen B: The histologic appearance of the antral biopsy raises the possibility of portal hypertensive gastropathy. Correlation with endoscopic findings is necessary. NAL:cml:C2NR GROSS DESCRIPTION: Three specimens are received in three containers, labeled "CM." PATIENT NAME: CORTEZHANS BROWN PATHOLOGY DATE OF : 59 REPORT #: [id number] PHYSICIAN: GUSTAVO PATHOLOGY PCP: FANNY REID REPORT IS CONFIDENTIAL AND NOT TO BE RELEASED WITHOUT AUTHORIZATION [facility] [address] [place], [place] [address] Signed A. The specimen, labeled "CM, duodenal bulb biopsy," is received in formalin and consists of one benitez soft tissue fragment that measures 0.2 cm in greatest dimension. The specimen is entirely submitted in cassette (A1). B. The specimen, labeled "CM, antrum biopsy," is received in formalin and consists of one benitez soft tissue fragment that measures 0.2 cm in greatest dimension. The specimen is entirely submitted in cassette (B1). C. The specimen, labeled "CM, rectum polyp," is received in formalin and consists of two benitez soft tissue fragments that measure 0.1 cm in greatest dimension. The specimen is entirely submitted in cassette (C1). JS (under the direct supervision of a pathologist) The Gross Description was prepared using a voice recognition system. The report was reviewed for accuracy; however, sound-alike word errors, addition and/or deletions may occur. If there is any question about this report, please contact Client Services. PERFORMING LABORATORY: The technical component was performed by [facility], [address] [place] [id number] ([employer]: Sue De Leon MD; CLIA# [id number]). [facility], [address] [address] (CLIA# [id number]). Diagnostician: Danielle Overton MD Pathologist Electronically Signed 12/02/2020 Copies: ~ PATIENT NAME: HANS CORTEZ PATHOLOGY DATE OF : 59 REPORT #: [id number] PHYSICIAN: GUSTAVO PATHOLOGY PCP: FANNY REID REPORT IS CONFIDENTIAL AND NOT TO BE RELEASED WITHOUT AUTHORIZATION
== END 2020-12-01 10:50 | disposition home or self-care (01) ==
LOC: OPS 08:00 → DS 08:00 → OPS 09:15
PROVIDERS: ATTEND Colon & Rectal Surgery
PROC: 0DB68ZZ Excision of Stomach, Via Natural or Artificial Opening Endoscopic (ICD-10-PCS; principal; 2020-12-01 09:15)
PROC: 0DBP8ZZ Excision of Rectum, Via Natural or Artificial Opening Endoscopic (ICD-10-PCS; 2020-12-01 09:15)
DX: Z12.11 Encounter for screening for malignant neoplasm of colon (principal); K29.90 Gastroduodenitis, unspecified, without bleeding; K25.9 Gastric ulcer, unspecified as acute or chronic, without hemorrhage or perforation; K26.9 Duodenal ulcer, unspecified as acute or chronic, without hemorrhage or perforation; K57.30 Diverticulosis of large intestine without perforation or abscess without bleeding; Q43.8 Other specified congenital malformations of intestine; K62.1 Rectal polyp; E10.9 Type 1 diabetes mellitus without complications; I10 Essential (primary) hypertension; R01.1 Cardiac murmur, unspecified; F32.9 Major depressive disorder, single episode, unspecified; E78.5 Hyperlipidemia, unspecified; Z88.2 Allergy status to sulfonamides; Z79.4 Long term (current) use of insulin; Z85.3 Personal history of malignant neoplasm of breast; Z98.1 Arthrodesis status; Z96.652 Presence of left artificial knee joint; Z72.89 Other problems related to lifestyle
CPT/HCPCS: 86677; J0690; J2704; J7121

== ENCOUNTER 2024-06-26 10:12 | Emergency (ER) | payer MEDICARE, OTHER ==
[~2024-06-26] VITALS: Ht 167.6 cm; Wt 81.0 kg
[~2024-06-26 10:12] MED LIST changes: +AROMASIN25 MG PO; +BUPROPION XL300 MG PO; +LIPITOR20 MG PO; +LOSARTAN POTASS25 MG PO; +NOVOLOG FL100 UNIT/1 SUB-Q; +SENNA LAX8.6 MG PO; +SPIRONOLACTONE25 MG PO; +TOUJEO MAX300 UNIT/1 SQ; +TOUJEO MAX300 UNIT/1 SUB-Q
[2024-06-26] MEDS ORDERED: LYUMJEV KW100 UNIT/1 SUB-Q (10:29)
[2024-06-26] MEDS ORDERED: LANTUS SOL100 UNIT/1 SUB-Q (10:29)
[2024-06-26 12:50] VITALS: BP 128/75
== END 2024-06-26 12:53 | disposition home or self-care (01) ==
LOC: ED 10:12
DX: T38.3X1A Poisoning by insulin and oral hypoglycemic [antidiabetic] drugs, accidental (unintentional), initial encounter (principal); E11.649 Type 2 diabetes mellitus with hypoglycemia without coma; I10 Essential (primary) hypertension; E78.00 Pure hypercholesterolemia, unspecified; Z88.2 Allergy status to sulfonamides; Z79.4 Long term (current) use of insulin; Z79.899 Other long term (current) drug therapy
CPT/HCPCS: 99284

== ENCOUNTER 2024-09-15 12:46 | Emergency (ER) | payer MEDICARE, OTHER ==
[~2024-09-15] VITALS: Ht 170.2 cm; Wt 76.0 kg
[~2024-09-15 12:46] MED LIST changes: +LANTUS SOL100 UNIT/1 SUB-Q; +LYUMJEV KW100 UNIT/1 SUB-Q
[2024-09-15] MEDS ORDERED: SODIUM CHLORIDE 0.9% 1,000 ML IV ONE (13:45)
[2024-09-15] MEDS ORDERED: HYDROmorphone HCL 1 MG/ML SYR IV PRN (13:45)
[2024-09-15] MEDS ORDERED: AMP/SULBACTAM SOD 3 GM in SODIUM CHLORIDE 0.9% 100 ML IV ONE (14:00)
[2024-09-15 14:05] LABS: BASOPHILS 0.6 % (0-2); EOSINOPHILS 0.6 % (0-6); HEMATOCRIT 41.7 % (35.0-50.0); HEMOGLOBIN 14.4 g/dL (12.0-18.0); LYMPHOCYTES 16.2 % (24-44); MCH 33.1 (27-36); MCHC 34.5 g/dl (30-36); MCV 95.9 fl (81-99); MONOCYTES 9.8 % (0-12); NEUTROPHILS 72.8 % (39-80); PLATELET COUNT 261 K/uL (140-440); RBC 4.35 M/ul (4.3-5.7); RDW 12.5 (10.5-15.0)
[2024-09-15 14:21] LABS: ALBUMIN 3.5 g/dL (3.4-5.0); ALBUMIN/GLOBULIN RATIO 1.03 (1.1-2.4); ANION GAP 12.1 (7-21); BILIRUBIN, TOTAL 0.6 mg/dL (0.2-1.0); BUN/CREATININE RATIO 10.95 (6.0-28.6); CALCIUM 9.5 mg/dL (8.5-10.1); CREATININE, SERUM 0.73 mg/dL (0.55-1.02); POTASSIUM 4.1 mmol/L (3.5-5.1); PROTEIN, TOTAL 6.9 g/dL (6.4-8.2)
[2024-09-15] MEDS ORDERED: DEXAMETHASONE SOD PHOS 10 MG/ML VIAL IV ONE (16:00)
[2024-09-15] MEDS ORDERED: HYDROCODON-ACE1 EA11 PO (16:10)
[2024-09-15] MEDS ORDERED: PREDNISONE20 MG PO (16:10)
[2024-09-15] MEDS ORDERED: AMOX TR-K CLV1 EAC1 PO (16:11)
[2024-09-15 16:55] VITALS: BP 126/88
== END 2024-09-15 16:55 | disposition home or self-care (01) ==
LOC: ED 12:46
PROVIDERS: Emergency Medicine
DX: J02.9 Acute pharyngitis, unspecified (principal); E11.9 Type 2 diabetes mellitus without complications; I10 Essential (primary) hypertension; Z88.2 Allergy status to sulfonamides; Z79.4 Long term (current) use of insulin; Z79.899 Other long term (current) drug therapy
CPT/HCPCS: 36415; 70491; 80053; 85025; 99284-25; J0295; J1100; J1171; J7030; Q9967

== ENCOUNTER 2025-01-26 05:38 | Day surgery (SDC) | payer MEDICARE, OTHER ==
[~2025-01-26] VITALS: Ht 167.6 cm; Wt 78.0 kg
[~2025-01-26 05:38] MED LIST changes: +AMOX TR-K CLV1 EAC1 PO; +HYDROCODON-ACE1 EA11 PO; +LACTATED RINGER'S 1,000 ML IV SCH; +PREDNISONE20 MG PO
[2025-01-26 06:05] VITALS: BP 137/70
[2025-01-26] MEDS ORDERED: Ropivacaine HCl 20 MG/10 ML AMP ONE (06:12)
[2025-01-26] MEDS ORDERED: OMEPRAZOLE20 MG PO (06:15)
[2025-01-26] MEDS ORDERED: ONDANSETRON ODT8 MG PO (06:16)
[2025-01-26] MEDS ORDERED: BUPIVACAINE 0.75% IN DEXTROSE 2 ML AMP ONE (06:25)
[2025-01-26] MEDS ORDERED: LIDOCAINE HCL 1% 5 ML SDV INJ ONE (07:00)
[2025-01-26] MEDS ORDERED: GABAPENTIN 600 MG TAB PO SCH (07:00)
[2025-01-26] MEDS ORDERED: PANTOPRAZOLE SODIUM 40 MG TABEC PO SCH (07:00)
[2025-01-26] MEDS ORDERED: IBLOOD GLUCOSE TEST STRIP 1 EA TEST VI PRN ×2 (07:00→08:00)
[2025-01-26] MEDS ORDERED: CEFAZOLIN SODIUM 2 GM/20 ML SYR IV SCH ×2 (07:00→15:00)
[2025-01-26] MEDS ORDERED: INTRA-ARTICULAR ANALGESIC INJECTION XX SCH (07:00)
[2025-01-26] MEDS ORDERED: OXYCODONE HCL 5 MG TAB PO SCH (07:00)
[2025-01-26] MEDS ORDERED: OXYCODONE HCL 5 MG TAB PO PRN (07:00)
[2025-01-26] MEDS ORDERED: TRANEXAMIC ACID IN NACL,ISO-OS 1,000 MG/100 ML PIGGYBACK IV SCH ×2 (07:00→09:49)
[2025-01-26] MEDS ORDERED: KETOROLAC TROMETHAMINE 30 MG/ML VIAL IV PRN (07:00)
[2025-01-26] MEDS ORDERED: fentaNYL citrate 100 MCG/2 ML VIAL ONE (07:20)
[2025-01-26] MEDS ORDERED: HYDROmorphone HCL 1 MG/ML SYR IV PRN (08:00)
[2025-01-26] MEDS ORDERED: MIDAZOLAM HCL 2 MG/2 ML VIAL IV PRN (08:00)
[2025-01-26] MEDS ORDERED: fentaNYL citrate 50 MCG/ML SDV IV PRN (08:00)
[2025-01-26] MEDS ORDERED: NALOXONE HCL 0.4 MG SYR IV PRN (08:00)
[2025-01-26] MEDS ORDERED: METOCLOPRAMIDE HCL 10 MG/2 ML SDV IV PRN (08:00)
[2025-01-26] MEDS ORDERED: OXYCODONE HCL5 M1 PO (08:40)
[2025-01-26] MEDS ORDERED: XARELTO10 MG PO (08:41)
[2025-01-26] MEDS ORDERED: CEFUROXIME500 MG PO (08:41)
[2025-01-26] MEDS ORDERED: ASPIRIN 325 MG TAB PO SCH (09:00)
--- NOTE | 2025-01-26 09:07 | NUR ---
01/26/25 0907 Martha Lynn 0846- PT PRESENTS TO PACU, SEMI JUAREZ POSITION, NON REACTIVE TO STIMULUS. BREATHING EVEN AND NON LABORED, O2 AT 4L PER NC. LR HANGING TO LFA IV. DEXCOM ON PT PHONE READING 106 WITH STEADY ARROW. ALL MONITORS IN PLACE, HEELS ELEVATED ON TOWEL ROLLS.
--- NOTE | 2025-01-26 09:45 | NUR ---
PT ARRIVES TO DS UNIT FROM PACU VIA STRETCHER. PT REPORTS PAIN IS TOLERABLE AT THIS TIME AT 5/10 TO LEFT HIP. PT EYES ARE CLOSED, BUT RESPONSIVE TO VERBAL STIMULI AT THIS TIME. PT STATES NO NAUSEA AT THIS TIME. PT ABLE TO MOVE LFT FOOT ONLY, NOT RT. REPORT RECEIVED FROM DARREN ELIAS W/DAUGHTER AT BEDSIDE, SURGICAL SITE VISUALIZED W/DARREN ELIAS. CALL LIGHT WITHIN REACH, ICE WATER PROVIDED. PT STATES NO FURTHER QUESTIONS OR NEEDS AT THIS TIME.
[2025-01-26 09:46] VITALS: BP 131/66
--- NOTE | 2025-01-26 10:20 | NUR ---
PT REPORTS PAIN 6 OR 7/10 AT SURGICAL SITE AT THIS TIME. PT REQUESTS PRN MED AT THIS TIME, GIVEN (SEE EMAR). CALL LIGHT WITHIN REACH, PT STATES NO FURTHER NEEDS OR QUESTIONS AT THIS TIME.
[2025-01-26] MEDS ORDERED: SEVOFLURANE 250 ML BTL INH ONE (10:37)
--- NOTE | 2025-01-26 10:40 | NUR ---
PT STATES BEGINNING TO FEEL NAUSEOUS. PT STATES SHE USUALLY TAKES ONDANSETRON AT HOME X3 DAILY FOR A NERVOUS STOMACH, NO EMESIS. CALLED INTO OR1 FOR VO FROM WILL SLEEP MEDICINE PHYSICIAN, VO RECEIVED FOR 10 MG IV REGLAN X1, GIVEN (SEE EMAR). PT STATES PAIN IS SUBSIDING AND NOW TOLERABLE AT 4/10. PT CONTINUES TO TOLERATE ORALS WITHOUT DIFFICULTY. AT BEDSIDE. NO ACUTE CHANGES FROM PREVIOUS ASSESSMENT, SPINAL HAS RESOLVED. CALL LIGHT WITHIN REACH.
[2025-01-26] MEDS ORDERED: METOCLOPRAMIDE HCL 10 MG/2 ML SDV IV ONE (10:45)
[2025-01-26 10:55] VITALS: BP 144/73
--- NOTE | 2025-01-26 11:00 | NUR ---
LUNCH ORDERED FOR PT, DAUGHTER BRINGING SLIDING SCALE INSULIN FROM HOME. AT BEDSIDE. PER [employer] TR[employer] OPERATOR AND BRET PAC, FOLLOW PT SLIDING SCALE FROM HOME, AFTER MEAL. LET PT KNOW. PT AGREEABLE W/PLAN OF CARE AT THIS TIME.
--- NOTE | 2025-01-26 11:30 | NUR ---
PT EATING LUNCH AT THIS TIME. PT STATES PAIN AND NAUSEA ARE TOLERABLE AT THIS TIME. CALL LIGHT WITHIN REACH, FAMILY AT BEDSIDE.
[2025-01-26 11:54] VITALS: BP 110/72
--- NOTE | 2025-01-26 11:56 | NUR ---
IN PT ROOM FOR VS AND ASSESSMENT, NO ACUTE CHANGES FROM PREVIOUS ASSESSMENT. PT REPORTS PAIN AND NAUSEA REMAIN TOLERABLE. PT HAS CONSUMED 80% OF MEAL AT THIS TIME. PT USES DEXCOM GLUCOSE MONITOR FOR READING OF 288 BS. PT USES PERSONAL INSULIN PEN AND SLIDING SCALE FOR ADMIN DOSE OF 2 UNITS. JACK W/PT CONTACTED TO COME IN ~30 MINUTES WHEN PT STATES SHE WILL BE READY. CALL LIGHT WITHIN REACH. PT REPORTS NO FURTHER NEEDS OR QUESTIONS AT THIS TIME.
--- NOTE | 2025-01-26 12:21 | OR ---
[facility] [address] [place] [place], [place] [address] Signed DATE OF OPERATION: 01/26/2025 SURGEON: Jose Conner MD PREOPERATIVE DIAGNOSIS: Severe degenerative joint disease, left hip. POSTOPERATIVE DIAGNOSIS: Severe degenerative joint disease, left hip. PROCEDURE PERFORMED: Left total hip arthroplasty with Bill. MICROBIOLOGY SUPERVISOR: Shanna Lucas PA-C. Shanna was present and critical for all portions of the procedure. ANESTHESIA: Spinal. BLOOD LOSS: 177 mL. IMPLANTS: [place] Triathlon size 7 48 mm cup and -2.5 head. BRIEF HISTORY: Hans is a 69-year-old female with severe arthritis in her hip and quite a bit of pain. Risks, benefits, and alternatives of surgery were discussed with her and she elected to proceed. DESCRIPTION OF PROCEDURE: Once consent was obtained, she was taken to the operating room. After adequate anesthesia, she was placed on operating table in right lateral decubitus position. All downside pressure points were well padded. The left hip was prepped and draped in a standard sterile fashion from the ribcage to the toes. The pins for the Bill computer array were then placed in the iliac crest 3 fingerbreadths posterior to the ASIS. The hip was then approached through standard anterolateral approach. A longitudinal incision was made, carried through skin and subcutaneous tissue. The IT band was divided longitudinally and the vastus lateralis was divided from the tip of the Electronically Signed By: JOSE CONNER MD 01/26/25 1221 PATIENT NAME: HANS CORTEZ OPERATIVE REPORT DATE OF : 59 REPORT #: [id number] PHYSICIAN: JOSE CONNER MD PCP: FANNY REID REPORT IS CONFIDENTIAL AND NOT TO BE RELEASED WITHOUT AUTHORIZATION [facility] [address] [place], [place] [address] Signed trochanter distally along the anterior margin of the femur. This was then elevated subperiosteally around anteromedially. The gluteus minimus and capsule were split from the tip of the trochanter to the femoral neck and up to the acetabulum. This was then peeled off the anterior femoral neck. The capsule was released in the saddle and a partial capsulectomy was performed. The leg was then registered with the computer and the hip was dislocated with some difficulty. The femoral head was passed off the table. Periacetabular soft tissue was removed. The acetabulum was then registered with the computer and the fine anatomic points were registered. The robot was brought in and a single reaming with a 48 mm reamer was performed. The remnants of soft tissue were removed and the acetabular cup was impacted in 40 degrees of abduction and 20 degrees of anteversion. The cup was quite solid and the polyethylene was snapped into position. Attention was turned to the proximal femur. This was opened up using the [employer] cutter, followed by the Humble awl. It was then sequentially broached up to a 7, which was found to be quite well fitting. The 7 was left in position. A high offset neck and initially a +[address] down to -2.5 head were used. -2.5 reduced well with good leg lengths. The hip was then dislocated and the trials removed. The final stem was impacted to the same level as the broach. The trunnion was cleaned and a -2.5 head was placed. The hip was then reduced again, taken through range of motion and found to be stable. No hamstring tightness was noted. Negative shuck test. The wound was then cleansed with one bottle of Surgiphor followed by normal saline. The periarticular soft tissues were injected with 100 mL ropivacaine Toradol mixture. The capsule was then closed using #2 FiberWire. The vastus and IT band layers were closed independently using #2 Stratafix, subcutaneous tissue with 0 Stratafix and the skin with 3-0 Stratafix. The wound was sealed with LiquiBand and Steri-Strips, dressed with an Acticoat-7 dressing and she was awakened, taken to recovery room in satisfactory condition. All sponge, needle, and instrument counts were correct. Jose Conner MD BA/MODL /[id number] Electronically Signed By: JOSE CONNER MD 01/26/25 1221 PATIENT NAME: HANS CORTEZ OPERATIVE REPORT DATE OF : 59 REPORT #: [id number] PHYSICIAN: JOSE CONNER MD PCP: FANNY REID REPORT IS CONFIDENTIAL AND NOT TO BE RELEASED WITHOUT AUTHORIZATION [address] [address] Signed Copies: ~ Electronically Signed By: JOSE CONNER MD 01/26/25 1221 PATIENT NAME: HANS CORTEZ OPERATIVE REPORT DATE OF : 59 REPORT #: [id number] PHYSICIAN: JOSE CONNER MD PCP: FANNY REID REPORT IS CONFIDENTIAL AND NOT TO BE RELEASED WITHOUT AUTHORIZATION
[2025-01-26 12:53] VITALS: BP 114/64
--- NOTE | 2025-01-26 13:05 | NUR ---
JACK W/PHYSICAL THERAPY ARRIVED AND IN ROOM W/PT AND PT AT THIS TIME.
--- NOTE | 2025-01-26 13:32 | NUR ---
PT UP W/PT IN FWW TO RESTROOM, PT UNABLE TO URINE VOID AT THIS TIME. PT OFF OF UNIT W/PHYSICAL THERAPY.
--- NOTE | 2025-01-26 13:42 | NUR ---
PT BACK FROM PHYSICAL THERAPY. PT ATTEMPTS TO URINE VOID, UNABLE TO URINE VOID. PHYSICAL THERAPY IN ROOM W/PT AT THIS TIME GETTING DRESSED. CALL LIGHT WITHIN REACH.
--- NOTE | 2025-01-26 13:53 | NUR ---
PT REPORTS NEED TO URINE VOID AFTER GETTING DRESSED. PT W/FWW AND JACK W/PHYSICAL THERAPY TO RESTROOM. 100 ML OF CLEAR/YELLOW URINE. PT BACK TO ROOM AND SITTING ON BED AT THIS TIME. CALL LIGHT WITHIN REACH, AT BEDSIDE.
--- NOTE | 2025-01-26 14:05 | NUR ---
VO FOR DC RECEIVED FROM JASMEET PRICE D/T MEETING OF DC CRITERIA. ORAL MED AND ABX GIVEN (SEE EMAR). DC EDUCATION PROVIDED, PT AND PT STATE NO FURTHER QUESTIONS OR NEEDS AT THIS TIME. PT DEMONSTRATES CORRECT USAGE OF INCENTIVE SPIROMETER DEVICE X1. IV DC'ED, WNL. PT OFF OF UNIT VIA WC TO PASSENGER SIDE OF VEHICLE W/1RN ASSIST AND STAND/PIVOT. GAIT IS STEADY. ALL BELONGINGS IN PT POSSESSION. ICE WATER AND ICE PACK PROVIDED FOR RIDE HOME. PT STATES DAUGHTER HAS ALREADY PICKED UP ALL PRESCRIPTIONS. PT STATES NO FURTHER NEEDS OR QUESTIONS.
[2025-01-26 14:13] VITALS: BP 134/68
[2025-01-26] MEDS ORDERED: GABAPENTIN 300 MG CAP PO SCH (15:00)
[2025-01-26] MEDS ORDERED: SENNOSIDES 1 TAB PO SCH (21:00)
[2025-01-27] MEDS ORDERED: DICLOFENAC SOD 75 MG TABEC PO SCH (08:00)
== END 2025-01-26 14:25 | disposition home or self-care (01) ==
LOC: DS 05:38
PROVIDERS: ATTEND Specialist
PROC: 0SRB06Z Replacement of Left Hip Joint with Oxidized Zirconium on Polyethylene Synthetic Substitute, Open Approach (ICD-10-PCS; principal; 2025-01-26 07:00)
DX: M16.12 Unilateral primary osteoarthritis, left hip (principal); E10.9 Type 1 diabetes mellitus without complications; I10 Essential (primary) hypertension; E03.9 Hypothyroidism, unspecified; Z79.899 Other long term (current) drug therapy; Z88.2 Allergy status to sulfonamides
CPT/HCPCS: 0055T; 27130; 01214; 72170; 97161; 97530; A9270; C1776; J0690; J1885; J2405; J2704; J2765; J2795; J3010; J7121